=== PATIENT | female | born 1975 | race Caucasian/White ===

== ENCOUNTER 2023-09-09 22:16 | Emergency (ER) | payer BC, SELFPAY ==
[2023-09-09 22:22] VITALS: BP 177/87; PULSE 55; RESP 18; TEMP 36.5; O2SAT 99; BMI 41.5
--- NOTE | 2023-09-09 22:39 | XR_ITS ---
The [address] [address] Patient Name: SHELIA BALBUENA MRN: [id number] date: 1975 Sex: F Assigned Patient Location: ER Current Patient Location: ER Accession/Order Number: [id number] Exam Date: 09/09/2023 22:58 Report Date: 09/09/2023 23:27 At the request of: LAWRENCE CONNOR Procedure: XR hip LT min 2V EXAM: XR hip LT min 2V HISTORY: The patient is a 48-year-old female with atraumatic pain COMPARISON: None. FINDINGS: No fractures are seen within the proximal left femur or acetabulum. The width and alignment of the left hip joint is maintained. XR/XR hip LT min 2V IMPRESSION: Radiographically negative left hip. Electronically authenticated by: MASHA TORRES Date: 09/09/2023 23:27
--- NOTE | 2023-09-09 22:40 | ED.EXTPRO1 ---
HPI - Extremity Problem General Chief complaint: Extremity Problem, Nontraumatic Stated complaint: HIP PAIN Time Seen by Provider: 09/09/23 22:23 Source: patient Mode of arrival: walk-in Limitations: no limitations History of Present Illness HPI Narrative: 48-year-old female presents for pain to the left hip. She's had it for a week and there was no injury or unusual activity. She points to the lateral aspect of the hip region. No other joint has been hurting and she's never had issues with the left hip. She's been taking ibuprofen but it doesn't help and the pain is moderate. Related Data Home Medications Medication Instructions Recorded Confirmed acyclovir 400 mg tablet 400 mg PO DAILY 09/09/23 09/09/23 cholecalciferol (vitamin D3) 125 5,000 unit PO DAILY 09/09/23 09/09/23 mcg (5,000 unit) tablet esomeprazole sodium 20 mg 20 mg IV DAILY 09/09/23 09/09/23 intravenous solution ferrous sulfate 325 mg (65 mg 325 mg PO DAILY 09/09/23 09/09/23 iron) tablet (Feosol) furosemide 40 mg tablet 40 mg PO PRN edema 09/09/23 losartan 50 mg tablet 50 mg PO DAILY 09/09/23 09/09/23 metoprolol succinate 25 mg 25 mg PO DAILY 09/09/23 09/09/23 tablet,extended release 24 hr potassium chloride 10 mEq 10 meq PO BID 09/09/23 09/09/23 tablet,extended release tramadol 50 mg tablet 50 mg PO Q6H 09/09/23 09/09/23 warfarin 5 mg tablet 5 mg PO DAILY 09/09/23 09/09/23 Previous Rx's Medication Instructions Recorded acetaminophen 300 mg-codeine 30 mg 1 tab PO Q6H PRN pain 5 days #20 09/09/23 tablet tabs Allergies Allergy/AdvReac Type Severity Reaction Status Date / Time meloxicam AdvReac Mild Hypertensio Verified 09/09/23 22:31 n prednisone AdvReac Mild Hypertensio Verified 09/09/23 22:31 n Review of Systems ROS Narrative A ten point review of systems is negative except as noted above. PFSH PFSH Social History Smoking status: Never smoker Exam Narrative Exam Narrative: Nurses note and vital signs reviewed and patient is not hypoxic. General: The patient appears well and in no apparent distress. Patient is resting comfortably on cart. Skin: Warm, dry, no pallor noted. There is no rash noted. Head: Normocephalic, atraumatic Eye: Normal conjunctiva, no drainage Ears, Nose, Mouth, and Throat: oral mucosa is moist. Nares patent. Cardiovascular: Regular Rate and Rhythm Respiratory: Patient is in no distress, no accessory muscle use, lungs are clear to auscultation, no wheezing, rales or rhonchi Back: non-tender GI: soft and nontender Musculoskeletal: the left hip is examined and has no erythema bruise or rash. It has good range of motion. Mild palpable tenderness. No deformity. Left leg not swollen. Neurological: A&O, normal speech Psychiatric: Cooperative Constitutional Vital Signs, click to edit/add: Last Vital Signs Temp 97.7 F 09/09/23 22:22 Pulse 55 L 09/09/23 22:22 Resp 18 09/09/23 22:22 BP 177/87 H 09/09/23 22:22 Pulse Ox 99 09/09/23 22:22 O2 Del Method Room Air 09/09/23 22:22 Course Vital Signs Vital signs: Vital Signs Temperature 97.7 F 09/09/23 22:22 Pulse Rate 55 L 09/09/23 22:22 Respiratory Rate 18 09/09/23 22:22 Blood Pressure 177/87 H 09/09/23 22:22 Pulse Oximetry 99 09/09/23 22:22 Oxygen Delivery Method Room Air 09/09/23 22:22 Temperature 97.7 F 09/09/23 22:22 Pulse Rate 55 L 09/09/23 22:22 Respiratory Rate 18 09/09/23 22:22 Blood Pressure 177/87 H 09/09/23 22:22 Pulse Oximetry 99 09/09/23 22:22 Oxygen Delivery Method Room Air 09/09/23 22:22 MDM - Extremity (Nontraumatic) MDM Narrative Medical decision making narrative: x-ray per radiologist shows no acute findings. She'll be treated symptomatically and was referred to orthopedics. Treatment diagnosis and follow-up were discussed with the patient. Differential Diagnosis Differential diagnosis: Likely other (arthritis, bursitis, tendinitis) Imaging Data left hip x-ray: Radiologist's impression: ITS Impressions Hip X-Ray 09/09/23 22:39 IMPRESSION: Radiographically negative left hip. Electronically authenticated by: MASHA PANDYAANNIEKARLEE Date: 09/09/2023 23:27 Discharge Plan Discharge Chief Complaint: Extremity Problem, Nontraumatic Clinical Impression: Acute pain of left hip Patient Disposition: Home, Self-Care Time of Disposition Decision: 23:37 Condition: Good Mode of Transportation: Private Vehicle Prescriptions / Home Meds: New acetaminophen-codeine 300-30 mg tablet 1 tab PO Q6H PRN (Reason: pain) 5 Days Qty: 20 0RF No Action warfarin 5 mg tablet 5 mg PO DAILY acyclovir 400 mg tablet 400 mg PO DAILY metoprolol succinate 25 mg tablet extended release 24 hr 25 mg PO DAILY cholecalciferol (vitamin D3) 125 mcg (5,000 unit) tablet 5,000 unit PO DAILY tramadol 50 mg tablet 50 mg PO Q6H losartan 50 mg tablet 50 mg PO DAILY esomeprazole sodium 20 mg recon soln 20 mg IV DAILY Rx Instructions: administer over at least 3 mins if given IV push ferrous sulfate [Feosol] 325 mg (65 mg iron) tablet 325 mg PO DAILY furosemide 40 mg tablet 40 mg PO PRN (Reason: edema) potassium chloride 10 mEq tablet extended release 10 meq PO BID Instructions: Hip Pain (ED) Additional Instructions: follow-up with Dr. Barker Do not take tramadol with the Tylenol #3 Stand Alone Forms: Portal Instructions Referrals: Physician,Non-Staff, MD [Primary Care Provider] - 1 week
[2023-09-09] MEDS: ACETAMINOPHEN 300 MG/ 30 MG CODEINE TABLET 1 TAB PO (23:50)
[2023-09-09 23:51] VITALS: BP 163/69; PULSE 50; O2SAT 97
== END 2023-09-09 23:59 | disposition home or self-care (01) ==
PROVIDERS: Emergency Provider Emergency Medicine
DX: M25.552 Pain in left hip (principal); Z79.01 Long term (current) use of anticoagulants
CPT/HCPCS: 73502; 99283

== ENCOUNTER 2023-09-15 08:47 | Outpatient (OUT) | payer BC, SELFPAY ==
--- OUTSIDE RECORDS SUMMARY | 2023-09-15 08:57 | XMS_ITS | CCD ---
Author Name Unknown Address [address] [place] [address] Organization [facility] Care Team Providers Care Freight Loader Name Role Phone SONYA, DR WATERMAN Admitting Unavailable SONYA, DR WATERMAN Attending Unavailable SONYA, DR WATERMAN Primary Care Unavailable SONYA, DR WATERMAN Consulting Unavailable ZIEBER, DR JONAH Estrada Consulting Unavailable SONYA, DR WATERMAN Admitting Unavailable SONYA, DR WATERMAN Attending Unavailable SONYA, DR WATERMAN Primary Care Unavailable SONYA, DR WATERMAN Consulting Unavailable ZIEBER, DR JONAH Estrada Consulting Unavailable SONYA, DR WATERMAN Admitting Unavailable SONYA, DR WATERMAN Attending Unavailable SONYA, DR WATERMAN Primary Care Unavailable SONYA, DR WATERMAN Admitting Unavailable SONYA, DR WATERMAN Attending Unavailable SONYA, DR WATERMAN Primary Care Unavailable SONYA, DR WATERMAN Consulting Unavailable WEST, DR JEANCARLOS Wong Consulting Unavailable HemmerJayleen Unavailable Unavailable Unavailable Unavailable Adria Snyder Primary Care Provider [phone] SonyaCassie Primary Care Provider SONYA, RUGEN MABLONGY Primary Care Unavailable MARCOS WALTON Referring Unavailable SONYA, RUGEN JERIY Primary Care Unavailable MARCOS WALTON Attending Unavailable MARCOS WALTON Referring Unavailable SONYA, RUGEN JERIY Primary Care Unavailable SONYA, RUGEN MABLONGY Primary Care Unavailable SONYA, RUGEN M Primary Care Unavailable SONYA, RUGEN M Consulting Unavailable Bharathi Lopez Attending Unavail able John, Bharathi [place] Admitting Unavail able SONYA, RUGEN M Primary Care Unavailable Bharathi Lopez Attending Unavail able Bharathi Lopez Admitting Unavail able YUNG GORDILLO Attending Unavailable JAYLENE ARANGO Attending Unavailable Allergies Allergy Classification Reported Allergen(s) Allergy Type Date of Onset Reaction(s) Facility (1 source) No Known Medication Allergies; Translations: [No Known Medication Allergies] Propensity to adverse reactions to drug (disorder) [facility] Repository Medications Current Medications Medication Drug Class(es) Dates Sig (Normalized) Sig (Original) perflutren lipid microspheres 1.3 mL in NaCl (PF) 0.9% 10 mL injection (DEFINITY) (3 sources) Start: 02-26-2022 End: 05-28-2023 perflutren lipid microspheres 1.3 mL in NaCl (PF) 0.9% 10 mL injection (DEFINITY) 125 ml sodium chloride 9 mg/ml prefilled syringe (3 sources) Start: 02-26-2022 End: 05-28-2023 sodium chloride 0.9 % (flush) 10 mL (BD POSIFLUSH) Completed/Discontinued Medications Medication Drug Class(es) Dates Sig (Normalized) Sig (Original) acetaminophen 325 mg oral tablet (3 sources) Start: 08-04-2016 take 2 tablets by mouth every six hours as needed acetaminophen (TYLENOL) 325 mg tablet Take 2 tablets by mouth every 6 hours as needed (for mild surgical pain). 0 08/04/2016 Active Comment on above: Take 2 tablets by mo [facility] every 6 hours as needed (for mild surgical pain). acyclovir 400 mg oral tablet (2 sources) Herpesvirus Nucleoside Analog DNA Polymerase Inhibitor, Herpes Simplex Virus Nucleoside Analog DNA Polymerase Inhibitor, Herpes Zoster Virus Nucleoside Analog DNA Polymerase Inhibitor acyclovir (ZOVIRAX) 400 mg tablet Take 400 mg by mouth as needed. For cold sores 0 Active Comment on above: Take 400 mg by mouth as needed. For cold sores aspirin 81 mg chewable tablet (4 sources) Platelet Aggregation Inhibitor, Nonsteroidal Anti-inflammatory Drug Start: 08-04-2016 take 1 tablet by mouth once daily aspirin 81 mg chewable tablet Take 1 tablet by mouth once daily. 0 08/04/2016 Active take 1 tablet by mouth once darrian y Aspirin EC 81 MG Oral Tablet Delayed Release TAKE 1 TABLET DAILY. Quantity: 90 Refills: 3 Ordered: 21-Jan-2022 DO Active Comment on above: Take 1 tablet by [place] once daily. cholecalciferol 0.05 mg oral capsule (2 sources) Vitamin D Cholecalciferol, Vitamin D3, (VITAMIN D-3) 50 mcg (2,000 unit) cap Take by mouth once daily. 0 Active Vitamin D3 125 M CG (5000 UT) Oral Capsule TAKE DIRECTED. Quantity: 0 Refills: 0 Ordered: 21-Jan-2022 DO Active Comment on above: Take by mouth once d aily. docusate sodium 100 mg oral capsule (4 sources) Start: 7 take 1 capsule by mouth once daily docusate sodium (COLACE) 100 mg capsule Take 1 capsule by mouth once daily. 0 07/17/2017 Active Comment on above: Take 1 capsule by mo [facility] once daily. esomeprazole 20 mg delayed release oral capsule (2 sources) Proton Pump Inhibitor take 1 capsule by mouth once daily, then take 6 capsules by mouth in the morning esomeprazole (NEXIUM) 20 mg capsule Take 20 mg by mouth DAILY (6 AM). 0 Active Comment on above: Take 20 mg by mouth DAILY (6 AM). ferrous sulfate 325 mg oral tablet (3 sources) take 1 tablet by mouth once daily ferrous sulfate 325 mg (65 mg iron) tablet Take 325 mg by mouth once daily. 0 Active Comment on above: Take 325 mg by mouth once daily. furosemide 40 mg oral tablet (4 sources) Loop Diuretic Start: 7 take 1 tablet by mouth once daily as needed for edema furosemide (LASIX) 40 mg tablet Take 1 tablet by mouth once daily as needed (fluid retention). 0 07/17/2017 Active Comment on above: Take 1 tablet by [place] once daily as needed (fluid retention). melatonin 10 mg oral capsule (4 sources) Start: 7 take 1 capsule by mouth once daily at bedtime melatonin 10 mg cap Take 1 capsule by mouth daily at bedtime. 0 07/17/2017 Active take 1 tablet by mouth at bedtim e Melatonin 10 MG Oral Tablet TAKE 1 TABLET Bedtime Quantity: 0 Refills: 0 Ordered: 21-Jan-2022 DO Active Comment on above: Take 1 capsule by mo [facility] daily at bedtime. 24 hr metoprolol succinate 25 mg extended release oral capsule (1 source) beta-Adrenergic Jarad take 25 mg by mouth once daily metoprolol succinate 25 mg CSpX Take 25 mg by mouth once daily. 0 Active Comment on above: Take 25 mg by mouth once daily. penicillin v potassium 500 mg oral tablet (3 sources) Start: 06-22-2017 End: 05-02-2022 take 0.5 tablet by mouth twice daily penicillin V potassium (V-CILLIN, VEETIDS) 500 mg tablet Take 0.5 tablets by mouth twice daily. 90 tablet 0 06/22/2017 05/02/2022 Discontinued (Other) Comment on above: Take 0.5 tablets by mouth twice daily. potassium chloride 20 meq extended release oral tablet (4 sources) Start: 07-17-2017 take 1 tablet by mouth once daily as needed for edema potassium chloride 20 mEq TbER Take 1 tablet by mouth once daily as needed (fluid retention; take with Lasix). 0 07/17/2017 Active take 1 tablet by [place] once daily as needed Potassium Chloride ER 10 MEQ Oral Tablet Extended Release TAKE 1 TABLET Daily prn Quantity: 0 Refills: 0 Ordered: 21-Jan-2022 DO Active Comment on above: Take 1 tablet by patsy th once daily as needed (fluid retention; take with Lasix). predniSONE 1 mg oral tablet (1 source) take 1 tablet by mouth once daily as needed predniSONE 1 MG Oral Tablet TAKE 1 TABLET Daily prn Quantity: 0 Refills: 0 Ordered: 21-Jan-2022 DO Active raNITIdine 75 mg oral tablet (3 sources) Histamine-2 Receptor Antagonist Start: 7 End: 2 take 1 tablet by mouth once daily ranitidine (ZANTAC 75) 75 mg tablet Take 1 tablet by mouth once daily. 0 07/17/2017 05/02/2022 Discontinued (Other) Comment on above: Take 1 tablet by patsy [place] once daily. traMADol hydrochloride 50 mg oral tablet (1 source) Opioid Agonist take 1 tablet by mouth three times daily as needed traMADol HCl - 50 MG Oral Tablet TAKE 1 TABLET 3 TIMES DAILY NEEDED. Quantity: 0 Refills: 0 Ordered: 21-Jan-2022 DO Active warfarin sodium 5 mg oral tablet (4 sources) Vitamin K Antagonist Start: 7 warfarin (COUMADIN) 5 mg tablet Take 5 mg by mouth daily as directed. M&F take 2.5 mg, 5 mg all other days 30 tablet 1 07/17/2017 Active take 7 tablets by mouth once War farin Sodium 5 MG Oral Tablet take as directed per PCP Quantity: 0 Refills: 0 Ordered: 21-Jan-2022 DO Active Comment on above: Take 1 tablet by patsy th daily as directed. Next INR check 08/06 Take 5 mg by mouth d aily as directed. M&F take 2.5 mg, 5 mg all other days Problems Active Problems Problem Classification Problem Date Documented Date Episodic/Chronic Essential hypertension (3 sources) Essential hypertension; Translations: [Essential (primary) hypertension] Onset: 07-28-2016 08-04-2016 Chronic Heart valve disorders (20 sources) History of aortic valve replacement; Translations: [Heart valve replaced by other means] Onset: 07-24-2016 Chronic Nonmalignant breast conditions (5 sources) Unspecified lump in the right breast, unspecified quadrant; Translations: [Unspecified lump in the right breast, upper outer quadrant] Onset: 09-06-2021 Episodic Other aftercare (1 source) Drug therapy finding; Translations: [Long-term (current) use of other medications] Episodic Other nutritional; endocrine; and metabolic disorders (1 source) Body mass index 40+ - severely obese; Translations: [Morbid obesity] Chronic Other nutritional; endocrine; and metabolic disorders (1 source) Body mass index 30+ - obesity; Translations: [Obesity, unspecified] Chronic Other nutritional; endocrine; and metabolic disorders (1 source) Obesity, unspecified; Translations: [Obesity (BMI 30-39.9)] Onset: 05-02-2022 Chronic Other screening for suspected conditions (not mental disorders or infectious disease) (8 sources) Other abnormal and inconclusive findings on diagnostic imaging of breast; Translations: [Encounter for screening mammogram for malignant neoplasm of breast] Onset: 04-26-2021 Episodic Residual codes; unclassified (1 source) History of tricuspid valve repair; Translations: [Other specified postprocedural states] Episodic Residual codes; unclassified (1 source) Other specified postprocedural states; Translations: [S/P TVR (tricuspid valve repair)] Onset: 05-02-2022 Episodic Unclassified (3 sources) SUMMARY Onset: 07-31-2016 08-04-2016 Past or Other Problems Problem Classification Problem Date Documented Date Episodic/Chronic Administrative/social admission (3 sources) Discharge status; Translations: [Encounter for administrative examinations, unspecified] Onset: 07-24-2016 08-04-2016 Episodic Other aftercare (3 sources) Anticoagulant effect; Translations: [Encounter for therapeutic drug level monitoring] Onset: 07-29-2016 08-04-2016 Episodic Unclassified (1 source) Never smoked tobacco; Translations: [Never a smoker] Results Test Name Value Interpretation Reference Range Facility Coding Summaryon 06-04-2022 Coding Summary HTMLBase 64 TfslqamuTCw2oVa+PGhlY WQ+CK2RHXKuF70pyIXguH 0KH0kPPR4PKSEVCIIOLS4 VKO5tjOC7JVfaO5OrqkZs CsbmiKWpXJ51GAl5PIC5j JroWIcezQ9qsWMvJ5d3Ec ZdIQ48vU40NZzgHRShQwM 3LjZpbjsgbWFy P2mgBmHnjSOuWqv+PHRhY mxlIHdpZHRoPScxMDAlJy PsyJehMN8iOz7mQTPzCXM vbGxhcHNlOiBj g0jrZKLrROnqOX6zjQlsO 2FbnKQ6KYNcw8t7Ac38jM I+NEAkKUL3oVhzZBnwg37 4TlIts5duDUP0 wLYtBGfmZXY7Z18ko2T1B APwTHDjYYB6fGI8kA9oqE phfjtdK9RtiMGoFbC8NGI 0yADcmX0phFsy kuolkZ2gDxa+X50IUL7IY NYJGV7FUxc1A5QsPmmhmM I+DG55YOEyOO20iUZtqEL ea9likNq2DlLz HIQyAEO7cMrbIGxdz6JgV SVaU94vmLSuk5U1TFTezW rjiTQrTcSkvSM2vP3aAJj wbhbzj7flnieb Kozci4mzkg15qM99O55dQ AkkNHGcKXR5DAZiSYZkdW bbyn2asV8hUz0+GPgti4j oy0jolFf3RiEh FSAqoiQrmUcpCOO6o6WzK a79H3CcnZdtv2AyBrq2aa 62xPJlw8T4yCM2MKwhKFM sfD4uYNtmTtI0 KNHpSrZlpQ33lJNwRTrsD x2xeDtjcOwjVF0tAJJefz wtLMUeeV0lHRHqqVEfxZd pZZ3xSOEprssx b743GzWdGSO9EJStzLDdL 5AslO3yFpUlDKPsWRQuH0 RnbQEjCQcuK070XRybUpY 5RQEvqxDhB6Yb VYLjjJddQwQ2d1H1Vb7Wn 7JojicdCJP1BXnsIGRwVt S0DdLcBuE3H0YqOsv0CZO ttFvdRL0lT1Bu CUQaaonmmzvonUB3QZOpB HNgeV64hEBzLYfqXg2au8 X6k327KEUlFZGqjL48Ae2 udDogMTBwdCBU sU7fjexvx4abtczkLvAtR PSaVQy2JNk6KBKlfHuhDd VxOTS4RzS0YPF0lUByyX9 bmFzcfosyiX5w Oyc+U87keY1aVJM8FZI9f cedZHQhtmFeMA01IA95B7 RyPjwvdGFibGU+PGRpdiB slKinPC5fHzHb o1oni0WaPOcfE0LwFVZgF ZtaFoi0SPKiSZA5pEL3eO 5rETMxHNltl7G0rXY4P1A iceBdgw8hh0lq TKYbJMicG96gyGQmw8I9K XCytKG9AONfoTpqXfYpqI 93Oyc+FAFswQdpp7VzWnq hf3uni6nuxMs9 RlLzDBAyegOrvOsnQXO1x 9FxQy01S06oLMqdSUImDC HyIIOzQEHjmTvuil9yaH0 wIi8+PGNvbCB3 rYA3lK4pUNFvTvZ8BThcK 901MxDjeNCwKyiye7jvw0 fnsTq8UrEwMINwsvQiaDi zDID7a8JtNl62 P04eIKnhFVCaXYScWGElJ OHqmHkgbm1pqL5tCn1+PC 6iw3ilwa23bS80lEZ+PHR tBOC8tFzyXNvx GWNsmR3uZWbnEpU3BOUyE bTtbD32sMMoPYdtXi1spK najKjtSS2kARVdudwjh19 1UgDzr0cjNLJn wCZoGOfsDIF5C20qy0Q7Y ZGqLXQeMHV4nCK2rO4ppF lnbjogbGVmdDsgdmVydGl jOEwqZJkbM421 IHRvcDsnPlBhdGllbnQgT tMqWMz4I2DfYha6XNDrbB cbZE4jlFUuPXwxZb3etSm xnKqlCP8xNKDb ghxun924LwXfo1bdZPIgt NFnXAhgWHQ8O61vb5S2EG VdGHLeMMP1uPA2eE8mqGh nbjogbGVmdDsg enXfdYlrCEcnYRyfA288D HRvcDsnPkJpcnRoIERhdG E1CF24XC30wFKkc1H4tKZ 7P9FvQNElxoln rhuijPA2EKUwWRXysZ58G d0pvUmrMy3nTSSaIDX2AN OdgLSlM9FsxX6xAfQvVSJ eUKNxK9GfpPWw EQzxL287QGmmWyH2ENCvn rUvS7VqQHVwpBrhMqZ3s9 G6De4GY0W8HJ39IQ12wZU wc5A9wZG6K5Jb OHOixamtsaqqsOJ6AGYdU UBlxY32Do3erCisDf0xRW ZqRCU0DWIntFLlE6AfvH8 yOiAjMDAwMDAw E1LykYIeATekL944CDuiN mN7THShddNeD9JeOLRrtQ ugGoH4g9W7Zy9JTEy5OJ9 1VO60wVBuy6U2 hPS6V3NjHAVwnswngarcf EY6NYBqRJQfcP10Gf9rrU vnIt5xNMItFZZ6IUVggWT kP2QgnC0hTsXs MWOoICMmA5GheOCxTBjiQ 188LMrbNkC8FWIgswFmS2 TiZOQriRxmHiD4q9R2Xb2 UDSRsSD07ROO8 nDT6UM87VD62X4MbEftmo GFibGU+PHRhYmxlIHdpZH RoPScxMDAlJyBzdHlsZT0 pGr0hHTDcLCYb xMhqqBQsWnFxf8tfKGWtA EovVF4jhOxsW2LboCH7OR Xzy9g3Kj83Z80fG4FvdEC +HSDfxPX2pYC4 fJ5kTvLkYiZ0XOulG985J nNsqYQwCmtep6uio9qjhB o9VkC9FMVzfgQqzJwlOGW 8h1SbCv69A77w IHdpZHRoPSIxNSUiIHZhb Iwbhs5ypR7jGp9+PGNvbC Q1vLM2mP3yJnGkWnE6YJz lB005RzEqtCPo Xvmpz2oyv6gjsKh1VaKqJ XMkqbFqrHqwYTX8t5ByQl 43X3GphDexf8WnHeo3tr5 6hSJrw8J1mHA1 F2CbOGKzidrghCEjkYyoA S6vFVGejhehVKAajU2iOC GnR6k0OnApIiB2KEdtQ4H geqQ1PWGtfEHq OUbiMXY7S17ra2V3PFDmM EBuADU6vVI9zS5xvNfdju ogbGVmdDsgdmVydGljYWw wNUpzS497YVKq kUkvKYFbiO4eIPOsuPSmq BraVX2vURQttryqQvZYY7 VSUywgSkFRVUxBTiBTPC9 6PU97bNMeg1Y9 lDZ5F1RaHWIbzoayindqn XX6GQYbMNIgyJ09xDFuLS luOr1ff8V4d491XSTuXNZ nyA59Ky8uzPyj KGIwvNSUaL7mfbmqt9uos skrCxFrSTVcUQi9WKy9JK XcbKleZhAcDIM0DfN5MYQ 5tVBbmY9jnZcz rtibrX1zIyh+MDcvMjcvM Og9NNvokDK+STIvNTE6tA smUXuhQWZhgZ7iWRSfS6k 3JoAbBaG2JXbw X6ChMHNncggzAp64vB2zJ xLaJvG0ZCytQ3IizyW3KQ CviFYlZEvyVXC4Q73ts4F 4PGXqJFZbGQO3 eGB3qF5zrReqxayndRYsv DsgdmVydGljYWwtYWxpZ2 41HVSezQwzYcY3BWpzWKG vTK15BT58tVHh o5T8xZT3M2EyLFSjswuid felsZM1ALAyFZHmsC68fO CfGKxfIf8in6P4s183DIV nPKSlcG55Xl2p uOkpKXTltHLYeT0dqyqal 2mldfjeOsEuJXXpLFf3EB u4FFPjyYisDpKjOJF6EuQ 0DZD4zQQgsP6x iGjvvwcplA6sMwp+RkVNQ QjNWI74NK14nGAzy4P4bK D4A9GmPSIvvimqzvdelGX 3MWNlHDNzhR20 kJMaELstVy7co3W2v123O KBhYFUcuH07Ju6gqUhrMK VhfECUnV7xetdbt5melir gIzAwMDAwMDt0 KAy7ZLXxgRkqNdBaPLQ0A oU5LBG6zIWfkT8aeQyglx aolM1aPdr+GFQ7YSH4nnu awiz3Z8QhQmrk dHI+JB63XSWxQJ85oJEdz HIna7uokOs0BeJjGAIqHA V4eOgmHGtvk3MfKAZbN50 nbKUtp4E8VORx eZxzyMCdVsQjxQX5tK2yY Abrieyqj5zsdvcdPknqe3 enqo55bZ54G05aTAjnPGH oPSIzMCUiIHZh oBpggo0cbH8cYu2+PGNvb SS5bBV4pZ9fOyHtQeH0UZ tyK327NrDeeWUtGwbyl3x ay4ynaBt5MkGu BSZwfkUymRdsTDI0x3YcR z44G04bVRkmONCbOJEjBT BzEQLqnMgpdv8rbS7pHg0 +YN6dm3mzgf29 dH39kVD+OXNxTMF4qNvhG FizFDGauL0iBBiwXoG1PJ WoQpDuuY38xVQnVQfrZk0 ohEvdnOkyAB8g IOZwaetkg142SoUkl9dbL UNlcNUzCAnoHZP2D47hk5 U7XIXtOZHvDBX4yUC6mL4 hbGlnbjogbGVm dDsgdmVydGljYWwtYWxpZ 099ZRXriEupFiHqxCCgT8 ixxpNPWQ1vYtdkcKV+PHR vPEI0hMwxRJam JXQmkJ9oKOYrY0c7QqLeP pB1URpuF2NmlqN1QSYmfY JdQVSufAXThN4ozqqdr8k vcjogIzAwMDAw JYi9KDa9PMCyzDfiZcFkQ ML8GhQ6LJB0hIBdiY4psP drgysjeI1sKxa+RklOOjw vdGQ+PHRkIHN0 iAzwQHcySQAvdZ1kWSXrN 2k3SpPwXfC6GGqpQ1Lakg Y1PSNyySNpQOOzsUMFlQ7 jvrjfi5psqudx PeTvFWJaXYu6MOo4UQAhi EifUgSaEHG1OfD2YKJ5mV HmaZ9lgTlcmghdzD8vZnh +TVJOOjwvdGQ+ SPYzIBB7hFwoCJbaTIEem Z7zOTTzF0j8FnJrLtM4XY tiG8OcmdT9HNTldHMaCCA mnCWQuR7dpyyt y3mcejysOrSzWAEbWZo1O Az3LYOygBkzMoHqDQW5Qu E2DTN8nHQfuC6glRdgfwf woO2oOup+UGF5 CWH0AQ11ZG78I2IqJpsqo GFibGU+PHRhYmxlIHdpZH RoPScxMDAlJyBzdHlsZT0 zPj5vBZGcELZf bGx (more content not included)... [facility] Consent Formson 06-03-2022 Consent Forms [id number]#1 [facility] Instructions [id number]#1. [facility] [id number]#1 [facility] Outside Recordson 06-03-2022 Outside Records [id number]#1. [facility]-02-2022 Anesthesia Note Patient: SHELIA BALBUENA Age: 47 years Sex: FEMALE : 1975 Associated Diagnoses: None Author: Sky Parsons MD Postoperative Information Post Operative Note: Operative Day. Anesthetic utilized: Monitored anesthesia care. Health Status Allergies: Allergic Reactions (All) No Known Medication Allergies Problem list (past medical history): All Problems Cardiomyopathy / SNOMED CT 333367040 / Confirmed H/O aortic valve insufficiency / SNOMED CT 887727697 / Confirmed History of obesity / SNOMED CT 166583170 / Confirmed Mitral valve insufficiency / SNOMED CT 66716232 / Confirmed Tricuspid valve insufficiency / SNOMED CT 143820209 / Confirmed Physical Examination VS/Measurements Vital Signs (last 24 hrs) Last Charted Heart Rate Monitored 65 bpm (JUN 02 17:39) Resp Rate 16 br/min (JUN 02 17:39) SBP 124 mmHg (JUN 02 17:39) DBP 68 mmHg (JUN 02 17:39) Weight 115.40 kg (JUN 02 12:45) Height 167.64 cm (JUN 02 12:45) Review / Management Condition: Stable. Assessment Anesthetic outcome No anesthetic complications noted. Adequate pain relief. adequate hydration. Pt awake, alert, and conversant. No Complaint of nausea and vomiting. Plan Transfer/ Discharge: Patient can be discharged from PACU when criteria met. Condition good. [Electronically Signed on: 06/02/2022 17:54 EDT] Sky Parsons MD [Verified on: 06/02/2022 17:54 EDT] Sky Parsons MD [facility] Anesthesia Note Patient: SHELIA BALBUENA Age: 47 years Sex: FEMALE : 1975 Associated Diagnoses: None Author: Sky Parsons MD Preoperative Information Anesthesia history: Patient history: No difficult intubation, No malignant hyperthermia. Family history: No malignant hyperthermia. Review of Systems Constitutional: Negative. Respiratory: Negative, No shortness of breath. Cardiovascular: No chest pain. Neurologic: Alert and oriented X4. Health Status Allergies: Allergic Reactions (All) No Known Medication Allergies Current medications: Home Medications (14) Active acyclovir 400 mg oral tablet 400 mg = 1 tab(s), PO, Daily aspirin 81 mg oral delayed release tablet 81 mg = 1 tab(s), PO, Daily docusate sodium 100 mg oral tablet 100 mg = 1 tab(s), PRN, PO, Daily esomeprazole 20 mg oral delayed release capsule 20 mg = 1 cap(s), PO, Daily FeroSul 325 mg (65 mg elemental iron) oral tablet 325 mg = 1 tab(s), PO, Daily ibuprofen 800 mg oral tablet 800 mg = 1 tab(s), PRN, PO, Daily Lasix 40 mg oral tablet 40 mg = 1 tab(s), PRN, PO, Daily melatonin 10 mg oral tablet 10 mg = 1 tab(s), PRN, PO, Once a day (at bedtime) Metoprolol Succinate ER 25 mg oral tablet, extended release 25 mg = 1 tab(s), PO, Daily potassium chloride 10 mEq oral capsule, extended release 10 mEq = 1 cap(s), PRN, PO, Daily traMADol 50 mg oral tablet 50 mg = 1 tab(s), PRN, PO, q12hr Vitamin D3 50 mcg (2000 intl units) oral tablet, chewable warfarin 5 mg oral tablet 2.5 mg = 0.5 tab(s), PO, MF warfarin 5 mg oral tablet 5 mg = 1 tab(s), PO, [id number] Problem list (past medical history): All Problems Cardiomyopathy / SNOMED CT 252307475 / Confirmed H/O aortic valve insufficiency / SNOMED CT 875380886 / Confirmed History of obesity / SNOMED CT 488649274 / Confirmed Mitral valve insufficiency / SNOMED CT 55726622 / Confirmed Tricuspid valve insufficiency / SNOMED CT 455538164 / Confirmed Histories Family History: No family history items have been selected or recorded. Procedure history: Cardiac catheterization, left heart (893823973). Cholecystectomy (86296422). Ring annuloplasty (522157323). AVR - Aortic valve replacement (1244511343). Entire MV - Mitral valve (1615092185). History of 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 ([id number]). Comments: 05/29/2022 11:11 Olinda Yanez RN repair, not replacemnt Cardiac catheterization, right heart (56590052). Social History Electronic Cigarette/Vaping Assessment Electronic Cigarette Use: Never. Alcohol Assessment Use: Never. Tobacco Assessment Never tobacco user Tobacco Use:. Substance Abuse Assessment Substance use: Never. . Social & Psychosocial Habits Alcohol 05/29/2022 Alcohol Use: Never Substance Abuse 05/29/2022 Substance use: Never Tobacco 05/29/2022 Smoking tobacco use: Never tobacco user Electronic Cigarette/Vaping 05/29/2022 Electronic Cigarette Use: Never . 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 No issues since valve replacements Physical Examination VS/Measurements Vital Signs (last 24 hrs) Last Charted Heart Rate Peripheral L 55 bpm (JUN 02 12:45) Resp Rate 18 br/min (JUN 02 12:45) SBP H 173 mmHg (JUN 02 12:45) DBP H 97 mmHg (JUN 02 12:45) Weight 115.40 kg (JUN 02:45) Height 167.64 cm (JUN 02 12:45) Airway: Mallampati classification: II (soft palate, fauces, uvula visible). Temporomandibular joint mobility: Good. Mouth: Adequate opening, Teeth ( Within normal limits, chipped upper right molars ). Neck: Full range of motion. Respiratory: Lungs are clear to auscultation. Cardiovascular: Regular rhythm. Neurologic: Alert, Oriented. Review / Management Laboratory Results Plan [employer] [place] [employer]#( A) physical status classification: Class III. Anesthetic Preoperative Plan Anesthesia: Monitored anesthesia care. Anesthetic plan, risks, benefits, and alternatives discussed with the patient and/or family. Patient verbalized understanding. [Electronically Signed on: 06/02/2022 15:30 EDT] Sky Parsons MD [Verified on: 06/02/2022 15:30 EDT] Sky Parsons MD [facility] Inpatient Patient Summaryon 06-02-2022 [place] [id number] Patient Discharge Instructions Name: ASHA BALBUENATATIANNA Duhnam : 1975 Patient Address: [address] [place] [address] Primary Care Provider: Name: CASSIE HASSAN MD After you are discharged if you find you have any questions, please, call [phone] ext [phone] to speak to a nurse. Discharge Diagnosis: Right carpal tunnel syndrome Prescription Information: If you have been given a prescription for narcotics, seek immediate medical attention if you have any difficulty breathing or any sudden status changes such as confusion and sleepiness. If you or anyone you know is experiencing suicidal thoughts, mental health, alcohol and/or drug addiction problems; contact the [facility] 09/03 Crisis Hotline -Text 4HOPE to 741143. If you received any narcotics, sedation, or any other medication that causes drowsiness for the next 24 hours, unless otherwise directed: ? Do not drive a car. ? Do not operate machinery such as power tools, lawn mowers, drills, sewing machines, or stoves ? Avoid alcoholic beverages and drugs for allergies, nerves, or sleep ? Do not make important personal or business decisions or sign any legal documents [facility] would like to thank you for allowing us to assist you with your healthcare needs. The following includes patient education materials and information regarding your injury/illness. SHELIA BALBUENA has been given the following list of follow-up instructions, prescriptions, and patient education materials: Follow-up Instructions With: Address: When: CASSIE HASSAN [address] [place] [id number] Business (1) With: Address: When: Manjinder Vargas [address] [place] [address] [address] [place] [address] [facility] (1) 06/10/2022 2:00 PM Medications During the course of your visit, your medication list was updated with the most current information. The details of those changes are reflected below: Medications to Continue That Have Not Changed Other Medications acyclovir (acyclovir 400 mg oral tablet) 1 tab(s) Oral every day. aspirin (aspirin 81 mg oral delayed release tablet) 1 tab(s) Oral every day. cholecalciferol (Vitamin D3 50 mcg (2000 intl units) oral tablet, chewable) docusate (docusate sodium 100 mg oral tablet) 1 tab(s) Oral every day as needed for constipation. esomeprazole (esomeprazole 20 mg oral delayed release capsule) 1 cap(s) Oral every day. ferrous sulfate (FeroSul 325 mg (65 mg elemental iron) oral tablet) 1 tab(s) Oral every day. furosemide (Lasix 40 mg oral tablet) 1 tab(s) Oral every day as needed Other (see comment). ibuprofen (ibuprofen 800 mg oral tablet) 1 tab(s) Oral every day as needed for pain. melatonin (melatonin 10 mg oral tablet) 1 tab(s) Oral once a day (at bedtime) as needed as needed for insomnia. metoprolol (Metoprolol Succinate ER 25 mg oral tablet, extended release) 1 tab(s) Oral every day. potassium chloride (potassium chloride 10 mEq oral capsule, extended release) 1 cap(s) Oral every day as needed o. traMADol (traMADol 50 mg oral tablet) 1 tab(s) Oral Every 12 hours scheduled time as needed as needed for pain. warfarin (warfarin 5 mg oral tablet) 1 tab(s) Oral Thursday and Thursday. warfarin (warfarin 5 mg oral tablet) 1 tab(s) Oral Thursday, Thursday, , Thursday, an. It is important to always keep an active list of medications available so that you can share with other providers and manage your medications appropriately. As an additional courtesy, we are also providing you with your final active medications list that you can keep with you. acyclovir (acyclovir 400 mg oral tablet) 1 tab(s) Oral every day. aspirin (aspirin 81 mg oral delayed release tablet) 1 tab(s) Oral every day. cholecalciferol (Vitamin D3 50 mcg (2000 intl units) oral tablet, chewable) docusate (docusate sodium 100 mg oral tablet) 1 tab(s) Oral every day as needed for constipation. esomeprazole (esomeprazole 20 mg oral delayed release capsule) 1 cap(s) Oral every day. ferrous sulfate (FeroSul 325 mg (65 mg elemental iron) oral tablet) 1 tab(s) Oral every day. furosemide (Lasix 40 mg oral tablet) 1 tab(s) Oral every day as needed Other (see comment). ibuprofen (ibuprofen 800 mg oral tablet) 1 tab(s) Oral every day as needed for pain. melatonin (melatonin 10 mg oral tablet) 1 tab(s) Oral once a day (at bedtime) as needed as needed for insomnia. metoprolol (Metoprolol Succinate ER 25 mg oral tablet, extended release) 1 tab(s) Oral every day. potassium chloride (potassium chloride 10 mEq oral capsule, extended release) 1 cap(s) Oral every day as needed o., takes as needed with Lasix traMADol (traMADol 50 mg oral tablet) 1 tab(s) Oral Every 12 hours scheduled time as needed as needed for pain. warfarin (warfarin 5 mg oral tablet) 1 tab(s) Oral Mond (more content not included)... Normal [facility] MAGR Intraoperative Recordon 06-02-2022 MAGR Intraoperative Record MAGR Intra-Op Record Summary Primary Physician: Bharathi Lopez DO Finalized Date/Time: 06/02/22 18:11:29 Pt. Name: SHELIA BALBUENA /Sex: 1975 FEMALE Med Rec #: [id number] Physician: Bharathi Lopez DO Financial #: [id number] Pt. Type: D Room/Bed: / Admit/Disch: 06/02/22 12:27:28 - Institution: Case Times MAGR Entry 1 Patient In Room Time 06/02/22 17:03:00 Out Room Time 06/02/22 17:37:00 Anesthesia Start Time 06/02/22 17:03:00 Stop Time 06/02/22 17:42:00 Surgery Start Time 06/02/22 17:22:00 Stop Time 06/02/22 17:35:00 Last Modified By: Dahlia Mendenhall RN 06/02/22 17:45:00 Case Attendance MAGR Entry 1 Entry 2 Entry 3 Case Attendee Bharathi Lopez Robert M MD Long, Barbara RN Andrew DO Role Performed Surgeon - Primary Anesthesiologist of [employer] Wheel Operator Record Time In 06/02/22 17:03:00 06/02/22 17:03:00 06/02/22 17:03:00 Time Out 06/02/22 17:37:00 06/02/22 17:37:00 06/02/22 17:37:00 Procedure Carpal Tunnel Carpal Tunnel Carpal Tunnel Release(Right) Release(Right) Release(Right) Last Modified By: Dahlia Mendenhall RN, Barbara RN Long, Barbara RN 06/02/22 17:37:37 06/02/22 17:37:37 06/02/22 17:37:37 Entry 4 Entry 5 Case Attendee Azeb Farley CST, CST/Kristi SIMMS PRODUCT ARCHITECT Role Performed Scrub Personnel Supervisor [employer] Time In 06/02/22 17:03:00 06/02/22 17:03:00 Time Out 06/02/22 17:37:00 06/02/22 17:37:00 Procedure Carpal Tunnel Carpal Tunnel Release(Right) Release(Right) Last Modified By: Dahlia Mendenhall RN, Barbara RN 06/02/22 17:37:37 06/02/22 17:37:37 Surgical Procedures MAGR Pre-Care Text: A.20 Verifies operative procedure, surgical site, and laterality Im.150 Develops individualized plan of care Entry 1 Procedure Carpal Tunnel Release Primary Procedure Yes Primary Surgeon Bharathi Lopez Right Pietro DO Surgeon Comment RELEASE RIGHT CARPAL Start 06/02/22 17:22:00 TUNNEL Stop 06/02/22 17:35:00 Anesthesia Type MAC Surgical Service Orthopedics Wound Class Clean Technique Details Closure Technique Primary Entire procedure No was performed via laparoscope or robotic assistance Last Modified By: Dahlia Mendenhall RN 06/02/22 17:37:38 Post-Care Text: O.730 The patient's care is consistent with the individualized perioperative plan of care General Case Data MAGR Pre-Care Text: A.350.1 Classifies surgical wound Entry 1 Case Information OR MAGR OR 01 Case Level Level 3 Wound Class Clean Specialty Orthopedics ASA Class 3 Diagnosis Preop Diagnosis CARPAL TUNNEL SYNDROME Postop Same As Preop Yes right Postop Diagnosis CARPAL TUNNEL SYNDROME right Blunt or No Is the procedure No penetrating injury considered occured prior to Emergent/Urgent? the start of the procedure: Last Modified By: Dahlia Mendenhall RN 06/02/22 17:27:29 Post-Care Text: O.760 Patient receives consistent and comparable care regardless of the setting Time Out MAGR Entry 1 Time out date/time 06/02/22 17:21:00 All team members Yes have introduced themselves by name and role Surgeon, Yes Surgeon reviews Yes anesthesia, nurse critical or confirm patient, unexpected steps, site, procedure operative duration, anticipated blood loss Anesthesia team Yes Nursing team Yes reviews any reviews sterility patient-specific (including concerns indicator results) and equipment issues/concerns Antibiotic Last Modified By: Dahlia Mendenhall RN 06/02/22 17:27:46 Patient Positioning MAGR Pre-Care Text: A.280 Identifies baseline musculoskeletal status Im.40 Positions the patient Im.80 Applies safety devices Entry 1 Procedure Carpal Tunnel Body Position Supine Release(Right) Left Arm Position Extended on padded arm Right Arm Position Extended on padded arm board board Left Leg Position Extended Right Leg Position Extended Feet Uncrossed? Yes Press Points Checked Yes Positioning Device Arm Boards, Arm Strap, Outcome Met (O.80) Yes Pillow, Safety Strap Last Modified By: Dahlia Mendenhall RN 06/02/22 17:27:54 Post-Care Text: E.290 Evaluates musculoskeletal status O.80 Patient is free from signs and symptoms of injury related to positioning Skin Prep MAGR Pre-Care Text: A.30 Verifies allergies Im.270 Performs skin preparation Im.270.1 Implements protective measures to prevent skin and tissue injury due to chemical sources Entry 1 Skin Prep Syntegrity Prep Agents (Im.270) 7.5% Povidone-Iodine Prep By Dahlia Mendenhall RN Scrub 10% Povidone-Iodine [place] Prep Area (Im.270) Elbow and forearm, Hand Skin Prep Agent Dry Yes Without Pooling Hair Removal Syntegrity Hair Removal Methods No hair removal performed Outcome Met (O.100) Yes Last Modified By: Dahlia Mendenhall RN 06/02/22 17:28:16 Post-Care Text: E.10 Evaluates for signs and symptoms of physical injury to skin and tissue O.100 Patient is free from signs and symptoms of chemical in (more content not included)... [facility] [place] [facility] Phase II Record Summary Primary Physician: Bharathi Lopez DO Finalized Date/Time: 06/02/22 18:29:55 Pt. Name: SHELIA BALBUENA D.O.B./Sex: 1975 FEMALE Med Rec #: [id number] Physician: Bharathi Lopez DO Financial #: [id number] Pt. Type: D Room/Bed: / Admit/Disch: 06/02/22 12:27:28 - Institution: Phase II Case Times MAGR Pre-Care Text: Patient is free from s/s of injury. Patient remains free from compromised physical state related to surgery or anesthesia. Patient comfort maintained. Patient/family verbalize understanding of discharge instructions. Entry 1 In PACU II 06/02/22 17:39:00 Discharge from PACU 06/02/22 18:29:00 II Last Modified By: Dahlia Mendenhall RN 06/02/22 18:29:52 Post-Care Text: The patient remains free from s/s of injury. Patient's vital signs stable, circulation maintained, return to preop mental and physical status, opsite/dressing intact, minimal or absent nausea and vomiting, tolerates po intake. Patient verbalizes adequate pain control. Patient/family express understanding of discharge instructions. Finalized By: Dahlia Mendenhall RN Document Signatures Signed By: Dahlia Mendenhall RN 06/02/22 18:29 [facility] Preoperative Record MAGR Pre-Op Record Summary Primary Physician: Bharathi Lopez DO Finalized Date/Time: 06/02/22 17:25:46 Pt. Name: SHELIA BALBUENA Roly /Sex: 1975 FEMALE Med Rec #: [id number] Physician: Bharathi Lopez DO Financial #: [id number] Pt. Type: D Room/Bed: / Admit/Disch: 06/02/22 12:27:28 - Institution: Pre-Op Case Times MAGR Pre-Care Text: Patient will be optimally prepared for surgery. Patient is free from s/s of injury. Provide information to patient/family related to plan of care. Verify patient allergies. Confirm identity and verify consent before the operative or invasive procedure. Entry 1 Patient Arrival Time 06/02/22 12:49:00 Preop Departure 06/02/22 17:02:00 Last Modified By: Dahlia Mendenhall RN 06/02/22 17:25:40 Post-Care Text: Patient is prepared mentally and physically and is ready for surgery. The patient remains free from s/s of injury. Patient/family express understanding of plan of care and participate in decisions affecting his or her perioperrative plan of care. Allergies documented appropriately. Patient identifiers and consent correct. General Comments: Reviewed not to do anything for the next 24 hours that requires concentration. Denies chest pain, shortness of breath or illnessess. Denies pacemaker/defib. Denies sleep apnea. Finalized By: Dahlia Mendenhall RN Document Signatures Signed By: Dahlia Mendenhall RN 06/02/22 17:25 [facility] PT/PTTon 06-02-2022 INR Coag (PPP) [Relative time] 1.64 {INR} High 0.91-1.11 [facility] Comment on above: Performed By: #### 6 [id number] ####[facility] (DEFAULT)[address] [place] [address] 46976 PT 17.3 second(s) High 9.7-11.8 [facility] Comment on above: Performed By: #### 6 [id number] ####[facility] (DEFAULT)[address] [place] [address] 92996 PTT 39 second(s) High 25-35 [facility] Comment on above: Performed By: #### 6 [id number] ####[facility] (DEFAULT)[address] [place] [address] 19255 Patient Handouton 06-02-[address] HIGHTOWER POST OPERATIVE CARPEL TUNNEL INSTRUCTIONS SURGEONS WRITTEN INSTRUTCTIONS: -Keep your hand elevated above your elbow for the first 24 hours after surgery -Wiggle your fingers frequently while awake -DO NOT lift heavy objects or rebeamer forcefully with your hand -Change your dressing in 1 day and apply an abdirizak bandage as directed with the thumb tucked towards the palm of your hand. This keeps the tension off your incision -You may shower in 1 day but do not submerge your hand under water. Put a 4x4 gauze and the abdirizak bandage back on after you shower -If you have any problems or concerns, please call the office at [phone] -Follow up as scheduled [facility] Test Serum 1on Preg Serum Internal Control OK [facility] Comment on above: Order Comment: pre o p Performed By: #### 3 [id number] ####[facility] (DEFAULT)[address] [place] [address] 15225 Test Serum Qual Negative Normal [facility] Comment on above: Order Comment: pre o p Performed By: #### 3 [id number] ####[facility] (DEFAULT)[address] [place] [address] Coding Summaryon 05-30-2022 Coding Summary HTMLBase 64 PjndmgoyTXg2kEp+PGhlY WQ+PQ9GYYMwZ66qfRNodW 3ZK0tIGE6NSUBDMSMVUU6 SWK9qbPB6DJovG9AumsUm EhnhyTBfEB18PCl0DSJ3p LqiSFwjbO6akDLdN6n7Py EwTD10tP27BSasEAUjFeK 3LjZpbjsgbWFy C7zpYwSjxHBzDer+PHRhY mxlIHdpZHRoPScxMDAlJy OccMhlKM6xHr9gCBRpALX vbGxhcHNlOiBj c8ggVHQhVJwrMO0ifCgfP 9PvoPW5PRJgz9n6Ek00lS I+SSRpNWL8pCogNYair64 7LbShr1sgKGY6 vGXhSRyvNLQ0A63mp3J5F ONaJYKxZFQ8oYW3xU8fyB dbszgeK1KjlAVnZoU1QZJ 4sRXrgF0sxKbf dwoltF5cKbu+N25YSX3ZB BPQBZ8VJcv1A5EcZuebzJ I+GK61FGDxLG34aARqhGS te2tkaNd9ZiNb NVElMNO7tDzmXQvto7TrI GTjA23dgZUjt6U7LDWvdP stnTGeReMhpPG6hS5fQJj fcznps4zdnvvp Zfssj2marm41kU59O53jG YzwBSRtXYO2EDSaDSSonC jrwv2efR6kBq6+LElwp2d pc8bxhWb8WhEs CNGqpaIxcWjjTLM6g5UlG i43F9MdqXqbq6JpVcd6me 45aNQuh0P0hKN8VWjoNOD hcW6vLCbqFvQ2 TYGwDoCraM23mWDxLLrgY y8cwVrxzOxyOA1oTUCiwo gyNLCjcL1wQIXbqMNjvXp nJF1aVQXtfoal e728IpNrEXK3IHBomMLeB 3BezV7iVpCyHOEmSMTyB7 VnvERhQQoiD154HWqpTqA 3HLUywrAnR3Nq JKLbpXwdVlR1r1B4Ix3Rz 0RkkozrXFJ8XSrfISUgTh G1UlHmEfX1S6ZqNfa5KMX lzAxdDJ3hA6Sg LXQonysddycljPK6NIDkQ AAopF23yYCqAHmlCp0ob9 S1u318NTWlJJFekB72Ub4 udDogMTBwdCBU oQ3cwcgyd1veenquBhZyQ UVlZOc0HFb3TGWgqTozYj LsIOX3ZrT1SKJ2lALdtX7 skQgyjofigZ5r Oyc+J33ymX0kIVA8SBR3b slsHWCuxiQkLP14XM75G7 RyPjwvdGFibGU+PGRpdiB xsHfhJE1sQuHz w3ipd1EvXCuoF6JkRJYtC YyrXez1ATKdCLR4cEA3tR 2eOGLhBRmyz7W4dDW3Z4K cdtUtmw6jv9rm TRFwLGlsC75ukBMgg4J7L QIybUO7STGdcIwxXzAbqP 93Oyc+ALFdiMdcm5WwSyt cw4jec4ijeNl3 QcSrHGZhniDwxNmmHHF2k 8CwPw60V30aLTkzRNYkBK CrMRXaTBZjcMuqhg0yqN8 wIi8+PGNvbCB3 eAR9zM2rSGKbUeQ5RKicI 816KmXhjXViGbzwu1orl9 ljdCv3BnOxTEZlgqAbkTn dPBQ3u3VuAq18 U52bIDkdEHGaVNOnGRNqZ LUqsGnstd4zdB3pLu1+PC 8ah1ugkn63vB37iOB+PHR aBZP4kLaqZQzl VHUdiM6lWCuoYbP9NMLbX aQtxT36hIWrMUpaHl4aoT cxsVfjIP7fUQUczbhlv22 5VhJkr1ndVOFj bUTgPRjbOCP4P76rw0W8G HAuMVZlXPY8mJF5oJ5joP lnbjogbGVmdDsgdmVydGl rLSuaXTolY547 IHRvcDsnPlBhdGllbnQgT xIzZLq5Y2TsSvb2GJGrjS kuIS2icGVmNVexVs3hvGw yrIycPW7cSMRo bradr520NaVsi8beHUJki KDbLElrCVQ6A90nm5N6SZ UeBQBzUWL6zGF7pH2jlKs nbjogbGVmdDsg iwOqeJkvKRnpOQopS888U HRvcDsnPkJpcnRoIERhdG O0VM44FG67pJRbf7Y4qPD 3B8QxEWEzpahp xomxwDR6OONlJGFddF14D t2wnHcwKz4wILAxGMA2PF CuaCDxT5UjnJ4bCaRtIBY vWLXyX0AxlHIm LDdqN682VWmzQrX3XXFkf iWhW5FsMEDokVhyByA3s0 D4Bc2VQ8F2PR91FW12vJZ xc1G4hCX3K6Ui NZJwkqkbvbbfmOM9KRMmA MNowH95Db4gjHfxFq5cJU TgSLT4VASskLKoH6MspF7 yOiAjMDAwMDAw B3WlxJFcRTxtY431NIjdJ nX3NMSyksWjC6VtYNHmcE jcVlZ4a9P5Hi7BMHy2PR8 4RU49pDYkq8P4 ySD4Q3OwKILutpzejzlsv PR4ISWwVEHfjV20Wp4pcI clRy8rHZThQRO9BHHopNZ uK0JfnD9qAlHf JWLlXEVtM8KcsHPeKSypD 847TKlxOqA2VPYvkwZbK3 DkKQIeqUmySqL6k9R4Xz2 RIXMkSA43LJY5 lWI2LF15RR46V1JmLjouh GFibGU+PHRhYmxlIHdpZH RoPScxMDAlJyBzdHlsZT0 mUz1oOPJoMUXu jCrenWFwCzRmx4ywIJWvJ HpkRU6evNtlA8ZbxVU9DJ Upe2b1Ry98S51aQ7CxcJP +UBAjpYI6hFR1 nM0wBqEnJlL4NXymF842Q xKqeMJyXufck9dqn8mwcR r4JxB4MVEqrlIzuQibTKF 1u5HdJc54N33f IHdpZHRoPSIxNSUiIHZhb Tqfas1rhY7tUe0+PGNvbC H7fVF1yY1tXnFlZhP9FMt nA352SdJrdYXa Uwump0uhn3rcwXz2UqJoU CHfobOxuGhqLLZ5c5WoQe 24P7VkxBdco4QnVzv6ep1 2oMNte6N2hRR2 J0KtRKOmpauzoRBbmKymM T9gEDDqbocwOCUeyE2qMJ StO1i2VcRlCsY7MHouO9E qzaT7OGDdsFYb ZYugWQH9R13ho9U3HAOiI CLsKUI3nZY0bL9iiZtuog ogbGVmdDsgdmVydGljYWw oBBzsF475QGQz ySpgXRLhhC3rKGEecOIfr ZsxAA7hMXHtjyjhXdYVC8 VSUywgSkFRVUxBTiBTPC9 8TR20eFNxo4L8 gHJ5Q2HfNEWlpwbmxkpld RF5LTAcQCHjlJ36jXIaOC fnSu6op6O2n174KFTeYJR xeR11Wu5ttBha ZVZvfMCXhL3eizhdz1knw zylUnSeNXBcOVu9TMm0PV GdaOanShWsTXX1TjV0FEE 3wXLxeL8tfTnj zublfJ9sHna+MDcvMjcvM Bz7ANsjrCH+ZYAuPHB2aT kkITjzPAHdmZ3vGWRtG7m 0XsBjFxY3XEvi I0VkGNVetykkQz11fS1xD rNxFgJ0MEmtS1YaziK6KY TpbZZlMPzwFDV5J30uo4E 3FSIaJVEcLCU4 bUR1jI8hlZqzgdqkkQDzg DsgdmVydGljYWwtYWxpZ2 10YEZarKgrCiY2OUtpYYC nRA74TV97rIZy f0C2fRL8I3OnNNSkkaolu gpvrGG2NTEuEUXkyW70bC VfEPczHt4vz4N4b069PBO bADYmlK62Ht6y dPkoSFUqmNPTmV8johyqn 6djsergWfOrTQUeGBt7KK y3SCCasFnuQvEnWBL7WfA 0KGE9gRTdrO5h eNpftlnffT2tYvf+RkVNQ DwZFT77TA47dVMgq1V6pL R2D8HwNUAwsztzxzqqhUI 2SZRvDYXoyU55 zZPmHQnyEj4vq9T8o581D JKqBDFvsW76Ea9dqOluWX HijJONvU3oyycus5vjbll gIzAwMDAwMDt0 XGc0CFVyuQzuOqYjWTZ5O jX4UTF2qQEfcH3pwWingl mvrG9lGmz+U4Q2H0VeYsu vdHI+PH40DTZc VX91fVSbcDAfq2wgxFb0V eXmUCOqIYF2sAbmNDprb0 RwJYPvV22drZYgy3G7ZGB vbGxhcHNlOyBl jDD8gR9kJOttpwdvk5fdm dykUbyty6veri09aW96K1 9sIHdpZHRoPSIzMCUiIHZ hdLtgvi5usQ1p Ii8+RLOseTX7kGQ4sV6rW tPsKpC1CRbzV612ZdRhzG OkUkkny2qdp7lnaDe0ZsN wJSIgdmFsaWdu DPB8a9MgCc61Q27mWCcgU HRoPSIyMCUiIHZhbGlnbj 3wcA1uIb7+EB9yx2rifu2 9zF65iCL+PHRk JOG5uHfaGYfgETMvwI4cI TtnJbW8IHXaHaCzoH35iQ QbSNaqZy8yaNjjeDryMM2 xBZVmtheia411 JsYxv9ueIEPfcTFlUJgwH UC1M13vx1X9LLDaRZJuFM U5iJE6mZ5utAwpjsvhhAA mdDsgdmVydGlj KMhvNKrdV825VYQhvEwdH pJvaYAcI9shanWGLN0bTe wvdGQ+CEElSTZ4uAciJWb mBXVznH2nAKGh D5c5JqYuCqF7ZRkxM3Rbn nO9OPDigTPcWSBlmROJxK 2sjryjy7qrtywhFcAdYTW rDAw0AYv5PSOd kSofBxJpOHU1OyN3SIJ2r FMogF8lrZinidfeeT0qAi c+RklOOjwvdGQ+PHRkIHN 0eWxlPSdwYWRk iS0jAJChE3s8ZeXwNbR4T MwmV7QoawA8KOZsvFOpOK OukNIQyJ2ygwkvr3ugvas gIzAwMDAwMDt0 GJd6ALRjhHvxTwFmGIT2H hH8FXP7dZXoeR3qmIxfcu fjnQ6zEpx+TVJOOjwvdGQ +DBAjTAI5qDzf LAzqZPMrgJ2kECJqQ9n3H dQfJtY2YXvkQ4PshoU4MM OurHDySSCboHVCpY0mdeg eb5jsoaikArNy ZEGlEQq2GRc9DYUcjByoK pQeXEL0HsQ0XLY1gSGwoH 3jgTehjlvokO2pWcb+UGF 9JOE4HI27ZZ11 C5DfFsekoJChnPH+PHRhY mxlIHdpZHRoPScxMDAlJy YvoGieAJ9oWj5wYQDqNKS vbGxhcHNlOiBj b2x (more content not included)... Normal [facility] .Auto Diff 05-29-2021 Auto [place] % 6 % Normal 08-28 [facility] Comment on above: Performed By: #### 1 [id number], [id number], [id number] ####[facility] (DEFAULT)[address] [place] [address] 06744 Baso Abs# 0.0 x10 Normal 0.0-0.2 [facility] Comment on above: Performed By: #### 1 [id number], [id number] ####[facility] (DEFAULT)[address] [place] [address] 13657 Basophils/100 WBC (Bld) 0.3 % Normal 0.2-2.0 [facility] Comment on above: Performed By: #### 1 [id number], [id number] ####[facility] (DEFAULT)[address] [place] [address] 52972 Eos Abs# 0.1 x10 Normal 0.0-0.4 [facility] Comment on above: Performed By: #### 1 [id number], [id number] ####[facility] (DEFAULT)[address] [place] [address] 08660 Eosinophils/100 WBC (Bld) 1.3 % Normal 0.9-4.0 [facility] Comment on above: Performed By: #### 1 [id number], [id number], [id number] ####[facility] (DEFAULT)[address] [place] [address] 51309 Lymph Abs# 1.6 x10 Normal 1.3-2.9 [facility] Comment on above: Performed By: #### 1 [id number], [id number], [id number] ####[facility] (DEFAULT)[address] [place] [address] 41217 Lymphocytes/100 WBC (Bld) 26 % Normal 14-48 [facility] Comment on above: Performed By: #### 1 [id number], [id number], [id number] ####[facility] (DEFAULT)[address] [place] [address] [place] Abs# 0.4 x10 Normal 0.0-0.8 [facility] Comment on above: Performed By: #### 1 [id number], [id number] ####[facility] (DEFAULT)[address] [place] [address] Neut Abs# 4.0 x10 Normal 1.5-9.2 [facility] Comment on above: Performed By: #### 1 [id number], [id number], [id number] ####[facility] (DEFAULT)[address] [place] [address] 54311 Neutrophils/100 WBC (Bld) 66 % Normal 44-88 [facility] Comment on above: Performed By: #### 1 [id number], [id number], [id number] ####[facility] (DEFAULT)[address] [place] [address] Standardon 05-29-2022 eGFR Non AA 53 mL/min/1.73m2 Invalid Interpretation Code [facility] Comment on above: Performed By: #### 1 [id number], [id number], [id number] ####[facility] (DEFAULT)[address] [place] [address] eGFR AA >60 Invalid Interpretation Code [facility] Comment on above: Result Comment: Business Solutions Director bev Kidney disease could be indicated at eGFRs of less than 60 ml/min/1.73m2. Kidney Failure is indicated at less than 15 ml/min/1.73m2 Performed By: #### 1 [id number], [id number], [id number] ####[facility] (DEFAULT)[address] [place] [address] 05346 Anion gap [Moles/Vol] 10.0 mmol/L Normal 5.0-19.0 [facility] Comment on above: Performed By: #### 1 [id number], [id number], [id number] ####[facility] (DEFAULT)[address] [place] [address] 43492 Calcium [Mass/Vol] 9.3 mg/dL Normal 8.9-10.3 [facility] Comment on above: Performed By: #### 1 [id number], [id number], [id number] ####[facility] (DEFAULT)[address] [place] [address] 41104 Chloride [Moles/Vol] 106 mmol/L Normal 101-111 [facility] Comment on above: Performed By: #### 1 [id number], [id number], [id number] ####[facility] (DEFAULT)[address] [place] [address] 68716 CO2 [Moles/Vol] 28 mmol/L Normal 21-32 [facility] Comment on above: Performed By: #### 1 [id number], [id number], [id number] ####[facility] (DEFAULT)[address] [place] [address] 52094 Creatinine [Mass/Vol] 1.10 mg/dL Normal 0.60-1.30 [facility] Comment on above: Performed By: #### 1 [id number], [id number], [id number] ####[facility] (DEFAULT)[address] [place] [address]8615 Glucose [Mass/Vol] 97.0 mg/dL Normal 74.0-118.0 [facility] Comment on above: Performed By: #### 1 [id number], [id number], [id number] ####[facility] (DEFAULT)[address] [place] [address] 44592 Osmolality 281 mOsm/L Invalid Interpretation Code [facility] Comment on above: Performed By: #### 1 [id number], [id number], [id number] ####[facility] (DEFAULT)[address] [place] [address] 62090 Potassium [Moles/Vol] 3.6 mmol/L Normal 3.6-5.1 [facility] Comment on above: Performed By: #### 1 [id number], [id number], [id number] ####[facility] (DEFAULT)[address] [place] [address] 63780 Sodium [Moles/Vol] 140.0 mmol/L Normal 136.0-144.0 [facility] Comment on above: Performed By: #### 1 [id number], [id number], [id number] ####[facility] (DEFAULT)[address] [place] [address] 44617 Urea nitrogen [Mass/Vol] 18 mg/dL Normal 8-26 [facility] Comment on above: Performed By: #### 1 [id number], [id number], [id number] ####[facility] (DEFAULT)[address] [place] [address] Urea nitrogen/Creatinine [Mass ratio] 16.0 mg/mg Normal 4.6-16.2 [facility] Comment on above: Performed By: #### 1 [id number], [id number], [id number] ####[facility] (DEFAULT)[address] [place] [address] CBC w/ Auto Diffon Erythrocyte distribution width (RBC) [Ratio] 12.7 % Normal 11.5-15.0 [facility] Comment on above: Performed By: #### 1 [id number], [id number], [id number] #### [facility] (DEFAULT) [address] [place] [address]132 Hematocrit (Bld) [Volume fraction] 38.9 % Normal 33.7-40.4 [facility] Comment on above: Performed By: #### 1 [id number], [id number], [id number] #### [facility] (DEFAULT) [address] [place] [address] 55262 Hemoglobin (Bld) [Mass/Vol] 12.6 g/dL Normal 11.3-15.9 [facility] Comment on above: Performed By: #### 1 [id number], [id number], [id number] #### [facility] (DEFAULT) [address] [place] [address] 64899 Instr WBC 6.1 x10 Invalid Interpretation Code [facility] Comment on above: Performed By: #### 1 [id number], [id number], [id number] #### [facility] (DEFAULT) [address] [place] [address] 39570 Man Diff? Auto Normal [facility] Comment on above: Performed By: #### 1 [id number], [id number], [id number] #### [facility] (DEFAULT) [address] [place] [address] 41522 MCH (RBC) [Entitic mass] 29 pg Normal 24-34 [facility] Comment on above: Performed By: #### 1 [id number], [id number], [id number] #### [facility] (DEFAULT) [address] [place] [address] 02743 MCHC (RBC) [Mass/Vol] 32 g/dL Normal 26-37 [facility] Comment on above: Performed By: #### 1 [id number], [id number], [id number] #### [facility] (DEFAULT) [address] [place] [address] 32618 MCV (RBC) [Entitic vol] 89 fL Normal 81-100 [facility] Comment on above: Performed By: #### 1 [id number], [id number], [id number] #### [facility] (DEFAULT) [address] [place] [address] 76577 Platelet 291 x10 Normal 138-427 [facility] Comment on above: Performed By: #### 1 [id number], [id number], [id number] #### [facility] (DEFAULT) [address] [place] [address] 23100 Platelet mean volume (Bld) [Entitic vol] 9.8 fL Normal 6.3-10.2 [facility] Comment on above: Performed By: #### 1 [id number], [id number], [id number] #### [facility] (DEFAULT) [address] [place] [address] 47877 RBC 4.36 x10 Normal 3.70-5.30 [facility] Comment on above: Performed By: #### 1 [id number], [id number], [id number] #### [facility] (DEFAULT) [address] [place] [address] WBC 6.1 x10 Normal 3.5-10.5 [facility] Comment on above: Performed By: #### 1 [id number] #### [facility] (DEFAULT) [address] [place] [address] Progress Note - Nurseon - Progress Note - Nurse PAT review done per Dr. Morales, order received. [Electronically Signed on: 05/29/2022 14:46 EDT] Olinda Roa RN [Verified on: 05/29/2022 14:46 EDT] Olinda Roa RN [facility] SARS-CoV-2 (COVID-19) PCRon 05-29-2022 Employed in healthcare? No Invalid Interpretation Code [facility] Comment on above: Performed By: #### 6 [id number] ####[facility] (DEFAULT)[address] [place] [address] Group care resident? No Invalid Interpretation Code [facility] Comment on above: Performed By: #### 6 [id number] ####[facility] (DEFAULT)[address] [place] [address] In ICU? No Invalid Interpretation Code [facility] Comment on above: Performed By: #### 6 [id number] ####[facility] (DEFAULT)[address] [place] [address] status? Not Invalid Interpretation Code [facility] Comment on above: Performed By: #### 6 [id number] ####[facility] (DEFAULT)[address] [place] [address] SARS-CoV-2 (COVID-19) RNA NOA+probe Ql (Unsp spec) Not detected Normal Not Detected [facility] Comment on above: Result Comment: Perf ormed by PCR methodology. Performed By: #### 6 [id number] ####[facility] (DEFAULT)[address] [place] [address] SARS-CoV-2 (COVID-19) RNA NOA+probe Ql (Unsp spec) No Invalid Interpretation Code [facility] Comment on above: Performed By: #### 6 [id number] ####[facility] (DEFAULT)[address] [place] [address] Symptomatic as defined by CDC? No Invalid Interpretation Code [facility] Comment on above: Performed By: #### 6 [id number] ####[facility] (DEFAULT)[address] [place] [address] CNOVon 05-02-2022 CNOV Office Visit (PEDRO ) SHELIA BALBUENA ([id number]) 1975 F Date Time Provider Department 05/02/22 9:15 AM MARCOS WALTON During your visit today, we recorded the following information about you: Pulse Blood pressure Weight Height 54/minute 180/90 113.9 kg 1.702 m Marcos Walton MD 05/02/2022 4:18 PM [facility] Department of Cardiovascular Medicine SECTION OF CARDIOVASCULAR IMAGING OUTPATIENT VISIT DATE May 02, 2022 OUTPATIENT VISIT TYPE NEW (>3yrs since last seen) PRIMARY CARE PHYSICIAN: Adria Snyder DO [address] [place] [address] CHIEF COMPLAINT: Postoperative Follow Up. HISTORY OF PRESENT ILLNESS: Ms. Balbuena is a 47 year old female who presents today for post-op follow up. 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 s/p AVR (On-X #21), MVR (On-X #25), TVr (CE Classic #28) done on 07/28/[address] Worthington, discharged 08/04/16. Since her last visit, she states that she is awaiting LEFT carpal tunnel surgery. 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 She reports edema in b/l lower extremities at times relieved with furosemide, although she does not take it often and occasional lightheadedness and dizziness. PAST MEDICAL HISTORY Diagnosis Date Aortic valve insufficiency Cardiomyopathy, dilated, nonischemic (HCC) 12/2015 Childhood asthma Dysmenorrhea Fibroid, uterine GERD (gastroesophageal reflux disease) History of left heart catheterization (LHC) 10/31/15 per report - normal coronaries, right dominant History of right heart catheterization 10/31/15 RA 13, PA 67/38 (52), PCW 36, TPG 16, Ao 135/67 (104), CO/CI 5.5/2.6, pa sat 61 Iron deficiency anemia Mitral valve insufficiency Moderate tricuspid insufficiency Obesity Rhinitis Vitamin D deficiency PAST SURGICAL HISTORY Procedure Laterality Date CHOLECYSTECTOMY ESSURE DEVICE PAST SURGICAL HISTORY OF 07/28/2016 /p Aortic valve replacement with an On-X mechanical valve #21. Mitral valve replacement with an On-X mechanical valve #25. Tricuspid valve repair with Sam Classic annuloplasty ring #28 SOCIAL HISTORY Social History Tobacco Use Smoking status: Never Smokeless tobacco: Never Substance Use Topics Alcohol use: Yes Comment: Rare consumption Drug use: No FAMILY HISTORY Problem Relation Age of Onset Ischemic Heart Disease Father Heart Father age 63- massive [place] Diabetes Mother Thyroid Sister hypertension None Sister None Brother age 35-MVA ALLERGIES: ALLERGIES No Known Allergies MEDICATIONS: metoprolol succinate 25 mg CSpXTake 25 mg by mouth once daily.Disp: Rfl: acyclovir (ZOVIRAX) 400 mg tabletTake 400 mg by mouth as needed. For cold soresDisp: Rfl: esomeprazole (NEXIUM) 20 mg capsuleTake 20 mg by mouth DAILY (6 AM).Disp: Rfl: Cholecalciferol, Vitamin D3, (VITAMIN D-3) 50 mcg (2,000 unit) capTake by mouth once daily.Disp: Rfl: docusate sodium (COLACE) 100 mg capsuleTake 1 capsule by mouth once daily.Disp: Rfl: warfarin (COUMADIN) 5 mg tabletTake 5 mg by mouth daily as directed. MANDF take 2.5 mg, 5 mg all other daysDisp: 30 tabletRfl: 1 melatonin 10 mg capTake 1 capsule by mouth daily at bedtime.Disp: Rfl: 0 furosemide (LASIX) 40 mg tabletTake 1 tablet by mouth once daily as needed (fluid retention).Disp: Rfl: potassium chloride 20 mEq TbERTake 1 tablet by mouth once daily as needed (fluid retention; take with Lasix).Disp: Rfl: 0 aspirin 81 mg chewable tabletTake 1 tablet by mouth once daily.Disp: Rfl: 0 acetaminophen (TYLENOL) 325 mg tabletTake 2 tablets by mouth every 6 hours as needed (for mild surgical pain).Disp: Rfl: ferrous sulfate 325 mg (65 mg iron) tabletTake 325 mg by mouth once daily.Disp: Rfl: PHYSICAL EXAMINATION: BP 180/90 (BP Site: Left Arm, BP Position: Sitting) Pulse (!) 54 Ht 170.2 cm (5' 7 ) Wt 113.9 kg (251 lb) LMP 07/17/2017 (Exact Date) SpO2 99% BMI 39.31 kg/m? General: In no acute distress. Skin: No clubbing, no cyanosis. Eyes: Extra ocular movements intact Oropharynx: Teeth in good repair. Neck: No jugular venous distention, no carotid bruits. Lungs: Clear to auscultation bilaterally, no wheezing or rhonchi. Heart: Regular rhythm, PMI not displaced, S1, S2 mechanical, no S3, no S4, no heaves, no rub and no murmur. Abdomen: Soft, nontender. Extremities: No peripheral edema. Neuro: Oriented to person, place and time, alert, cooperative, gait coordinated. CARDIOVASCULAR MEDICINE TESTING: Electrocardiogram: SINUS BRADYCARDIA WITH 1ST DEGREE AV BLOCK OTHERWISE NORMAL ECG Echocardiogram: Delayed today Will do locally I have personally reviewed the Electrocardiogram an (more content not included)... Normal [facility] ECG COMPLETEon 05-02-2022 ECG COMPLETE Ventricular Rate : 5 8 BPM Atrial Rate : 58 BPM P-R Interval : 244 ms QRS Duration : 100 ms Q-T Interval : 450 ms QTC Calculation(Bazett) : 441 ms Calculated P Glencoe : 20 degrees Calculated R [place]coe : 28 degrees Calculated T Glencoe : 51 degrees SINUS BRADYCARDIA WITH 1ST DEGREE AV BLOCK OTHERWISE NORMAL ECG Confirmed by YESSY TOMPKINS MD ([id number]) on 05/11/2022 4:10:17 PM NAME : SHELIA BALBUENA PID : [id number] : 1975 Gender : Female Race : ORD : [id number] Procedure Date : May 02 2022 09:15:17 Edit Date : May 11 2022 16:10:20 Diagnosis: SINUS BRADYCARDIA WITH 1ST DEGREE AV BLOCK OTHERWISE NORMAL ECG Confirmed by YESSY TOMPKINS MD ([id number]) on 05/11/2022 4:10:17 PM Test Reason : Location : 314 : J14 Overread By : YESSY TOMPKINS MD Edited By : YESSY TOMPKINS MD Referred By : MARCOS WALTON Acquired by : DAHLIA RITTER [facility] 02-27-2022 CNPN Telephone (CARDMN) CRISTINA BALBUENAJUAN JOSE ([id number]) 1975 F Date Time Provider Department 02/27/22 MARCOS WALTON [facility] During your visit today, we recorded the following information about you: Enrique Callejas 02/27/2022 8:51 AM Signed REACHED OUT TO PATIENT IN REGARDS TO UPDATING INSURANCE. LEFT VMAIL TO CALL BACK WITH INFO Allergies As of Date: 02/27/2022 (No Known Allergies) Date Reviewed: 07/17/2017 Reviewed by: Alyssa Miguel - Fully Assessed Reason for Visit: Appointment [186] Cmt: REACHED OUT TO PATIENT IN REGARDS TO UPDATING INSURANCE. LEFT VMAIL TO CALL BACK WITH INFO Prescriptions as of 02/27/2022 - docusate sodium (COLACE) 100 mg capsule Take 1 capsule by mouth once daily. - ranitidine (ZANTAC 75) 75 mg tablet Take 1 tablet by mouth once daily. - warfarin (COUMADIN) 5 mg tablet Take 1 tablet by mouth daily as directed. Next INR check 08/06 - melatonin 10 mg cap Take 1 capsule by mouth daily at bedtime. - furosemide (LASIX) 40 mg tablet Take 1 tablet by mouth once daily as needed (fluid retention). - potassium chloride (K-TAB) 20 mEq TbER Take 1 tablet by mouth once daily as needed (fluid retention; take with Lasix). - penicillin V potassium (V-CILLIN, VEETIDS) 500 mg tablet Take 0.5 tablets by mouth twice daily. - aspirin 81 mg chewable tablet Take 1 tablet by mouth once daily. - acetaminophen (TYLENOL) 325 mg tablet Take 2 tablets by mouth every 6 hours as needed (for mild surgical pain). - ferrous sulfate (IRON) 325 mg (65 mg iron) tablet Take 325 mg by mouth once daily. Facility-Administered Medications as of 02/27/2022 - perflutren lipid microspheres 1.3 mL in NaCl (PF) 0.9% 10 mL injection (DEFINITY) - sodium chloride 0.9 % (flush) 10 mL (BD POSIFLUSH) Problem List As Of Date 02/27/2022 Noted Resolved Discharge planning issues [Z02.9] 07/24/2016 Mitral valve insufficiency [I34.0] Aortic valve insufficiency [I35.1] Non-rheumatic tricuspid valve insufficiency [I3*07/24/2016 Stress hyperglycemia [R73.9] 07/28/2016 07/31/2016 Cardiac insufficiency (HCC) [I50.9] 07/28/2016 07/30/2016 Essential hypertension [I10] 07/28/2016 VF (ventricular fibrillation) (HCC) [I49.01] 07/28/2016 08/04/2016 On mechanically assisted ventilation (HCC) [Z99*07/28/2016 07/29/2016 Atelectasis [J98.11] 07/29/2016 08/04/2016 Anticoagulation goal of INR 2.5 to 3.5 [Z51.81,*07/29/2016 Hypervolemia [E87.70] 07/29/2016 07/31/2016 SUMMARY 07/31/2016 Encounter Status:Closed by ENRIQUE CALLEJAS on 02/27/22 Normal [facility] Office Visit (Cardiology)on 01-21-2022 Follow-up visit Diagnoses/Problems Assessed Aortic valve disorder (424.1) (I35.9) H/O aortic valve replacement (V43.3) (Z95.2) Pre-operative cardiovascular examination (V72.81) (Z01.810) Mitral valve disorder (394.9) (I05.9) History of mitral valve replacement (V43.3) (Z95.2) High risk medication use (V58.69) (Z79.899) Morbid obesity with BMI of 40.0-44.9, adult (278.01,V85.41) (E66.01,Z68.41) Never a smoker Orders Morbid obesity with BMI of 40.0-44.9, adult Healthy Weight Tips; Status:Complete - Retrospective Authorization; Done: 21Jan2022 Pre-operative cardiovascular examination IO EKG Electrocardiogram- 12 Lead; Status:Complete; Done: 21Jan2022 SocHx: Never a smoker Tobacco Use Screening; Status:Complete; Done: 21Jan2022 Patient Instructions Please bring all medicines, vitamins, and herbal supplements with you when you come to the office. Prescriptions will not be filled unless you are compliant with your follow up appointments or have a follow up appointment scheduled as per instruction of your physician. Refills should be requested at the time of your visit. PATIENT WILL NEED TO BE BRIDGED WITH HEPARIN IN PATIENT PRIOR TO SURGERY. PATIENT TO SEEK SURGEON AT [facility]. Follow-up as needed only Chief Complaint SHELIA BALBUENA is being seen for a consultation for. JETT Lopez right carpel tunnel History of Present Illness Ms. Balbuena is a 46-year-old female who is seen today for preoperative clearance for her to have carpal tunnel surgery. 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 She has mechanical valves apparently in both positions. This was done at [facility]. She is on chronic Coumadin. She has no cardiac complaints and she has been stable. She used to follow with [facility] cardiology but did not continue to follow there because of the distance involved. She has no known coronary disease and she indicates her heart catheterization done prior to her valve surgery was unremarkable. She has no anginal symptoms and her EKG is unremarkable. Past medical history and review of systems as per office record. Physical exam: HEENT: No carotid bruits are heard Neck: No lymphadenopathy Lungs: Clear Heart is mostly regular rhythm with prosthetic valve clicks at both aortic and mitral positions. Abdomen: Mildly obese soft Extremities: No significant edema Neurologic: Intact and nonfocal Skin: No significant lesion Impression and plan: 1) preoperative clearance requested for a 46-year-old female who has mechanical valves in both the aortic and mitral position. She is currently scheduled but apparently has not yet seen Dr. Lopez who my understanding is operates at [facility]. I discussed with the patient that her cardiac status is essentially normal but given her valve history and the need for being on heparin while her Coumadin is withheld and then at the end of her surgery reversing this process does represent some risk and her best option may well be to have surgery done at a tertiary center such as [facility] where they would be more familiar in accomplishing this. If it is an option that her carpal tunnel release could be done without stopping her Coumadin this would potentially be able to be accomplished at a local hospital without any significant risk. She has no other cardiac risk and has no history of coronary disease. She is going to consider her options and discuss it with primary care and then proceed on with her decision at that time. She will likely return here on a as needed basis. Active Problems Problems Never a smoker Surgical History Problems History of Aortic valve replacement History of Cholecystectomy Denied: History of Colonoscopy History of Mitral valve replacement Current Meds Medication NameInstruction Acyclovir 400 MG Oral TabletTAKE 1 TABLET DAILY. Aspirin EC 81 MG Oral Tablet Delayed ReleaseTAKE 1 TABLET DAILY. Colace 100 MG Oral CapsuleTAKE 1 CAPSULE Daily Lasix 40 MG Oral TabletTAKE 1 TABLET Daily prn Melatonin 10 MG Oral TabletTAKE 1 TABLET Bedtime NexIUM 20 MG Oral Capsule Delayed ReleaseTAKE 1 CAPSULE ONCE DAILY. Potassium Chloride ER 10 MEQ Oral Tablet Extended ReleaseTAKE 1 TABLET Daily prn predniSONE 1 MG Oral TabletTAKE 1 TABLET Daily prn traMADol HCl - 50 MG Oral TabletTAKE 1 TABLET 3 TIMES DAILY NEEDED. Vitamin D3 125 MCG (5000 UT) Oral CapsuleTAKE DIRECTED. Warfarin Sodium 5 MG Oral Tablettake as directed per PCP Allergies Medication No Known Drug Allergies Recorded By: Moe Lucas; 01/21/2022 8:59:53 AM Family History Father Family history of myocardial infarction (V17.3) (Z82.49) History of PTCA Brother Family history of myocardial infarction (V17.3) (Z82.49) Social History Problems Daily caffeine consumption, 4-5 servings a day Never a smoker No alcohol use No illicit drug use Review of Sys (more content not included)... Normal [facility] Tobacco Screening.on 022 Adult depression screening assessment No [facility] 250 DO Work Phone: Tobacco use status [facility] b) No -[facility] 250 DO Work Phone: MG MAMM DX 3D RT CADon 09-30 MG MAMM DX 3D RT CAD Patient: SHELIA BALBUENA Exam Date: 09/30/2021 : 1975 Gender:F Ordering : DR CASSIE HASSAN M.D. Admission #: [id number] Family : Order #: [id number] CLICK HERE TO VIEW EXAM RADIOLOGY REPORT PROCEDURE: MAMMOGRAM DIAGNOSTIC 3D RIGHT CAD COMPARISON: MG MAMM SCREEN DIANDRA W CAD, 05/11/2018. US BREAST RIGHT LIMITED, 09/06/2021. MG MAMM SCREEN 3D DIANDRA CAD, 04/26/2021. INDICATIONS: Abnormal findings on diagnostic imaging of breast Calculator Name NCI Breast Cancer Risk Assessment Tool 5 Year Breast Cancer Risk Not Reported. Lifetime Breast Cancer Risk Not Reported. Personal Breast Cancer No Personal Ovarian Cancer No Treatments None Family Cancers None LOCATION: [facility] BREAST COMPOSITION: Heterogeneously dense,which may obscure small masses. FINDINGS: DIAGNOSTIC CATEGORY 3--PROBABLY BENIGN FINDING. THE FOLLOWING FINDING(S) HAS A HIGH PROBABILITY OF A BENIGN ETIOLOGY: The right breast is stable in appearance from the 2017 exam. The mass visualized on the April 2021 exam has resolved. In light of the ultrasound abnormality on September 06, 2021, six-month follow-up is recommended RECOMMENDATIONS: SHORT TERM FOLLOW-UP DIAGNOSTIC MAMMOGRAM RIGHT BREAST IN 6 MONTHS. SHORT TERM FOLLOW-UP ULTRASOUND RIGHT BREAST IN 6 MONTHS. PLEASE NOTE: A NORMAL MAMMOGRAM DOES NOT EXCLUDE THE POSSIBILITY OF BREAST CANCER. A CLINICALLY SUSPICIOUS PALPABLE LUMP SHOULD BE BIOPSIED. Dictated by: Jeancarlos Warren MD on 09/30/2021 at 08:23 Approved by: Jeancarlos Warren MD on 09/30/2021 at 08:29 Normal [facility] US BREAST RIGHT LIMITEDon US BREAST RIGHT LIMITED Patient: SHELIA BALBUENA Exam Date: 09/06/2021 : 1975 Gender:F Ordering : DR CASSIE HASSAN M.D. Admission #: [id number] Family : Order #: [id number] CLICK HERE TO VIEW EXAM RADIOLOGY REPORT PROCEDURE: ULTRASOUND BREAST RIGHT LIMITED COMPARISON: MG MAMM SCREEN 3D DIANDRA CAD, 04/26/2021. INDICATIONS: Lump in right breast TECHNIQUE: Breast ultrasound was performed, with evaluation focusing only on specific areas of concern. FINDINGS: DIAGNOSTIC CATEGORY 0--INCOMPLETE: NEED ADDITIONAL IMAGING EVALUATION. RIGHT BREAST: At the 9 o'clock position 4.2 cm from the nipple is a 1.0 x 0.6 x 0.9 cm round cyst versus hypoechoic mass. This is significantly smaller than the density seen on the April 26, 2021 mammogram, which may represent resolving lesion versus additional lesion. No other findings on today's ultrasound. Diagnostic mammography of the right breast is recommended for correlation. RECOMMENDATIONS: ADDITIONAL MAMMOGRAPHIC VIEWS REQUIRED: RIGHT BREAST - standard CC and MLO views of right breast. PLEASE NOTE: A NORMAL ULTRASOUND EXAMINATION DOES NOT EXCLUDE THE POSSIBILITY OF BREAST CANCER. A CLINICALLY SUSPICIOUS PALPABLE LUMP SHOULD BE BIOPSIED. Dictated by: Jonah Ahmadi M.D. on 09/06/2021 at 15:02 Approved by: Jonah Ahmadi M.D. on 09/06/2021 at 15:08 Normal [facility] MAMM SCREEN 3D DIANDRA CADon 04-26-2021 MG MAMM SCREEN 3D DIANDRA CAD Patient: SHELIA BALBUENA Exam Date: 04/26/2021 : 1975 Gender:F Ordering : DR CASSIE HASSAN M.D. Admission #: [id number] Family : Order #: [id number] CLICK HERE TO VIEW EXAM RADIOLOGY REPORT PROCEDURE: MAMMOGRAM SCREENING 3D BILATERAL CAD COMPARISON: MAMMO SCREEN DIG DIANDRA, 04/25/2011. MG MAMM SCREEN DIANDRA W CAD, 05/11/2018. INDICATIONS: Screening mammography Calculator Name NCI Breast Cancer Risk Assessment Tool 5 Year Breast Cancer Risk Not Reported. Lifetime Breast Cancer Risk Not Reported. Personal Breast Cancer No Personal Ovarian Cancer No Treatments None Family Cancers None LOCATION: [facility] BREAST COMPOSITION: Heterogeneously dense, which may obscure small masses. FINDINGS: DIAGNOSTIC CATEGORY 0--INCOMPLETE ASSESSMENT: NEED ADDITIONAL IMAGING EVALUATION. RIGHT BREAST: New 2.2 cm lobular mass within the lower-outer quadrant, approximately 9:00 mid breast. Ultrasound evaluation is recommended. LEFT BREAST: No significant suspicious finding. No significant change has occurred. RECOMMENDATIONS: ULTRASOUND: RIGHT BREAST PLEASE NOTE: A NORMAL MAMMOGRAM DOES NOT EXCLUDE THE POSSIBILITY OF BREAST CANCER. A CLINICALLY SUSPICIOUS PALPABLE LUMP SHOULD BE BIOPSIED. Dictated by: Jonah Ahmadi M.D. on 04/26/2021 at 09:58 Approved by: Jonah Ahamdi M.D. on 04/26/2021 at 10:12 Normal [facility] Vital Signs Date Time Vital Sign Value Performing Clinician Yehudai maude 05-02-2022 10:07-0400 Diastolic blood pressure 90 mm[Hg] Marcos Walton MD Work Phone: [facility] 05-02-2022 10:07-0400 Systolic blood pressure 180 mm[Hg] Marcos Walton MD Work Phone: [facility] 05-02-2022 10:05-0400 Body height 170.2 cm Marcos Walton MD Work Phone: [facility] 05-02-2022 10:05-0400 Body weight 113.85 kg Marcos Walton MD Work Phone: [facility] 05-02-2022 10:05-0400 Heart rate 54 /min Marcos Walton MD Work Phone: [facility] 05-02-2022 10:05-0400 SaO2% (BldA) [Mass fraction] 99 % Marcos Walton MD Work Phone: [facility] 01-21-2022 09:00-0400 Body height 167.64 cm Jayleen Arango [facility] 250 DO Work Phone: 01-21-2022 09:00-0400 Body mass index (BMI) [Ratio] 41.64 kg/m2 Jayleen Arango [facility] 250 DO Work Phone: 01-21-2022 09:00-0400 Body surface area Derived from formula 2.23 m2 Jayleen Arango -[facility] 250 DO Work Phone: 01-21-2022 09:00-0400 Body weight 117.03 kg Jayleen Arango [facility] 250 DO Work Phone: 01-21-2022 09:00-0400 Diastolic blood pressure 82 mm[Hg] Jayleen Arango -[facility] 250 DO Work Phone: 01-21-2022 09:00-0400 Diastolic blood pressure 80 mm[Hg] Jayleen Arango -[facility] 250 DO Work Phone: 01-21-2022 09:00-0400 Heart rate 59 /min Jayleen Arango [facility] 250 DO Work Phone: 01-21-2022 09:00-0400 Systolic blood pressure 144 mm[Hg] Jayleen Arango -[facility] 250 DO Work Phone: 01-21-2022 09:00-0400 Systolic blood pressure 142 mm[Hg] Jayleen Arango [facility] 250 DO Work Phone: Encounters Encounter Date Encounter Type Care Provider Facility Start: 09-03-2023 End: 09-03-2023 ambulatory YUNG GORDILLO Not Available Start: 07-30-2023 End: 07-30-2023 ambulatory JAYLEEN M NBA Not Available Start: 06-02-2022 End: 06-02-2022 ambulatory RUGEN M SONYA Facility:[facility] Start: 05-29-2022 End: 05-30-2022 ambulatory RUGEN M SONYA Facility:[facility] Start: 05-02-2022 ambulatory CASSIE HASSAN Faci lity:[facility] Start: 05-02-2022 End: 05-03-2022 ambulatory RUGEN MABALAY SONYA Facility:[facility] Start: 05-02-2022 End: 05-03-2022 ambulatory CASSIE HASSAN Facility:[facility] Start: 05-02-2022 End: 05-02-2022 Patient encounter procedure Marcos Walton MD Work Phone: Cardiology Comment on above: S/P MVR (mitral valv e replacement) (Primary Dx); S/P AVR (aortic valve replacement); S/P TVR (tricuspid valve repair); Rheumatic multiple valve disease; Obesity (BMI 30-39.9) Start: 02-27-2022 Telephone encounter Marcos Walton MD Work Phone: Cardiology Comment on above: Appointment (REACHED OUT TO PATIENT IN REGARDS TO UPDATING INSURANCE. LEFT VMAIL TO CALL BACK WITH INFO) Start: 02-26-2022 Orders Only Marcos bass MD Work Phone: Cardiology Comment on above: S/P AVR (Primary Dx) Start: 01-21-2022 Office consultation new/estab patient 60 min Jayleen Arango MP-[facility] 250 DO Work Phone: Start: 09-30-2021 End: 10-01-[address] CASSIE HASSAN Facility:[facility] Start: 09-06-2021 End: 09-07-[address] CASSIE HASSAN Facility:[facility] Start: 04-26-2021 End: 04-27-[address] CASSIE HASSAN Facility:[facility] Start: 12-14-[address] CASSIE HASSAN Facility: [facility] Patient encounter status Jayleen Amezquita P-[facility] 250 DO Work Phone: Procedures Date Procedure Procedure Detail Performing Clinician Start: 07-17-2017 Adult depression scr eening assessment Marcos Walton MD Work Phone: Cholecystectomy Jayleen Kennedy er Replacement of arabella l valve Jayleen Arango NEGATED: Highlighted row has not occurred! Colonoscopy Jayleen Arango Plan of Treatment Date Care Activity Detail Author Start: 04-17-2022 Influenza vaccination INFLUENZA (#1) [facility] Start: 09-08-2021 LIPID SCREEN LIPID SCREEN [place] [facility] Start: 04-29-2021 COVID-19 VACCINE (3 - Booster for Moderna series) COVID-19 VACCINE (3 - Booster for Moderna series) [facility] Start: 09-08-2019 DIABETES SCREEN DIABETES SCREEN [facility] Start: 2019 COLOGUARD (FIT-DNA) COLOGUARD (FIT-D NA) [facility] Start: 2019 Colonoscopy COLONOSCOPY [facility] Start: 2019 COLORECTAL CANCER SCREENING COLORECTAL CANCER SCREENING [facility] Start: [address] COLONOGRAPHY [facility] Start: 2019 FECAL OCCULT BLOOD FECAL OCCULT BLOO D [facility] Start: 2019 SIGMOIDOSCOPY SIGMOIDOSCOPY [facility] Start: 07-17-2018 Adult depression scr eening assessment DEPRESSION SCREENING [facility] Start: 2014 Mammography MAMMOGRAM [facility] Start: 2004 HPV TESTING HPV TESTING [facility] Start: 1995 PAP TESTING PAP TESTING [facility] Start: 1993 Urine microalbumin profile DTAP,TDAP ,TD (1 - Tdap) [facility] Start: 1992 ANNUAL PCP TEAM MANAGER SOLAR BEV DISEASE VISIT ANNUAL PCP TEAM CHRONIC DISEASE VISIT [facility] Start: 1992 BP CONTROLLED (<130/80) BP CONTROLLE D (<130/80) [facility] Start: 1992 HEPATITIS C SCREENING HEPATITIS C SC REENING [facility] Start: 1992 HIV SCREENING HIV SCREENING [facility] Start: 1986 Adult depression scr eening assessment DEPRESSION SCREENING [facility] Start: 1974 HEPATITIS B (1 of 3 - 3-dose series) HEPATITIS B (1 of 3 - 3-dose series) [facility] End: 02-26-2023 ECG COMPLETE ECG COMPLETE ECG Routine S/P AVR 1 Occurrences starting 02/26/2022 until 02/26/2023 [facility] Work Phone: Comment on above: 1 Occurrences starti ng 02/26/2022 until 02/26/2023 End: 02-26-2023 Echocardiography ECHO Cardiology Routine S/P AVR 1 Occurrences starting 02/26/2022 until 02/26/2023 [facility] Work Phone: Comment on above: 1 Occurrences starti ng 02/26/2022 until 02/26/2023 [facility] Immunizations Immunization Date Immunization Notes Care Provider Otoniel michael 06-11-2021 influenza, injectabl e, quadrivalent, preservative free Jayleen M Hemmer [facility] 250 DO Work Phone: 11-27-2020 Moderna COVID-19 Vac cine 100 MCG/0.5ML Intramuscular Suspension Jayleen M Hemmer [facility] 250 DO Work Phone: 10-30-2020 Moderna COVID-19 Vac cine 100 MCG/0.5ML Intramuscular Suspension Jayleen M Hemmer [facility] 250 DO Work Phone: 05-10-2020 seasonal influenza, intradermal, preservative free Jayleen M Hemmer [facility] 250 DO Work Phone: 05-31-2019 influenza, injectabl e, quadrivalent, preservative free Jayleen M Hemmer [facility] 250 DO Work Phone: 06-02-2018 influenza, injectabl e, quadrivalent, preservative free Jayleen M Hemmer [facility] 250 DO Work Phone: 07-17-2017 influenza, injectabl e, quadrivalent, contains preservative Jayleen M Hemmer [facility] 05-28-2016 influenza, injectabl e, quadrivalent, preservative free Jayleen M Hemmer [facility] 250 DO Work Phone: 05-14-2016 influenza, injectabl e, quadrivalent, contains preservative Marcos Walton MD Work Phone: [facility] Work Phone: 05-14-2016 pneumococcal polysaccharide vaccine, 23 valent Marcos Walton MD Work Phone: [facility] Work Phone: 05-23-2015 influenza, injectabl e, quadrivalent, preservative free Jayleen [facility] 250 DO Work Phone: Payers Date Payer Category Payer Unknown [id number] 2021 Private Health Insurance [facility] [employer] [id number] 2021-Present [phone] [address] [address] [place] [address] PPO [id number] 1974 Unknown [id number] 1974 Unknown [id number] 1974 Unknown [id number] 1974 Unknown [id number] 1974 Unknown [id number] 1974 Unknown [id number] .[id number] 1974 Unknown [id number] 1974 Unknown [id number] 1959 Unknown [id number] 1959 Unknown [id number] Unknown [facility] Social History Date Type Detail Facility Daily caffeine consumption, 4-5 servings a day Daily caffeine consumption, 4-5 servings a day [facility] 250 DO Work Phone: Start: 03-07-2016 Tobacco smoking status MSIS Never smoked tobacco [facility] Start: 07-17-2017 End: 05-02-2022 Alcohol intake Current drinker of alcohol (finding) [facility] Start: 02-05-2016 History SDOH Alcohol Comment Rare consumption [facility] Start: 1975 Sex Assigned At Female C [facility] Start: 03-07-2016 Tobacco use and exposure Smokeless tobacco non-user [facility] Start: 04-22-2022 End: 05-02-2022 Exposure to SARS-CoV-2 (event) Not sure [facility] Medical Equipment Procedure Code Equipment Code Equipment Original Text Equipment Identifier Dates Valve Mitrl 25-33mm Onx Hrt - [id number] Start: 07-28-2016 Comment on above: Description: mitral valve replacement Valve Aort 21mm Onx Hrt - [id number] Start: 07-28-2016 Ring Tra s Classic 28mm 33.2mm 26.3mm Oval Titanium Silicone - [id number] Start: 07-28-2016 Clinical Notes 07-29-2016 to 06-04-2022 Marcos Walton MD - 05/02/2022 9:15 AM EDTTelephone Encounter - Enrique Callejas - 02/27/2022 8:49 AM EDT Note Date & Type Note Facility 06-04-2022 Note [id number] 06-02-2022 Note Procedure: Decompres kayli of median nerve right wrist with release of carpal canal Pre Op Diagnosis: Carpal tunnel syndrome right Post Op Diagnosis: Carpal tunnel syndrome right Surgeon: Dr. Fadumo Lopez, DO Anesthesia: MAC local Indication for Surgery: The patient had symptoms of carpal tunnel syndrome. There was evidence of progression. We discussed surgical and nonsurgical alternatives and the risks and benefits of each and the chances for success / failure. I recommended to proceed with surgery and the patient requested the same. Findings: The median nerve was noted to be present and intact within the carpal canal. The carpal canal/tunnel was stenotic Blood Loss: Scant Specimen: None Procedure Summary: After administration of anesthesia the right upper extremity was sterilely prepped and draped in usual fashion. A timeout was taken in the operating room. I infiltrated the incision site with 1% lidocaine with epinephrine then I exsanguinated the arm and the tourniquet was inflated to 250. A longitudinal incision was made over the carpal tunnel dissection was carried down beyond the palmaris longus and down to the transverse carpal ligament. Transverse carpal ligament was incised with a 15 blade and then released proximally and distally with a pair of Madden scissors. I made sure that the nerve was completely decompressed as it exited the distal volar forearm fascia and traveled through the carpal tunnel and into the hand. The wound was irrigated with copious amounts sterile saline and the skin was closed with nylon suture. Adaptic sterile dressings and an Abdirizak bandage were applied with the thumb in apposition Complications: None [Electronically Signed on: 06/02/2022 17:43 EDT] Bharathi Lopez DO [Verified on: 06/02/2022 17:43 EDT] Bharathi Lopez DO [facility] 06-02-2022 Note [facility] SURGERY Clinical Discharge Summary PERSON INFORMATION Name SHELIA BALBUENA Age 47 Years 1975 Sex FEMALE Language Faroese PCP CASSIE HASSAN MD Marital Status [facility] Service Ambulatory Surgery N [id number] Acct# Arrival Visit Reason SURGERY - RELEASE RIGHT CARPAL TUNNEL Acuity LOS 005 21:20 Address[facility] [id number] Comment: PROVIDER INFORMATION VITALS INFORMATION Vital Sign Triage Latest Temp Oral Temp Temporal Temp Intravascular Temp Axillary Temp Rectal 02 Sat 100 % 100 % Respiratory Rate Peripheral Pulse Rate Apical Heart Rate Blood Pressure / 109 mmHg / 89 mmHg Comment: MEDICAL INFORMATION Allergy Info: No Known Medication Allergies Prescriptions Given: acyclovir (acyclovir 400 mg oral tablet) 1 tab(s) Oral every day. aspirin (aspirin 81 mg oral delayed release tablet) 1 tab(s) Oral every day. cholecalciferol (Vitamin D3 50 mcg (2000 intl units) oral tablet, chewable) docusate (docusate sodium 100 mg oral tablet) 1 tab(s) Oral every day as needed for constipation. esomeprazole (esomeprazole 20 mg oral delayed release capsule) 1 cap(s) Oral every day. ferrous sulfate (FeroSul 325 mg (65 mg elemental iron) oral tablet) 1 tab(s) Oral every day. furosemide (Lasix 40 mg oral tablet) 1 tab(s) Oral every day as needed Other (see comment). ibuprofen (ibuprofen 800 mg oral tablet) 1 tab(s) Oral every day as needed for pain. melatonin (melatonin 10 mg oral tablet) 1 tab(s) Oral once a day (at bedtime) as needed as needed for insomnia. metoprolol (Metoprolol Succinate ER 25 mg oral tablet, extended release) 1 tab(s) Oral every day. potassium chloride (potassium chloride 10 mEq oral capsule, extended release) 1 cap(s) Oral every day as needed o., takes as needed with Lasix traMADol (traMADol 50 mg oral tablet) 1 tab(s) Oral Every 12 hours scheduled time as needed as needed for pain. warfarin (warfarin 5 mg oral tablet) 1 tab(s) Oral Thursday and Thursday. warfarin (warfarin 5 mg oral tablet) 1 tab(s) Oral Thursday, Thursday, , Thursday, an. Medication List: Medications to Continue That Have Not Changed Other Medications acyclovir (acyclovir 400 mg oral tablet) 1 tab(s) Oral every day. aspirin (aspirin 81 mg oral delayed release tablet) 1 tab(s) Oral every day. cholecalciferol (Vitamin D3 50 mcg (2000 intl units) oral tablet, chewable) docusate (docusate sodium 100 mg oral tablet) 1 tab(s) Oral every day as needed for constipation. esomeprazole (esomeprazole 20 mg oral delayed release capsule) 1 cap(s) Oral every day. ferrous sulfate (FeroSul 325 mg (65 mg elemental iron) oral tablet) 1 tab(s) Oral every day. furosemide (Lasix 40 mg oral tablet) 1 tab(s) Oral every day as needed Other (see comment). ibuprofen (ibuprofen 800 mg oral tablet) 1 tab(s) Oral every day as needed for pain. melatonin (melatonin 10 mg oral tablet) 1 tab(s) Oral once a day (at bedtime) as needed as needed for insomnia. metoprolol (Metoprolol Succinate ER 25 mg oral tablet, extended release) 1 tab(s) Oral every day. potassium chloride (potassium chloride 10 mEq oral capsule, extended release) 1 cap(s) Oral every day as needed o. traMADol (traMADol 50 mg oral tablet) 1 tab(s) Oral Every 12 hours scheduled time as needed as needed for pain. warfarin (warfarin 5 mg oral tablet) 1 tab(s) Oral Thursday and Thursday. warfarin (warfarin 5 mg oral tablet) 1 tab(s) Oral Thursday, Thursday, , Thursday, an. Medications to Continue That Have Not Changed Other Medications acyclovir (acyclovir 400 mg oral tablet) 1 tab(s) Oral every day. aspirin (aspirin 81 mg oral delayed release tablet) 1 tab(s) Oral every day. cholecalciferol (Vitamin D3 50 mcg (2000 intl units) oral tablet, chewable) docusate (docusate sodium 100 mg oral tablet) 1 tab(s) Oral every day as needed for constipation. esomeprazole (esomeprazole 20 mg oral delayed release capsule) 1 cap(s) Oral every day. ferrous sulfate (FeroSul 325 mg (65 mg elemental iron) oral tablet) 1 tab(s) Oral every day. furosemide (Lasix 40 mg oral tablet) 1 tab(s) Oral every day as needed Other (see comment). ibuprofen (ibuprofen 800 mg oral tablet) 1 tab(s) Oral every day as needed for pain. melatonin (melatonin 10 mg oral tablet) 1 tab(s) Oral once a day (at bedtime) as needed as needed for insomnia. metoprolol (Metoprolol Succinate ER 25 mg oral tablet, extended release) 1 tab(s) Oral every day. potassium chloride (potassium chloride 10 mEq oral capsule, extended release) 1 cap(s) Oral every day as needed o. traMADol (traMADol 50 mg oral tablet) 1 tab(s) Oral Every 12 hours scheduled time as needed as needed for pain. warfarin (warfarin 5 mg oral tablet) 1 tab(s) Oral Thursday and Thursday. warfarin (warfarin 5 mg oral tablet) 1 tab(s) Oral Thursday, Thursday, , Thursday, an. Medications to Continue That Have Not Changed Other Medications acyclovir (acyclovir 400 mg oral table (more content not included)... [facility] 05-30-2022 Note spoke to pt nhungin g upcoming procedure for wednesday 05/30 @ 1015 and instructed pt to be here at 815 and to be NPO after midnight and take medications that were instructed to take. Pt states she spoke to NEHEMIAH at Dr Lopez's and was told she did NOT have to stop her coumadin. [Electronically Signed on: 05/30/2022 10:19 EDT] Noemi Brooke RN [Verified on: 05/30/2022 10:19 EDT] Noemi Brooke RN [facility] 05-02-2022 Note HNO ID: [id number] Author: Marcos Walton MD Service: ? Author Type: Physician Type: Progress Notes Filed: 05/02/2022 4:18 PM Note Text: [facility] Department of Cardiovascular Medicine SECTION OF CARDIOVASCULAR IMAGING OUTPATIENT VISIT DATE May 02, 2022 OUTPATIENT VISIT TYPE NEW (>3yrs since last seen) PRIMARY CARE PHYSICIAN: Adria Snyder DO [address] [place] [address] CHIEF COMPLAINT: Postoperative Follow Up. HISTORY OF PRESENT ILLNESS: Ms. Balbuena is a 47 year old female who presents today for post-op follow up. 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 s/p AVR (On-X #21), MVR (On-X #25), TVr (CE Classic #28) done on 07/28/[address] Worthington, discharged 08/04/16. Since her last visit, she states that she is awaiting LEFT carpal tunnel surgery. 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 She reports edema in b/l lower extremities at times relieved with furosemide, although she does not take it often and occasional lightheadedness and dizziness. PAST MEDICAL HISTORY Diagnosis Date Aortic valve insufficiency Cardiomyopathy, dilated, nonischemic (HCC) 12/2015 Childhood asthma Dysmenorrhea Fibroid, uterine GERD (gastroesophageal reflux disease) History of left heart catheterization (LHC) 10/31/15 per report - normal coronaries, right dominant History of right heart catheterization 10/31/15 RA 13, PA 67/38 (52), PCW 36, TPG 16, Ao 135/67 (104), CO/CI 5.5/2.6, pa sat 61 Iron deficiency anemia Mitral valve insufficiency Moderate tricuspid insufficiency Obesity Rhinitis Vitamin D deficiency PAST SURGICAL HISTORY Procedure Laterality Date CHOLECYSTECTOMY ESSURE DEVICE PAST SURGICAL HISTORY OF 07/28/2016 /p Aortic valve replacement with an On-X mechanical valve #21. Mitral valve replacement with an On-X mechanical valve #25. Tricuspid valve repair with Sam Classic annuloplasty ring #28 SOCIAL HISTORY Social History Tobacco Use Smoking status: Never Smokeless tobacco: Never Substance Use Topics Alcohol use: Yes Comment: Rare consumption Drug use: No FAMILY HISTORY Problem Relation Age of Onset Ischemic Heart Disease Father Heart Father age 63- massive [place] Diabetes Mother Thyroid Sister hypertension None Sister None Brother age 35-MVA ALLERGIES: ALLERGIES No Known Allergies MEDICATIONS: metoprolol succinate 25 mg CSpXTake 25 mg by mouth once daily.Disp: Rfl: acyclovir (ZOVIRAX) 400 mg tabletTake 400 mg by mouth as needed. For cold soresDisp: Rfl: esomeprazole (NEXIUM) 20 mg capsuleTake 20 mg by mouth DAILY (6 AM).Disp: Rfl: Cholecalciferol, Vitamin D3, (VITAMIN D-3) 50 mcg (2,000 unit) capTake by mouth once daily.Disp: Rfl: docusate sodium (COLACE) 100 mg capsuleTake 1 capsule by mouth once daily.Disp: Rfl: warfarin (COUMADIN) 5 mg tabletTake 5 mg by mouth daily as directed. MANDF take 2.5 mg, 5 mg all other daysDisp: 30 tabletRfl: 1 melatonin 10 mg capTake 1 capsule by mouth daily at bedtime.Disp: Rfl: 0 furosemide (LASIX) 40 mg tabletTake 1 tablet by mouth once daily as needed (fluid retention).Disp: Rfl: potassium chloride 20 mEq TbERTake 1 tablet by mouth once daily as needed (fluid retention; take with Lasix).Disp: Rfl: 0 aspirin 81 mg chewable tabletTake 1 tablet by mouth once daily.Disp: Rfl: 0 acetaminophen (TYLENOL) 325 mg tabletTake 2 tablets by mouth every 6 hours as needed (for mild surgical pain).Disp: Rfl: ferrous sulfate 325 mg (65 mg iron) tabletTake 325 mg by mouth once daily.Disp: Rfl: PHYSICAL EXAMINATION: BP 180/90 (BP Site: Left Arm, BP Position: Sitting) Pulse (!) 54 Ht 170.2 cm (5' 7 ) Wt 113.9 kg (251 lb) LMP 07/17/2017 (Exact Date) SpO2 99% BMI 39.31 kg/m? General: In no acute distress. Skin: No clubbing, no cyanosis. Eyes: Extra ocular movements intact Oropharynx: Teeth in good repair. Neck: No jugular venous distention, no carotid bruits. Lungs: Clear to auscultation bilaterally, no wheezing or rhonchi. Heart: Regular rhythm, PMI not displaced, S1, S2 mechanical, no S3, no S4, no heaves, no rub and no murmur. Abdomen: Soft, nontender. Extremities: No peripheral edema. Neuro: Oriented to person, place and time, alert, cooperative, gait coordinated. CARDIOVASCULAR MEDICINE TESTING: Electrocardiogram: SINUS BRADYCARDIA WITH 1ST DEGREE AV BLOCK OTHERWISE NORMAL ECG Echocardiogram: Delayed today Will do locally I have personally reviewed the Electrocardiogram and Echocardiogram. IMPRESSION: Ms. Balbuena is a 47 year old female who presents today for post-op follow up. 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 s/ (more content not included)... [facility] 05-02-2022 History of Presen t illness Narrative Images from the original note were not included. [facility] Department of Cardiovascular Medicine SECTION OF CARDIOVASCULAR IMAGING OUTPATIENT VISIT DATE May 02, 2022 OUTPATIENT VISIT TYPE NEW (>3yrs since last seen) PRIMARY CARE PHYSICIAN: Adria Snyder, DO [address] [place] [address] CHIEF COMPLAINT: Postoperative Follow Up. HISTORY OF PRESENT ILLNESS: Ms. Balbuena is a 47 year old female who presents today for post-op follow up. 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 s/p AVR (On-X #21), MVR (On-X #25), TVr (CE Classic #28) done on 07/28/[address] Worthington, discharged 08/04/16. Since her last visit, she states that she is awaiting LEFT carpal tunnel surgery. 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 She reports edema in b/l lower extremities at times relieved with furosemide, although she does not take it often and occasional lightheadedness and dizziness. PAST MEDICAL HISTORY Diagnosis Date Aortic valve insufficiency Cardiomyopathy, dilated, nonischemic (HCC) 12/2015 Childhood asthma Dysmenorrhea Fibroid, uterine GERD (gastroesophageal reflux disease) History of left heart catheterization (LHC) 10/31/15 per report - normal coronaries, right dominant History of right heart catheterization 10/31/15 RA 13, PA 67/38 (52), PCW 36, TPG 16, Ao 135/67 (104), CO/CI 5.5/2.6, pa sat 61 Iron deficiency anemia Mitral valve insufficiency Moderate tricuspid insufficiency Obesity Rhinitis Vitamin D deficiency PAST SURGICAL HISTORY Procedure Laterality Date CHOLECYSTECTOMY ESSURE DEVICE PAST SURGICAL HISTORY OF 07/28/2016 /p Aortic valve replacement with an On-X mechanical valve #21. Mitral valve replacement with an On-X mechanical valve #25. Tricuspid valve repair with Sam Classic annuloplasty ring #28 SOCIAL HISTORY Social History Tobacco Use Smoking status: Never Smokeless tobacco: Never Substance Use Topics Alcohol use: Yes Comment: Rare consumption Drug use: No FAMILY HISTORY Problem Relation Age of Onset Ischemic Heart Disease Father Heart Father age 63- massive [place] Diabetes Mother Thyroid Sister hypertension None Sister None Brother age 35-MVA ALLERGIES: ALLERGIES No Known Allergies MEDICATIONS: metoprolol succinate 25 mg CSpX^Take 25 mg by mouth once daily.^Disp: ^Rfl: acyclovir (ZOVIRAX) 400 mg tablet^Take 400 mg by mouth as needed. For cold sores^Disp: ^Rfl: esomeprazole (NEXIUM) 20 mg capsule^Take 20 mg by mouth DAILY (6 AM).^Disp: ^Rfl: Cholecalciferol, Vitamin D3, (VITAMIN D-3) 50 mcg (2,000 unit) cap^Take by mouth once daily.^Disp: ^Rfl: docusate sodium (COLACE) 100 mg capsule^Take 1 capsule by mouth once daily.^Disp: ^Rfl: warfarin (COUMADIN) 5 mg tablet^Take 5 mg by mouth daily as directed. M&F take 2.5 mg, 5 mg all other days^Disp: 30 tablet^Rfl: 1 melatonin 10 mg cap^Take 1 capsule by mouth daily at bedtime.^Disp: ^Rfl: 0 furosemide (LASIX) 40 mg tablet^Take 1 tablet by mouth once daily as needed (fluid retention).^Disp: ^Rfl: potassium chloride 20 mEq TbER^Take 1 tablet by mouth once daily as needed (fluid retention; take with Lasix).^Disp: ^Rfl: 0 aspirin 81 mg chewable tablet^Take 1 tablet by mouth once daily.^Disp: ^Rfl: 0 acetaminophen (TYLENOL) 325 mg tablet^Take 2 tablets by mouth every 6 hours as needed (for mild surgical pain).^Disp: ^Rfl: ferrous sulfate 325 mg (65 mg iron) tablet^Take 325 mg by mouth once daily.^Disp: ^Rfl: PHYSICAL EXAMINATION: BP 180/90 (BP Site: Left Arm, BP Position: Sitting) Pulse (!) 54 Ht 170.2 cm (5' 7 ) Wt 113.9 kg (251 lb) LMP 07/17/2017 (Exact Date) SpO2 99% BMI 39.31 kg/m General: In no acute distress. Skin: No clubbing, no cyanosis. Eyes: Extra ocular movements intact Oropharynx: Teeth in good repair. Neck: No jugular venous distention, no carotid bruits. Lungs: Clear to auscultation bilaterally, no wheezing or rhonchi. Heart: Regular rhythm, PMI not displaced, S1, S2 mechanical, no S3, no S4, no heaves, no rub and no murmur. Abdomen: Soft, nontender. Extremities: No peripheral edema. Neuro: Oriented to person, place and time, alert, cooperative, gait coordinated. CARDIOVASCULAR MEDICINE TESTING: Electrocardiogram: SINUS BRADYCARDIA WITH 1ST DEGREE AV BLOCK OTHERWISE NORMAL ECG Echocardiogram: Delayed today Will do locally I have personally reviewed the Electrocardiogram and Echocardiogram. IMPRESSION: Ms. Balbuena is a 47 year old female who presents today for post-op follow up. 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 s/p AVR (On-X #21), MVR (On-X #25), TVr (CE Classic #28) done on 07/28/[address] Worthington, discharged 08/04/16. Since her last visit, she states that she is awaiting LEFT carpal tunnel surgery. 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 She reports edema in b/l lower extremities at times relieved with furosemide, although she does not take it often and occasional lightheadedness and dizziness. PLAN AND RECOMMENDATIONS: Continue BP checks (better at home) - call with sustained elevated readings Acceptable risk to proceed with carpal tunnel surgery If surgeon requires warfarin cessation, then will have to discuss bridging with local team Prevention advice Aware re endocarditis prophylaxis. Will continue to follow-up locally and here as needed I personally interviewed, confirmed and edited the above information as obtained by others. CONTACT INFORMATION: Marcos Walton MD, PhD, BEVERLY Sub Priortextile colorist dyer, [facility], Staff, Section of Cardiovascular Imaging, Co-Director Cardio-Oncology Center, [facility]. Of Cardiovascular Medicine, [address] / [address] [place], [place] [address] Appt: [phone] documented in this encounter [facility] 02-27-2022 Miscellaneous Notes REACHED OUT TO PATIENT IN REGARDS TO UPDATING INSURANCE. LEFT VMAIL TO CALL BACK WITH INFO documented in this encounter [facility] 07-29-2016 History of Past i llness Narrative Problem Noted Date Resolved Date Atelectasis 07/29/2016 08/04/2016 Overview: A/P: Currently on 2L NC. Continue diuresis. OOB, PEP and wean O2. Hypervolemia 07/29/2016 07/31/2016 Overview: A/P: CXR with interstitial edema and mild bilateral pleural effusions. Increasing diuresis. Stress hyperglycemia 07/28/2016 07/31/2016 Overview: A/P: Continue SSI for good glycemic control (<180mg/dl). Cardiac insufficiency 07/28/2016 07/30/2016 Overview: A/P: Milrinone bolus provided in OR but patient became vasoplegic and could not tolerate. Significant cardiac insufficiency requiring epinephrine infusion. Providing fluid boluses PRN. Titrate based on PAP, CVP and CI. VF (ventricular fibrillation) 07/28/2016 Overview: - Patient had multiple episodes of VF requiring DCC x 6, lidocaine and amiodarone infusion in OR. Currently in NSR. Continue to monitor. On mechanically assisted ventilation 07/28/2016 07/29/2016 Overview: A/P: Patient arrived from OR intubated and sedated. Slow bggc-[id number]-gforyzbf secondary to hemodynamic instability. documented as of this encounter (statuses as of 02/26/2022) [facility]12[facility]2016 History of Past illness Narrative* Problem Noted Date Resolved Date Atelectasis 07/29/2016 08/04/2016 Overview: A/P: Currently on 2L NC. Continue diuresis. OOB, PEP and wean O2. Hypervolemia 07/29/2016 07/31/2016 Overview: A/P: CXR with interstitial edema and mild bilateral pleural effusions. Increasing diuresis. Stress hyperglycemia 07/28/2016 07/31/2016 Overview: A/P: Continue SSI for good glycemic control (<180mg/dl). Cardiac insufficiency 07/28/2016 07/30/2016 Overview: A/P: Milrinone bolus provided in OR but patient became vasoplegic and could not tolerate. Significant cardiac insufficiency requiring epinephrine infusion. Providing fluid boluses PRN. Titrate based on PAP, CVP and CI. VF (ventricular fibrillation) 07/28/2016 Overview: - Patient had multiple episodes of VF requiring DCC x 6, lidocaine and amiodarone infusion in OR. Currently in NSR. Continue to monitor. On mechanically assisted ventilation 07/28/2016 07/29/2016 Overview: A/P: Patient arrived from OR intubated and sedated. Slow [id number]-da-qgjaeccg secondary to hemodynamic instability. documented as of this encounter (statuses as of 02/27/2022) [facility] History of Past illness Narrative* Problem Noted Date Resolved Date Atelectasis 07/29/2016 08/04/2016 Overview: A/P: Currently on 2L NC. Continue diuresis. OOB, PEP and wean O2. Hypervolemia 07/29/2016 07/31/2016 Overview: A/P: CXR with interstitial edema and mild bilateral pleural effusions. Increasing diuresis. Stress hyperglycemia 07/28/2016 07/31/2016 Overview: A/P: Continue SSI for good glycemic control (<180mg/dl). Cardiac insufficiency 07/28/2016 07/30/2016 Overview: A/P: Milrinone bolus provided in OR but patient became vasoplegic and could not tolerate. Significant cardiac insufficiency requiring epinephrine infusion. Providing fluid boluses PRN. Titrate based on PAP, CVP and CI. VF (ventricular fibrillation) 07/28/2016 Overview: - Patient had multiple episodes of VF requiring DCC x 6, lidocaine and amiodarone infusion in OR. Currently in NSR. Continue to monitor. On mechanically assisted ventilation 07/28/2016 07/29/2016 Overview: A/P: Patient arrived from OR intubated and sedated. Slow lcvk-ns-mcubttua secondary to hemodynamic instability. documented as of this encounter (statuses as of 05/02/2022) [facility] N[facility] - ReportedSHELIA BALBUENA is being seen for a consultation for. POC Dr Lopez right carpel tunnelMP-[facility] [address] DO Work Phone: Evaluation note* Diagnosis S/P AVR- Primary Heart valve replaced by other means [facility] Diagnosis S/P MVR (mitral valve replacement)- Primary Heart valve replaced by other means S/P AVR (aortic valve replacement) Heart valve replaced by other means S/P TVR (tricuspid valve repair) Other postprocedural status Rheumatic multiple valve disease Mitral and aortic heart valve diseases, unspecified Obesity (BMI 30-39.9) Obesity, unspecified documented in this [facility] Narrative* Ms. Balbuena is a 46-year-old female who is seen today for preoperative clearance for her to have carpal tunnel surgery. 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 She has mechanical valves apparently in bothpositions. This was done at [facility]. She is on chronic Coumadin. She has no cardiac complaints and she has been stable. She used to follow with [facility] cardiology but did not continue to follow there because of the distance involved. She has no known coronary disease and she indicates her heart catheterization done prior to her valve surgery was unremarkable. She has no anginal symptoms and her EKG is unremarkable. * Past medical history and review of systems as per office record. * Physical exam: * HEENT: No carotid bruits are heard * Neck: No lymphadenopathy * Lungs: Clear * Heart is mostly regular rhythm with prosthetic valve clicks at both aortic and mitral positions. 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 She is currently scheduled but apparently has not yet seen Dr. Lopez who my understanding is operates at [place] [facility]. I discussed with the patient that her cardiac status is essentially normal but given her valve history and the need for being on heparin while her Coumadin is withheld and then at the end of her surgery reversing this process does represent some risk and her best option may well be to have surgery done at a tertiary center such [facility] where they would be more familiar in accomplishing this. If it is an option that her carpal tunnel release could be done without stopping her Coumadin this would potentially be able to be accomplished at a local hospital without any significant risk. She has no other cardiac risk and has no history of coronary disease. She is going to consider her options and discuss it with primary care and then proceed on with her decision at that time. She will likely return here on a as needed basis. -[facility] [address] DO Work Phone: Reason for referral (narrative)* Outpatient Procedure (Routine) - Pending Review Specialty Diagnoses / Procedures Referred By Cha freeman Referred To Contact [facility] [place] Diagnoses S/P AVR Procedures ECHO ECHO TTHRC R-T 2D W/WOM-MODE COMPL SPEC&COLR D Marcos Walton MD [address] [place] [address] [employer] [facility] [employer] [facility] [address] [address] Referral ID Status Reason Start Date Expiration Date Visits Requested Visits Authorized [id number] Pending Review Auto-Generat ed Referral 02/26/2022 02/26/2023 1 1 * Outpatient Procedure (Routine) - Pending Review Specialty Diagnoses / Procedures Referred By Cha freeman Referred To Contact [facility] [place] Diagnoses S/P AVR Procedures ECG COMPLETE ECG ROUTINE ECG W/LEAST 12 LDS W/I&R Marcos Walton MD [address] [place] [address] [facility] [address] [place] [address] Referral ID Status Reason Start Date Expiration Date Visits Requested Visits Authorized [id number] Pending Review Auto-Generat ed Referral 02/26/2022 02/26/2023 1 1 [facility] Summary Purpose Family History No Family History Records FoundUnknown Family Member Name Dates Details Family history of myocardial infarction: Father, Brother(V17.3, Z82.49) Status:Active History of PTCA: Father(V45. 82, Z98.61) Status:Active Advance Directives No Advanced Directives Records FoundDocuments on File Type Date Recorded Patient Can Tender Expl anation Advance Directive(s) 07/22/2016 11:10 AM Documents on File Type Date Recorded Patient Can Tender Expl anation Advance Directive(s) 07/22/2016 11:10 AM Additional Source Comments INFORMATION SOURCE (unrecogn ized section and content) DATE CREATED AUTHOR 10/04/2021 [facility] DATE CREATED AUTHOR AUTHOR'S ORGANIZ ATION 01/21/2022 [employer] DATE CREATED AUTHOR AUTHOR'S ORGANIZ ATION 05/17/2022 [facility] DATE CREATED AUTHOR AUTHOR'S ORGANIZ ATION 06/08/2022 [facility] DATE CREATED AUTHOR AUTHOR'S ORGANIZ ATION 09/04/2023 [facility] EPIC Source Comments (unrecognize d section and content) In the event this informatio n is protected by the Federal Confidentiality of Alcohol and Drug Abuse Patient Records regulations: The Federal rules restrict any use of the information to criminally investigate or prosecute any alcohol or drug abuse patient.[facility] the event this information is protected by the Federal Confidentiality of Alcohol and Drug Abuse Patient Records regulations: The Federal rules restrict any use of the information to criminally investigate or prosecute any alcohol or drug abuse patient.[facility] the event this information is protected by the Federal Confidentiality of Alcohol and Drug Abuse Patient Records regulations: The Federal rules restrict any use of the information to criminally investigate or prosecute any alcohol or drug abuse patient.[facility] Care Teams (unrecognized sec tion and content) Freight Loader Relationship Specialty Start Date End Date Adria Snyder PCP - General Family Practice 01/03/16 Freight Loader Relationship Specialty Start Date End Date Adria Snyder PCP - General Family Practice 01/03/16 Freight Loader Relationship Specialty Start Date End Date Cassie Hassan [address] [facility] [address] [place] [address] PCP - General Family Practice 05/02/22 Reason for Visit (unrecogniz ed section and content) Reason Comments Appointment REACHED OUT TO SADIQ DAVID IN REGARDS TO UPDATING INSURANCE. LEFT VMAIL TO CALL BACK WITH INFO Specialty Diagnoses / Procedures Referred By Cha t Referred To Contact [facility] [place] Diagnoses S/P AVR DX: S/P AVR LAST 08/[address] WALTON PT WANTS TO RE-ESTABLISH CARE PT CALLED TO SCHED APPT Procedures OFFICE/OUTPATIENT NEW MODERATE MDM 45-59 MINUTES NEW IMAGING PATIENT Self Marcos Walton MD [address] [place] [address] Referral ID Status Reason Start Date Expiration Date Visits Re quested Visits Authorized [id number] Closed 05/02/2022 08/16/2022 1 1 FOR RECORDS PERTAINING TO PATIENTS WHO ARE OR HAVE BEEN ENROLLED IN A CHEMICAL DEPENDENCY/SUBSTANCEABUSE PROGRAM, SOME INFORMATION MAY BE OMITTED. This clinical summary was aggregated from multiple sources. Caution should be exercised in using it in the provision of clinical care. This summary normalizes information from multiple sources, and as a consequence, information in this document may materially change the coding, format and clinical context of patient data. In addition, data may be omitted in some cases. CLINICAL DECISIONS SHOULD BE BASED ON THE PRIMARY CLINICAL RECORDS. [facility]. provides no warranty or guarantee of the accuracy or completeness of information in this document.
[2023-09-15 09:28] LABS: INR 1.81; Prothrombin Time 18.6 sec (9.0-11.6)
[2023-09-15 09:33] LABS: Alanine Aminotransferase 87 U/L (14-59); Albumin Globulin Ratio 0.8; Albumin Level 3.3 g/dL (3.4-5.0); Alkaline Phosphatase 159 U/L (46-116); Anion Gap 12.8; Aspartate Amino Transferase 18 U/L (15-37); BUN Creatinine Ratio 20.8; Bilirubin Total 0.4 mg/dL (0.2-1.0); Calcium 9.3 mg/dL (8.5-10.1); Carbon Dioxide 26.7 mmol/L (21.0-32.0); Chloride 106 mmol/L (98-107); Estimated GFR (African America >60 (>=60); Estimated GFR (Non-African Ame >60 (>=60); Globulin 4.1 g/dL; Glucose 100 mg/dL (74-106); Potassium 3.5 mmol/L (3.5-5.1); Sodium 142 mmol/L (136-145); Total Protein 7.4 g/dL (6.4-8.2)
== END 2023-09-15 08:48 | disposition home or self-care (01) ==
LOC: LAB 08:48
PROVIDERS: PCP Family Medicine; Visit Provider Family Medicine
DX: R73.09 Other abnormal glucose (principal); I10 Essential (primary) hypertension; E86.0 Dehydration; I34.0 Nonrheumatic mitral (valve) insufficiency
CPT/HCPCS: 36415; 80053; 85610

== ENCOUNTER 2023-09-29 13:28 | Outpatient (OUT) | payer BC, SELFPAY ==
--- NOTE | 2023-09-29 13:33 | MM_ITS ---
Patient Name: SHELIA BALBUENA MR#: [id number] : 1975 Exam Date: 09/29/2023 Ordering Doctor: DR COLUMBA HASSAN M.D. RADIOLOGY REPORT PROCEDURE: MM TOMOSYNTHESIS SCREENING BI COMPARISON: MG MAMM DX 3D RT CAD, 09/30/2021. MG MAMM SCREEN 3D DIANDRA CAD, 04/26/2021. INDICATIONS: Screening Calculator Name NCI Breast Cancer Risk Assessment Tool 5 Year Breast Cancer Risk Not Reported. Lifetime Breast Cancer Risk Not Reported. Personal Breast Cancer No Personal Ovarian Cancer No Treatments None Family Cancers None LOCATION: [facility] BREAST COMPOSITION: Heterogeneously dense,which may obscure small masses. FINDINGS: DIAGNOSTIC CATEGORY 2--BENIGN FINDING. NO CHANGE FROM COMPARISON. Scattered benign-appearing calcifications are present. Scattered benign-appearing lymph nodes are present. RIGHT BREAST: No significant suspicious finding. LEFT BREAST: No significant suspicious finding. RECOMMENDATIONS: ROUTINE MAMMOGRAM AND CLINICAL EVALUATION IN 12 MONTHS. PLEASE NOTE: A NORMAL MAMMOGRAM DOES NOT EXCLUDE THE POSSIBILITY OF BREAST CANCER. A CLINICALLY SUSPICIOUS PALPABLE LUMP SHOULD BE BIOPSIED. Dictated by: Rahul Warren MD on 09/29/2023 at 15:09 Approved by: Rahul Warren MD on 09/29/2023 at 15:10
--- NOTE | 2023-09-29 13:33 | US_ITS ---
The [address] [address] Patient Name: SHELIA BALBUENA MRN: [id number] date: 1975 Sex: F Assigned Patient Location: Current Patient Location: US Accession/Order Number: [id number] Exam Date: 09/29/2023 13:45 Report Date: 09/29/2023 15:35 At the request of: COLUMBA HASSAN Procedure: US right upper quadrant PROCEDURE: US right upper quadrant, 09/29/2023 1:45 PM EST CLINICAL INDICATIONS: Abnormal liver function tests, cholecystectomy. COMPARISON: Right upper quadrant abdominal sonogram. TECHNIQUE: There is incomplete pancreas assessment. Majority of head, distal body, and tail segments obscured by gas and stool. Ductal dilatation is not evident. Right lobe of the liver is enlarged up to 17.5 cm. Hepatic echogenicity and contour are normal. Visualized portal vein is patent with antegrade and phasic flow, normal velocity 28 cm/s. A focal abnormality is not evident. Gallbladder is surgically absent. Common bile duct 0.4 cm. Right kidney is normal in morphology with mild renal cortical thinning, prominent central renal sinus fat. It measures 10.0 x 4.6 x 5.5 cm. No hydronephrosis or shadowing calculus is identified. Focal renal abnormality is not demonstrated. No ascites. FINDINGS: 1. Cholecystectomy, no bile duct dilatation. 2. Incomplete pancreas assessment. 3. Nonspecific right hepatomegaly 17.5 cm craniocaudally. No ascites. 4. Right renal cortical thinning, no hydronephrosis, calculus or focal abnormality. Electronically authenticated by: YARIEL BENNETT Date: 09/29/2023 15:35
--- OUTSIDE RECORDS SUMMARY | 2023-09-29 13:33 | XMS_ITS | CCD ---
Author Name Unknown Address [address] [facility] [address] [place] [address] [facility] Care Team Providers Care Hospice Art Therapist Name Role Phone SONYA, DR WATERMAN Admitting [...] Unavailable Unavailable Adria Snyder Primary Care Provider RiberaCassie Primary Care Provider SONYA, RUGEN MABLONGY Primary [...] Admitting Unavail able YUNG GORDILLO Attending Unavailable JAYLEEN ARANGO Attending Unavailable Allergies Allergy Classification Reported Allergen(s) Allergy Type Date of Onset Reaction(s) Facility (1 source) No Known Medication Allergies; Translations: [No Known Medication Allergies] Propensity to adverse reactions to drug (disorder) [facility] Repository Medications Current Medications Medication [...] on above: Take 2 tablets by mo [facility] every 6 hours as needed (for mild [...] Comment on above: [facility] cholecalciferol 0.05 mg oral capsule [...] on above: Take 1 capsule by mo [facility] once daily. esomeprazole 20 mg delayed release [...] on above: Take 1 capsule by mo [facility] daily at bedtime. 24 hr metoprolol succinate [...] Coding Summaryon 06-04-2022 Coding Summary HTMLBase 64 JubynlieMZq4dBa+PGhlY WQ+CC8JAYPrK58csPTxcH 5XD1yKOE4ESMSKLSNWDL0 OQJ2npIF3BHwzY4TafhTy MoxohBOsNM41KEx1IOX8o SwjSAcbbZ0xjAIfQ2m7Uo UwHJ79cS24LDsuZWAoDvZ 3LjZpbjsgbWFy E3jdSuCjnITvZzw+PHRhY mxlIHdpZHRoPScxMDAlJy JfxZttUG2uSy0zTAChIAO vbGxhcHNlOiBj x1utDGOfDErjEP9xtHvlO 7ZvtPH5HVIwb0h1Eb66qE I+KTCiTMJ6yZwmTOoaz01 4GoIwb7cwKZO3 gGNaSOfyYCD6P72ij1O0J DLtLDFgATJ7uRX7tR6xrE panpnkF0YboMCiRsF3POU 3aLFvaT8gjYyn dygxqK1qCmq+L45KQX9CF FAEPH7ARsk3G1GnCvxlyO I+KY51FXXuHY34oPYzlKX lt8ueoSr6ObFg SAGaFEA8yXrkIUtij6KtL TVwY55efIUee1Z9OOBjlP zxiLCoIwCqwOZ3bV6kAXq gmtajc4bjksre Dnwkb2fbrj81yG29W01jV PifLRCgXLF7HUZgWDCuzM ncss2hdL4xXg3+RLqrf5b no7ohgOn3YuSy RETqhnActZnzPPL3c1KzO q80T9KahSncl5GaQly9we 38iLLar4H1fEE5LRxpEIR guQ7yADbxLvJ7 QSCcXqTxoU58iVOdVYinD i7xsLaspUalMP5vTRGnvf pcOVGmzA1tLHGyeKBjzSv iUN2dOVIivhro m917NyXgQPY8HPZyiGWmP 1GbfQ7cKoIpPXYgVWIeG6 GqbVRjDBzqO040ABaiJwN 6IVBaihErF7Vf SDTxvVotCzI4x8V1Tn0Os 2MmndjgHUI8WGzrEBJkDm W4HmLxFwH3U2UoQlx8VCE vaBgvWI6nQ3Ex YZGjkvpgysgegDV2NWQjZ XOwjL01uFDbRFtiSf7pw6 V5p139GEIsSIVrnJ31Vn1 udDogMTBwdCBU fP8qhjpft9jgxeinIqYbB HKsCCp3ESz7OOHzlIwfVp LhTIR8TiW2MUX3vLMzhF1 mtSjastcigL8j Oyc+Y95bbC5qKMO5FKV2i eazJCVwfsIyNS88OS40D5 RyPjwvdGFibGU+PGRpdiB giKjjHM8oNpGf y9hye6CgJDepB1AzNJToC MvnIbj0HAJdPGZ3pCO7uK 5xKXWbZVnqz1W6jIZ7R3Y tjnSsja4xp3cs LHQaEIlxJ68ijKEnr6L5G OJevIK8OJGjcZxrXsQrnN 93Oyc+LPSljGjro7GrAot hy7flf4hvlIu4 XbRdKGFqvqJtvXsnYUT1f 2CpJy95M24dJFfcFWPrAI JaEDIqALMziOpcpo5kpR6 wIi8+PGNvbCB3 oIX2qH0lTEMqCrE7XFueX 153QkFhdGBpBupkg8rna3 crjZc8XwLoQBDfoxFxdQe bWMD9r5UuYa70 Z90kFYuhFHQmHVZqZEAuE QJybMvwdp5bmX8xPc8+PC 3iv3ktnh76eC58lRG+PHR hDPM1oEqfLSqg VLPtgI9bSQfrDvG5KAJfB aYyxV22yPLyKWcvYm6bfP korBhnBW3mNAPguqdbp79 4JxJeq8dfGDVv mSKpGYcxIXG0K79sd7D1K BXiHVVzIOX4xXY6rL4myM lnbjogbGVmdDsgdmVydGl eGHjgWPonD173 IHRvcDsnPlBhdGllbnQgT uNuRPz7U8QrKwx0RLHdsM fbKZ6hzELxBVdnNs4fmLw jaYjtUA7vYSGj jdrzu507CfNdc5laGHCxc KSuADeuICR7L77xl4O4MU HtPLDxSFU2gHF3cR7khOf nbjogbGVmdDsg tyWjlFnmPCqiPWvbQ353I HRvcDsnPkJpcnRoIERhdG K2VC89ZZ69hNAwp6M9tHP 3F7EcTURwylcy yipkeJX4NXPgEHIyeT63K t2kgHgsHi2bAGIeMSL2TA IdpHCiV4HwdZ1wSyYpFRR hZQVeM4ZedVTd SPeaR181SYhrRwQ4RODwj yVdZ7TyJTFmyOxqZmA5k4 B3Gc4HZ5S6BG10WO81dFV tt0T0pEX1Z1Ql UJNashsthzsbmZQ4IWByD EBpdC90Wk7afYszXg4xJJ TdTOP8ARKxmDCfC9BqcI2 yOiAjMDAwMDAw R8GrtEYpIRpqI618IWazK qU4NFCpdjSiM2ElJDWheS lnKgF5e5C2Sm6ZDNc2TJ6 1QX62dWLiw3I1 vEB4V3YjIXGjmzrrniydt XX4RNEpWAXkfI97Ei1kxQ zjNj1oHQQdQIT6JVTnxQL iA7JexZ1mJjPz VCIpHPDfK7YhmCYqUJvoY 171HIeuRnO1WDBhpxHbC2 NhGJIwmNfgQeH0k2I4Su9 AIEJtLF49KPQ8 wMG1XT61IS57E6EdUkqmm GFibGU+PHRhYmxlIHdpZH RoPScxMDAlJyBzdHlsZT0 pHn1sZLClIQEz eEoewOOrWvWvt8xuXVVrM HjoQP1ujElkO9TbsFG3SJ Ium7u4Ax59P10fC3YamLZ +FYZzbRK1oEL6 nI2oLgMkHoD5UIhtS074A zSqmZRuUplmo8fwm6iypB u5JuK2NHUhqrYhpNqqAVP 2s8SyZz19B17r IHdpZHRoPSIxNSUiIHZhb Gkwnl7ddI9pPd0+PGNvbC V1iVK1zY1pDzDaVqB3OIx rD619XfEmnRKe Pznsr1xkw5qqrBd0TaSqM YSojiWiiTksPBN7l0OrJs 73H8NpuSrvq6KiKkk6ku0 1bPSgr8T3nRS9 J9CrTMFrjgqovNHdvMmgW N4lHZDpfpyoKAZeqA3bQF PnQ8d8JvNzLxP4VAxpP2L kuvL3ROGowJIi IHzuKDJ0D01jh2F5TBZkJ SBjDYB6wPO3lX0mfIuxxz ogbGVmdDsgdmVydGljYWw aUNzuY664MTFb pCzmZZDjqC9lLYPgxZBox JsjXJ1cXYQchpjzMrXPT5 VSUywgSkFRVUxBTiBTPC9 6XM27gGPed4L8 mRO0A9WzSQHrfmjhmetav LM9FDBnQRSsoH06wJUsJK hmBg7rg5L2p058JISdPPC xrG46Ts2wbHfg CHSvkEWYsO8cfrxpu0mbq tprOxQhUMQoXBm3GNq5AM VrfMwuEgMfTPI4KgS3EDK 6qGRfcG2guGgb ldzvvX2oVul+MDcvMjcvM Be8RTelmCO+UCGcLWF5oN acRMltONLvmE4lDMFcB2d 1LiDiYiA7JQrl G9YaVMGwowplJf25mI7jT gCiEjQ0ORlwL0DklzU3QA LopLFsIDnjPFD6J88lc3I 7PJBcTGFdAIU6 gLP1jF0sbMqwjwrzdFQya DsgdmVydGljYWwtYWxpZ2 87GQPcpCtcMzG3KUnvFWV gTH44ST49kPGc f5I8pXI1F2EyWHUdonrcc lauqFO0XZGrNGPalA88xR EiQUumAd4yz6X3p554MOK vYCJirS89Tz0v yOhtBLGupREFuG9mnotzz 3fcavuwMyGoZBOgISg0DX o7XGJmwLrzUmMeROO1YiE 9JSV2cWIfsN8i zSpenyioqH8nAlk+RkVNQ PmPOO94GC11uFUav2U0xY M6P8HgDVZdpfjkphfdtUX 6NHLqEKNyoO60 yRXhYYxxLd8el1G4u837O OYhGRFyoJ03Xe0fqFnmPJ DizIUVnH0bpuokj3ynita gIzAwMDAwMDt0 OEw7VYTqfKzlDsSzSJR5G dY7ZBG1cGAmbB9unVmrbn btbD8sUmq+JYV9DZC9fqf bnyc8A6EbZoqk dHI+IC32LHRrGO18tZZup HAjx1yhxAy7GtXvMDJnNU U1dNckLBhtu0XtMYGkL56 jgQSbk3S3KKPu oGjeuTLpKsCfqUX4gG5xK Azyvpqcv1ubdlkpHybup4 qxsb06sI42G34dWCcyVJO oPSIzMCUiIHZh yQgoki7lzG8tYc9+PGNvb DI1sAT7pF3sBlUuImL6DH tsR205LiRxcTRrEcgny7e xv0nnsXw2IdQy PVQjbvZkiYkySHP3d7FcU q08T20dGYmqDUCvMSKvIX KzMBGrrQtfqn9qvZ2yZw7 +LR4vp8urlk52 tR96gFG+ZFZsKTB4zChhH AibIYZqjG3rDIlcIzA1YF NeWnQxdD59xVFiPZjeXn4 arQcvrShkSH7o TUBhjdzql614FuUtr7drR BDmvNTgYMqbGBV9I20mg2 P4EUEeTILxYOC6cZO3mZ2 hbGlnbjogbGVm dDsgdmVydGljYWwtYWxpZ 164FVFuyAtvJqSwhFLhU6 wjpzNANN3fRuiocDR+PHR qAZR2ePxdDVte WRQvnW5zVUArM3k7BsPpT tQ4STwoJ6CdjbS4AFLynI HmWPHhiHSSbY0catkgg9z vcjogIzAwMDAw UUb2VGn6HVKnySzrKyKbI XR9SgM0UMU2dRRlgQ6gpU dxpwdbvX7wOgj+RklOOjw vdGQ+PHRkIHN0 kUgwQYrlTDDwrN8pOELwW 2j9KyNvOcQ4PDjsB1Etiv U1OHBuzHAwJANuyBZNpA3 ervoji5cfqudv YlTdUWHhHZw7LLl5YOMlm FjdReEqZEV3YzH6NZP9zB XfnO5cgVpdbhzeeA8sZcy +TVJOOjwvdGQ+ JSCdSJY3dRszHLfkOEWaa M2qPDJlD4s2FxKqZuA8ND fjU3BhfeA4KSQotYQcQQA bhWUVcX6gwpyg a4jwopvrFwIhNBAlASq1B Fb5JZHptUcjLmImEUR7Xd Q2NHH1dVTliE7sjXimtdw wzJ1tWrt+UGF5 NBW5GT13TQ37V1WpVcuuw GFibGU+PHRhYmxlIHdpZH RoPScxMDAlJyBzdHlsZT0 nCk6nBSMuFVYf bGx (more content not included)... [facility] Consent Formson 06-03-2022 Consent Forms [id number]#1 .[facility] Inst[facility]on Discharge Instructions [id number]#1. [facility] Discharge Instructions [id number]#1 .[facility] Outside Recordson 06-03-2022 Outside Records [id number]#1. [facility] Anesthesia Noteon 06-02-2022 Anesthesia Note Patient: SHELIA BALBUENA Age: 47 years Sex: FEMALE : 1975 Associated Diagnoses: None Author: Sky Parsons MD Postoperative Information Post Operative Note: Operative Day. Anesthetic utilized: Monitored anesthesia care. Health Status Allergies: Allergic Reactions (All) No Known Medication Allergies Problem list (past medical history): All Problems Cardiomyopathy / SNOMED CT 712541190 / Confirmed H/O aortic valve insufficiency / SNOMED CT 912230646 / Confirmed History of obesity / SNOMED CT 656861172 / Confirmed Mitral valve insufficiency / SNOMED CT 51461968 / Confirmed Tricuspid valve insufficiency / SNOMED CT 172069134 / Confirmed Physical Examination VS/Measurements Vital Signs [...] on: 06/02/2022 17:54 EDT] Sky Parsons MD [facility] Anesthesia Note Patient: SHELIA BALBUENA Age: 47 [...] history): All Problems Cardiomyopathy / SNOMED CT 243376663 / Confirmed H/O aortic valve insufficiency / SNOMED CT 135144395 / Confirmed History of obesity / SNOMED CT 375228199 / Confirmed Mitral valve insufficiency / SNOMED CT 37615887 / Confirmed Tricuspid valve insufficiency / SNOMED CT 822627928 / Confirmed Histories Family History: No family history items have been selected or recorded. Procedure history: Cardiac catheterization, left heart (346812423). Cholecystectomy (10858204). Ring annuloplasty (913886600). AVR - Aortic valve replacement (2848659617). Entire MV - Mitral valve (9236253587). History of 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 (6407260846). Comments: 05/29/2022 11:11 Olinda Yanez RN repair, not replacemnt Cardiac catheterization, right heart (05980480). Social History Electronic Cigarette/Vaping Assessment Electronic Cigarette [...] Oriented. Review / Management Laboratory Results Plan Citizen Of [place] Society of Anesthesiologists#( A) physical status classification: Class III. Anesthetic Preoperative Plan Anesthesia: Monitored anesthesia care. Anesthetic plan, risks, benefits, and alternatives discussed with the patient and/or family. Patient verbalized understanding. [Electronically Signed on: 06/02/2022 15:30 EDT] Sky Parsons MD [Verified on: 06/02/2022 15:30 EDT] Sky Parsons MD [facility] Inpatient Patient Summaryon 06-02-2022 Inpatient [place] [address] Patient Discharge Instructions Name: ASHA BALBUENATATIANNA Dunham : 1975 Patient Address: [address] [place] [address] Primary Care Provider: Name: CASSIE HASSAN MD After you are discharged if you find you have any questions, please, call [phone] ext [phone] to speak to a nurse. Discharge Diagnosis: Right carpal tunnel syndrome Prescription Information: If you have been given a prescription for narcotics, seek immediate medical attention if you have any difficulty breathing or any sudden status changes such as confusion and sleepiness. If you or anyone you know is experiencing suicidal thoughts, mental health, alcohol and/or drug addiction problems; contact the [facility] 09/03 Crisis Hotline -Text 4HOPE to 969857. If you received any narcotics, sedation, or [...] business decisions or sign any legal documents [facility] would like to thank you for allowing us to assist you with your healthcare needs. The following includes patient education materials and information regarding your injury/illness. SHELIA BALBUENA has been given the following list of follow-up instructions, prescriptions, and patient education materials: Follow-up Instructions With: Address: When: CASSIE HASSAN [address] [place] [id number] Business (1) With: Address: When: Manjinder Vargas [address] [place] [address] [address] [place] [address] [facility] (1) 06/10/2022 2:00 PM Medications [...] Oral Mond (more content not included)... Normal [facility] MAGR Intraoperative Recordon 06-02-2022 MAGR Intraoperative Record MAGR Intra-Op Record Summary Primary Physician: Bharathi Lopez DO Finalized Date/Time: 06/02/22 18:11:29 Pt. Name: SHELIA BALBUENA /Sex: 1975 FEMALE Med Rec #: [id number] Physician: Bharathi Lopez DO Financial #: [id number] Pt. Type: D Room/Bed: / Admit/Disch: 06/02/22 [...] Role Performed Surgeon - Primary Anesthesiologist of Health And Safety Technician Record Time In 06/02/22 17:03:00 06/02/22 17:03:00 06/02/22 17:03:00 Time Out 06/02/22 17:37:00 06/02/22 17:37:00 06/02/22 17:37:00 Procedure Carpal Tunnel Carpal Tunnel Carpal Tunnel Release(Right) Release(Right) Release(Right) Last Modified By: Dahlia Mendenhall RN, Barbara RN Long, Barbara RN 06/02/22 17:37:37 06/02/22 17:37:37 06/02/22 17:37:37 Entry 4 Entry 5 Case Attendee Azeb Farley CST, CST/Kristi SIMMS EINSTEIN [employer] ASSISTANT MANAGER Role Performed Scrub Personnel Dietary Server Time In 06/02/22 17:03:00 06/02/22 17:03:00 Time [...] By Dahlia Mendenhall RN Scrub 10% Povidone-Iodine [facility] Prep Area (Im.270) Elbow and forearm, Hand [...] chemical in (more content not included)... [facility] Record [facility] Phase II Record Summary Primary Physician: Bharathi Lopez DO Finalized Date/Time: 06/02/22 18:29:55 Pt. Name: SHELIA BALBUENA D.O.B./Sex: 1975 FEMALE Med Rec #: [id number] Physician: Bharathi Lopez DO Financial #: [id number] Pt. Type: D Room/Bed: / Admit/Disch: 06/02/22 [...] Dahlia Mendenhall RN 06/02/22 18:29 [facility] Preoperative Record [facility] Pre-Op Record Summary Primary Physician: Bharathi Lopez DO Finalized Date/Time: 06/02/22 17:25:46 Pt. Name: SHELIA BALBUENA Roly /Sex: 1975 FEMALE Med Rec #: [id number] Physician: Bharathi Lopez DO Financial #: [id number] Pt. Type: D Room/Bed: / Admit/Disch: 06/02/22 [...] Signed By: Dahlia Mendenhall RN 06/02/22 17:25 [facility] PT/PTTon 06-02-2022 INR Coag (PPP) [Relative time] 1.64 {INR} High 0.91-1.11 [facility] Comment on above: Performed By: #### [id number] ####[facility] (DEFAULT)[address] [place] [address] PT 17.3 second(s) High 9.7-11.8 [facility] Comment on above: Performed By: #### 6 [id number] ####[facility] (DEFAULT)[address] [place] [address] PTT 39 second(s) High 25-35 [facility] Comment on above: Performed By: #### 6 [id number] ####[facility] (DEFAULT)[address] [place] [address] Patient Handouton 06-02-[address] HIGHTOWER POST OPERATIVE CARPEL TUNNEL INSTRUCTIONS SURGEONS WRITTEN INSTRUTCTIONS: -Keep your hand elevated above your elbow for the first 24 hours after surgery -Wiggle your fingers frequently while awake -DO NOT lift heavy objects or c t tech forcefully with your hand -Change your dressing [...] or concerns, please call the office at [phone] -Follow up as scheduled [facility] Test Serum 1on Preg Serum Internal Control OK [facility] Comment on above: Order Comment: pre o p Performed By: #### 3 [id number] ####[facility] (DEFAULT)[address] [place] [address] Test Serum Qual Negative Normal [facility] Comment on above: Order Comment: pre o p Performed By: #### 3 [id number] ####[facility] (DEFAULT)[address] [place] [address] Coding Summaryon 05-30-2022 Coding Summary HTMLBase 64 VotdnrwlLYj7cDs+PGhlY WQ+QU7ROFQcQ17yhHNycK 6HJ5jKXN6ZKJIKTRFYDE9 XJY1utNG8YRqkC9HzjvDh GavvrQGdQK02HTe7OPR9s QbcMMgacY9zzBVmU2f7Zf IqYZ85nF65GQxySQSfHrU 3LjZpbjsgbWFy J9siRkJtbRRjQpp+PHRhY mxlIHdpZHRoPScxMDAlJy PrlUbfKD9mGd8iTPMcJQY vbGxhcHNlOiBj z0dzIQAqOQrwAI2bvPlbH 0LczQX4ARXao1e4Wa36pQ I+QSQwTXA8rCurQKhfp41 8PsFuz3yqBWG8 zRRkEDybSJA5L76sj4O9N JQiQRZzDXH1sHA3dX2zmY rkyakgI9RewRMvAgE4HEU 6rIQawQ6onUjx xifpuK0zWmu+C26AZF4HT TMOFH6JJvo6W0OrUylrvX I+KJ55TDYeBD58oPZbfNL ql1incNa7OlKl IMMnWBY8wVolLVprn8GrR ZNfC19tqMCya9L5COTwqP hidFNsBoIasSM4pS8gBJn hmcrwz7ydkbps Cdhzm0zgpt39hO77B19eI LenCKNeRPU0SDPtTMHdtC dtoy8ysH0iOh6+FTlyj3m ba3xwaAz9MhGa TFOtqmJzpRkiTSG9z4IhF i71A6GuqBshj1JuBfd5va 60dAYba7W3bZO5COcgFUJ yaC6vRHjiJcS5 VWYfGoAwdW57wBKmERqzM r7prYnyiOfhGK8qCPNdjb wwWDXsjW2bVGLifHLdpZb zOC1eAHXqqzii j710SlMgXLD2AQAmzJOaT 9BkkC8tVuJlVLXfCEHqK2 UgtXRsTMouU480QWgiCaS 9VVOmrdFbW3Ox KKHnvZbiBnA4l7Q7Au3Zq 8XgfikqSBQ8PSwiNGAoOk P1QxXyNsE6X7DmMyb0VYJ tsTbdLE2zN3Kt OXJrxcirktofiNX9GAOrP EGdjY70pTGmMFskIx4yb1 X5f600NBXzHRFmdV14Ez1 udDogMTBwdCBU sV9ukrrjp2xcwlfcAbGqH OEiXYp3UFn7JXVazSbzGg XvQZE6UvY0CEV6wMElpZ7 tdOdblrwefJ6u Oyc+N68xpU3xOGS2XDT6k tyrYYDfdfLfVV95RG78Y5 RyPjwvdGFibGU+PGRpdiB vaJqzZZ0wXkNp m9xap9ZxKUdgX9MuJVVxN HmgHrn6ZNJuOGW3uVI0bB 4bIXJiVPtzc5M1bHG6W1A xqsCevi9hb9ym ODNkGZijE41jvDLar4P9X BIztVL5YVCxmVyzVeTaiQ 93Oyc+NFUxfYkil6DhTgq hj3nfj0zvmQa8 GhOgALRzwsZciQxrIOU6z 7VtPn49S45qILjaBFBlQU XyIUXiEYLjuEdwgt1ytK7 wIi8+PGNvbCB3 bXQ6bH5wSEGcMfP7PMtbU 929SbCkoMAzNdopr9esk3 nymSr2QdJrUVUhtaHylNe nOBE0p9RoIu50 Y52xEVomVHDiVUJyXPTzP SHvjDiqhp3fcA2oXx2+PC 5nf4qypd83zS69aZD+PHR gSZU7tJdhHZeg XEVnvZ9gEWgnCaY6ATQsY rOwyS94mIQrHYhpVd0vwY sunEroGQ6xQQCzxyknq50 1EbOnu4xiZKGk nWIsUEvbTLG1G46ij6H5O DSjJCDaRUL3kUH8iC9nqK lnbjogbGVmdDsgdmVydGl wTEgnVYnbE759 IHRvcDsnPlBhdGllbnQgT aOaCCn9M7WkHar8RVUxuQ akUT3nkXHgPXafHo9zfAm kmSnzGY5oXZCt mteox802HdYxp2meCTNyi GQpAIyaFTD8G44nh6A0YW YiMPDmHEG1wOD0hM3etXk nbjogbGVmdDsg waKsxWuoMGvrJUsrA175Z HRvcDsnPkJpcnRoIERhdG S7VN63RO37oYHfw6T0iNZ 3R5LpSXLzkbxe julnqGO2GEGfIACrfK79F w5tlNgiLa9aMFCxNCN4EK XdqRGfU0XobM1eWsZoCCC jBTUvU5EjcAMd TUmsY852RWstTqH3ODRza rRdO8KnDHJvaBagYnN9n7 F3Hw1FH2X1ZM63OK93cCE be6I7iJL9G9Uw INYxcnusxxctfRN8NZYaF GPzfS70Xt4qqSkfDn4dYZ DqSBR7BSSjmMOlS5GfgJ9 yOiAjMDAwMDAw J7WfgICmXLhcW772SHqpN dM7QFFvbiNxK5GwOBLsmS egWkS0p4S5Ex5KPVc3CD7 5WO15xUPgz3K9 rKJ5Z9EzKCNfejtywemgo MT6TWRlVGZzvF23Az4mmE poOz1sMRMjGOK9VEWxyGC mT4GlgV1hSbZn IMCaYENoD9BmqVFjWSfkR 120UHgwPmL9NCXrcfIrL1 KcCHCzrZiuHvK0c5H1Iq4 UHAFbTW14GLF8 kII3KL73WQ08Z3VdHkwlg GFibGU+PHRhYmxlIHdpZH RoPScxMDAlJyBzdHlsZT0 nIj2uAGWvBXHv uQqftCItIhOyl4olJOHnO EmfNW8pfFqtX6YspLB0OI Lai8z0Mj37Y17zA7FrzUK +RNMixOL8pJV7 yS1vYpGdPvG8VMwmP871W oSraIRfIpjhn0vzl8llaI z4YoQ7VLOgsgKyoSntDAZ 5m6NiMu28V55g IHdpZHRoPSIxNSUiIHZhb Hjtbv1skA3gXb6+PGNvbC P4uRF3sZ3vLdSqEiC8OUe aQ427HgGavGQn Zorox6pyi5maxZf7WdBbC QSczlMdfSrjNKA1k5ZmXw 61F8FqbMdru3KzBin8vj2 6cKNkc5Q3hVL7 H2ZqQHWkulszhKLpcUtkI B4yDVBzxedwQIUhfC9kPX PwU3a5PaBtRlW3NNwnW7U xodP7HKNtcDXw VPanXFX5Y69ey0A8TTTzI IPoGJY0iIS4lY9nwWppam ogbGVmdDsgdmVydGljYWw hQCjyR565ULMx lJeuEKMfaQ4sWGNogIPcd IktWP4tBVJyfzebUuRID1 VSUywgSkFRVUxBTiBTPC9 6WD54lVOkd4Z0 aEN0R8UeMUPwdsfjmnuzr CJ1VJKiUZRwoO06tGYjGQ fuOm0az3G1a271QXHtJXU ykF66Yx9jmBci QMLcyZTPzX1lvskjg9yab apvQuVoCZZdXCe5UNq0EW AiwWvfZjZeJFK8EkP6RIL 4xPRdfI8gvBkx edoqbF0oYgd+MDcvMjcvM Ew7FYrpnNL+PXFuEPN2tS ogSVdrCJVdvP7uFLFwB1q 5TdSiZqU5BQqu R7VqJDUbhnkwHa60lD0jF hSxUzJ2LThxW0QqbeY2RK GvzLCuDEndLUG8A75cp4J 0FTTxUTHwDLH7 vVZ8kM8pzAmkncepqRVcs DsgdmVydGljYWwtYWxpZ2 52VYDjtKqzKrA9AXljMOS oGG97KP73eFLz l1P6bWN2N1YsIIFjbtdmw dxbgDC5DEYkIRJgtJ50lB HlZTirTl2zh2L9o132WPX wIJCadP08Nh3f rSleXDOuxBHMhH8yzrfiz 2zsjhsdYnToUHCgHIa4PR u1BJSvuHfaMrIbYXC7VwI 1QLZ8pUWkdV7x yBfvsoqnaN1pTyc+RkVNQ WvOJN30BZ54pOBix1Z0iF W0R3PpEGChkinxmfkosJG 1JLIkWGNuuS56 pYNhRYvySl5vy4C0r301Z OIqQVNstB86Bb8loQwjDY MnsVYWqC1ehvocf2eeuuy gIzAwMDAwMDt0 PPy0TNMtyDlzNtRdYLP2N xH8PFO7nIDepG1vhMywcu lhdK8oQwq+W6Z3Z6OzFfw vdHI+BC65EMNa VA53eKTftCDon2uvgOn5B nUfSQKyYBV8gTptHWfuu8 NbAYKeW79yhCJhn6D9LCM vbGxhcHNlOyBl cAE2aY5aKXbfsoxub3dgh yzrObhxi1blmx09pE79Y7 9sIHdpZHRoPSIzMCUiIHZ loHrvyw4ecW8d Ii8+MLAvcOC4wKY6jB2vS aAoDuJ3BIizS260XhMrjB UqWsgkz3ghf8fucKz5BnN wJSIgdmFsaWdu OWU5i1QrRi63K54yFQogJ HRoPSIyMCUiIHZhbGlnbj 1uuC5iMx2+ED5bo8aszm0 0pH14wSW+PHRk YNL8vOcsJAxhMDJuvN4cB UojGdA9HWXgLzPfrC24nL FqPLhiVx1rtEkgbQceCW8 kCEUubbyzn165 PhEfl4shNMYehWQeESdwL JD2Z44ke0E8RXBkYQKbKY L3dSZ7yW8jvQkgfugzpBR mdDsgdmVydGlj CNmtBFigI167SDWshXstL aQbfKJeA3yyrvKCMG9xRc wvdGQ+ITHgBUM2lKlhNNp hMGKorE3hAKUf V0h9AgSrDmC0CYkhL0Epz eU0OXEopFXwPYQlrCKOnG 4gohygl2zojgeuLvYyUZP nVUf6AMn8DNMh nJeaAfOwXHA5GpI3FVU5r EMjeT7usKrruvsgkA9dNp c+RklOOjwvdGQ+PHRkIHN 0eWxlPSdwYWRk bZ4dLCXxL4s2PpRdSoC7R PqqG7KzcjM9MGZvhNPqFY UwsAIWxR4xelpip0syoaj gIzAwMDAwMDt0 JOm1LPVqeUmaErRiIRK3O oQ9FLD1wITwyQ8dhJhqyt nceX9lZqg+TVJOOjwvdGQ +NGPhGLM2yJwh BQiuSVAelS1cDADvC5h1P nHzZaG6OYqsB7CxvoQ3PG VorVBcMXXrgVXEvL5wwyw ev1bpehnqCjRz SOLwOOm4IVb0EVLnqKniH oIwAMH5WmF1IXZ9pQLifV 4ktWagzzjxhV9pQhe+UGF 2KYC3YA94HV49 Z5SgDupsdWQbnIZ+PHRhY mxlIHdpZHRoPScxMDAlJy WcjLjzZR2jXi8wQWQuZBS vbGxhcHNlOiBj b2x (more content not included)... Normal [facility] .Auto Diff 05-29-2021 Auto [place] % 6 % Normal 08-28 [facility] Comment on above: Performed By: #### 1 [id number] ####[facility] (DEFAULT)[address] [place] [address] 93272 Baso Abs# 0.0 x10 Normal 0.0-0.2 [facility] Comment on above: Performed By: #### 1 [id number] ####[facility] (DEFAULT)[address] [place] [address] 87969 Basophils/100 WBC (Bld) 0.3 % Normal 0.2-2.0 [facility] Comment on above: Performed By: #### 1 [id number] ####[facility] (DEFAULT)[address] [place] [address] 07408 Eos Abs# 0.1 x10 Normal 0.0-0.4 [facility] Comment on above: Performed By: #### 1 [id number] ####[facility] (DEFAULT)[address] [place] [address] 50419 Eosinophils/100 WBC (Bld) 1.3 % Normal 0.9-4.0 [facility] Comment on above: Performed By: #### 1 [id number], [id number] ####[facility] (DEFAULT)[address] [place] [address] 11551 Lymph Abs# 1.6 x10 Normal 1.3-2.9 [facility] Comment on above: Performed By: #### 1 [id number], [id number], [id number] ####[facility] (DEFAULT)[address] [place] [address] 80564 Lymphocytes/100 WBC (Bld) 26 % Normal 14-48 [facility] Comment on above: Performed By: #### 1 [id number], [id number] ####[facility] (DEFAULT)[address] [place] [address] [place] Abs# 0.4 x10 Normal 0.0-0.8 [facility] Comment on above: Performed By: #### 1 [id number], [id number], [id number] ####[facility] (DEFAULT)[address] [place] [address] Neut Abs# 4.0 x10 Normal 1.5-9.2 [facility] Comment on above: Performed By: #### 1 [id number], [id number], [id number] ####[facility] (DEFAULT)[address] [place] [address] 06382 Neutrophils/100 WBC (Bld) 66 % Normal 44-88 [facility] Comment on above: Performed By: #### 1 [id number], [id number], [id number] ####[facility] (DEFAULT)[address] [place] [address] Standardon 05-29-2022 eGFR Non AA 53 mL/min/1.73m2 Invalid Interpretation Code [facility] Comment on above: Performed By: #### 1 [id number], [id number], [id number] ####[facility] (DEFAULT)[address] [place] [address] eGFR AA >60 Invalid Interpretation Code [facility] Comment on above: Result Comment: Counter Tender bev Kidney disease could be indicated at eGFRs of less than 60 ml/min/1.73m2. Kidney Failure is indicated at less than 15 ml/min/1.73m2 Performed By: #### 1 [id number], [id number], [id number] ####[facility] (DEFAULT)[address] [place] [address] 33065 Anion gap [Moles/Vol] 10.0 mmol/L Normal 5.0-19.0 [facility] Comment on above: Performed By: #### 1 [id number], [id number], [id number] ####[facility] (DEFAULT)[address] [place] [address] 56351 Calcium [Mass/Vol] 9.3 mg/dL Normal 8.9-10.3 [facility] Comment on above: Performed By: #### 1 [id number], [id number], [id number] ####[facility] (DEFAULT)[address] [place] [address] 45497 Chloride [Moles/Vol] 106 mmol/L Normal 101-111 [facility] Comment on above: Performed By: #### 1 [id number], [id number], [id number] ####[facility] (DEFAULT)[address] [place] [address] 71872 CO2 [Moles/Vol] 28 mmol/L Normal 21-32 [facility] Comment on above: Performed By: #### 1 [id number], [id number], [id number] ####[facility] (DEFAULT)[address] [place] [address] 77046 Creatinine [Mass/Vol] 1.10 mg/dL Normal 0.60-1.30 [facility] Comment on above: Performed By: #### 1 [id number], [id number], [id number] ####[facility] (DEFAULT)[address] [place] [address] 41566 Glucose [Mass/Vol] 97.0 mg/dL Normal 74.0-118.0 [facility] Comment on above: Performed By: #### 1 [id number], [id number], [id number] ####[facility] (DEFAULT)[address] [place] [address] 10818 Osmolality 281 mOsm/L Invalid Interpretation Code [facility] Comment on above: Performed By: #### 1 [id number], [id number], [id number] ####[facility] (DEFAULT)[address] [place] [address] 89362 Potassium [Moles/Vol] 3.6 mmol/L Normal 3.6-5.1 [facility] Comment on above: Performed By: #### 1 [id number], [id number], [id number] ####[facility] (DEFAULT)[address] [place] [address] 98025 Sodium [Moles/Vol] 140.0 mmol/L Normal 136.0-144.0 [facility] Comment on above: Performed By: #### 1 [id number], [id number] ####[facility] (DEFAULT)[address] [place] [address] 16906 Urea nitrogen [Mass/Vol] 18 mg/dL Normal 8-26 [facility] Comment on above: Performed By: #### 1 [id number], [id number], [id number] ####[facility] (DEFAULT)[address] [place] [address] Urea nitrogen/Creatinine [Mass ratio] 16.0 mg/mg Normal 4.6-16.2 [facility] Comment on above: Performed By: #### 1 [id number], [id number], [id number] ####[facility] (DEFAULT)[address] [place] [address] CBC w/ Auto Diffon Erythrocyte distribution width (RBC) [Ratio] 12.7 % Normal 11.5-15.0 [facility] Comment on above: Performed By: #### 1 [id number], [id number], [id number] #### [facility] (DEFAULT) [address] [place] [address]365 Hematocrit (Bld) [Volume fraction] 38.9 % Normal 33.7-40.4 [facility] Comment on above: Performed By: #### 1 [id number], [id number], [id number] #### [facility] (DEFAULT) [address] [place] [address] 48650 Hemoglobin (Bld) [Mass/Vol] 12.6 g/dL Normal 11.3-15.9 [facility] Comment on above: Performed By: #### 1 [id number], [id number], [id number] #### [facility] (DEFAULT) [address] [place] [address] 59890 Instr WBC 6.1 x10 Invalid Interpretation Code [facility] Comment on above: Performed By: #### 1 [id number], [id number], [id number] #### [facility] (DEFAULT) [address] [place] [address] 92238 Man Diff? Auto Normal [facility] Comment on above: Performed By: #### 1 [id number], [id number], [id number] #### [facility] (DEFAULT) [address] [place] [address] 25839 MCH (RBC) [Entitic mass] 29 pg Normal 24-34 [facility] Comment on above: Performed By: #### 1 [id number], [id number], [id number] #### [facility] (DEFAULT) [address] [place] [address] 48176 MCHC (RBC) [Mass/Vol] 32 g/dL Normal 26-37 [facility] Comment on above: Performed By: #### 1 [id number], [id number], [id number] #### [facility] (DEFAULT) [address] [place] [address] 88887 MCV (RBC) [Entitic vol] 89 fL Normal 81-100 [facility] Comment on above: Performed By: #### 1 [id number], [id number], [id number] #### [facility] (DEFAULT) [address] [place] [address] 94062 Platelet 291 x10 Normal 138-427 [facility] Comment on above: Performed By: #### 1 [id number], [id number], [id number] #### [facility] (DEFAULT) [address] [place] [address] 74282 Platelet mean volume (Bld) [Entitic vol] 9.8 fL Normal 6.3-10.2 [facility] Comment on above: Performed By: #### 1 [id number], [id number], [id number] #### [facility] (DEFAULT) [address] [place] [address] 38181 RBC 4.36 x10 Normal 3.70-5.30 [facility] Comment on above: Performed By: #### 1 [id number], [id number], [id number] #### [facility] (DEFAULT) [address] [place] [address] WBC 6.1 x10 Normal 3.5-10.5 [facility] Comment on above: Performed By: #### 1 [id number], [id number], [id number] #### [facility] (DEFAULT) [address] [place] [address] Progress Note - Nurseon - Progress Note - Nurse PAT review done per Dr. Morales, order received. [Electronically Signed on: 05/29/2022 14:46 EDT] Olinda Roa RN [Verified on: 05/29/2022 14:46 EDT] Olinda Roa RN [facility] SARS-CoV-2 (COVID-19) PCRon 05-29-2022 Employed in healthcare? No Invalid Interpretation Code [facility] Comment on above: Performed By: #### 6 [id number] ####[facility] (DEFAULT)[address] [place] [address] Group care resident? No Invalid Interpretation Code [facility] Comment on above: Performed By: #### 6 [id number] ####[facility] (DEFAULT)[address] [place] [address] In ICU? No Invalid Interpretation Code [facility] Comment on above: Performed By: #### 6 [id number] ####[facility] (DEFAULT)[address] [place] [address] status? Not Invalid Interpretation Code [facility] Comment on above: Performed By: #### 6 [id number] ####[facility] (DEFAULT)[address] [place] [address] SARS-CoV-2 (COVID-19) RNA NOA+probe Ql (Unsp spec) Not detected Normal Not Detected [facility] Comment on above: Result Comment: Perf ormed by PCR methodology. Performed By: #### 6 [id number] ####[facility] (DEFAULT)[address] [place] [address] 66842 SARS-CoV-2 (COVID-19) RNA NOA+probe Ql (Unsp spec) No Invalid Interpretation Code [facility] Comment on above: Performed By: #### 6 [id number] ####[facility] (DEFAULT)[address] [place] [address] 50647 Symptomatic as defined by CDC? No Invalid Interpretation Code [facility] Comment on above: Performed By: #### 6 [id number] ####[facility] (DEFAULT)[address] [place] [address] 47163 CNOVon 05-02-2022 CNOV Office Visit (PEDRO ) SHELIA BALUBENA ([id number]) 1975 F Date Time Provider Department 05/02/22 9:15 AM MARCOS WALTON During your visit today, we recorded the following information about you: Pulse Blood pressure Weight Height 54/minute 180/90 113.9 kg 1.702 m Marcos Walton MD 05/02/2022 4:18 PM [facility] Department of Cardiovascular Medicine SECTION OF CARDIOVASCULAR IMAGING OUTPATIENT VISIT DATE May 02, 2022 OUTPATIENT VISIT TYPE NEW (>3yrs since last seen) PRIMARY CARE PHYSICIAN: Adria Snyder DO [address] [place] [address] CHIEF COMPLAINT: Postoperative Follow Up. HISTORY OF [...] tunnel surgery. 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 She reports edema in b/l lower extremities [...] Disease Father Heart Father age 63- massive DC Diabetes Mother Thyroid Sister hypertension None Sister [...] Electrocardiogram an (more content not included)... Normal [facility] ECG COMPLETEon 05-02-2022 ECG COMPLETE Ventricular Rate : 5 8 BPM Atrial Rate : 58 BPM P-R Interval : 244 ms QRS Duration : 100 ms Q-T Interval : 450 ms QTC Calculation(Bazett) : 441 ms Calculated P Montgomery : 20 degrees Calculated R Montgomery : 28 degrees Calculated T Montgomery : 51 degrees SINUS BRADYCARDIA WITH 1ST DEGREE AV BLOCK OTHERWISE NORMAL ECG Confirmed by YESSY TOMPKINS MD ([id number]) on 05/11/2022 4:10:17 PM NAME : SHELIA BALBUENA PID : [id number] : 1975 Gender : Female Race : ORD : [id number] Procedure Date : May 02 2022 09:15:17 [...] MARCOS WALTON Acquired by : DAHLIA RITTER [facility] Gracy 02-27-2022 CNPN Telephone (CARDMN) CRISTINA BALBUENAJUAN JOSE ([id number]) 1975 F Date Time Provider Department 02/27/22 MARCOS WALTON CARDAR During your visit today, we recorded the [...] Status:Closed by ENRIQUE CALLEJAS on 02/27/22 Normal [facility] Office Visit (Cardiology)on 01-21-2022 Follow-up visit Diagnoses/Problems [...] TO SURGERY. PATIENT TO SEEK SURGEON AT [facility]. Follow-up as needed only Chief Complaint SHELIA [...] in both positions. This was done at [facility]. She is on chronic Coumadin. She has no cardiac complaints and she has been stable. She used to follow with [facility] cardiology but did not continue to [...] Lopez who my understanding is operates at [place] [facility]. I discussed with the patient that her cardiac status is essentially normal but given her valve history and the need for being on heparin while her Coumadin is withheld and then at the end of her surgery reversing this process does represent some risk and her best option may well be to have surgery done at a tertiary center such as [facility] where they would be more [...] Screening.on 022 Adult depression screening assessment No [facility] DO Work Phone: Tobacco use status [facility] b) No -[facility] [facility] DO Work Phone: MG MAMM DX 3D RT CADon 09-30 MG MAMM DX 3D RT CAD Patient: SHELIA BALBUENA Exam Date: 09/30/2021 : 1975 Gender:F Ordering : DR CASSIE HASSAN M.D. Admission #: [id number] Family : Order #: [id number] CLICK HERE TO VIEW EXAM RADIOLOGY REPORT [...] Treatments None Family Cancers None LOCATION: [facility] BREAST COMPOSITION: Heterogeneously dense,which may obscure small [...] MD on 09/30/2021 at 08:29 Normal [facility] US BREAST RIGHT LIMITEDon US BREAST RIGHT LIMITED Patient: SHELIA BALBUENA Exam Date: 09/06/2021 : 1975 Gender:F Ordering : DR CASSIE HASSAN M.D. Admission #: [id number] Family : Order #: [id number] CLICK HERE TO VIEW EXAM RADIOLOGY REPORT [...] Ahmadi M.D. on 09/06/2021 at 15:08 Normal [facility] MAMM SCREEN 3D DIANDRA CADon 04-26-2021 MG MAMM SCREEN 3D DIANDRA CAD Patient: SHELIA BALBUENA Exam Date: 04/26/2021 : 1975 Gender:F Ordering : DR CASSIE HASSAN M.D. Admission #: [id number] Family : Order #: [id number] CLICK HERE TO VIEW EXAM RADIOLOGY REPORT [...] No Treatments None Family Cancers None LOCATION: [facility] BREAST COMPOSITION: Heterogeneously dense, which may obscure [...] on 04/26/2021 at 09:58 Approved by: Jonah Ahmadi M.D. on 04/26/2021 at 10:12 Normal [facility] Vital Signs Date Time Vital Sign Value Performing Clinician Yehudai maude 05-02-2022 10:07-0400 Diastolic blood pressure 90 mm[Hg] Marcos Walton MD Work Phone: [facility] 05-02-2022 10:07-0400 Systolic blood pressure 180 mm[Hg] Marcos Walton MD Work Phone: [facility] 05-02-2022 10:05-0400 Body height 170.2 cm Marcos Walton MD Work Phone: [facility] 05-02-2022 10:05-0400 Body weight 113.85 kg Marcos Walton MD Work Phone: [facility] 05-02-2022 10:05-0400 Heart rate 54 /min Marcos Walton MD Work Phone: [facility] 05-02-2022 10:05-0400 SaO2% (BldA) [Mass fraction] 99 % Marcos Walton MD Work Phone: [facility] 01-21-2022 09:00-0400 Body height 167.64 cm Jayleen Arango [facility] 250 DO Work Phone: 01-21-2022 09:00-0400 Body mass index (BMI) [Ratio] 41.64 kg/m2 Jayleen Arango [facility] [facility] DO Work Phone: 01-21-2022 09:00-0400 Body surface area Derived from formula 2.23 m2 Jayleen Arango -[facility] 250 DO Work Phone: 01-21-2022 09:00-0400 Body weight 117.03 kg Jayleen Arango [facility] 250 DO Work Phone: 01-21-2022 09:00-0400 Diastolic blood pressure 82 mm[Hg] Jayleen Arango -[facility] 250 DO Work Phone: 01-21-2022 09:00-0400 Diastolic blood pressure 80 mm[Hg] Jayleen Arango -[facility] 250 DO Work Phone: 01-21-2022 09:00-0400 Heart rate 59 /min Jayleen Arango [facility] 250 DO Work Phone: 01-21-2022 09:00-0400 Systolic blood pressure 144 mm[Hg] Jayleen Arango -[facility] 250 DO Work Phone: 01-21-2022 09:00-0400 Systolic blood pressure 142 mm[Hg] Jayleen Arango [facility] 250 DO Work Phone: Encounters Encounter Date Encounter Type Care Provider Facility Start: 09-03-2023 End: 09-03-2023 ambulatory YUNG GORDILLO Not Available Start: 07-30-2023 End: 07-30-2023 ambulatory JAYLEEN M NBA Not Available Start: 06-02-2022 End: 06-02-2022 ambulatory RUGEN M SONYA Facility:[facility] Start: 05-29-2022 End: 05-30-2022 ambulatory RUGEN M SONYA Facility:[facility] Start: 05-02-2022 ambulatory CASSIE HASSAN Faci lity:[facility] Start: 05-02-2022 End: 05-03-2022 ambulatory RUGEN MABALAY SONYA Facility:[facility] Start: 05-02-2022 End: 05-03-2022 ambulatory CASSIE HASSAN Facility:[facility] Start: 05-02-2022 End: 05-02-2022 Patient encounter procedure [...] consultation new/estab patient 60 min Jayleen Arango MP-[facility] 250 DO Work Phone: Start: 09-30-2021 End: 10-01-[address] CASSIE HASSAN Facility:[facility] Start: 09-06-2021 End: 09-07-[address] ACSSIE HASSAN Facility:[facility] Start: 04-26-2021 End: 04-27-[address] CASSIE HASSAN Facility:[facility] Start: 12-14-[address] CASSIE HASSAN Facility: [facility] Patient encounter status Jayleen Amezquita P-[facility] 250 DO Work Phone: Procedures Date Procedure Procedure Detail Performing Clinician Start: 07-17-2017 Adult depression scr eening assessment Marcos Walton MD Work Phone: Cholecystectomy Jayleen Kennedy er Replacement of arabella l valve Jayleen Arango NEGATED: Highlighted row has not occurred! Colonoscopy Jayleen Arango Plan of Treatment Date Care Activity Detail Author Start: 04-17-2022 Influenza vaccination INFLUENZA (#1) [facility] Start: 09-08-2021 LIPID SCREEN LIPID SCREEN [facility] Start: 04-29-2021 COVID-19 VACCINE (3 - Booster for Moderna series) COVID-19 VACCINE (3 - Booster for Moderna series) [facility] Start: 09-08-2019 DIABETES SCREEN DIABETES SCREEN [facility] Start: 2019 COLOGUARD (FIT-DNA) COLOGUARD (FIT-D NA) [facility] Start: 2019 Colonoscopy COLONOSCOPY [facility] Start: 2019 COLORECTAL CANCER SCREENING COLORECTAL CANCER SCREENING [facility] Start: [address] COLONOGRAPHY [facility] Start: 2019 FECAL OCCULT BLOOD FECAL OCCULT BLOO D [facility] Start: 2019 SIGMOIDOSCOPY SIGMOIDOSCOPY [facility] Start: 07-17-2018 Adult depression scr eening assessment DEPRESSION SCREENING [facility] Start: 2014 Mammography MAMMOGRAM [facility] Start: 2004 HPV TESTING HPV TESTING [facility] Start: 1995 PAP TESTING PAP TESTING [facility] Start: 1993 Urine microalbumin profile DTAP,TDAP ,TD (1 - Tdap) [facility] Start: 1992 ANNUAL PCP 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 ANNUAL PCP TEAM CHRONIC DISEASE VISIT [facility] Start: 1992 BP CONTROLLED (<130/80) BP CONTROLLE D (<130/80) [facility] Start: 1992 HEPATITIS C SCREENING HEPATITIS C SC REENING [facility] Start: 1992 HIV SCREENING HIV SCREENING [facility] Start: 1986 Adult depression scr eening assessment DEPRESSION SCREENING [facility] Start: 1974 HEPATITIS B (1 of 3 - 3-dose series) HEPATITIS B (1 of 3 - 3-dose series) [facility] End: 02-26-2023 ECG COMPLETE ECG COMPLETE ECG Routine S/P AVR 1 Occurrences starting 02/26/2022 until 02/26/2023 [facility] Work Phone: Comment on above: 1 Occurrences starti ng 02/26/2022 until 02/26/2023 End: 02-26-2023 Echocardiography ECHO Cardiology Routine S/P AVR 1 Occurrences starting 02/26/2022 until 02/26/2023 [facility] Work Phone: Comment on above: 1 Occurrences starti ng 02/26/2022 until 02/26/2023 [facility] Immunizations Immunization Date Immunization Notes Care Provider Otoniel michael 06-11-2021 influenza, injectabl e, quadrivalent, preservative free Jayleen M Hemmer [facility] 250 DO Work Phone: 11-27-2020 Moderna COVID-19 Vac cine 100 MCG/0.5ML Intramuscular Suspension Jayleen M Hemmer [facility] 250 DO Work Phone: 10-30-2020 Moderna COVID-19 Vac cine 100 MCG/0.5ML Intramuscular Suspension Jayleen M Hemmer [facility] 250 DO Work Phone: 05-10-2020 seasonal influenza, intradermal, preservative free Jayleen M Hemmer [facility] 250 DO Work Phone: 05-31-2019 influenza, injectabl e, quadrivalent, preservative free Jayleen M Hemmer [facility] 250 DO Work Phone: 06-02-2018 influenza, injectabl e, quadrivalent, preservative free Jayleen M Hemmer [facility] 250 DO Work Phone: 07-17-2017 influenza, injectabl e, quadrivalent, contains preservative Jayleen M Hemmer [facility] 05-28-2016 influenza, injectabl e, quadrivalent, preservative free Jayleen M Hemmer [facility] 250 DO Work Phone: 05-14-2016 influenza, injectabl e, quadrivalent, contains preservative Marcos Walton MD Work Phone: [facility] Work Phone: 05-14-2016 pneumococcal polysaccharide vaccine, 23 valent Marcos Walton MD Work Phone: [facility] Work Phone: 05-23-2015 influenza, injectabl e, quadrivalent, preservative free Jayleen Arango [facility] 250 DO Work Phone: Payers Date Payer Category Payer Unknown [id number] 2021 Private Health Insurance [facility] [employer] [id number] 2021-Present [phone] [address] [address] [place] [address] PPO [id number] 1975 Unknown [id number] 1975 Unknown [id number] .[id number] 1975 Unknown [id number] .[id number] 1975 Unknown [id number] .[id number] 1975 Unknown [id number] .[id number] 1975 Unknown [id number] [id number] .2.718 1975 Unknown [id number] [id number] .[id number] 1975 Unknown [id number] .[id number] 1960 Unknown [id number] 1960 Unknown [id number] Unknown [facility] Social History Date Type Detail Facility Daily caffeine consumption, 4-5 servings a day Daily caffeine consumption, 4-5 servings a day [facility] 250 DO Work Phone: Start: 03-07-2016 Tobacco smoking status NYIS Never smoked tobacco [facility] Start: 07-17-2017 End: 05-02-2022 Alcohol intake Current drinker of alcohol (finding) [facility] Start: 02-05-2016 History SDOH Alcohol Comment Rare consumption [facility] Start: 1975 Sex Assigned At Female C [facility] Start: 03-07-2016 Tobacco use and exposure Smokeless tobacco non-user [facility] Start: 04-22-2022 End: 05-02-2022 Exposure to SARS-CoV-2 (event) Not sure [facility] Medical Equipment Procedure Code Equipment Code Equipment Original Text Equipment Identifier Dates Valve Mitrl 25-33mm Onx Hrt - [id number] Start: 07-28-2016 Comment on above: Description: mitral valve replacement Valve Aort 21mm Onx Hrt - [id number] Start: 07-28-2016 Ring Tra s Classic 28mm 33.2mm 26.3mm Oval Titanium Silicone - [id number] Start: 07-28-2016 Clinical Notes 07-29-2016 to 06-04-2022 Marcos Walton MD - 05/02/2022 9:15 AM EDTTelephone Encounter - Enrique Callejas - 02/27/2022 8:49 AM EDT Note Date & Type Note Facility 06-04-2022 Note [id number] 06-02-2022 Note Procedure: Decompres kayli of [...] on: 06/02/2022 17:43 EDT] Bharathi Lopez DO [facility] 06-02-2022 Note [facility] SURGERY Clinical Discharge Summary PERSON INFORMATION Name SHELIA BALBUENA Age 47 Years 1975 Sex FEMALE Language Thai PCP CASSIE HASSAN MD Marital Status [facility] Service Ambulatory Surgery N 18-03-92 Acct# Arrival Visit Reason SURGERY - RELEASE RIGHT CARPAL TUNNEL Acuity LOS 005 21:20 [facility] [address] Comment: PROVIDER INFORMATION VITALS INFORMATION Vital Sign [...] mg oral table (more content not included)... [facility] 05-30-2022 Note spoke to pt [...] on: 05/30/2022 10:19 EDT] Noemi Brooke RN [facility] 05-02-2022 Note HNO ID: [id number] Author: Marcos Walton MD Service: ? Author Type: Physician Type: Progress Notes Filed: 05/02/2022 4:18 PM Note Text: [facility] Department of Cardiovascular Medicine SECTION OF CARDIOVASCULAR IMAGING OUTPATIENT VISIT DATE May 02, 2022 OUTPATIENT VISIT TYPE NEW (>3yrs since last seen) PRIMARY CARE PHYSICIAN: Adria Snyder DO [address] [place] [address] CHIEF COMPLAINT: Postoperative Follow Up. HISTORY OF [...] tunnel surgery. 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 s/ (more content not included)... [facility] 05-02-2022 History of Presen t illness Narrative Images from the original note were not included. [facility] Department of Cardiovascular Medicine SECTION OF CARDIOVASCULAR IMAGING OUTPATIENT VISIT DATE May 02, 2022 OUTPATIENT VISIT TYPE NEW (>3yrs since last seen) PRIMARY CARE PHYSICIAN: Adria Snyder, DO [address] [place] [address] CHIEF COMPLAINT: Postoperative Follow Up. HISTORY OF [...] tunnel surgery. 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 Of Cardiovascular Medicine, [address] / [address] [place], [place] [address] Appt: [phone] documented in this encounter [facility] 02-27-2022 Miscellaneous Notes REACHED OUT TO PATIENT IN REGARDS TO UPDATING INSURANCE. LEFT VMAIL TO CALL BACK WITH INFO documented in this encounter [facility] 07-29-2016 History of Past i llness [...] arrived from OR intubated and sedated. Slow mrod-tf-jqejqegh secondary to hemodynamic instability. documented as of this encounter (statuses as of 02/26/2022) [facility]12-13-2016 History of Past illness Narrative* Problem [...] arrived from OR intubated and sedated. Slow zhls-nc-qrocwwuw secondary to hemodynamic instability. documented as of this encounter (statuses as of 02/27/2022) [facility]12-13-2016 History of Past illness Narrative* Problem [...] arrived from OR intubated and sedated. Slow erjn-fb-ddkuqqig secondary to hemodynamic instability. documented as of this encounter (statuses as of 05/02/2022) [facility] complaint Narrative - ReportedSHELIA BALBUENA is being seen for a consultation for. 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 Balbuena is a 46-year-old female who is seen today for preoperative clearance for her to have carpal tunnel surgery. 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 She has mechanical valves apparently in bothpositions. This was done at [facility]. She is on chronic Coumadin. She has no cardiac complaints and she has been stable. She used to follow with [facility]ology but did not continue to [...] Lopez who my understanding is operates at [place] or [facility]. I discussed with the patient that her cardiac status is essentially normal but given her valve history and the need for being on heparin while her Coumadin is withheld and then at the end of her surgery reversing this process does represent some risk and her best option may well be to have surgery done at a tertiary center such [facility] where they would be more familiar [...] return here on a as needed basis. -[facility] [address] DO Work Phone: Reason for referral (narrative)* Outpatient Procedure (Routine) - Pending Review Specialty Diagnoses / Procedures Referred By Cha freeman Referred To Contact [facility] Diagnoses S/P AVR Procedures ECHO ECHO TTHRC R-T 2D W/WOM-MODE COMPL SPEC&COLR D Marcos Walton MD [address] [place] [address] [facility] [address] [address] Referral ID Status Reason Start Date Expiration Date Visits Requested Visits Authorized [id number] Pending Review Auto-Generat ed Referral 02/26/2022 02/26/2023 1 1 * Outpatient Procedure (Routine) - Pending Review Specialty Diagnoses / Procedures Referred By Cha freeman Referred To Contact [facility] Diagnoses S/P AVR Procedures ECG COMPLETE ECG ROUTINE ECG W/LEAST 12 LDS W/I&R Marcos Walton MD [address] [place] [address] [facility] [address] [place] [address] Referral ID Status Reason Start Date Expiration Date Visits Requested Visits Authorized [id number] Pending Review Auto-Generat ed Referral 02/26/2022 02/26/2023 1 1 [facility] Summary Purpose Family History No Family History Records FoundUnknown Family Member Name Dates Details Family history of myocardial infarction: Father, Brother(V17.3, Z82.49) Status:Active History of PTCA: Father(V45. 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 DATE CREATED AUTHOR AUTHOR'S ORGANIZ ATION 09/04/2023 [facility] EPIC Source Comments (unrecognize d section and content) In the event this informatio n is protected by the Federal Confidentiality of Alcohol and Drug Abuse Patient Records regulations: The Federal rules restrict any use of the information to criminally investigate or prosecute any alcohol or drug abuse patient.[facility] the event this information is protected by the Federal Confidentiality of Alcohol and Drug Abuse Patient Records regulations: The Federal rules restrict any use of the information to criminally investigate or prosecute any alcohol or drug abuse patient.[facility] the event this information is protected by the Federal Confidentiality of Alcohol and Drug Abuse Patient Records regulations: The Federal rules restrict any use of the information to criminally investigate or prosecute any alcohol or drug abuse patient.[facility] Care Teams (unrecognized sec tion and content) Hospice Art Therapist Relationship Specialty Start Date End Date Adria Snyder PCP - General Family Practice 01/03/16 Hospice Art Therapist Relationship Specialty Start Date End Date Adria Snyder PCP - General Family Practice 01/03/16 Hospice Art Therapist Relationship Specialty Start Date End Date Cassie Hassan [address] [facility] [address] [place] [address] PCP - General Family Practice 05/02/22 Reason [...] NEW IMAGING PATIENT Self Marcos Walton MD [address] [place] [address] Referral ID Status Reason Start Date Expiration Date Visits Re quested Visits Authorized [id number] Closed 05/02/2022 08/16/2022 1 1 FOR RECORDS [...] BE BASED ON THE PRIMARY CLINICAL RECORDS. [facility] [employer] [facility]. provides no warranty or guarantee of the accuracy or completeness of information in this document.
== END 2023-09-29 13:29 | disposition home or self-care (01) ==
LOC: US 13:28
PROVIDERS: PCP Family Medicine; Visit Provider Family Medicine
DX: Z12.31 Encounter for screening mammogram for malignant neoplasm of breast (principal); R79.89 Other specified abnormal findings of blood chemistry
CPT/HCPCS: 76705; 77063; 77067

== ENCOUNTER 2024-05-02 21:23 | Outpatient (REF) | payer BC, SELFPAY ==
--- OUTSIDE RECORDS SUMMARY | 2024-05-02 21:28 | XMS_ITS | CCD ---
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 Name Role Phone SONYA, DR WATERMAN Admitting Unavailable SONYA, DR WATERMAN Attending Unavailable SONYA, DR WATERMAN Primary Care Unavailable SONYA, DR WATERMAN Consulting Unavailable ZIEBER, DR TRACY Estrada Consulting Unavailable SONYA, DR WATERMAN Admitting Unavailable SONYA, DR WATERMAN Attending Unavailable SONYA, DR WATERMAN Primary Care Unavailable SONYA, DR WATERMAN Consulting Unavailable ZIEBER, DR TRACY Estrada Consulting Unavailable SONYA, DR WATERMAN Admitting Unavailable SONYA, DR WATERMAN Attending Unavailable SONYA, DR WATERMAN Primary Care Unavailable SONYA, DR WATERMAN Admitting Unavailable SONYA, DR WATERMAN Attending Unavailable SONYA, DR WATERMAN Primary Care Unavailable SONYA, DR WATERMAN Consulting Unavailable FORSYTH, DR JEANCARLOS Wong Consulting Unavailable HemmerJayleen M Unavailable Unavailable Unavailable Unavailable Adria Snyder Primary Care Provider [place] Rugstormy Jurado Primary Care Provider SONYA, RUGEN MABALAY Primary Care Unavailable GIULIANO WALTON Referring Unavailable SONYA, RUGEN MABALAY Primary Care Unavailable GIULIANO WALTON Attending Unavailable GIULIANO WALTON Referring Unavailable SONYA, RUGEN MABALAY Primary Care Unavailable SONYA, RUGEN MABALAY Primary Care Unavailable SONYA, RUGEN M Primary Care Unavailable SONYA, RUGEN M Consulting Unavailable Bharathi Lopez Attending Unavail able Bharathi Lopez Admitting Unavail able SONYA, RUGEN M Primary Care Unavailable Bharathi Lopez Attending Unavail able Bharathi Lopez Admitting Unavail able MD Alf Santos Attending Provider [phone] MD Columba Hassan Primary Care Provider MD Manish Gómez Jr Emergency Provider Manish Gómez Jr Admitting Unavailable Mnaish Gómez Jr Attending Unavailable Columba Hassan Primary Care Unavailable Columba Hassan Primary Care Unavailable Alf Santos Admitting Unavailable Alf Santos Attending Unavailable YUNG GORDILLO Attending Unavailable HEMJAYLEEN REYES Attending Unavailable HEMJAYLEEN REYES Attending Unavailable HEMJAYLEEN REYES Attending Unavailable HEMJAYLEEN REYES Attending Unavailable HEMJAYLEEN REYES Attending Unavailable HEMJAYLEEN REYES Attending Unavailable HEMJAYLEEN REYES Attending Unavailable HEMJAYLEEN REYES Attending Unavailable Allergies Allergy Classification Reported Allergen(s) Allergy Type Date of Onset Reaction(s) Facility (1 source) No Known Medication Allergies; Translations: [No Known Medication Allergies] Propensity to adverse reactions to drug (disorder) [facility] Repository Medications Current Medications Medication Drug Class(es) Dates Sig (Normalized) Sig (Original) acetaminophen 325 mg / HYDROcodone bitartrate 5 mg oral tablet (1 source) Opioid Agonist Start: 02-22-2024 take 1 tablet by mouth every six hours Hydrocodone-Aceta minophen Active 1 - 2 TAB PO Q6H 15 February 22, 2024 Start: 02-22-2024 take 1 tablet by patsy th every six hours Hydrocodone-Acetaminophen Active 1 - 2 T AB PO Q6H 15 February 22, 2024 acyclovir 400 mg oral tablet (4 sources) Herpesvirus Nucleoside Analog DNA Polymerase Inhibitor, Herpes Simplex Virus Nucleoside Analog DNA Polymerase Inhibitor, Herpes Zoster Virus Nucleoside Analog DNA Polymerase Inhibitor Start: 12-31-2023 take 400 mg by mouth once daily Acyclovir Active 400 MG PO Daily December 31, 2023 12:00am acyclovir (ZOVIR AX) 400 mg tablet Take 400 mg by mouth as needed. For cold sores 0 Active Comment on above: Take 400 mg by mouth as needed. For cold sores aspirin 81 mg delayed release oral tablet (6 sources) Platelet Aggregation Inhibitor, Nonsteroidal Anti-inflammatory Drug Start: 12-31-2023 take 81 mg by mouth once daily Aspirin Active 81 MG PO Daily December 31, 2023 12:00am Start: 08-04-2016 take 1 tablet by patsy th once daily aspirin 81 mg chewable tablet Take 1 tablet by mouth once daily. 0 08/04/2016 Active take 1 tablet by patsy th once daily Aspirin EC 81 MG Oral Tablet Delayed Release TAKE 1 TABLET DAILY. Quantity: 90 Refills: 3 Ordered: 21-Jan-2022 DO Active Comment on above: Take 1 tablet by patsy once daily. cholecalciferol 0.125 mg disintegrating oral tablet (4 sources) Vitamin D Start: 4 take 1 ug by mouth once daily Cholecalciferol (Vitamin D3) Active MCG PO Daily December 31, 2023 12:00am Cholecalciferol, Vitamin D3, (VITAMIN D-3) 50 mcg (2,000 unit) cap Take by mouth once daily. 0 Active Vitamin D3 125 M CG (5000 UT) Oral Capsule TAKE DIRECTED. Quantity: 0 Refills: 0 Ordered: 21-Jan-2022 DO Active Comment on above: Take by mouth once d aily. esomeprazole 20 mg delayed release oral capsule (4 sources) Proton Pump Inhibitor Start: 4 take 20 mg by mouth once daily Esomeprazole Magnesium Active 20 MG PO Daily December 31, 2023 12:00am take 1 capsule by mo [facility] once daily, then take 6 capsules by mouth in the morning esomeprazole (NEXIUM) 20 mg capsule Take 20 mg by mouth DAILY (6 AM). 0 Active Comment on above: Take 20 mg by mouth DAILY (6 AM). ferrous fumarate 325 mg oral tablet (2 sources) Start: 12-31-2023 take 325 mg by mouth once daily Ferrous Fumarate Active 325 MG PO Daily December 31, 2023 12:00am furosemide 40 mg oral tablet (6 sources) Loop Diuretic Start: 12-31-2023 take 40 mg by mouth twice daily Furosemide Active 40 MG PO Twice daily December 31, 2023 12:00am Start: 07-17-2017 take 1 tablet by patsy th once daily as needed for edema furosemide (LASIX) 40 mg tablet Take 1 tablet by mouth once daily as needed (fluid retention). 0 07/17/2017 Active Comment on above: Take 1 tablet by patsy once daily as needed (fluid retention). losartan potassium 50 mg oral tablet (2 sources) Angiotensin 2 Receptor Jarad Start: 05-16-2024 take 100 mg by mouth once daily Losartan Active 100 MG PO Daily December 31, 2023 12:00am Start: 12-31-2023 take 50 mg by mouth once daily Losartan Active 50 MG PO Daily December 31, 2023 12:00am melatonin 10 mg oral capsule (6 sources) Start: 12-31-2023 take 10 mg by mouth once daily at bedtime Melatonin Active 10 MG PO Daily at bedtime December 31, 2023 12:00am Start: 07-17-2017 take 1 capsule by [facility] once daily at bedtime melatonin 10 mg cap Take 1 capsule by mouth daily at bedtime. 0 07/17/2017 Active take 1 tablet by patsy at bedtime Melatonin 10 MG Oral Tablet TAKE 1 TABLET Bedtime Quantity: 0 Refills: 0 Ordered: 21-Jan-2022 DO Active Comment on above: Take 1 capsule by mo [facility] daily at bedtime. 24 hr metoprolol succinate 25 mg extended release oral tablet (3 sources) beta-Adrenergic Jarad Start: 12-31-2023 take 25 mg by mouth once daily Metoprolol Succinate Active 25 MG PO Daily December 31, 2023 12:00am take 25 mg by mouth once daily m etoprolol succinate 25 mg CSpX Take 25 mg by mouth once daily. 0 Active Comment on above: Take 25 mg by mouth once daily. perflutren lipid microspheres 1.3 mL in NaCl (PF) 0.9% 10 mL injection (DEFINITY) (3 sources) Start: 02-26-2022 End: 05-28-2023 perflutren lipid microspheres 1.3 mL in NaCl (PF) 0.9% 10 mL injection (DEFINITY) potassium chloride 10 meq extended release oral tablet (6 sources) Start: 12-31-2023 Potassium Chloride (Klor-Con 10) 10 mEq tablet extended release Active 10 MEQ PO Twice daily December 31, 2023 12:00am Start: 07-17-2017 take 1 tablet by patsy th once daily as needed for edema potassium [...] as needed (fluid retention; take with Lasix). 125 ml sodium chloride 9 mg/ml prefilled syringe (3 sources) Start: 02-26-2022 End: 05-28-2023 sodium chloride 0.9 % (flush) 10 mL (BD POSIFLUSH) traMADol hydrochloride 50 mg oral tablet (3 sources) Opioid Agonist Start: 12-31-2023 take 50 mg by mouth once daily Tramadol Active 50 MG PO Daily December 31, 2023 12:00am take 1 tablet by patsy th three times daily as needed traMADol HCl - 50 MG Oral Tablet TAKE 1 TABLET 3 TIMES DAILY NEEDED. Quantity: 0 Refills: 0 Ordered: 21-Jan-2022 DO Active warfarin sodium 5 mg oral tablet (6 sources) Vitamin K Antagonist Start: 12-31-2023 take 5 mg by mouth once daily Warfarin Active 5 MG PO Daily December 31, 2023 12:00am Start: 07-17-2017 warfarin (COUM JATIN) 5 mg tablet Take 5 mg by [...] 2.5 mg, 5 mg all other days Completed/Discontinued Medications Medication Drug Class(es) Dates Sig (Normalized) Sig (Original) acetaminophen 325 mg oral tablet (3 sources) Start: 08-04-2016 take 2 tablets by mouth every six hours as needed acetaminophen (TYLENOL) 325 mg tablet Take 2 tablets by mouth every 6 hours as needed (for mild surgical pain). 0 08/04/2016 Active Comment on above: Take 2 tablets by mo [facility] every 6 hours as needed (for mild surgical pain). docusate sodium 100 mg oral capsule (4 sources) Start: 07-17-2017 take 1 capsule by mouth once daily docusate sodium (COLACE) 100 mg capsule Take 1 capsule by mouth once daily. 0 07/17/2017 Active Comment on above: Take 1 capsule by mo [facility] once daily. ferrous sulfate 325 mg oral tablet (3 sources) take 1 tablet by mouth once daily ferrous sulfate 325 mg (65 mg iron) tablet Take 325 mg by mouth once daily. 0 Active Comment on above: Take 325 mg by mouth once daily. penicillin v potassium 500 mg oral tablet (3 sources) Start: 06-22-2017 End: 05-02-2022 take 0.5 tablet by mouth twice daily penicillin V potassium (V-CILLIN, VEETIDS) 500 mg tablet Take 0.5 tablets by mouth twice daily. 90 tablet 0 06/22/2017 05/02/2022 Discontinued (Other) Comment on above: Take 0.5 tablets by mouth twice daily. predniSONE 1 mg oral tablet (1 source) take 1 tablet by mouth once daily as needed predniSONE 1 MG Oral Tablet TAKE 1 TABLET Daily prn Quantity: 0 Refills: 0 Ordered: 21-Jan-2022 DO Active raNITIdine 75 mg oral tablet (3 sources) Histamine-2 Receptor Antagonist Start: 07-17-2017 End: 05-02-2022 take 1 tablet by mouth once daily ranitidine (ZANTAC 75) 75 mg tablet Take 1 tablet by mouth once daily. 0 07/17/2017 05/02/2022 Discontinued (Other) Comment on above: Take 1 tablet by patsy once daily. 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] 02-22-2024 Episodic Other female genital disorders (1 source) History of gynecological disorder; Translations: [Personal history of other diseases of the female genital tract] 02-22-2024 Episodic Other female genital disorders (1 source) Personal history of other diseases of the female genital tract; Translations: [Personal history of other diseases of the female genital tract] Onset: 02-21-2024 Episodic Other liver diseases (2 sources) Elevated liver enzymes level; Translations: [Abnormal levels of other serum enzymes] 12-31-2023 Episodic Other liver diseases (2 sources) Large liver; Translations: [Hepatomegaly, not elsewhere classified] 12-31-2023 Episodic Other liver diseases (3 sources) Abnormal levels of other serum enzymes; Translations: [Other nonspecific abnormal serum enzyme levels] Onset: 01-20-2024 12-31-2023 Episodic Other liver diseases (3 sources) Hepatomegaly, not elsewhere classified; Translations: [Hepatomegaly] Onset: 01-20-2024 12-31-2023 Episodic Other nutritional; endocrine; and metabolic disorders [...] Test Name Value Interpretation Reference Range Facility CT abdomen pelvis w conon CT abdomen pelvis w con [facility] [place] [address] [place], [place] [address] CT Scan Report Signed Patient: Alfredo Balbuena MR#: [id number] : 1975 Acct:[id number] Age/Sex: 48 / F ADM Date: 02/21/24 Loc: ER Room: Type: [facility] ER Attending Dr: Copies to: Manish Gómez Jr, MD Ordering Provider: Manish Gómez Jr, MD Date of Service: 02/21/24 CT/CT abdomen pelvis w con: Abdominal Pain CT ABDOMEN AND PELVIS WITH CONTRAST COMPARISON: Abdominal pain. History of endometriosis. COMPARISON: None Spiral images were obtained through the abdomen and pelvis following 90 mL Isovue-300. This CT exam was performed using one or more following dose reduction techniques: Automated exposure control, adjustment of the mA and/or kV according to patient size, or use of iterative reconstruction technique. Limited cuts through the lung bases show minimal dependent atelectasis. There are prostatic heart valves. The gallbladder is surgically absent. No common duct stones are noted. The liver, spleen, pancreas and adrenal glands show no acute findings. There are symmetric renal nephrograms, without hydronephrosis. The abdominal aorta is normal caliber. There are tiny lymph nodes. No ascites is seen. There is food debris within the stomach. There are nondilated small bowel loops. There is stool at the right colon. The descending colon is underdistended with apparent wall thickening. Patient has a tiny umbilical hernia containing fat. There are minor degenerative changes at the spine. Images through the pelvis show no appendiceal inflammation. There is no dilated small bowel. The distal colon is underdistended. There is no diverticular disease. The uterus is dextroverted. There are tubal occlusion devices. No adnexal cysts are seen. The urinary bladder is not well-distended however no obvious abnormalities are noted. There is no ascites. CT/CT abdomen pelvis w con IMPRESSION: NO BOWEL OR URINARY TRACT OBSTRUCTION. NO ACUTE FINDINGS. Impression dictated by: Jayleen Carvalho M.D.02/22/2024 9:34 AM Dictation Location: [place] [address] Transcribed By: [facility] 02/22/24 0934 Dictated By: Jayleen Carvalho MD 02/22/24 0916 Signed By: 02/22/2434 Normal [facility] Activated partial thrombopla stin time (aPTT) in platelet poor plasma by coagulation aOrdered By: Manish Gómez on 02-21-2024 aPTT Coag (PPP) [Time] 42.0 s High 25.1-36.5 [facility] Comment on above: A hematocrit value g reater than 55% may lead to inaccurate results in coagulation testing. Patients having hematocrit values >55% require a special collection tube for coagulation studies. Please contact the laboratory at [phone] for redraw instructions. Alanine aminotransferase [En zymatic activity/volume] in Serum or PlasmaOrdered By: Manish Gómez on 02-21-2024 ALT [Catalytic activity/Vol] 23 U/L Normal 7-52 [facility] Comment on above: Performed By: #### A ALEJANDRO [facility] #### [facility] [address] [place] [address] [place] Albumin [Mass/volume] in Ser um or Plasma by Bromocresol green (BCG) dye binding methoOrdered By: Manish Gómez on 02-21-2024 Albumin BCG dye [Mass/Vol] 3.9 g/dL 3.5-5.7 [facility] Alkaline phosphatase [Enzyma tic activity/volume] in Serum or PlasmaOrdered By: Manish Gómez on 02-21-2024 ALP [Catalytic activity/Vol] 89 U/L Normal 34-104 [facility] Comment on above: Performed By: #### A ALEJANDRO [facility] #### [facility] [address] [place] [id number] [place] Aspartate aminotransferase [ Enzymatic activity/volume] in Serum or PlasmaOrdered By: Manish Gómez on 02-21-2024 AST [Catalytic activity/Vol] 14 U/L Normal 13-39 [facility] Comment on above: Performed By: #### A A[facility]ANDRO [facility] #### [address] Automated basophil %Ordered By: Manish Gómez on 02-21-2024 Basophils/100 WBC (Bld) 0.6 % Normal . [facility] Comment on above: Performed By: #### A [facility]ANDRO [facility] #### [address] Automated basophil countOrde red By: Manish Gómez on 02-21-2024 Basophils (Bld) [#/Vol] 0.1 10*3/uL Normal 0.0-0.2 [facility] Comment on above: Result Comment: PERF ORMED BY: [place] [address] PATHOLOGIST DOCK OR PIER LABORER CELIA BERRIOS M.D. Performed By: #### A ALEJANDRO [facility] #### [address] Automated blood monocyte cou ntOrdered By: Manish Gómez on 02-21-2024 Monocytes (Bld) [#/Vol] 0.5 10*3/uL Normal 0.0-0.8 [facility] Comment on above: Performed By: #### A ALEJANDRO [facility] #### [address] Automated eosinophil %Ordere d By: Mansih Gómez on 02-21-2024 Eosinophils/100 WBC (Bld) 1.2 % Normal . [facility] Comment on above: Performed By: #### A A[facility]ANDRO [facility] #### [address] Automated eosinophil countOr dered By: Manish Gómez on 02-21-2024 Eosinophils (Bld) [#/Vol] 0.1 10*3/uL Normal 0.0-0.45 [facility] Comment on above: Performed By: #### A ALEJANDRO MELINDA #### [facility] [address] Automated monocyte %Ordered By: Manish Gómez on 02-21-2024 Monocytes/100 WBC (Bld) 5.3 % Normal . [facility] Comment on above: Performed By: #### A ALEJANDRO [facility] #### [facility] [address] Automated neutrophil %Ordere d By: Manish Gómez on 02-21-2024 Neutrophils/100 WBC (Bld) 71.7 % Normal . [facility] Comment on above: Performed By: #### A [facility]O [facility] #### [facility] [address] Bacteria [Presence] in Urine by AutomatedOrdered By: Manish Gómez on 02-21-2024 Bacteria Auto Ql (U) None seen [HPF] None Seen [facility] Bilirubin Test strip Ql (U)O rdered By: Manish Gómez on 02-21-2024 Bilirubin Ql (U) Negative Negative [facility] Bilirubin.total [Mass/volume ] in Serum or PlasmaOrdered By: Manish Gómez on 02-21-2024 Bilirubin [Mass/Vol] 0.4 mg/dL Normal 0.3-1.0 [facility] Comment on above: Performed By: #### A ALE[facility]ANDRO [facility] #### [address] Calcium [Mass/volume] in Ser um or PlasmaOrdered By: Manish Gómez on 02-21-2024 Calcium [Mass/Vol] 9.1 mg/dL Normal 8.6-10.3 [facility] Comment on above: Performed By: #### A [facility]O [facility] #### [address] Carbon dioxide, total [Moles /volume] in Serum or PlasmaOrdered By: Manish Gómez on 02-21-2024 CO2 [Moles/Vol] 26.6 mmol/L Normal 21.0-31.0 [facility] Comment on above: Performed By: #### A PRABHA ALLENCG #### [address] Chloride [Moles/volume] in S silverio or PlasmaOrdered By: Manish Gómez on 02-21-2024 Chloride [Moles/Vol] 109 mmol/L High 98-107 [facility] Comment on above: Performed By: #### A PRABHA ALLENCG #### [address] Color of Urine by AutoOrdere d By: Manish Gómez on 02-21-2024 Color (U) Light-yellow Normal Yellow [facility] Comment on above: Order Comment: Name Collection Type:: Clean-Voided Midstream Performed By: #### A MAREK ALLENG #### [address] Complete Blood Count Auto Di ffon 02-21-2024 Mean Corpuscular HGB Conc 33.8 g/dL Normal 32.0-35.0 [facility] Comment on above: Performed By: #### A MAREK ALLENG #### [address] Monocytes/100 WBC (Bld) 18.18 % Normal 0.00-20.00 [facility] Comment on above: Performed By: #### A PRABHA ALLENCG #### [address] NRBC% 0.0 /100{WBC} Normal 0-0.5 [facility] Comment on above: Performed By: #### A ALEJANDRO UHCG #### [address] Comprehensive Metabolic Pane jennifer 02-21-2024 Albumin [Mass/Vol] 3.9 g/dL Normal 3.5-5.7 [facility] Comment on above: Performed By: #### A PRABHA ALLENCG #### [address] Creatinine Clr Calc Pharmacy 96.34 Normal [facility] Comment on above: Result Comment: PERF ORMED BY: [place] [address] PATHOLOGIST DOCK [employer]ER LABORER CELIA BERRIOS M.D. Performed By: #### A DDONUAPLUS, UHCG #### [address] GFR/1.73 sq M.predicted MDRD (S/P/Bld) [Vol rate/Area] mL/min/{1.73_m2} Normal [facility] Comment on above: Performed By: #### A DDONUAPLUS CG #### [address] Creatinine [Mass/volume] in Serum or PlasmaOrdered By: Manish Gómez on 02-21-2024 Creatinine [Mass/Vol] 0.92 mg/dL Normal 0.60-1.20 [facility] Comment on above: Performed By: #### A DDONUAPLUS, UHCG #### [address] Dipstick and Microscopicon 0 02-21-2024 Bacteria,Urine None Seen Normal None Seen [facility] Comment on above: Order Comment: Name Collection Type:: Clean-Voided Midstream Performed By: #### A DDONUAPLUS, UHCG #### [address] Bilirubin,Urine Negative Normal Negative [facility] Comment on above: Order Comment: Name Collection Type:: Clean-Voided Midstream Performed By: #### A DDONUAPLUS, UHCG #### [place] [address] [place] Glucose Ql (U) Normal Normal Normal [facility] Comment on above: Order Comment: Name Collection Type:: Clean-Voided Midstream Performed By: #### A DDONUAPLUS, UHCG #### [place] [address] [place] Hyaline Casts,Urine None Normal 0-8 [facility] Comment on above: Order Comment: Name Collection Type:: Clean-Voided Midstream Performed By: #### A DDONUAPLUS, UHCG #### [place] [address] [place] Mucus,Urine Rare Normal [facility] Comment on above: Order Comment: Name Collection Type:: Clean-Voided Midstream Performed By: #### A DDONUAPLUS, UHCG #### [place] [address] [place] Nitrite,Urine Negative Normal Negative [facility] Comment on above: Order Comment: Name Collection Type:: Clean-Voided Midstream Performed By: #### A DDONUAPLUS, UHCG #### [address] Occult Blood,Urine Trace High Negative [facility] Comment on above: Order Comment: Name Collection Type:: Clean-Voided Midstream Performed By: #### A DDONUAPLUS, UHCG #### [place] [address] [place] Protein,Urine Negative Normal Negative [facility] Comment on above: Order Comment: Name Collection Type:: Clean-Voided Midstream Performed By: #### A DDONUAPLUS, UHCG #### [address] RBC,Urine 3-4 Normal 0-4 [facility] Comment on above: Order Comment: Name Collection Type:: Clean-Voided Midstream Performed By: #### A DDONUAPLUS, UHCG #### [place] [address] [place] Specificy [place],Urine 1.026 Normal 1.00 1-1.03 0 [facility] Comment on above: Order Comment: Name Collection Type:: Clean-Voided Midstream Performed By: #### A DDONUAPLUS, UHCG #### [place] [address] [place] Squamous Epithelial Cell,Urine 1-2 Normal 0-2 [facility] Comment on above: Order Comment: Name Collection Type:: Clean-Voided Midstream Performed By: #### A DDONUAPLUS, UHCG #### [facility] [address] Urobilinogen,Urine Normal Normal Normal [facility] Comment on above: Order Comment: Name Collection Type:: Clean-Voided Midstream Performed By: #### A DDONUAPLUS, UHCG #### [address] WBC,Urine 3-4 Normal 0-4 [facility] Comment on above: Order Comment: Name Collection Type:: Clean-Voided Midstream Performed By: #### A DDONUAPLUS, UHCG #### [address] Epithelial cells.squamous [# /area] in Urine sediment by Automated countOrdered By: Manish Gómez on 02-21-2024 Epithelial cells.squamous Auto (Urine sed) [#/Area] 1-2 [HPF] 0-2 [facility] [facility] Erythrocyte distribution wid th [Ratio] by Automated countOrdered By: Manish Gómez on 02-21-2024 Erythrocyte distribution width (RBC) [Ratio] 13.0 % Normal 11.9-15.3 [facility] Comment on above: Performed By: #### A DDONUADIEGO UHCG #### [address] Erythrocytes [#/area] in Uri ne sediment by Automated countOrdered By: Manish Gómez on 02-21-2024 RBC Auto (Urine sed) [#/Area] 3-4 [HPF] 0-4 [facility] Erythrocytes [#/volume] in B lood by Automated countOrdered By: Manish Gómez on 02-21-2024 RBC (Bld) [#/Vol] 4.21 10*6/uL Normal 3.60-5.00 [facility] Comment on above: Performed By: #### A DDONUAPLUS, UHCG #### [address] Glucose [Mass/volume] in Ser um or PlasmaOrdered By: Manish Gómez on 02-21-2024 Glucose [Mass/Vol] 108 mg/dL High 70-100 [facility] Comment on above: ADA recommended refe rence rangeRandom Glucose Reference Range is dependent on time and content of last meal. Glucose of more than 200 mg/dL in a nonstressed, ambulatory subject supports the diagnosis of Diabetes Mellitus. Result Comment: [place] om Glucose Reference Range is dependent on time and content of last meal. Glucose of more than 200 mg/dL in a nonstressed, ambulatory subject supports the diagnosis of Diabetes Mellitus. ADA recommended reference range Performed By: #### A IDALMIS ALLEN #### [address] Glucose [Mass/volume] in Uri ne by Test stripOrdered By: Manish Gómez on 02-21-2024 Glucose Test strip (U) [Mass/Vol] Normal mg/dL Normal [facility] HCG ( test) IA.rapi d Ql (U)Ordered By: Manish Gómez on 02-21-2024 HCG ( test) Ql (U) Negative [facility] HCG,Urineon 02-21-2024 Beta HCG ( test) Ql (U) Negative Normal [facility] Comment on above: Order Comment: Name Collection Type:: Clean-Voided Midstream Result Comment: PERF ORMED BY: [place] [address] PATHOLOGIST D[employer] LABORER CELIA BERRIOS M.D. Performed By: #### A ALEJANDRO [facility] #### [address] Hematocrit [Volume Fraction] of Blood by Automated countOrdered By: Manish Gómez on 02-21-2024 Hematocrit (Bld) [Volume fraction] 37.1 % Normal 34.0-46.4 [facility] Comment on above: Performed By: #### A ALEJANDRO [facility] #### [address] Hemoglobin Test strip Ql (U) Ordered By: Manish Gómez on 02-21-2024 Hemoglobin Ql (U) Trace High Negative [facility] Hemoglobin [Mass/volume] in BloodOrdered By: Manish Gómez on 02-21-2024 Hemoglobin (Bld) [Mass/Vol] 12.5 g/dL Normal 11.8-15.4 [facility] Comment on above: Performed By: #### A RICCIUADIEGO, UHCG #### [facility] [address] Hyaline casts [#/area] in Ur ine sediment by Automated countOrdered By: Manish Gómez on 02-21-2024 Hyaline casts Auto (Urine sed) [#/Area] None [LPF] 0-8 [facility] INR in Platelet poor plasma by Coagulation assayOrdered By: Manish Gómez on 02-21-2024 INR Coag (PPP) [Relative time] 2.6 {INR} Normal [facility] Comment on above: INR Therapeutic Rang e A) Pre- and Peroperative OAT started two weeks before surgery. NOT HIP SURGERY: 1.5 - 2.5 HIP SURGERY: 2 - 3B) Primary and secondary prevention of venous THROMBOSIS: 2 - 3C) Active venous thrombosis, pulmonary embolismand prevention of recurrent venous thrombosis: 2 - 3D) Prevention of arterial thromboembolismincluding patients with mechanical heart valves: 3 - 4.5 Result Comment: INR Therapeutic Range A) Pre- and Peroperative OAT started two weeks before surgery. NOT HIP SURGERY: 1.5 - 2.5 HIP SURGERY: 2 - 3 B) Primary and secondary prevention of venous THROMBOSIS: 2 - 3 C) Active venous thrombosis, pulmonary embolism and prevention of recurrent venous thrombosis: 2 - 3 D) Prevention of arterial thromboembolism including patients with mechanical heart valves: 3 - 4.5 Performed By: #### A LPHA PHEN, GIULIANO CHOICE, HCV RX PCR, HBCAB, SMAB, HBSAG, CERULOP, HBSAB #### [facility] , #### LIPID, JULIA, PT, FE and TIBC, CBC, HEPATIC #### [facility] [address] [place] [address] [place] Ketones [Presence] in Urine by Test stripOrdered By: Manish Gómez on 02-21-2024 Ketones Ql (U) Negative Normal Negative [facility] Comment on above: Order Comment: Name Collection Type:: Clean-Voided Midstream Performed By: #### A DDONUAPLUS, [facility] #### [facility] [address] Leukocyte esterase [Presence ] in Urine by Test stripOrdered By: Manish Gómez on 02-21-2024 Leukocyte esterase Test strip Ql (U) 2+ High Negative [facility] Comment on above: Order Comment: Name Collection Type:: Clean-Voided Midstream Performed By: #### A ALEJANDRO [facility] #### [facility] [address] [place] [address] [place] Leukocytes [#/area] in Urine sediment by Automated countOrdered By: Manish Gómez on 02-21-2024 WBC Auto (Urine sed) [#/Area] 3-4 [HPF] 0-4 [facility] Leukocytes [#/volume] correc marcela for nucleated erythrocytes in Blood by Automated counOrdered By: Manish Gómez on 02-21-2024 WBC corrected for nucl RBC Auto (Bld) [#/Vol] 9.0 10*3/uL 3.8-11.6 [facility] Leukocytes [#/volume] in Blo od by Automated countOrdered By: Manish Gómez on 02-21-2024 WBC (Bld) [#/Vol] 9.0 10*3/uL Normal 3.8-11.6 [facility] Comment on above: Performed By: #### A ALEJANDRO [facility] #### [place] [address] [place] Lymphocytes [#/volume] in Bl ood by Automated countOrdered By: Manish Gómez on 02-21-2024 Lymphocytes (Bld) [#/Vol] 1.9 10*3/uL Normal 1.00-4.8 [facility] Comment on above: Performed By: #### A ALEJANDRO [facility] #### [place] [address] [place] Lymphocytes/100 leukocytes i n Blood by Automated countOrdered By: Manish Gómez on 02-21-2024 Lymphocytes/100 WBC (Bld) 21.2 % Normal . [facility] Comment on above: Performed By: #### A ALEJANDRO [facility] #### [facility] [address] MCH [Entitic mass] by Automa marcela countOrdered By: Manish Gómez on 02-21-2024 MCH (RBC) [Entitic mass] 29.8 pg Normal 24.7-34.3 [facility] Comment on above: Performed By: #### A ALEJANDRO [facility] #### [address] MCHC Auto (RBC) [Mass/Vol]Or dered By: Manish Gómez on 02-21-2024 MCHC (RBC) [Mass/Vol] 33.8 g/dL 32.0-35.0 [facility] MCV [Entitic volume] by Auto mated countOrdered By: Manish Gómez on 02-21-2024 MCV (RBC) [Entitic vol] 88.2 fL Normal 80-100 [facility] Comment on above: Performed By: #### A ALEJANDRO [facility] #### [address] Monocyte distribution width [Entitic volume] in Blood by AutomatedOrdered By: Manish Gómez on 02-21-2024 Monocyte distribution width Auto (Bld) [Entitic vol] 18.18 % 0.00-20.00 [facility] Mucus [Presence] in Urine by AutomatedOrdered By: Manish Gómez on 02-21-2024 Mucus Auto Ql (U) Rare [LPF] [facility] Neutrophils [#/volume] in Bl ood by Automated countOrdered By: Manish Gómez on 02-21-2024 Neutrophils (Bld) [#/Vol] 6.4 10*3/uL Normal 1.8-7.7 [facility] Comment on above: Performed By: #### A ALEJANDRO [facility] #### [address] Nitrite Test strip Ql (U)Ord ered By: Manish Gómez on 02-21-2024 Nitrite Ql (U) Negative Negative [facility] No Panel InformationOrdered By: Manish Gómez on 02-21-2024 Estimated GFR (CKD-EPI) > 60.0 mL/Min [facility] Creatinine Clearance (Chem 96.34 [facility] Nucleated erythrocytes [Pres ence] in Blood by Automated countOrdered By: Manish Gómez on 02-21-2024 Nucleated RBC Auto Ql (Bld) 0.0 /100{WBC} 0-0.5 [facility] Partial Thromboplastin Timeo n 02-21-2024 aPTT Coag (Bld) [Time] 42.0 s High 25.1-36.5 Th e [facility] Comment on above: Result Comment: A he matocrit value greater than 55% may lead to inaccurate results in coagulation testing. Patients having hematocrit values >55% require a special collection tube for coagulation studies. Please contact the laboratory at [phone] for redraw instructions. PERFORMED BY: [place] [address] PATHOLOGIST D[employer] LABORER CELIA BERRIOS M.D. Performed By: #### A LPHA PHEN, GIULIANO CHOICE, HCV RX PCR, HBCAB, SMAB, HBSAG, CERULOP, HBSAB #### [facility] , #### LIPID, JULIA, PT, FE and TIBC, CBC, HEPATIC #### [facility] [address] [place] [address] [place] Platelet mean volume [Entiti c volume] in Blood by Automated countOrdered By: Manish Gómez on 02-21-2024 Platelet mean volume (Bld) [Entitic vol] 7.8 fL Normal 6.3-10.7 [facility] Comment on above: Performed By: #### A DDONUAPLUS, [facility] #### [place] [address] [place] Platelets [#/volume] in Bloo d by Automated countOrdered By: Manish Gómez on 02-21-2024 Platelets (Bld) [#/Vol] 349 10*3/uL Normal 150-450 [facility] Comment on above: Performed By: #### A DDONUAPLUS, CG #### [place] [address] [place] Potassium [Moles/volume] in Serum or PlasmaOrdered By: Manish Gómez on 02-21-2024 Potassium [Moles/Vol] 4.0 mmol/L Normal 3.5-5.1 [facility] Comment on above: Performed By: #### A ALEJANDRO, [facility] #### [address] Protein Test strip (U) [Mass /Vol]Ordered By: Manish Gómez on 02-21-2024 Protein (U) [Mass/Vol] Negative Negative [facility] Protein [Mass/volume] in Ser um or PlasmaOrdered By: Manish Gómez on 02-21-2024 Protein [Mass/Vol] 6.9 g/dL Normal 6.4-8.9 [facility] Comment on above: Performed By: #### A ALEJANDRO, [facility] #### [address] Prothrombin time (PT)Ordered By: Manish Gómez on 02-21-2024 PT Coag (PPP) [Time] 29.2 s High 9.0-12.9 [facility] Comment on above: A hematocrit value g reater than 55% may lead to inaccurate results in coagulation testing. Patients having hematocrit values >55% require a special collection tube for coagulation studies. Please contact the laboratory at [phone] for redraw instructions. Result Comment: A he matocrit value greater than 55% may lead to inaccurate results in coagulation testing. Patients having hematocrit values >55% require a special collection tube for coagulation studies. Please contact the laboratory at [phone] for redraw instructions. Performed By: #### A LPHA PHEN, GIULIANO CHOICE, HCV RX PCR, HBCAB, SMAB, HBSAG, CERULOP, HBSAB #### [facility] , #### LIPID, JULIA, PT, FE and TIBC, CBC, HEPATIC #### [address] Serum globulin measurement b y calculation (mass/volume)Ordered By: Manish Gómez on 02-21-2024 Globulin (S) [Mass/Vol] 3.0 g/dL Normal [facility] Comment on above: Performed By: #### A ALEJANDRO [facility] #### [address] Serum or plasma albumin/glob ulin mass ratioOrdered By: Manish Gómez on 02-21-2024 Albumin/Globulin [Mass ratio] 1.3 {ratio} Normal [facility] Comment on above: Performed By: #### A ALEJANDRO [facility] #### [address] Serum or plasma anion gap de terminationOrdered By: Manish Gómez on 02-21-2024 Anion gap [Moles/Vol] 9.4 mmol/L Normal 6.0-15.0 [facility] Comment on above: Performed By: #### A ALEJANDRO [facility] #### [address] Sodium [Moles/volume] in Ser um or PlasmaOrdered By: Manish Gómez on 02-21-2024 Sodium [Moles/Vol] 141 mmol/L Normal 136-145 [facility] Comment on above: Performed By: #### A ALEJANDRO [facility] #### [address] Specific gravity Test strip (U) [Rel density]Ordered By: Manish Gómez on 02-21-2024 Specific gravity (U) [Rel density] 1.026 1.001-1.03 0 [facility] Troponin I High Sensitivityo n 02-21-2024 Troponin I High Sensitivity 4.3 pg/mL Normal 0.0-15.0 [facility] Comment on above: Result Comment: PERF ORMED BY: [place] [address] PATHOLOGIST D[employer] LABORER CELIA BERRIOS M.D. Performed By: #### A ALEJANDRO [facility] #### [address] Troponin I.cardiac [Mass/vol ume] in Serum or Plasma by Detection limit <= 0.01 ng/Ordered By: Manish Gómez on 02-21-2024 Troponin I.cardiac DL <= 0.01 ng/mL [Mass/Vol] 4.3 pg/mL 0.0-15.0 [facility] Urea nitrogen [Mass/volume] in Serum or PlasmaOrdered By: Manish Gómez on 02-21-2024 Urea nitrogen [Mass/Vol] 21 mg/dL Normal 7-25 [facility] Comment on above: Performed By: #### A IDALMIS ALLEN #### [address] Urine appearanceOrdered By: Manish Gómez on 02-21-2024 Appearance (U) Clear Normal Clear [facility] Comment on above: Order Comment: Name Collection Type:: Clean-Voided Midstream Performed By: #### A ALEJANDRO [facility] #### [address] Urobilinogen Test strip (U) [Mass/Vol]Ordered By: Manish Gómez on 02-21-2024 Urobilinogen (U) [Mass/Vol] Normal mg/dL Normal [facility] pH of Urine by Test stripOrd ered By: Manish Gómez on 02-21-2024 pH (U) 5.5 [pH] Normal 5.0-9.0 [facility] Comment on above: Order Comment: Name Collection Type:: Clean-Voided Midstream Performed By: #### A ALEJANDRO [facility] #### [address] GIULIANO with Reflexon 01-20-2024 GIULIANO with Reflex Negative Normal Negative [facility] Comment on above: Result Comment: Perf ormed at: CB - [facility] [address] [id number] Poultice Machine Operator: Glen Tenorio PhD, Phone: [phone] Performed By: #### A ALEJANDRO [facility] #### [address] Actin smooth muscle IgG Ab [ Units/volume] in SerumOrdered By: Alf Santos on 01-20-2024 Actin smooth muscle IgG Qn (S) 5 Units 0-19 [facility] Comment on above: Negative 0 - 19 Weak positive 20 - 30 Moderate to strong positive >30 Actin Antibodies are found in 52-85% of patients with autoimmune hepatitis or chronic active hepatitis and in 22% of patients with primary biliary cirrhosis.Performed at: [facility] [place] [id number] [place], [place] [id number] Director: Glen Tenorio PhD, Phone: [phone] Alanine aminotransferase [En zymatic activity/volume] in Serum or PlasmaOrdered By: Alf Santos on 01-20-2024 ALT [Catalytic activity/Vol] 17 U/L Normal 7-52 [facility] Comment on above: Performed By: #### A LPHA PHEN, GIULIANO CHOICE, HCV RX PCR, HBCAB, SMAB, HBSAG, CERULOP, HBSAB #### [facility] , #### LIPID, JULIA, PT, FE and TIBC, CBC, HEPATIC #### [facility] [address] [place] [address] [place] Albumin [Mass/volume] in Ser um or Plasma by Bromocresol green (BCG) dye binding methoOrdered By: Alf Santos on 01-20-2024 Albumin BCG dye [Mass/Vol] 4.2 g/dL 3.5-5.7 [facility] Alkaline phosphatase [Enzyma tic activity/volume] in Serum or PlasmaOrdered By: Alf Santos on 01-20-2024 ALP [Catalytic activity/Vol] 89 U/L Normal 34-104 [facility] Comment on above: Performed By: #### A LPHA PHEN, GIULIANO CHOICE, HCV RX PCR, HBCAB, SMAB, HBSAG, CERULOP, HBSAB #### [facility] , #### LIPID, JULIA, PT, FE and TIBC, CBC, HEPATIC #### [facility] [address] [place] [address] [place] Dhuws-0-Elrafjcahnd Phenotyp luisito 01-20-2024 Alpha 1 Anti-Trypsin 158 mg/dL Normal 101-187 [facility] Comment on above: Performed By: #### A DDAMRIT UHCG #### [address] Phenotype (P1) MM Normal . [facility] Comment on above: Result Comment: MM Phenotype is considered to be normal , producing normal serum levels of vmmee-6-ifrladoa inhibitor and not associated with clinical disease. Associated A1A total serum levels in other phenotypes and their incidence in the general population are shown in the table below. Phenotype Population % function A-1-AT Conc.* Incidence % compared to MM (Typical Range) MM 86.5% 100% (96 - 189) MS 8.0% 86% (83 - 161) MZ 3.9% 61% (60 - 111) FM 0.4% 100% (93 - 191) SZ 0.3% 41% (42 - 75) SS 0.1% 64% (62 - 119) ZZ 0.05% 19% (16 - 38) FS 0.05% 70% (70 - 128) FZ Unknown 46% (44 - 88) FF Unknown Unknown *A-1-AT concentration in the homozygous MM phenotype is taken as the reference normal. Percent deficiency in each phenotype is reported relative to this reference. Ranges used to confirm phenotype. Performed at: - [address] [id number] [employer]ice Machine Operator: Glen Tenorio PhD, Phone: [phone] Performed at: [facility] [address] [id number] [employer] Machine Operator: Keith Contreras MD, Phone: [phone] Performed By: #### A [facility] #### [address] Aspartate aminotransferase [ Enzymatic activity/volume] in Serum or PlasmaOrdered By: Alf Santos on 01-20-2024 AST [Catalytic activity/Vol] 17 U/L Normal 13-39 [facility] Comment on above: Performed By: #### A LPHA PHEN, GIULIANO CHOICE, HCV RX PCR, HBCAB, SMAB, HBSAG, CERULOP, HBSAB #### [facility] , #### LIPID, JULIA, PT, FE and TIBC, CBC, HEPATIC #### [address] Automated basophil %Ordered By: Alf Santos on 01-20-2024 Basophils/100 WBC (Bld) 0.6 % Normal . [facility] Comment on above: Performed By: #### A LPHA PHEN, GIULIANO CHOICE, HCV RX PCR, HBCAB, SMAB, HBSAG, CERULOP, HBSAB #### [facility] , #### LIPID, JULIA, PT, FE and TIBC, CBC, HEPATIC #### [address] Automated basophil countOrde red By: Alf Santos on 01-20-2024 Basophils (Bld) [#/Vol] 0.0 10*3/uL Normal 0.0-0.2 [facility] Comment on above: Result Comment: PERF ORMED BY: [place] [address] PATHOLOGIST DOCK OR [employer]ER LABORER CELIA BERRIOS M.D. Performed By: #### A LPHA PHEN, GIULIANO CHOICE, HCV RX PCR, HBCAB, SMAB, HBSAG, CERULOP, HBSAB #### [facility] , #### LIPID, JULIA, PT, FE and TIBC, CBC, HEPATIC #### [address] Automated blood monocyte cou ntOrdered By: Alf Santos on 01-20-2024 Monocytes (Bld) [#/Vol] 0.3 10*3/uL Normal 0.0-0.8 [facility] Comment on above: Performed By: #### A LPHA PHEN, GIULIANO CHOICE, HCV RX PCR, HBCAB, SMAB, HBSAG, CERULOP, HBSAB #### [facility] , #### LIPID, JULIA, PT, FE and TIBC, CBC, HEPATIC #### [address] Automated eosinophil %Ordere d By: Alf Santos on 01-20-2024 Eosinophils/100 WBC (Bld) 2.0 % Normal . [facility] Comment on above: Performed By: #### A LPHA PHEN, GIULIANO CHOICE, HCV RX PCR, HBCAB, SMAB, HBSAG, CERULOP, HBSAB #### [facility] , #### LIPID, JULIA, PT, FE and TIBC, CBC, HEPATIC #### [address] Automated eosinophil countOr dered By: Alf Santos on 01-20-2024 Eosinophils (Bld) [#/Vol] 0.1 10*3/uL Normal 0.0-0.45 [facility] Comment on above: Performed By: #### A LPHA PHEN, GIULIANO CHOICE, HCV RX PCR, HBCAB, SMAB, HBSAG, CERULOP, HBSAB #### [facility] , #### LIPID, JULIA, PT, FE and TIBC, CBC, HEPATIC #### [address] Automated monocyte %Ordered By: Alf Santos on 01-20-2024 Monocytes/100 WBC (Bld) 5.6 % Normal . [facility] Comment on above: Performed By: #### A LPHA PHEN, GIULIANO CHOICE, HCV RX PCR, HBCAB, SMAB, HBSAG, CERULOP, HBSAB #### [facility] , #### LIPID, JULIA, PT, FE and TIBC, CBC, HEPATIC #### [address] Automated neutrophil %Ordere d By: Alf Santos on 01-20-2024 Neutrophils/100 WBC (Bld) 60.1 % Normal . [facility] Comment on above: Performed By: #### A LPHA PHEN, GIULIANO CHOICE, HCV RX PCR, HBCAB, SMAB, HBSAG, CERULOP, HBSAB #### [facility] , #### LIPID, JULIA, PT, FE and TIBC, CBC, HEPATIC #### [address] Bilirubin.direct [Mass/volum e] in Serum or PlasmaOrdered By: Alf Santos on 01-20-2024 Bilirubin.direct [Mass/Vol] 0.10 mg/dL 0.03-0.18 [facility] Bilirubin.total [Mass/volume ] in Serum or PlasmaOrdered By: Alf Santos on 01-20-2024 Bilirubin [Mass/Vol] 0.6 mg/dL Normal 0.3-1.0 [facility] Comment on above: Performed By: #### A LPHA PHEN, GIULIANO CHOICE, HCV RX PCR, HBCAB, SMAB, HBSAG, CERULOP, HBSAB #### [facility] , #### LIPID, JULIA, PT, FE and TIBC, CBC, HEPATIC #### [facility] [address] [place] [address] Ceruloplasminon 01-20-2024 Ceruloplasmin 32.3 mg/dL Normal 19.0-39.0 [facility] Comment on above: Result Comment: Perf ormed at: CB - [facility] [place] [id number] P[employer]ice Machine Operator: Glen Tenorio PhD, Phone: [phone] PERFORMED BY: [place] [address] PATHOLOGIST DOCK [employer]ER LABORER CELIA BERRIOS M.D. Performed By: #### A LPHA PHEN, GIULIANO CHOICE, HCV RX PCR, HBCAB, SMAB, HBSAG, CERULOP, HBSAB #### [facility] , #### LIPID, JULIA, PT, FE and TIBC, CBC, HEPATIC #### [facility] [address] Cholesterol [Mass/volume] in Serum or PlasmaOrdered By: Alf Santos on 01-20-2024 Cholesterol [Mass/Vol] 201 mg/dL High 140-200 [facility] Comment on above: Chol less than 200 m g/dl low riskChol 201-239 mg/dl borderline riskChol 240 mg/dl and greater high risk Result Comment: Chol less than 200 mg/dl low risk Chol 201-239 mg/dl borderline risk Chol 240 mg/dl and greater high risk Performed By: #### A LPHA PHEN, GIULIANO CHOICE, HCV RX PCR, HBCAB, SMAB, HBSAG, CERULOP, HBSAB #### [facility] , #### LIPID, JULIA, PT, FE and TIBC, CBC, HEPATIC #### [facility] [address] Cholesterol in LDL Calc [Mas s/Vol]Ordered By: Alf Santos on 01-20-2024 Cholesterol in LDL [Mass/Vol] 127 mg/dL High 0-100 [facility] Comment on above: LDL ATP III CLASSIFI CATIONLDL less than 100 mg/dL OptimalLDL 100-129 mg/dL Near or above optimalLDL 130-159 mg/dL Borderline highLDL 160-189 mg/dL HighLDL greater than 189 mg/dL Very high Cholesterol in VLDL Calc [Ma ss/Vol]Ordered By: Alf Santos on 01-20-2024 Cholesterol in VLDL [Mass/Vol] 33 mg/dL [facility] Complete Blood Count Auto Di ffon 01-20-2024 Mean Corpuscular HGB Conc 33.0 g/dL Normal 32.0-35.0 [facility] Comment on above: Performed By: #### A LPHA PHEN, GIULIANO CHOICE, HCV RX PCR, HBCAB, SMAB, HBSAG, CERULOP, HBSAB #### [facility] , #### LIPID, JULIA, PT, FE and TIBC, CBC, HEPATIC #### [facility] [address] NRBC% 0.1 /100{WBC} Normal 0-0.5 [facility] Comment on above: Performed By: #### A LPHA PHEN, GIULIANO CHOICE, HCV RX PCR, HBCAB, SMAB, HBSAG, CERULOP, HBSAB #### [facility] , #### LIPID, JULIA, PT, FE and TIBC, CBC, HEPATIC #### [facility] [address] Erythrocyte distribution wid th [Ratio] by Automated countOrdered By: Alf Santos on 01-20-2024 Erythrocyte distribution width (RBC) [Ratio] 13.1 % Normal 11.9-15.3 [facility] Comment on above: Performed By: #### A LPHA PHEN, GIULIANO CHOICE, HCV RX PCR, HBCAB, SMAB, HBSAG, CERULOP, HBSAB #### [facility] , #### LIPID, JULIA, PT, FE and TIBC, CBC, HEPATIC #### [facility] [address] Erythrocytes [#/volume] in B lood by Automated countOrdered By: Alf Santos on 01-20-2024 RBC (Bld) [#/Vol] 4.13 10*6/uL Normal 3.60-5.00 [facility] Comment on above: Performed By: #### A LPHA PHEN, GIULIANO CHOICE, HCV RX PCR, HBCAB, SMAB, HBSAG, CERULOP, HBSAB #### [facility] , #### LIPID, JULIA, PT, FE and TIBC, CBC, HEPATIC #### [facility] [address] [place] [address] [place] Ferritin [Mass/volume] in Se rum or PlasmaOrdered By: Alf Santos on 01-20-2024 Ferritin [Mass/Vol] 172.5 ng/mL Normal 11.0-306.8 [facility] Comment on above: Performed By: #### A LPHA PHEN, GIULIANO CHOICE, HCV RX PCR, HBCAB, SMAB, HBSAG, CERULOP, HBSAB #### [facility] , #### LIPID, JULIA, PT, FE and TIBC, CBC, HEPATIC #### [facility] [address] Hematocrit [Volume Fraction] of Blood by Automated countOrdered By: Alf Santos on 01-20-2024 Hematocrit (Bld) [Volume fraction] 36.8 % Normal 34.0-46.4 [facility] Comment on above: Performed By: #### A LPHA PHEN, GIULIANO CHOICE, HCV RX PCR, HBCAB, SMAB, HBSAG, CERULOP, HBSAB #### [facility] , #### LIPID, JULIA, PT, FE and TIBC, CBC, HEPATIC #### [facility] [address] Hemoglobin [Mass/volume] in BloodOrdered By: Alf Santos on 01-20-2024 Hemoglobin (Bld) [Mass/Vol] 12.1 g/dL Normal 11.8-15.4 [facility] Comment on above: Performed By: #### A LPHA PHEN, GIULIANO CHOICE, HCV RX PCR, HBCAB, SMAB, HBSAG, CERULOP, HBSAB #### [facility] , #### LIPID, JULIA, PT, FE and TIBC, CBC, HEPATIC #### [address] Hep C Ab wRfx to Qnt PCRon 0 01-20-2024 Hepatitis C Virus Antibody Non-Reactive Normal Non Reactive [facility] Comment on above: Performed By: #### A LPHA PHEN, GIULIANO CHOICE, HCV RX PCR, HBCAB, SMAB, HBSAG, CERULOP, HBSAB #### [facility] , #### LIPID, JULIA, PT, FE and TIBC, CBC, HEPATIC #### [address] Interpretation Hepatitis C Normal . [facility] Comment on above: Result Comment: Not infected with HCV unless early or acute infection is suspected (which may be delayed in an immunocompromised individual), or other evidence exists to indicate HCV infection. Performed By: #### A LPHA PHEN, GIULIANO CHOICE, HCV RX PCR, HBCAB, SMAB, HBSAG, CERULOP, HBSAB #### [facility] , #### LIPID, JULIA, PT, FE and TIBC, CBC, HEPATIC #### [address] Hepatic Panelon 01-20-2024 Albumin [Mass/Vol] 4.2 g/dL Normal 3.5-5.7 [facility] Comment on above: Performed By: #### A LPHA PHEN, GIULIANO CHOICE, HCV RX PCR, HBCAB, SMAB, HBSAG, CERULOP, HBSAB #### [facility] , #### LIPID, JULIA, PT, FE and TIBC, CBC, HEPATIC #### [address] Bilirubin,Indirect 0.5 mg/dL Normal [facility] Comment on above: Performed By: #### A LPHA PHEN, GIULIANO CHOICE, HCV RX PCR, HBCAB, SMAB, HBSAG, CERULOP, HBSAB #### [facility] , #### LIPID, JULIA, PT, FE and TIBC, CBC, HEPATIC #### [address] Bilirubin.indirect [Mass/Vol] 0.10 mg/dL Normal 0.03-0.18 [facility] Comment on above: Performed By: #### A LPHA PHEN, GIULIANO CHOICE, HCV RX PCR, HBCAB, SMAB, HBSAG, CERULOP, HBSAB #### [facility] , #### LIPID, JULIA, PT, FE and TIBC, CBC, HEPATIC #### [address] Hepatitis B Core Antibodyon 01-20-2024 Hepatitis B Core Antibody Negative Normal Negative [facility] Comment on above: Result Comment: Perf ormed at: - [facility] [id number] Poultice Machine Operator: Glen Tenorio PhD, Phone: [phone] Performed By: #### A DDONUAPLUS, [facility] #### [address] Hepatitis B Surface Antibody on 01-20-2024 Hepatitis B Surface Antibody Non-Reactive Normal . [facility] Comment on above: Result Comment: Non Reactive: Inconsistent with immunity, less than 10 mIU/mL Reactive: Consistent with immunity, greater than 9.9 mIU/mL Performed By: #### A DDONUAPLUS, CG #### [address] [place] [address] [place] Hepatitis B Surface Antigeno n 01-20-2024 HBsAg Screen Negative Normal Negative [facility] Comment on above: Result Comment: PERF ORMED BY: [address] [address] PATHOLOGIST DOCK OR PIER LABORER CELIA BERRIOS M.D. Performed By: #### A ALEJANDRO, [facility] #### [facility] [address] Hepatitis B virus surface Ab [Presence] in SerumOrdered By: Alf Santos on 01-20-2024 HBV surface Ab Ql (S) Non-Reactive . [facility] Comment on above: Non Reactive: Incons istent with immunity, less than 10 mIU/mL Reactive: Consistent with immunity, greater than 9.9 mIU/mL Hepatitis B virus surface Ag [Presence] in Serum or Plasma by ImmunoassayOrdered By: Alf Santos on 01-20-2024 HBV surface Ag IA Ql Negative Negative [facility] Hepatitis C virus IgG Ab [Pr esence] in Serum or Plasma by ImmunoassayOrdered By: Alf Santos on 01-20-2024 HCV IgG IA Ql Non-Reactive Non Reactive [facility] INR in Platelet poor plasma by Coagulation assayOrdered By: Alf Santos on 01-20-2024 INR Coag (PPP) [Relative time] 3.0 {INR} Normal [facility] Comment on above: INR Therapeutic Rang e A) Pre- and Peroperative OAT started two weeks before surgery. NOT HIP SURGERY: 1.5 - 2.5 HIP SURGERY: 2 - 3B) Primary and secondary prevention of venous THROMBOSIS: 2 - 3C) Active venous thrombosis, pulmonary embolismand prevention of recurrent venous thrombosis: 2 - 3D) Prevention of arterial thromboembolismincluding patients with mechanical heart valves: 3 - 4.5 Result Comment: INR Therapeutic Range A) Pre- and Peroperative OAT started two weeks before surgery. NOT HIP SURGERY: 1.5 - 2.5 HIP SURGERY: 2 - 3 B) Primary and secondary prevention of venous THROMBOSIS: 2 - 3 C) Active venous thrombosis, pulmonary embolism and prevention of recurrent venous thrombosis: 2 - 3 D) Prevention of arterial thromboembolism including patients with mechanical heart valves: 3 - 4.5 PERFORMED BY: [place] [address] PATHOLOGIST DOCK OR PIER LABORER CELIA BERRIOS M.D. Performed By: #### A LPHA PHEN, GIULIANO CHOICE, HCV RX PCR, HBCAB, SMAB, HBSAG, CERULOP, HBSAB #### [facility] , #### LIPID, JULIA, PT, FE and TIBC, CBC, HEPATIC #### [address] Iron [Mass/volume] in Serum or PlasmaOrdered By: Alf Santos on 01-20-2024 Iron [Mass/Vol] 78 ug/dL Normal 50-212 [facility] Comment on above: Performed By: #### A LPHA PHEN, GIULIANO CHOICE, HCV RX PCR, HBCAB, SMAB, HBSAG, CERULOP, HBSAB #### [facility] , #### LIPID, JULIA, PT, FE and TIBC, CBC, HEPATIC #### [address] Iron and TIBC Profileon % Iron Saturation 23.8 % Normal 20-50 [facility] Comment on above: Performed By: #### A LPHA PHEN, GIULIANO CHOICE, HCV RX PCR, HBCAB, SMAB, HBSAG, CERULOP, HBSAB #### [facility] , #### LIPID, JULIA, PT, FE and TIBC, CBC, HEPATIC #### [address] Total Iron Binding Capacity 328 ug/dL Normal 255-450 [facility] Comment on above: Performed By: #### A LPHA PHEN, GIULIANO CHOICE, HCV RX PCR, HBCAB, SMAB, HBSAG, CERULOP, HBSAB #### [facility] , #### LIPID, JULIA, PT, FE and TIBC, CBC, HEPATIC #### [address] Iron binding capacity [Mass/ volume] in Serum or PlasmaOrdered By: Alf Santos on 01-20-2024 Iron binding capacity [Mass/Vol] 328 ug/dL 255-450 [facility] Iron saturation [Mass Fracti on] in Serum or PlasmaOrdered By: Alf Santos on 01-20-2024 Iron saturation [Mass fraction] 23.8 % 20-50 [facility] Leukocytes [#/volume] correc marcela for nucleated erythrocytes in Blood by Automated counOrdered By: Alf Santos on 01-20-2024 WBC corrected for nucl RBC Auto (Bld) [#/Vol] 6.1 10*3/uL 3.8-11.6 [facility] Leukocytes [#/volume] in Blo od by Automated countOrdered By: Alf Santos on 01-20-2024 WBC (Bld) [#/Vol] 6.1 10*3/uL Normal 3.8-11.6 [facility] Comment on above: Performed By: #### A LPHA PHEN, GIULIANO CHOICE, HCV RX PCR, HBCAB, SMAB, HBSAG, CERULOP, HBSAB #### [facility] , #### LIPID, JULIA, PT, FE and TIBC, CBC, HEPATIC #### [facility] [address] Lipid Panelon 01-20-2024 LDL Cholesterol,Calculated 127 mg/dL High 0-100 [facility] Comment on above: Result Comment: LDL ATP III CLASSIFICATION LDL less than 100 mg/dL Optimal LDL 100-129 mg/dL Near or above optimal LDL 130-159 mg/dL Borderline high LDL 160-189 mg/dL High LDL greater than 189 mg/dL Very high Performed By: #### A LPHA PHEN, GIULIANO CHOICE, HCV RX PCR, HBCAB, SMAB, HBSAG, CERULOP, HBSAB #### [facility] , #### LIPID, JULIA, PT, FE and TIBC, CBC, HEPATIC #### [facility] [address] Triglyceride w/Reflex 167 mg/dL High 0-149 [facility] Comment on above: Result Comment: TRIG ATP III CLASSIFICATION TRIG less than 150 mg/dL Normal TRIG 150-199 mg/dL Borderline high TRIG 200-500 mg/dL High TRIG greater than 500 mg/dL Very high Standard traceable to the Center for Disease Conrtrol and Prevention (CDC) test method. Performed By: #### A LPHA PHEN, GIULIANO CHOICE, HCV RX PCR, HBCAB, SMAB, HBSAG, CERULOP, HBSAB #### [facility] , #### LIPID, JULIA, PT, FE and TIBC, CBC, HEPATIC #### [facility] [address] [place] [address] VLDL CHOLESTEROL 33 mg/dL Normal [facility] Comment on above: Performed By: #### A LPHA PHEN, GIULIANO CHOICE, HCV RX PCR, HBCAB, SMAB, HBSAG, CERULOP, HBSAB #### [facility] , #### LIPID, JULIA, PT, FE and TIBC, CBC, HEPATIC #### [facility] [address] [place] [address] Lymphocytes [#/volume] in Bl ood by Automated countOrdered By: Alf Santos on 01-20-2024 Lymphocytes (Bld) [#/Vol] 1.9 10*3/uL Normal 1.00-4.8 [facility] Comment on above: Performed By: #### A LPHA PHEN, GIULIANO CHOICE, HCV RX PCR, HBCAB, SMAB, HBSAG, CERULOP, HBSAB #### [facility] , #### LIPID, JULIA, PT, FE and TIBC, CBC, HEPATIC #### [facility] [address] [place] [address] [place] Lymphocytes/100 leukocytes i n Blood by Automated countOrdered By: Alf Santos on 01-20-2024 Lymphocytes/100 WBC (Bld) 31.7 % Normal . [facility] Comment on above: Performed By: #### A LPHA PHEN, GIULIANO CHOICE, HCV RX PCR, HBCAB, SMAB, HBSAG, CERULOP, HBSAB #### [facility] , #### LIPID, JULIA, PT, FE and TIBC, CBC, HEPATIC #### [facility] [address] [place] [address] MCH [Entitic mass] by Automa marcela countOrdered By: Alf Santos on 01-20-2024 MCH (RBC) [Entitic mass] 29.4 pg Normal 24.7-34.3 [facility] Comment on above: Performed By: #### A LPHA PHEN, GIULIANO CHOICE, HCV RX PCR, HBCAB, SMAB, HBSAG, CERULOP, HBSAB #### [facility] , #### LIPID, JULIA, PT, FE and TIBC, CBC, HEPATIC #### [address] MCHC Auto (RBC) [Mass/Vol]Or dered By: Alf Santos on 01-20-2024 MCHC (RBC) [Mass/Vol] 33.0 g/dL 32.0-35.0 [facility] MCV [Entitic volume] by Auto mated countOrdered By: Alf Santos on 01-20-2024 MCV (RBC) [Entitic vol] 89.2 fL Normal 80-100 [facility] Comment on above: Performed By: #### A LPHA PHEN, GIULIANO CHOICE, HCV RX PCR, HBCAB, SMAB, HBSAG, CERULOP, HBSAB #### [facility] , #### LIPID, JULIA, PT, FE and TIBC, CBC, HEPATIC #### [address] Neutrophils [#/volume] in Bl ood by Automated countOrdered By: Alf Santos on 01-20-2024 Neutrophils (Bld) [#/Vol] 3.7 10*3/uL Normal 1.8-7.7 [facility] Comment on above: Performed By: #### A LPHA PHEN, GIULIANO CHOICE, HCV RX PCR, HBCAB, SMAB, HBSAG, CERULOP, HBSAB #### [facility] , #### LIPID, JULIA, PT, FE and TIBC, CBC, HEPATIC #### [facility] [address] No Panel InformationOrdered By: Alf Santos on 01-20-2024 Hepatitis B Core Total Antibody Negative Negative [facility] Comment on above: Performed at: - [address] [id number] Director: Glen Tenorio PhD, Phone: [phone] Hepatitis C Interpretation See comment . [facility] Comment on above: Not infected with HC V unless early or acute infection issuspected (which may be delayed in an immunocompromisedindividual), or other evidence exists to indicate HCVinfection. Nucleated erythrocytes [Pres ence] in Blood by Automated countOrdered By: Alf Santos on 01-20-2024 Nucleated RBC Auto Ql (Bld) 0.1 /100{WBC} 0-0.5 [facility] Platelet mean volume [Entiti c volume] in Blood by Automated countOrdered By: Alf Santos on 01-20-2024 Platelet mean volume (Bld) [Entitic vol] 8.4 fL Normal 6.3-10.7 [facility] Comment on above: Performed By: #### A LPHA PHEN, GIULIANO CHOICE, HCV RX PCR, HBCAB, SMAB, HBSAG, CERULOP, HBSAB #### [facility] , #### LIPID, JULIA, PT, FE and TIBC, CBC, HEPATIC #### [facility] [address] [place] [address] [place] Platelets [#/volume] in Bloo d by Automated countOrdered By: Alf Santos on 01-20-2024 Platelets (Bld) [#/Vol] 329 10*3/uL Normal 150-450 [facility] Comment on above: Performed By: #### A LPHA PHEN, GIULIANO CHOICE, HCV RX PCR, HBCAB, SMAB, HBSAG, CERULOP, HBSAB #### [facility] , #### LIPID, JULIA, PT, FE and TIBC, CBC, HEPATIC #### [facility] [address] [place] [address] [place] Protein [Mass/volume] in Ser um or PlasmaOrdered By: Alf Santos on 01-20-2024 Protein [Mass/Vol] 7.1 g/dL Normal 6.4-8.9 [facility] Comment on above: Performed By: #### A LPHA PHEN, GIULIANO CHOICE, HCV RX PCR, HBCAB, SMAB, HBSAG, CERULOP, HBSAB #### [facility] , #### LIPID, JULIA, PT, FE and TIBC, CBC, HEPATIC #### [facility] [address] Prothrombin time (PT)Ordered By: Alf Santos on 01-20-2024 PT Coag (PPP) [Time] 33.8 s High 9.0-12.9 [facility] Comment on above: A hematocrit value g reater than 55% may lead to inaccurate results in coagulation testing. Patients having hematocrit values >55% require a special collection tube for coagulation studies. Please contact the laboratory at [phone] for redraw instructions. Result Comment: A he matocrit value greater than 55% may lead to inaccurate results in coagulation testing. Patients having hematocrit values >55% require a special collection tube for coagulation studies. Please contact the laboratory at [phone] for redraw instructions. Performed By: #### A LPHA PHEN, GIULIANO CHOICE, HCV RX PCR, HBCAB, SMAB, HBSAG, CERULOP, HBSAB #### [facility] , #### LIPID, JULIA, PT, FE and TIBC, CBC, HEPATIC #### [facility] [address] [place] [id number] [facility] Serum yedut-7-yfpelnnahuj me asurementOrdered By: Alf Santos on 01-20-2024 Alpha 1 antitrypsin [Mass/Vol] 158 mg/dL 101-187 [facility] Serum globulin measurement b y calculation (mass/volume)Ordered By: Alf Santos on 01-20-2024 Globulin (S) [Mass/Vol] 2.9 g/dL Normal F [facility] Comment on above: Performed By: #### A LPHA PHEN, GIULIANO CHOICE, HCV RX PCR, HBCAB, SMAB, HBSAG, CERULOP, HBSAB #### [facility] , #### LIPID, JULIA, PT, FE and TIBC, CBC, HEPATIC #### [facility] [address] Serum or plasma albumin/glob ulin mass ratioOrdered By: Alf Santos on 01-20-2024 Albumin/Globulin [Mass ratio] 1.4 {ratio} Normal [facility] Comment on above: Performed By: #### A LPHA PHEN, GIULIANO CHOICE, HCV RX PCR, HBCAB, SMAB, HBSAG, CERULOP, HBSAB #### [facility] , #### LIPID, JULIA, PT, FE and TIBC, CBC, HEPATIC #### [facility] [address] Serum or plasma alpha 1 anti trypsin phenotyping identification by immunofixationOrdered By: Alf Santos on 01-20-2024 Alpha 1 antitrypsin phenotyping Immunofixation Nom Mm . [facility] Comment on above: MM Phenotype is co nsidered to be normal , producingnormal serum levels of wshuc-4-zxmqvpst inhibitor andnot associated with clinical disease. Associated M9Wszcou serum levels in other phenotypes and theirincidence in the general population are shown in thetable below.Phenotype Population % function A-1-AT Conc.* Incidence % compared to MM (Typical Range) MM 86.5% 100% (96 - 189) MS 8.0% 86% (83 - 161) MZ 3.9% 61% (60 - 111) FM 0.4% 100% (93 - 191) SZ 0.3% 41% (42 - 75) SS 0.1% 64% (62 - 119) ZZ 0.05% 19% (16 - 38) FS 0.05% 70% (70 - 128) FZ Unknown 46% (44 - 88) FF Unknown Unknown*A-1-AT concentration in the homozygous MM phenotype is taken as the reference normal. Percent deficiency in each phenotype is reported relative to this reference. Ranges used to confirm phenotype.Performed at: [facility] [address] [id number] Director: Glen Tenorio PhD, Phone: [phone] at: [facility] [address] [id number] [place], [place] [id number] Director: Keith Contreras MD, Phone: [phone] Serum or plasma ceruloplasmi n measurement (mass/volume)Ordered By: Alf Santos on 01-20-2024 Ceruloplasmin [Mass/Vol] 32.3 mg/dL 19.0-39.0 [facility] Comment on above: Performed at: [facility] [address] [id number] Director: Glen Tenorio PhD, Phone: [phone] Serum or plasma free cefurox dickson measurement (mass/volume)Ordered By: Alf Santos on 01-20-2024 Cefuroxime free [Mass/Vol] Negative Negative [facility] Comment on above: Performed at: [facility] [id number] Director: Glen Tenorio PhD, Phone: [phone] Serum or plasma high density lipoprotein (HDL) cholesterol measurementOrdered By: Alf Santos on 01-20-2024 Cholesterol in HDL [Mass/Vol] 41 mg/dL Normal 23-92 [facility] Comment on above: HDL CHOL ATP-III CLA SSIFICATION Cardiovascular RiskHDL > or equal to 60 mg/dL LOWHDL < 40 mg/dL HIGH Result Comment: HDL CHOL ATP-III CLASSIFICATION Cardiovascular Risk HDL > or equal to 60 mg/dL LOW HDL < 40 mg/dL HIGH Performed By: #### A LPHA PHEN, GIULIANO CHOICE, HCV RX PCR, HBCAB, SMAB, HBSAG, CERULOP, HBSAB #### [facility] , #### LIPID, JULIA, PT, FE and TIBC, CBC, HEPATIC #### [facility] [address] [place] [address] Serum or plasma non-glucuron idated bilirubin measurement (mass/volume)Ordered By: Alf Santos on 01-20-2024 Bilirubin.indirect [Mass/Vol] 0.5 mg/dL [facility] Serum or plasma total choles terol/high density lipoprotein (HDL) cholesterol mass ratOrdered By: Alf Santos on 01-20-2024 Cholesterol.total/Mera sterol in HDL [Mass ratio] 4.9 {ratio} Normal <5.0 [facility] Comment on above: Result Comment: PERF ORMED BY: [place] [address] PATHOLOGIST DOCK OR PIER LABORER CELIA BERRIOS M.D. Performed By: #### A LPHA PHEN, GIULIANO CHOICE, HCV RX PCR, HBCAB, SMAB, HBSAG, CERULOP, HBSAB #### [facility] , #### LIPID, JULIA, PT, FE and TIBC, CBC, HEPATIC #### [facility] [address] [place] [address] [place] Smooth Muscle Antibodyon Smooth Muscle Antibody 5 Normal 0-19 Th [facility] Comment on above: Result Comment: Nega tive 0 - 19 Weak positive 20 - 30 Moderate to strong positive >30 Actin Antibodies are found in 52-85% of patients with autoimmune hepatitis or chronic active hepatitis and in 22% of patients with primary biliary cirrhosis. Performed at: - [facility] [address] [id number] Poultice Machine Operator: Glen Tenorio PhD, Phone: [phone] PERFORMED BY: [place] [address] PATHOLOGIST DOCK OR PIER LABORER CELIA BERRIOS M.D. Performed By: #### A DDONUAPLUS, [facility] #### [address] Transferrin [Mass/volume] in Serum or PlasmaOrdered By: Alf Santos on 01-20-2024 Transferrin [Mass/Vol] 234 mg/dL Normal 203-362 [facility] Comment on above: Performed By: #### A LPHA PHEN, GIULIANO CHOICE, HCV RX PCR, HBCAB, SMAB, HBSAG, CERULOP, HBSAB #### [facility] , #### LIPID, JULIA, PT, FE and TIBC, CBC, HEPATIC #### [facility] [address] Triglyceride [Mass/volume] i n Serum or PlasmaOrdered By: Alf Santos on 01-20-2024 Triglyceride [Mass/Vol] 167 mg/dL High 0-149 [facility] Comment on above: TRIG ATP III CLASSIF ICATIONTRIG less than 150 mg/dL NormalTRIG 150-199 mg/dL Borderline highTRIG 200-500 mg/dL High TRIG greater than 500 mg/dL Very highStandard traceable to the Center for Disease Conrtrol and Prevention (CDC) test method. Coding Summaryon 06-04-2022 Coding Summary HTMLBase 64 QrnctvkfGOw3oKc+PGhlYWQ+PE 8NSKTiJ18nfTHcpV0DX2gWFY6W MLBWYDCKKY3JNW0jeVN8ZEmrK7 VybiAv SsxltGPeIZ97JVf6WDA1fOqpSK yuwB5xtQMnF4l2OaWiEX22kX31 MEoyWYCmXkO5FeBunuxunVId G7rxQqYgsFMuMae+PHRhYmxlIH sdRYClQWzfZSDpFdClyFahZX1r Ac9kVVOgCPWqgSbkzUMcXaCv r9ppBCWtDMtmUY4coZzxI0SleM F8DNZxb3j9Xc06cUM+PHRkIHN0 vDpdOQmzu311UnXkp8iaOQB4 sIAwPKlpYUD9R49xp4V0QONeGD VeUFT1dKX6mM3zyOqhvtiwP4Bs xARpUtB3SNI0eSUxnN4cmJey oubbvJ6iOrl+D44KLH2YSKQNSD 9MFbg0M5McCkrwzJH+HQ95KNFo UN41aZIbdCZsm5ltnPc6IeAi QIRuKHW9mMxhMHint4LaJERgT3 7lgEMof4C8CJGrsAavlLIlBjAc lBD3cZ4aJRrrpqrsc1oihrea Ezjmv5bftg29kH45N71aPNqbML AyMFH3FVWhEVFlcDyaxw7vyV4c Ii8+QKhti6kru1cwvUt1JqZu ASOpkfQzaAcoMQC0g2InRm08T9 NemVhzk8NsLye7hj95xNJdx8W0 dSI9XGxtTYZltU5aXRqvFmC0 EWObSrWmaE19yNCuZKsxAh9jbG xgyRdiDN8sALXgfxtsRVMrhD3o YVJhuZAwtTjjEB2zSNGjgnfw d333PwRxJBL8FXOxfGXzX2FyqD 0dDuJzERBkGZYhD1MxaZOqFJfs C527UGxcJgO7PNGipdXhJ6Iw JAQckNenXyJ1d4X5Ne1Rp4Lxpv itGZX9MYyrBDTeCjC6ThCyRoH9 V5JwBnc7BNVciGwkXV4iO6Nd VMPiwqfhovcfyNY0EMBvNHUjfL 94eCIqPUiaWk8mm0R0g307ADRp GBXlyM71Tz1aqLdwSWRaiAQQ cU9mltmwf6tdknwdXvUdCTUbBD q9ZXc4CXWeoEdqRgQgQWB6SbJ7 MQM8mQWklH7ldIoimlafnP2g Oyc+P36ztZ4uXCJ3FMA8whtkVA KeerFhAG55UK87X8SfCculwTJp bGU+MHVafjFzsJjhKL6gLsMn t5hbq1UhWPyoX4MhOIZvKUrqLf y6ZHZoECH7aXN2hM6uXNIrFWqj v7I4yQL4U5XsasHmwu5qt4jq ZIOfTWtiG84wcRXzw5W9QVUdpZ I0GYRpiVljVgMwbG62Jdf+PGNv uHnmn1UtMafdm2awg1lyzCd2 VyXaZRRdtlJalQvvPXR6u3CgEe 20M58sRXxjANZaWOGqZBCnRAJh nQbfah8olA4cIg7+PGNvbCB3 oZM2uD3nNGRtWzE6XIooU436Sp BilIJaNtxcu7tab4zabVn3TnEd UTFrhuGfmVujSRV8t6HlSg85 O04lUMpoKSKuMTYsLUJpFSZauN vzzp6edE3nIc5+CK1ik1bejc51 xO61hNY+MTYwHTS9dJxkBNyr XSYklZ4mIGbrLjJ0UKHxOvMqoB 30iTJdRCiuKy1inYotzUwjDK1q OLZxwmtfw950CbDdv6vnZOYm rXEmREjdWWC5P24qx7S2INIuJM RkYFQ9nHK1bG6thVvcgjljaZOr bEndbdYktLdzIWhqQRxqP788 IHRvcDsnPlBhdGllbnQgTmFtZT o8J0EoCvp7UWTzkFiwHM4igJAr PVbzJv2jgXlqmVkmRW5hWXHc hicyo964CnTaj7xgQAJrgMVnYD kwPHL9R14ln9Y3BMQmWQRtZBB1 oKK5iO7kcTxtrmzqeOOfwQff krCbfCcrTUhcFYgzM170TZAlpN atTaDkrkDtRSKuoUU3OD00PJ45 oAXkm8R2bZC7S8ToVQKhtqla szearDB6QKJfRVHufF20Vw0dyW hjTm2aYOIyJGM9XLMmiRJmQ5Qe gB1hOxFyJCTrNTIiN3BqzWLb MCsiN268SFcrChB7ECEpwiHtP5 MuBMGtvSzfAyB9k9G5Gd6IG2A6 EG74DR75lWGyn2A8xXL7Z2Sa ASDruvjeypyulEM7CUOgJOXldQ 59Hu6xmFijSt9rXVBsORX6MQSm vCEiI4CkaP1eAlUjRQOxLAPd X6RnaDFiSIqcI027RVqaIpN5CV DxqjFqH7QmZHGtdBzsKdX8o3Q7 Nm8WWRb7EK31PA58kROte7P5 cJC2E1FeIEFymzrwaythpCI4PN OgWZXxeO98Es3kvMblVg3eDMKm EKU1BATzeJRkG3PxrL2lJnIo FGIgSKQtD7FcpPXgJDolL993BL imSrL9VBWisoCdN0WhHBIvfXey DeR4o7T4Jq5BKCHrYB63CZW6 jGN0KE75LL63L1HwMfmlzOKolL U+PHRhYmxlIHdpZHRoPScxMDAl YuQprMdgBU9xSw5tRFWcNSHr mFuyhAOrPlFlh7ygFWEpTZgpGD 8axFlpI1KboAK8QUIyn6j5Yg91 R22cP2GabRC+ZMSxhWL5wLP9 yB5qCtGbVtH6SDzpI197GzSvjO PkFwckk3lba3kszZh5XrH6UWJl yhJniWygPSF3m8RhPv85G91f IHdpZHRoPSIxNSUiIHZhbGlnbj 2poS3wRa7+AZIzlQC6cYA1hX8e OfTyCkF0TMbcX886OeGusVLs Crvzq8ryu4zrcKj4QkDgUVZrob ZtsVcvDTU9m8VbAh93B2MwhTrp v7DjGrt6im93tMRuc2I3fGQ2 X9GqGCDqjxqzfSGenGoxAA2fZG VcqnfaFFSooN9kFTFzM5p8JxFf KnZ8PJcaH7QmeqG7MKZfkLVy CCefTZK6I00nw2P8HVYqBSUrOK R7pXO1jB1hiTghpcbuqCCxcCpc voQruZvrDEjzUItjY943CPNk bFpdNMQsbG9hWXBazTTxaZfiRZ 0cCQRbugimPrVZZ9XKVjkiHnOM PMjOIdXJLM23UM79qPRuc3N4 oNR9I9LpPGAnzdjkucpswIA3OT VmAZEmwP52jBPbQEgdCx5xh4V7 j981GUHpWMUkbX63Xh7jyGxl HJFftKJShM7djzgtf6oxagxsTi KkIGKiIYm0LXt4SVYfuEhcCgLk GCR1PpF7GWA8cKNvpZ2ixIki dhvfmN8zRiw+RUseNgfxXGg7OL wvdGQ+NHLbHDW6fVphIQsvZIMy hZ8sTBOjQ8w4VoXvEwS0VJev R7PkBXOfunojJl71hP0xBiPfYw T8PGvqK4XahfC1SMZaaPWhLKes COI2Q21af2P5KXWhMVLwECD0 iNA7cZ4avYgroflerFCysIxoje SrsQgwVLjjZWbnB350PHBubVad AzS3DUleNLEfPW40PR93kAPo c9D0sLU8U4LiTBMthozdgnblgU E1XPKgISIkcJ76pYWgDYkhJz5u x6U3s222AEHrEHGnrR66Ol0b yLtmQXNmoNGSuY5idigdl3xdyd viYlGdIPLnVGf9RSg2QKKpaFkm FgSnYBG9VoL9QGI2hQOneJ1v wRsventfwF8sFfe+RkVNQUxFPC 54OB46zOZkz8O8gLW4X0BnSYOd aixeltzmzWU6XMZnHCLecH17 qHYtGEmqYr0ew8Q3n770YWDeKA SgjE35Nn9rdJjrMMMaxKJJwH9w triap9erdoqpLnOyOVFhGPi8 BAx6CDSvoEvzDbFhQRG7VkQ7HC E2wBCujR0giPnjpctrtL9jQhp+ TQZ4KZE9bmdnyza2L1ChJsfr dHI+KC20IALzYH99uNQvaXPmw8 jstMy3UkRdKWLoDFG6oIyvAUka x4ZzSOOwV50euGYzp4V1KVBr dBdokUSbMqFjkRE3cC0yXVshxv egb6aimjaaQobfe3hapf30oS63 S67wZAmpBEAfUVAdKOJrNREl uFhlir1rtS0wOq8+TEHmuEJ5eZ U8rG8mJhZfFyL9YFheN560HqAt oFPqIwvtx7ava6jvrBq8EpCz FDMigdAolHkcUNH1f6BbDt31A7 9sIHdpZHRoPSIyMCUiIHZhbGln ux0dbL6iHs9+DZ4ns5pjam71 kE12nXA+XBNnXGF3bVzpNEvnOX FnmF7aIZusLoY1XTFqQmShfR41 jVBpLUapPv5vhLkioZniWN5r LGEztfuzl274EpZyu0upSVNmhD ZkKOauBCP6P85jr5O2ZBJhLFHz DWZ3nLQ3uF0fcEgfrcxskKDk aQjscmUkuAgqKQykXXmxP549CB NblKnyPfRyiPNsG4zrjoURQM3e OjwvdGQ+LZDeYHL5aEjdMJji YAMauH7yHJLcA7n8ZiIoCvR6HF cbL6ZofzD1ZERwkMLsCRQvnVDY oT3nmkozs3fbngfbZjRtWRTg KNo4XIi2CKAngPcmCcGsCSF2Za F4NUA1kRUziR0eoTgzljemnM6c Oyc+RklOOjwvdGQ+PHRkIHN0 cVmnJIewRONdxQ5fKADxV7f7Re KxMsJ2RQunW4CbynM4PPVltZIp MDKouUCPpL9cvkpgb4rmwmif HqZqDLOkSMv6KBc7RFKyhIcfQi HuPXF1FyE4POV0oAFrxF1dhUcj ikdinY6pTcs+TVJOOjwvdGQ+ OSKqDGG4bSwoZOjbUMDzfN1eAG BcR4p8VtNmFjH1WQnmJ0BaeiA9 WSAxkLEmHWKumJSQcD9ijrlv h9klwvqvWuYaKSPbJHg7QTv2NZ KneXqxHkOyMZF7SlO5LBQ7nHGg jZ5wzYdaevrgbR7aGvi+UGF5 NLY7XW90UG99R6OqUfateKQzmE U+PHRhYmxlIHdpZHRoPScxMDAl FlOfwFaoEP5mVl4mEXCfCOSu bGx (more content not included)... [facility] Consent Formson 06-03-2022 Consent Forms [id number]#1.00[facility] Inst[facility] Discharge Instructions [id number][facility] [id number]#[facility] Outside Recordson 06-03-2022 Outside Records [id number]#[facility] 06-02-2022 Anesthesia Note Patient: NATALIYA BALBUENA Age: 47 years Sex: FEMALE : 1975 Associated Diagnoses: None Author: Sky Parsons MD Postoperative Information Post Operative Note: Operative Day. Anesthetic utilized: Monitored anesthesia care. Health Status Allergies: Allergic Reactions (All) No Known Medication Allergies Problem list (past medical history): All Problems Cardiomyopathy / SNOMED CT 091198722 / Confirmed H/O aortic valve insufficiency / SNOMED CT 822385994 / Confirmed History of obesity / SNOMED CT 668170719 / Confirmed Mitral valve insufficiency / SNOMED CT 50107207 / Confirmed Tricuspid valve insufficiency / SNOMED CT 129235320 / Confirmed Physical Examination VS/Measurements Vital Signs (last 24 hrs) Last Charted Heart Rate Monitored 65 bpm (JUN 02:39) Resp Rate 16 br/min (JUN 02:39) SBP 124 mmHg (JUN 02:39) DBP 68 mmHg (JUN 02:39) Weight 115.40 kg (JUN 02 12:45) Height [...] on: 06/02/2022 17:54 EDT] Sky Parsons MD [facility] Anesthesia Note Patient: NATALIYA BALBUENA Age: 47 years Sex: FEMALE : 1975 Associated Diagnoses: None Author: Sky Pasrons MD Preoperative Information Anesthesia history: Patient history: [...] history): All Problems Cardiomyopathy / SNOMED CT 916480193 / Confirmed H/O aortic valve insufficiency / SNOMED CT 020615546 / Confirmed History of obesity / SNOMED CT 453761429 / Confirmed Mitral valve insufficiency / SNOMED CT 73320388 / Confirmed Tricuspid valve insufficiency / SNOMED CT 216777073 / Confirmed Histories Family History: No family history items have been selected or recorded. Procedure history: Cardiac catheterization, left heart (723628667). Cholecystectomy (06598778). Ring annuloplasty (782034437). AVR - Aortic valve replacement (9947592277). Entire MV - Mitral valve (9649479479). History of 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 (0954553177). Comments: 05/29/2022 11:11 CELESTINOT Olinda Garcia RN repair, not replacemnt Cardiac catheterization, right heart (40674165). Social History Electronic Cigarette/Vaping Assessment Electronic Cigarette [...] 02 12:45) Resp Rate 18 br/min (JUN 02:45) SBP H 173 mmHg (JUN 02:45) DBP H 97 mmHg (JUN 02:45) Weight 115.40 kg (JUN 02:45) Height 167.64 cm (JUN 02:45) Airway: Mallampati classification: II (soft palate, fauces, uvula visible). Temporomandibular joint mobility: Good. Mouth: Adequate opening, Teeth ( Within normal limits, chipped upper right molars ). Neck: Full range of motion. Respiratory: Lungs are clear to auscultation. Cardiovascular: Regular rhythm. Neurologic: Alert, Oriented. Review / Management Laboratory Results Plan [place] [employer] Anesthesiologists#(ASA) physical status classification: Class III. Anesthetic Preoperative Plan Anesthesia: Monitored anesthesia care. Anesthetic plan, risks, benefits, and alternatives discussed with the patient and/or family. Patient verbalized understanding. [Electronically Signed on: 06/02/2022 15:30 EDT] Sky Parsons MD [Verified on: 06/02/2022 15:30 EDT] Sky Parsons MD [facility] Inpatient Patient Summaryon 06-02-2022 Inpatient Patient Summary [address] [id number] Patient Discharge Instructions Name: ALFREDO BALBUENA : 1975 Patient Address: [address] [facility] [address] Primary Care Provider: Name: COLUMBA HASSAN MD After you are discharged if you find you have any questions, please, call [phone] ext [phone] to speak to a nurse. Discharge Diagnosis: Right carpal tunnel syndrome Prescription Information: If you have been given a prescription for narcotics, seek immediate medical attention if you have any difficulty breathing or any sudden status changes such as confusion and sleepiness. If you or anyone you know is experiencing suicidal thoughts, mental health, alcohol and/or drug addiction problems; contact the [facility] 09/03 Crisis Hotline -Text 4HEQU yk 647521. If you received any narcotics, sedation, or [...] business decisions or sign any legal documents [facility] would like to thank you for allowing us to assist you with your healthcare needs. The following includes patient education materials and information regarding your injury/illness. ALFREDO BALBUENA Roly has been given the following list of follow-up instructions, prescriptions, and patient education materials: Follow-up Instructions With: Address: When: COLUMBA HASSAN [address] [place] [address] Business (1) With: Address: When: Manjinder Vargas [address] [place] [address], [address] [place] [address] Business (1) 06/10/2022 2:00 PM Medications During the [...] tab(s) Oral Mond (more content not included)... [facility] MAGR Intraoperative Recordon 06-02-2022 MAGR Intraoperative Record MAGR Intra-Op Record Summary Primary Physician: Bharathi Lopez DO Finalized Date/Time: 06/02/22 18:11:29 Pt. Name: ESHAALFREDOO.B./Sex: 1975 FEMALE Med Rec #: [id number] Physician: Bharathi Lopez DO Financial #: [id number] Pt. Type: D Room/Bed: / Admit/Disch: 06/02/22 [...] Role Performed Surgeon - Primary Anesthesiologist of Frame Table Operator Record Time In 06/02/22 17:03:00 06/02/22 17:03:00 06/02/22 17:03:00 Time Out 06/02/22 17:37:00 06/02/22 17:37:00 06/02/22 17:37:00 Procedure Carpal Tunnel Carpal Tunnel Carpal Tunnel Release(Right) Release(Right) Release(Right) Last Modified By: Dahlia Mendenhall RN, Barbara RN Long, Barbara RN 06/02/22 17:37:37 06/02/22 17:37:37 06/02/22 17:37:37 Entry 4 Entry 5 Case Attendee Martine RAMON, Azeb Robertson SENIOR NET DEVELOPER ARCHITECT/CSFAKristi SENIOR NET DEVELOPER ARCHITECT Role Performed Scrub Personnel Assembler Rubber Footwear Time In 06/02/22 17:03:00 06/02/22 17:03:00 Time Out 06/02/22 17:37:00 06/02/22 17:37:00 Procedure Carpal Tunnel Carpal Tunnel Release(Right) Release(Right) Last Modified By: Dahlia Mendenhall RN, Barbara RN 06/02/22 17:37:37 06/02/22 17:37:37 Surgical Procedures MAGR Pre-Care Text: A.20 Verifies operative procedure, surgical site, and laterality Im.150 Develops individualized plan of care Entry 1 Procedure Carpal Tunnel Release Primary Procedure Yes Primary Surgeon Bharathi Lopez DO Surgeon Comment RELEASE RIGHT CARPAL Start [...] By Dahlia Mendenhall RN Scrub 10% Povidone-Iodine Joice Prep Area (Im.270) Elbow and forearm, Hand [...] chemical in (more content not included)... [facility]22 MAGR Postoperative Record MAGR Phase II Record Summary Primary Physician: Bharathi Lopez DO Finalized Date/Time: 06/02/22 18:29:55 Pt. Name: ALFREDO BALBUENA S /Sex: 1975 FEMALE Med Rec #: [id number] Physician: Bharathi Lopez DO Financial #: [id number] Pt. Type: D Room/Bed: / Admit/Disch: 06/02/22 [...] Dahlia Mendenhall RN 06/02/22 18:29 [facility] Preoperative Recordon 1 [facility] Preoperative Record [facility] Pre-Op Record Summary Primary Physician: Bharathi Lopez DO Finalized Date/Time: 06/02/22 17:25:46 Pt. Name: ESHA ALFREDO Marie/Sex: 1975 FEMALE Med Rec #: [id number] Physician: Bharathi Lopez DO Financial #: [id number] Pt. Type: D Room/Bed: / Admit/Disch: 06/02/22 [...] Signed By: Dahlia Mendenhall RN 06/02/22 17:25 Normal [facility] PT/PTTon 06-02-2022 INR Coag (PPP) [Relative time] 1.64 {INR} High 0.91-1.11 [facility] Comment on above: Performed By: #### 6 [id number] ####[facility] (DEFAULT)[address] [place] [address]99[address] PT 17.3 second(s) High 9.7-11.8 [facility] Comment on above: Performed By: #### 6 [id number] ####[facility] (DEFAULT)[address] [place] [address] 54792 PTT 39 second(s) High 25-35 [facility] Comment on above: Performed By: #### 6 [id number] ####[facility] (DEFAULT)[address] [place] [address]56 Patient Handouton 06-02-[address] HIGHTOWER POST OPERATIVE CARPEL TUNNEL INSTRUCTIONS SURGEONS WRITTEN INSTRUTCTIONS: -Keep your hand elevated above your elbow for the first 24 hours after surgery -Wiggle your fingers frequently while awake -DO NOT lift heavy objects or design printing machine set up operator forcefully with your hand -Change your dressing in 1 day and apply an sandip bandage as directed with the thumb tucked towards the palm of your hand. This keeps the tension off your incision -You may shower in 1 day but do not submerge your hand under water. Put a 4x4 gauze and the sandip bandage back on after you shower -If you have any problems or concerns, please call the office at [phone] -Follow up as scheduled [facility] Test Serum 1on Preg Serum Internal Control OK [facility] Comment on above: Order Comment: pre o p Performed By: #### 3 [id number] ####[facility] (DEFAULT)[address] [place] [address] Test Serum Qual Negative [facility] Comment on above: Order Comment: pre o p Performed By: #### 3 [id number] ####[facility] (DEFAULT)[address] [place] [address] Coding Summaryon 05-30-2022 Coding Summary HTMLBase 64 YitvdiuyEQl3hTc+PGhlYWQ+PE 0CAESrF12eyEBxmB9RM6aDIR3D LTAIDRGDAU2BAU4kpHC3AOuxH1 VybiAv UdxbiFEpWB11YAn3HCC5nVllVA xkyZ8elGGwV8z8QkFeMD29aN65 FWkzIAPeSkY2CgLbzslvxVJl X7trPlMcrAFkHjo+PHRhYmxlIH fuZFArCVlpKQCcGjWwcZkcIO9o Ti0lVTJlXFTwvVqxySOlZvJv o0cvNVUkCYpvMS5bmGcwF8VzbL U8FMNnh0y5Ad38vIE+PHRkIHN0 oLymOWdlu705VkWyz6ohFYU5 dGJwOZqzAYU5V94kx6X7HVRkKC PiZYP5fWK2pX6lfOkpvmzrP1Hw tBXiFeI2XIF9yUNwgJ0rjHfo reumyT7fGxe+I41QKR8ZYGPFZS 4QQke2K7YlLzqnsSK+DM46RVCp XD68dGMuiAToh7rnvYp3KtJo ARPyHHB6dOmvMInvi1GrXAZcL5 9viUZeu0G3YQRtgYreuNKdXeJc jUB0tR8bEGrphipnv8jahftz Smswx5xxvq48nX96G96cZMhcXG JpPGP0BSUuNMNegIlugj2wtF4d Ii8+WGicj2wwp6gikDr9QxUk TRQbzfXrwAexIRY0x8ZxGy52A9 YupMjjk5XnTsm8rk63mZUvf2R4 vZV0RGzqEHLpaQ0eIFeqItO5 FJAxSgIljH97pKPuYShiKj8toP mjcJwuWI8fAWEmnubzPRVjfO2k UBInzTPtqTulOQ1iQPOqtrkm d578NkKcEBB8VJTcwDVvD8ThsU 7fHeBpGCPlSFWdU7RwiKLlOKlv K527JRzhHrA9DLCjjmUkJ7Wz EOQegDuaBbE9y2F0Tb8Cp7Phzx ehULJ6AHnzJBCwMcY1WkHbMfY9 U1OoHfw5WOBsmVyzNR8pQ8Ix QIRqebqaypjvjGN2POPzGEQtaP 76oNXrQAvwVd4im5X6h713ZAHk CCTyrP40Sg1atWciYDKhcEKF tH9fytnui0vfzqwtJfHwLWThWN n3MXw7UPMhtLmlNuIuOXT3IkZ3 SSG2xNCesO9wvIydkatdnB1e Oyc+C61xnX4rAFP4MPL6wvrqYH DxsxVyGD25MG65X2YoItiuhWEh bGU+TDMnbjFbmDtaGS0nJuHv h4vdl9FkKSyrJ0EtNNUhGTocDg m9GTShNVP6lCK1oM3aRVIpEDhr v1K2rWT2O9VmfgAoyc0cb3uf EMLoLNcmI84deFThx5F3HTIzfH P3UCKwsJaxMvSybA97Xnq+PGNv iHypg0EnKnxrl6fnx2eboMs5 NsXbRYBdleFpzSpeQTK6x6OlNj 56O38qOEdbRREvMOBtRYNiWTBp tEgjgd2zkV9iCc7+PGNvbCB3 nPS1gU6zHLZxHkG5AGwdQ798Lb UpoNRdUkylo6ndb5jitVm3DmQr GZUuyrRfgSxeBFB2o1ThTc49 Z45aLTayWVNfVNBvGMHoZZZhnV nonr8veP4tSo4+XK7nm4jypl92 oX37aHY+BGNdMIC7oBuoIBdv XBAvtG3oEHnzVpY2CKQdIqYvpK 94lBHxFVacOt8lpLfolZdfOM5z ZFGyerudn765BgEmb5mtJVOy vCDoPSjlPSJ0J18lp8L1MAJoNE OiJZI6lRB7yW7evTjtbuvexPDv rFjgdvNyzUrfUHhmOIgmT513 IHRvcDsnPlBhdGllbnQgTmFtZT j2C5OcCkf3WBTbbQlrYJ5anXWn XAwwCr8xiNzguXheGZ2aQGZy mjiys955ZlYta3jeWRZwwKTxVI kxIJT3K25fs4I0VGGzNTDvRLB1 rXG3mC5igQbvplfgxUColZuz tuXioNdiXJnsSXkmI088IQCheL gtVoKimkKoYROcoPJ0SO06VX44 kDTqp4F2rDU9A7FfKYWougwb anmbbIG2MWEfQHWhcV34Hg0dbC xnNl1cHWTqWAN0KNSxwFVcU5Xu kA8mFbLnJXKzJZUmB0ZwhYBp DBebK779UBttFeQ6JCWosyTxT2 EjZOLrtRlgUrV8o3U8Rw6HM1N3 LX66KM86yZFwy2A8dJL9K4Sf WQLezvfkziqpbFX5CSXwXWSsxU 55Xh4bkBlyIx1aPXYoSTV9JXTz pKKpR7AolA0xKbDqSUYlICBp A5PywSGjSOtsR024OWfvSyN3KG QvyzGnH9EjANRdjZinPtW4m3P1 Xa8EYFo2CU47FJ87gAAer4N0 iMK2J1WtABUvpybiotukiGO3YT TnAEQeuC59Zi5ssIwmBd2dAUFt OIB6WGEmoKUrH9VneN2lQkSt RNJgZGVhE7RaeSWpJBmrN128BW teObO3KBKiytMfV3EsEUNphPyn NfP4t6G9Qx3ZELDuXT22POG0 jQC7AQ17BA04O5PeXohepQPnvH U+PHRhYmxlIHdpZHRoPScxMDAl BiXlgCxhKO0hKq3bCZViMIEa gNoojPBpYdIur7zlPBNwFBgsEN 8twYygR7BefJR9HBQjl0i9Nw11 T50bO6XpaVN+OHBvdQD2xBT9 uI0fFgEeEvH3IGyjP378JaSurX MgLpqjh1lhy6lgjBf2JdC9MGWr ycUqkAmfGDR2l5IyEp65R23r IHdpZHRoPSIxNSUiIHZhbGlnbj 6agB0aGc5+TUZyvIY6dQG3bC7t DsIbHbU6CBbcF602RlZrrZPr Nvxec5jfy1nolGh1YkHcWRUknr VpuGxmYSP2a7UkKy57Z3IqeItg y1WlOtv0hv39bSFxm7C6iZX1 H9HzXLZyqzzzyFEdwWuyID7mIF AaaavmNOKswB4aSQJtH1p0AnUy FgT4IQqeP9BathL0JYGbvCYv XSzkEEC2C75kn9G5CGNzFJBgKT M3dAY9nE9gdQevvtsksABxxLqb zyDzlXhbNKvzBRytM692WGYp jDnhENHozD4mEARdiPHkeYdkBK 7kPWUgjuuwOoPKH7RLLgpvIwQH JDxCRmTPQQ87TU33aEWxf4Q9 fVL3J5MyGXNwajdibllisNV9ZC NzAKYhpI59gMLaVRtoXx9zp1U5 i886IOTcWUXcmA17Nh4jgWok LLPheLRQqO5uunowj7ktlpfuJc ZuQVZfHNs9IQk8CVJbiXzqYrWo IQY6IlW9ENS3nLPrwC3dhRwj sthchC4jWud+EUmbDxjoJZi0PB wvdGQ+UJNfKGT3rGjsOQssDGXt sA0wHLSuZ7l1FlYiEqC1IKxa H3ChMBWfvwtkGk92yL7wSdAlSj Z6ZMgjA3UkriH9NKXvlMXcIGhr JSL7H51lv8N1QDKcBEBrPKF9 fSI9iZ0kzEfafikmiHYtrTutox YtlHshNGtiHGmwP976XCZxyYzh PkB1OEndMIXkJU27ZA61fEIx u6W1uBE6M2QsCUHmgdzbqqhhqK X3RJUvKYBiiJ91bYGyTEknLt7a v5B8t665SRGnPPLjpD85Mq7a gByzAWYheFSZtE8papfnu0xrbs lkIwZeOFJjLSu6NDw5EHQofGzv OxDpRGO9DaW1CKU5mKMimY8r tXjrxrhfdZ7fRnm+RkVNQUxFPC 51HG39nNXgc6E1tYC3V7QwZULo gsekostciDD9MUBxLLBidE59 oLTyQLwzFo0jb7A0y241TCGpLD AlkO39Gw1epYueZTDxhSFPfA0k lewkg9ttobosQpTlTBKcEHy7 EOd8UZRarQldTuKcCJR4LdO5EL V6aORghD8qeSlcxiyeaH9kXhc+ X3D9A7KsNtidsNA+PC44WUBu GD47iREelTHrx9lftUw2UyMnGJ ZrZKF0lLneVHbjm3UkIQZpL81t jZXuz1U0LBDkxPupwYHxBeVa oTL2xJ1oIBpstsrkw9qspfxmWh kii2clmx78iQ20M29bTGevXVDf PSEeSXSlDSOqhKboye2xdJ6e Ii8+DNAvrKL8sIF6hC7pFrUoZn D5VKocP468IoVdiKSgPxkqi4ld o0rzyEz9KsZuACLxomZxiSrh IVI5d3KsFa22L92sKBohAQUxRA ZnIAQzFSUgrZlieq6ptN3lTu6+ IL4dj8pmzp50lG46uMV+PHRk SHV8bUbdLUqrAKGvrG7oXYlhVi U1WXFuQlMixX27wHHvANuuKu8w vTzawUtlEP6mNXXtrjsmt605 ZnLww7nuKRPqbBXxWDozLBA6X7 6mv3D5RANeTAPdSUM2yVR6yV7k bGlnbjogbGVmdDsgdmVydGlj CBjnJDpbR652DPLqsKshFvEycN CpR4gxbjTXAL8zYnndtDO+PHRk CRI5sVuwZNftUMIqrN8zPDBe I9m4DuRgLaN9FDpzF6MwlgO0HG AskUSeTIRnmDVBzH6guefgn9al wzkjTsLrNEAyVSl2UHs5GIRw dYdxZyVeDIZ7WcL4GWA7uARysG 5rpKihwgesaX4cLgi+RklOOjwv dGQ+VGQkBYT5vHhnCRofRACw xQ1vAEAoW8d9IpVvVnI6PYqlO9 XsuvA5DIWmqSZaRXJstTKGyY4i ogpsh8dcfhuzRjCaJMGcSOj3 STh8PLCkbAwwIpSeHGI5XaI3YY L3fVHudC5bdGgxifpzeW9oBpl+ TVJOOjwvdGQ+NQJiQLA8tBaw YXxlVGFqeJ2uUBDuU5c8LdGhBw Y0SRrsZ7BcpjC5GILosVZwFCGn eWKCdS5rcqlsb2hmeclwHgUw SGWsGUr8OZl3ACNhiSnbXfMkER D3UrU4WEP7nCCblM3tyTsxtnfc lI1vIcj+RDG8XPB3MJ98KH46 J8TjJtdnsJCqgTM+PHRhYmxlIH xfITXvDAqhNDSlKhSdpXnaTP0o Lt9rRZNvBMJliNyftKNmXsSh b2x (more content not included)... Normal [facility] .Auto Diff 05-29-2022 Auto [place] % 6 % Normal 12 [facility] Comment on above: Performed By: #### 1 [id number] ####[facility] (DEFAULT)[address] [place] [address] 27645 Baso Abs# 0.0 x10 Normal 0.0-0.2 [facility] Comment on above: Performed By: #### 1 [id number] ####[facility] (DEFAULT)[address] [place] [address] 28091 Basophils/100 WBC (Bld) 0.3 % Normal 0.2-2.0 [facility] Comment on above: Performed By: #### 1 [id number] ####[facility] (DEFAULT)[address] [place] [address] 84470 Eos Abs# 0.1 x10 Normal 0.0-0.4 [facility] Comment on above: Performed By: #### 1 [id number] ####[facility] (DEFAULT)[address] [place] [address] 86379 Eosinophils/100 WBC (Bld) 1.3 % Normal 0.9-4.0 [facility] Comment on above: Performed By: #### 1 [id number] ####[facility] (DEFAULT)[address] [place] [address] 71824 Lymph Abs# 1.6 x10 Normal 1.3-2.9 [facility] Comment on above: Performed By: #### 1 [id number] ####[facility] (DEFAULT)[address] [place] [address] 89098 Lymphocytes/100 WBC (Bld) 26 % Normal 14-48 [facility] Comment on above: Performed By: #### 1 [id number], [id number] ####[facility] (DEFAULT)[address] [place] [address] 06418 [place] Abs# 0.4 x10 Normal 0.0-0.8 [facility] Comment on above: Performed By: #### 1 [id number] ####[facility] (DEFAULT)[address] [place] [address] 14973 Neut Abs# 4.0 x10 Normal 1.5-9.2 [facility] Comment on above: Performed By: #### 1 [id number] ####[facility] (DEFAULT)[address] [place] [address] 99616 Neutrophils/100 WBC (Bld) 66 % Normal 44-88 [facility] Comment on above: Performed By: #### 1 [id number], [id number], [id number] ####[facility] (DEFAULT)[address] [place] [address] 91485 BMP Standardon 05-29-2022 eGFR Non AA 53 mL/min/1.73m2 Invalid Interpretation Code [facility] Comment on above: Performed By: #### 1 [id number], [id number], [id number] ####[facility] (DEFAULT)[address] [place] [address] eGFR AA >60 Invalid Interpretation Code [facility] Comment on above: Result Comment: Molding Line Assistant bev Kidney disease could be indicated at eGFRs of less than 60 ml/min/1.73m2. Kidney Failure is indicated at less than 15 ml/min/1.73m2 Performed By: #### 1 [id number], [id number], [id number] ####[facility] (DEFAULT)[address] [place] [address] 22068 Anion gap [Moles/Vol] 10.0 mmol/L Normal 5.0-19.0 [facility] Comment on above: Performed By: #### 1 [id number], [id number], [id number] ####[facility] (DEFAULT)[address] [place] [address] 83169 Calcium [Mass/Vol] 9.3 mg/dL Normal 8.9-10.3 [facility] Comment on above: Performed By: #### 1 [id number], [id number], [id number] ####[facility] (DEFAULT)[address] [place] [address] 23795 Chloride [Moles/Vol] 106 mmol/L Normal 101-111 [facility] Comment on above: Performed By: #### 1 [id number], [id number], [id number] ####[facility] (DEFAULT)[address] [place] [address] 86905 CO2 [Moles/Vol] 28 mmol/L Normal 21-32 [facility] Comment on above: Performed By: #### 1 [id number], [id number], [id number] ####[facility] (DEFAULT)[address] [place] [address] 08859 Creatinine [Mass/Vol] 1.10 mg/dL Normal 0.60-1.30 [facility] Comment on above: Performed By: #### 1 [id number], [id number], [id number] ####[facility] (DEFAULT)[address] [place] [address] 19115 Glucose [Mass/Vol] 97.0 mg/dL Normal 74.0-118.0 [facility] Comment on above: Performed By: #### 1 [id number], [id number], [id number] ####[facility] (DEFAULT)[address] [place] [address] Osmolality 281 mOsm/L Invalid Interpretation Code [facility] Comment on above: Performed By: #### 1 [id number], [id number], [id number] ####[facility] (DEFAULT)[address] [place] [address] 00877 Potassium [Moles/Vol] 3.6 mmol/L Normal 3.6-5.1 [facility] Comment on above: Performed By: #### 1 [id number], [id number], [id number] ####[facility] (DEFAULT)[address] [place] [address] 66910 Sodium [Moles/Vol] 140.0 mmol/L Normal 136.0-144 . 0 [facility] Comment on above: Performed By: #### 1 [id number], [id number], [id number] ####[facility] (DEFAULT)[address] [place] [address] Urea nitrogen [Mass/Vol] 18 mg/dL Normal 8-26 [facility] Comment on above: Performed By: #### 1 [id number], [id number], [id number] ####[facility] (DEFAULT)[address] [place] [address] Urea nitrogen/Creatinine [Mass ratio] 16.0 mg/mg Normal 4.6-16.2 [facility] Comment on above: Performed By: #### 1 [id number], [id number], [id number] ####[facility] (DEFAULT)[address] [place] [address] CBC w/ Auto Diffon 2 Erythrocyte distribution width (RBC) [Ratio] 12.7 % Normal 11.5-15.0 [facility] Comment on above: Performed By: #### 1 [id number], [id number], [id number] #### [facility] (DEFAULT) [address] [place] [address] Hematocrit (Bld) [Volume fraction] 38.9 % Normal 33.7-40.4 [facility] Comment on above: Performed By: #### 1 [id number], [id number], [id number] #### [facility] (DEFAULT) [address] [place] [address] 45547 Hemoglobin (Bld) [Mass/Vol] 12.6 g/dL Normal 11.3-15.9 [facility] Comment on above: Performed By: #### 1 [id number], [id number], [id number] #### [facility] (DEFAULT) [address] [place] [address] 28086 Instr WBC 6.1 x10 Invalid Interpretation Code [facility] Comment on above: Performed By: #### 1 [id number], [id number], [id number] #### [facility] (DEFAULT) [address] [place] [address] 03935 Man Diff? Auto Normal [facility] Comment on above: Performed By: #### 1 [id number], [id number], [id number] #### [facility] (DEFAULT) [address] [place] [address] 03919 MCH (RBC) [Entitic mass] 29 pg Normal 24-34 [facility] Comment on above: Performed By: #### 1 [id number], [id number], [id number] #### [facility] (DEFAULT) [address] [place] [address] 18456 MCHC (RBC) [Mass/Vol] 32 g/dL Normal 26-37 [facility] Comment on above: Performed By: #### 1 [id number], [id number], [id number] #### [facility] (DEFAULT) [address] [place] [address] 70205 MCV (RBC) [Entitic vol] 89 fL Normal 81-100 [facility] Comment on above: Performed By: #### 1 [id number], [id number], [id number] #### [facility] (DEFAULT) [address] [place] [address] 16102 Platelet 291 x10 Normal 138-427 [facility] Comment on above: Performed By: #### 1 [id number], [id number], [id number] #### [facility] (DEFAULT) [address] [place] [address] 64813 Platelet mean volume (Bld) [Entitic vol] 9.8 fL Normal 6.3-10.2 [facility] Comment on above: Performed By: #### 1 [id number] #### [facility] (DEFAULT) [address] [place] [id number] RBC 4.36 x10 Normal 3.70-5.30 [facility] Comment on above: Performed By: #### 1 [id number] #### [facility] (DEFAULT) [address] [place] [id number] WBC 6.1 x10 Normal 3.5-10.5 [facility] Comment on above: Performed By: #### 1 [id number] #### [facility] (DEFAULT) [address] [place] [address] Progress Note - Nurseon 05-17 Progress Note - Nurse PAT review done tania Morales, order received. [Electronically Signed on: 05/29/2022 14:46 EDT] Olinda Roa RN [Verified on: 05/29/2022 14:46 EDT] Olinda Roa RN Normal [facility] SARS-CoV-2 (COVID-19) PCRon 05-29-2022 Employed in healthcare? No Invalid Interpretation Code [facility] Comment on above: Performed By: #### 6 [id number] ####[facility] (DEFAULT)[address] [place] [address] Group care resident? No Invalid Interpretation Code [facility] Comment on above: Performed By: #### 6 [id number] ####[facility] (DEFAULT)[address] [place] [address] In ICU? No Invalid Interpretation Code [facility] Comment on above: Performed By: #### 6 [id number] ####[facility] (DEFAULT)[address] [place] [address] status? Not Invalid Interpretation Code [facility] Comment on above: Performed By: #### 6 [id number] ####[facility] (DEFAULT)[address] [place] [address] SARS-CoV-2 (COVID-19) RNA NOA+probe Ql (Unsp spec) Not detected Normal Not Detected [facility] Comment on above: Result Comment: Perf ormed by PCR methodology. Performed By: #### 6 [id number] ####[facility] (DEFAULT)[address] [place] [address] SARS-CoV-2 (COVID-19) RNA NOA+probe Ql (Unsp spec) No Invalid Interpretation Code [facility] Comment on above: Performed By: #### 6 [id number] ####[facility] (DEFAULT)[address] [place] [address] Symptomatic as defined by CDC? No Invalid Interpretation Code [facility] Comment on above: Performed By: #### 6 [id number] ####[facility] (DEFAULT)[address] [place] [id number] QASIMOVon 05-02-2022 CNOV Office Visit (PEDRO ) -- ALFREDO BALBUENA ([id number]) 1975 F Date Time Provider Department 05/02/22 9:15 AM GIULIANO WALTON During your visit today, we recorded the following information about you: Pulse Blood pressure Weight Height 54/minute 180/90 113.9 kg 1.702 m Giuliano Walton MD 05/02/2022 4:18 PM [facility] Ad[facility] Department of Cardiovascular Medicine SECTION OF CARDIOVASCULAR IMAGING OUTPATIENT VISIT DATE May 02, 2022 OUTPATIENT VISIT TYPE NEW (>3yrs since last seen) PRIMARY CARE PHYSICIAN: Adria Snyder, DO [address] [place] [address] CHIEF COMPLAINT: Postoperative Follow Up. HISTORY OF [...] tunnel surgery. 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 She reports edema in b/l lower extremities [...] Disease Father Heart Father age 63- massive ID Diabetes Mother Thyroid Sister hypertension None Sister [...] Electrocardiogram an (more content not included)... Normal [facility] ECG COMPLETEon 05-02-2022 ECG COMPLETE Ventricular Rate : 5 8 BPM Atrial Rate : 58 BPM P-R Interval : 244 ms QRS Duration : 100 ms Q-T Interval : 450 ms QTC Calculation(Bazett) : 441 ms Calculated P [place] : 20 degrees Calculated R [place] : 28 degrees Calculated T [place] : 51 degrees SINUS BRADYCARDIA WITH 1ST DEGREE AV BLOCK OTHERWISE NORMAL ECG Confirmed by YESSY TOMPKINS MD ([id number]) on 05/11/2022 4:10:17 PM NAME : ESHAALFREDO PID : [id number] : 1975 Gender : Female Race : ORD : [id number] Procedure Date : May 02 2022 09:15:17 Edit Date : May 11 2022 16:10:20 Diagnosis: SINUS BRADYCARDIA WITH 1ST DEGREE AV BLOCK OTHERWISE NORMAL ECG Confirmed by YESSY TOMPKINS MD ([id number]) on 05/11/2022 4:10:17 PM Test Reason : Location : 314 : J14 Overread By : YESSY TOMPKINS MD Edited By : YESYS TOMPKINS MD Referred By : GIULIANO WALTON Acquired by : DAHLIA RITTER [facility] 02-27-2022 CNPN Telephone (WILLAMMN) -- ALFREDO BALBUENA ([id number]) 1975 F Date Time Provider Department 02/27/22 GIULIANO WALTON During your visit today, we recorded the following information about you: Andres Callejas 02/27/2022 8:51 AM Signed REACHED OUT [...] 07/29/2016 07/31/2016 SUMMARY 07/31/2016 Encounter Status:Closed by ANDRES CALLEJAS on 02/27/22 Normal [facility] Office Visit (Cardiology)on 01-21-2022 Follow-up visit [...] TO SURGERY. PATIENT TO SEEK SURGEON AT [facility]. Follow-up as needed only Chief Complaint ALFREDO BALBUENA is being seen for a consultation [...] in both positions. This was done at [facility]. She is on chronic Coumadin. She has no cardiac complaints and she has been stable. She used to follow with [facility] cardiology but did not continue to [...] Lopez who my understanding is operates at [facility]. I discussed with the patient that her cardiac status is essentially normal but given her valve history and the need for being on heparin while her Coumadin is withheld and then at the end of her surgery reversing this process does represent some risk and her best option may well be to have surgery done at a tertiary center such as [facility] where they would be more familiar [...] of Sys (more content not included)... Normal [employer] Tobacco Screening.on 022 Adult depression screening assessment No [facility] Prevoty ross 250 DO Work Phone: Tobacco use status [facility] b) No M [facility] Heart-Sandu ross 250 DO Work Phone: MG MAMM DX 3D RT CADon 09-30 MG MAMM DX 3D RT CAD Patient: ASHA BALBUENA Exam Date: 09/30/2021 : 1975 Gender:F Ordering : DR COLUMBA HASSAN M.D. Admission #: [id number] Family : Order #: [id number] CLICK HERE TO VIEW EXAM RADIOLOGY REPORT [...] None Family Cancers None LOCATION: [facility] BREAST COMPOSITION: Heterogeneously dense,which may obscure [...] Warren MD on 09/30/2021 at 08:29 Normal [facility] US BREAST RIGHT LIMITEDon US BREAST RIGHT LIMITED Patient: ALFREDO BALBUENA. Exam Date: 09/06/2021 : 1975 Gender:F Ordering : DR COLUMBA HASSAN M.D. Admission #: [id number] Family : Order #: [id number] CLICK HERE TO VIEW EXAM RADIOLOGY REPORT PROCEDURE: ULTRASOUND BREAST RIGHT LIMITED COMPARISON: MAMM SCREEN 3D DIANDRA CAD, 04/26/2021. INDICATIONS: [...] PALPABLE LUMP SHOULD BE BIOPSIED. Dictated by: Tracy Ahmadi M.D. on 09/06/2021 at 15:02 Approved by: Tracy Ahmadi M.D. on 09/06/2021 at 15:08 Normal [facility] MAMM SCREEN 3D DIANDRA CADon 04-26-2021 MG MAMM SCREEN 3D DIANDRA CAD Patient: ALFREDO BALBUENA Exam Date: 04/26/2021 : 1975 Gender:F Ordering : DR COLUMBA HASSAN M.D. Admission #: [id number] Family : Order #: [id number] CLICK HERE TO VIEW EXAM RADIOLOGY REPORT [...] No Treatments None Family Cancers None LOCATION: [facility] BREAST COMPOSITION: Heterogeneously dense, which may [...] PALPABLE LUMP SHOULD BE BIOPSIED. Dictated by: Tracy Ahmadi M.D. on 04/26/2021 at 09:58 Approved by: Tracy Ahmadi M.D. on 04/26/2021 at 10:12 Normal [facility] Vital Signs Date Time Vital Sign Value Performing Clinician Maggie santoro 02-22-2024 01:41-0400 Heart rate 52 /min MD Columba Hassan Work Phone: [facility] 02-22-2024 01:30-0400 Diastolic blood pressure 71 mm[Hg] MD Columba Hassan Work Phone: [facility] 02-22-2024 01:30-0400 Respiratory rate 20 /min MD Columba Hassan Work Phone: [facility] 02-22-2024 01:30-0400 SaO2% (BldA) [Mass fraction] 100 % MD Columba Hassan Work Phone: [facility] 02-22-2024 01:30-0400 Systolic blood pressure 146 mm[Hg] MD Columba Hassan Work Phone: [facility] 02-21-2024 19:32-0400 Body height 170.18 cm MD Columba Hassan Work Phone: [facility] 02-21-2024 19:32-0400 Body temperature 97.4 [degF] MD Columba Hassan Work Phone: [facility] 02-21-2024 19:32-0400 Body weight 113.85 kg MD Columba Hassan Work Phone: [facility] 12-31-2023 14:41-0400 Body height 170.18 cm MD Columba Hassan Work Phone: [facility] 12-31-2023 14:41-0400 Body mass index (BMI) [Ratio] 39.9 kg/m2 MD Columba Hassan Work Phone: [facility] 12-31-2023 14:41-0400 Body weight 115.66 kg MD Columba Hassan Work Phone: [facility] 12-31-2023 14:41-0400 Diastolic blood pressure 76 mm[Hg] MD Columba Hassan Work Phone: [facility] 12-31-2023 14:41-0400 Heart rate 53 /min MD Columba Hassan Work Phone: [facility] 12-31-2023 14:41-0400 Systolic blood pressure 163 mm[Hg] MD Columba Hassan Work Phone: [facility] 05-02-2022 10:07-0400 Diastolic blood pressure 90 mm[Hg] Giuliano Walton MD Work Phone: [facility] 05-02-2022 10:07-0400 Systolic blood pressure 180 mm[Hg] Giuliano Walton MD Work Phone: [facility] 05-02-2022 10:05-0400 Body height 170.2 cm Giuliano Walton MD Work Phone: [facility] 05-02-2022 10:05-0400 Body weight 113.85 kg Giuliano Walton MD Work Phone: [facility] 05-02-2022 10:05-0400 Heart rate 54 /min Giuliano Walton MD Work Phone: [facility] 05-02-2022 10:05-0400 SaO2% (BldA) [Mass fraction] 99 % Giuliano Walton MD Work Phone: [facility] 01-21-2022 09:00-0400 Body height 167.64 cm Jayleen Iyer -[facility] 250 DO Work Phone: 01-21-2022 09:00-0400 Body mass index (BMI) [Ratio] 41.64 kg/m2 Jayleenstormy Iyer -[facility] Heart-Janie 250 DO Work Phone: 01-21-2022 09:00-0400 Body surface area Derived from formula 2.23 m2 Jayleen Iyer -[facility] 250 DO Work Phone: 01-21-2022 09:00-0400 Body weight 117.03 kg Jayleen Iyer [facility] 250 DO Work Phone: 01-21-2022 09:00-0400 Diastolic blood pressure 82 mm[Hg] Jayleen Iyer -[facility] 250 DO Work Phone: 01-21-2022 09:00-0400 Diastolic blood pressure 80 mm[Hg] Jayleen Iyer -[facility] 250 DO Work Phone: 01-21-2022 09:00-0400 Heart rate 59 /min Jayleen Iyer [facility]-Janie 250 DO Work Phone: 01-21-2022 09:00-0400 Systolic blood pressure 144 mm[Hg] Jayleen Iyer -[facility]-Janie 250 DO Work Phone: 01-21-2022 09:00-0400 Systolic blood pressure 142 mm[Hg] Jayleen Iyer -[facility] 250 DO Work Phone: Encounters Encounter Date Encounter Type Care Provider Facility Start: 04-07-2024 End: 04-07-2024 ambulatory JAYLEEN M HEMMER Not Available Start: 03-31-2024 End: 03-31-2024 ambulatory JAYLEEN M HEMMER Not Available Start: 02-25-2024 End: 02-25-2024 ambulatory JAYLEEN M HEMMER Not Available Start: 02-21-2024 End: 02-22-2024 Emergency department patient visit MD Columba Hassan Work Phone: [facility] Work Phone: Start: 01-26-2024 End: 01-26-2024 ambulatory JAYLEEN Amezquita HEMMER Not Available Start: 01-20-2024 End: 01-20-2024 Patient encounter procedure MD Columba Hassan Work Phone: [facility] Work Phone: Start: 01-20-2024 End: 01-20-2024 ambulatory MD Columba Hassan Work Phone: [facility] Work Phone: Start: 12-31-2023 End: 12-31-2023 Patient encounter procedure MD Columba Hassan Work Phone: [facility] Work Phone: Start: 12-15-2023 End: 12-15-2023 ambulatory JAYLEEN M HEMMER Not Available Start: 11-04-2023 End: 11-04-2023 ambulatory JAYLEEN M HEMMER Not Available Start: 10-06-2023 End: 10-06-2023 ambulatory JAYLEEN M HEMMER Not Available Start: 09-03-2023 End: 09-03-2023 ambulatory YUNG C GORDILLO Not Available Start: 07-30-2023 End: 07-30-2023 ambulatory JAYLEEN M HEMMER Not Available Start: 06-02-2022 End: 06-02-2022 ambulatory RUGEN M SONYA Facility:[facility] Start: 05-29-2022 End: 05-30-2022 ambulatory RUGEN M SONYA [facility] Start: 05-02-2022 ambulatory COLUMBA HASSAN Faci lity:[facility] Start: 05-02-2022 End: 05-03-2022 ambulatory COLUMBA HASSAN Facility:[facility] Start: 05-02-2022 End: 05-03-2022 ambulatory COLUMBA HASSAN Facility:[facility] Start: 05-02-2022 End: 05-02-2022 Patient encounter procedure Giuliano Walton MD Work Phone: Cardiology Comment on above: S/P MVR (mitral valv e replacement) (Primary Dx); S/P AVR (aortic valve replacement); S/P TVR (tricuspid valve repair); Rheumatic multiple valve disease; Obesity (BMI 30-39.9) Start: 02-27-2022 Telephone encounter Giuliano Walton MD Work Phone: Cardiology Comment on above: Appointment (REACHED OUT TO PATIENT IN REGARDS TO UPDATING INSURANCE. LEFT VMAIL TO CALL BACK WITH INFO) Start: 02-26-2022 Orders Only Giuliano bass MD Work Phone: Cardiology Comment on above: S/P AVR (Primary Dx) Start: 01-21-2022 Office consultation new/estab patient 60 min Jayleen Iyer [facility] 250 DO Work Phone: Start: 09-30-2021 End: 10-01-[address] COLUMBA HASSAN Facility:[facility] Start: 09-06-2021 End: 09-07-[address] COLUMBA HASSAN Facility:[facility] Start: 04-26-2021 End: 04-27-[address] COLUMBA HASSAN Facility:[facility] Start: 12-14-[address] COLUMBA HASSAN Facility: [facility] Patient encounter status Jayleen Iyer [facility] 250 DO Work Phone: Procedures Date Procedure Procedure Detail Performing Clinician Start: 01-20-2024 Ultrasound elastogra phy of liver MD Columba Hassan Work Phone: Start: 07-17-2017 Adult depression scr eening assessment Giuliano Walton MD Work Phone: Cholecystectomy Jayleen Kennedy er Replacement of arabella l valve Jayleen Iyer NEGATED: Highlighted row has not occurred! Colonoscopy Jayleen Iyer Plan of Treatment Date Care Activity Detail Author Start: 02-21-2024 Computed tomography of abdomen and pelvis with contrast CT abdomen pelvis w con [facility] Start: 02-21-2024 CT Abdomen and Pelvi s W contrast IV [facility] Start: 01-20-2024 End: 01-20-2024 [facility] Start: 01-20-2024 Actin smooth muscle IgG Ab [Units/volume] in Serum [facility] Start: 01-20-2024 Cefuroxime free [Mass/volume] in Serum or Plasma [facility] Start: 01-20-2024 Ceruloplasmin [Mass/volume] in Serum or Plasma [facility] Start: 01-20-2024 Hepatic function panel [facility] Start: 01-20-2024 Hepatitis B core ant ibody measurement [facility] Start: 01-20-2024 Hepatitis B virus meek rface Ab [Presence] in Serum [facility] Start: 04-17-2022 Influenza vaccination INFLUENZA (#1) [facility] Start: 09-08-2021 LIPID SCREEN LIPID SCREEN [facility] Start: 04-29-2021 COVID-19 VACCINE (3 - Booster for Moderna series) COVID-19 VACCINE (3 - Booster for Moderna series) [facility] Start: 09-08-2019 DIABETES SCREEN DIABETES SCREEN [facility] Start: 2019 COLOGUARD (FIT-DNA) COLOGUARD (FIT-D NA) [facility] Start: 2019 Colonoscopy COLONOSCOPY [facility] Start: 2019 COLORECTAL CANCER SCREENING COLORECTAL CANCER SCREENING [facility] Start: [address] COLONOGRAPHY [facility] Start: 2019 FECAL OCCULT BLOOD FECAL OCCULT BLOO D [facility] Start: [address] [facility] Start: 07-17-2018 Adult depression scr eening assessment DEPRESSION SCREENING [facility] Start: 2014 Mammography MAMMOGRAM [facility] Start: 2004 HPV TESTING HPV TESTING [facility] Start: 1995 PAP TESTING PAP TESTING [facility] Start: 1993 Urine microalbumin profile DTAP,TDAP ,TD (1 - Tdap) [facility] Start: 1992 ANNUAL PCP TEAM CHANGE MANAGEMENT DIRECTOR BEV DISEASE VISIT ANNUAL PCP TEAM CHRONIC DISEASE VISIT [facility] Start: 1992 BP CONTROLLED (<130/80) BP CONTROLLE D (<130/80) [facility] Start: 1992 HEPATITIS C SCREENING HEPATITIS C SC REENING [facility] Start: 1992 HIV SCREENING HIV SCREENING [facility] Start: 1986 Adult depression scr eening assessment DEPRESSION SCREENING [facility] Start: 1974 HEPATITIS B (1 of 3 - 3-dose series) HEPATITIS B (1 of 3 - 3-dose series) [facility] Albumin/Globulin ratio [facility] Alpha 1 antitrypsin [Mass/volume] in Serum or Plasma [facility] Alpha 1 antitrypsin phenotyping [Identifier] in Serum or Plasma by Immunofixation [facility] Basophils [#/volume] in Blood by Automated count [facility] Basophils/100 leukoc ytes in Blood by Automated count [facility] Bilirubin.indirect [Mass/volume] in Serum or Plasma [facility] Calculated LDL mera sterol level [facility] Cholesterol.total/Ch oleste rol in HDL [Mass Ratio] in Serum or Plasma [facility] End: 02-26-2023 ECG COMPLETE ECG COMPLETE ECG Routine S/P AVR 1 Occurrences starting 02/26/2022 until 02/26/2023 [facility] Work Phone: Comment on above: 1 Occurrences starti ng 02/26/2022 until 02/26/2023 End: 02-26-2023 Echocardiography ECHO Cardiology Routine S/P AVR 1 Occurrences starting 02/26/2022 until 02/26/2023 [facility] Work Phone: Comment on above: 1 Occurrences starti ng 02/26/2022 until 02/26/2023 Eosinophils/100 leuk ocytes in Blood by Automated count [facility] Erythrocyte distribu tion width [Ratio] by Automated count [facility] Erythrocytes [#/volu me] in Blood [facility] Globulin [Mass/volum e] in Serum [facility] Hematocrit [Volume Fraction] of Blood [facility] Hemoglobin [Mass/vol ume] in Blood [facility] Hepatitis B virus meek rface Ag [Presence] in Serum or Plasma by Immunoassay [facility] Hepatitis C virus Ig G Ab [Presence] in Serum or Plasma by Immunoassay [facility] INR in Platelet poor plasma by Coagulation assay [facility] Iron binding capacit y [Mass/volume] in Serum or Plasma [facility] Iron saturation [Mas s Fraction] in Serum or Plasma [facility] Leukocytes [#/volume ] corrected for nucleated erythrocytes in Blood by Automated coun [facility] Leukocytes [#/volume ] in Blood [facility] Lymphocytes [#/volum e] in Blood by Automated count [facility] Lymphocytes/100 leuk ocytes in Blood by Automated count [facility] MCH [Entitic mass] b y Automated count [facility] MCHC [Mass/volume] b y Automated count [facility] MCV [Entitic volume] by Automated count [facility] Monocytes [#/volume] in Blood by Automated count [facility] Monocytes/100 leukoc ytes in Blood by Automated count [facility] Neutrophils [#/volum e] in Blood by Automated count [facility] Neutrophils/100 leuk ocytes in Blood by Automated count [facility] Nucleated erythrocyt es [Presence] in Blood by Automated count [facility] Patient Education Abdominal Pain , Adult ED [facility] Work Phone: Patient referral [facility] Work Phone: Platelet mean volume [Entitic volume] in Blood by Automated count [facility] Platelets [#/volume] in Blood [facility] Prothrombin time (PT) [facility] VLDL cholesterol measurement [facility] Immunizations Immunization Date Immunization Notes Care Provider Otoniel michael 06-11-2021 influenza, injectabl e, quadrivalent, preservative free Jayleen Iyer -[facility] 250 DO Work Phone: 11-27-2020 Moderna COVID-19 Vac cine 100 MCG/0.5ML Intramuscular Suspension Jayleen M Hemmer [facility] 250 DO Work Phone: 10-30-2020 Moderna COVID-19 Vac cine 100 MCG/0.5ML Intramuscular Suspension Jayleen M Hemmer [facility] 250 DO Work Phone: 05-10-2020 seasonal influenza, intradermal, preservative free Jayleen Amezquita Hemmer [facility] 250 DO Work Phone: 05-31-2019 influenza, injectabl e, quadrivalent, preservative free Jayleen M Hemmer [facility] 250 DO Work Phone: 06-02-2018 influenza, injectabl e, quadrivalent, preservative free Jayleen Amezquita Hemmer [facility] 250 DO Work Phone: 07-17-2017 influenza, injectabl e, quadrivalent, contains preservative Jayleen Amezquita Hemelena [facility] 05-28-2016 influenza, injectabl e, quadrivalent, preservative free Jayleen Amezquita Hemmer [facility] 250 DO Work Phone: 05-14-2016 influenza, injectabl e, quadrivalent, contains preservative Giuliano Walton MD Work Phone: [facility] Work Phone: 05-14-2016 pneumococcal polysaccharide vaccine, 23 valent Giuliano Walton MD Work Phone: [facility] Work Phone: 05-23-2015 influenza, injectabl e, quadrivalent, preservative free Jayleen Amezquita Hemmer [facility] 250 DO Work Phone: Payers Date Payer Category Payer Self-pay [id number] 2023 Unknown [id number] 2021 Private Health Insurance [employer] [id number] 2021-Present [phone] [address] [address] [place] [address] PPO [id number] 1975 Unknown [id number] [id number] .2.593 1975 Unknown [id number] 2.16.840.1.080015.3.579 .2.593 1975 Unknown [id number] 2.16.840.1.209674.3.579 .2.593 1975 Unknown [id number] 2.16.840.1.389458.3.579 .2.593 1975 Unknown [id number] 2.16840.1.787028.3.579 .2.718 1975 Unknown [id number] 2.16.840.1.847598.3.579 .2.718 1975 Unknown [id number] 2.16.840.1.754102.3.579 .2.1259 1975 Unknown [id number] 2.16.840.1.444385.3.579 .2.1259 1975 Unknown [id number] 2.16.840.1.253244.3.579 .2.125 1975 Unknown [id number] 2.16.840.1.449158.3.579 .2.1259 1975 Unknown [id number] 2.16.840.1.127361.3.579 .2.125 1975 Unknown [id number] 2.16.840.1.691224.3.579 .2.1259 1975 Unknown [id number] 2.16.840.1.082689.3.579 .2.1258 1975 Unknown [id number] 2.16.840.1.151918.3.579 .2.1259 1975 Unknown [id number] 2.16.840.1.748743.3.579 .2.1259 1959 Unknown [id number] 1959 Unknown [id number] Unknown [facility] Unknown [facility] [id number] Unknown [id number] Unknown [id number] Social History Date Type Detail Facility Daily caffeine consumption, 4-5 servings a day Daily caffeine consumption, 4-5 servings a day -[facility] 250 DO Work Phone: Start: 03-07-2016 End: 02-21-2024 Tobacco smoking status GAIS Never smoked tobacco [facility] Start: 07-17-2017 End: 05-02-2022 Alcohol intake Current drinker of alcohol (finding) [facility] Start: 02-05-2016 History SDOH Alcohol Comment Rare consumption [facility] Start: 1975 Sex Assigned At Female [facility] [place] Start: 03-07-2016 Tobacco use and exposure Smokeless tobacco non-user [facility] Start: 04-22-2022 End: 05-02-2022 Exposure to SARS-CoV-2 (event) Not sure [facility] Medical Equipment Procedure Code Equipment Code Equipment Original Text Equipment Identifier Dates Valve Mitrl 25-33mm Onx Hrt - [id number] Start: 07-28-2016 Comment on above: Description: mitral valve replacement Valve Aort 21mm Onx Hrt - [id number] Start: 07-28-2016 Sylvester Lugo 28mm 33.2mm 26.3mm Oval Titanium Silicone - [id number] Start: 07-28-2016 Goals Date Patient Goal Desired Activity /State Clinical Notes 07-29-2016 to 06-04-2022 Giuliano Walton MD - 05/02/2022 9:15 AM EDTTelephone Geovanny - Andres Callejas - 02/27/2022 8:49 AM EDT Note Date & Type Note Facility 06-04-2022 Note [id number] Procedure: Decompres kayli of median nerve right wrist with release of carpal canal Pre Op Diagnosis: Carpal tunnel syndrome right Post Op Diagnosis: Carpal tunnel syndrome right Surgeon: Dr. Fadumo Lopez DO Anesthesia: MAC local Indication for Surgery: [...] nylon suture. Adaptic sterile dressings and an Sandip bandage were applied with the thumb in apposition Complications: None [Electronically Signed on: 06/02/2022 17:43 EDT] Bharathi Lopez DO [Verified on: 06/02/2022 17:43 EDT] Bharathi Lopez DO [facility] 06-02-[address] [facility] SURGERY Clinical Discharge Summary PERSON INFORMATION Name ALFREDO BALBUENA Age 47 Years 1975 Sex FEMALE Language Hungarian PCP COLUMBA HASSAN MD Marital Status Med Service Ambulatory Surgery Acct# Arrival Visit Reason SURGERY - RELEASE RIGHT CARPAL TUNNEL Acuity LOS 005 21:20 Address: [facility] [employer] [facility] [address] Comment: PROVIDER INFORMATION VITALS INFORMATION Vital Sign [...] mg oral table (more content not included)... [facility] 05-30-2022 Note spoke to pt xavier magaña upcoming procedure for wednesday 05/30 @ 1015 [...] on: 05/30/2022 10:19 EDT] Noemi Brooke RN [facility] 05-02-2022 Note HNO ID: [id number] Author: Giuliano Walton MD Service: ? Author Type: Physician Type: Progress Notes Filed: 05/02/2022 4:18 PM Note Text: [facility] Department of Cardiovascular Medicine SECTION OF CARDIOVASCULAR IMAGING OUTPATIENT VISIT DATE May 02, 2022 OUTPATIENT VISIT TYPE NEW (>3yrs since last seen) PRIMARY CARE PHYSICIAN: Adria Snyder, DO [address] [place] [address] CHIEF COMPLAINT: Postoperative Follow Up. HISTORY OF [...] tunnel surgery. 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 She reports edema in b/l lower extremities [...] Disease Father Heart Father age 63- massive ID Diabetes Mother Thyroid Sister hypertension None Sister [...] without antibiotics. s/ (more content not included)... [facility] 05-02-2022 History of Presen t illness Narrative Images from the original note were not included. [facility] Department of Cardiovascular Medicine SECTION OF CARDIOVASCULAR IMAGING OUTPATIENT VISIT DATE May 02, 2022 OUTPATIENT VISIT TYPE NEW (>3yrs since last seen) PRIMARY CARE PHYSICIAN: Adria Snyder DO [address] [place] [address] CHIEF COMPLAINT: Postoperative Follow Up. HISTORY OF [...] tunnel surgery. 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 She reports edema in b/l lower extremities [...] Disease Father Heart Father age 63- massive ID Diabetes Mother Thyroid Sister hypertension None Sister [...] tunnel surgery. 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 She reports edema in b/l lower extremities [...] information as obtained by others. CONTACT INFORMATION: Giuliano Walton MD, PhD, BEVERLY [employer] Tile Burnermedical research assistant, [facility], Staff, Section of Cardiovascular Imaging, Co-Director Cardio-Oncology Center, [facility]. Of Cardiovascular Medicine, [address] / [address] [place], [place] [address] Appt: [phone] documented in this encounter [facility] 02-27-2022 Miscellaneous Notes REACHED OUT TO PATIENT IN REGARDS TO UPDATING INSURANCE. LEFT VMAIL TO CALL BACK WITH INFO documented in this encounter [facility] 07-29-2016 History of Past i llness Narrative [...] arrived from OR intubated and sedated. Slow ykrs-ln-wqqdupgj secondary to hemodynamic instability. documented as of this encounter (statuses as of 02/26/2022) [facility]12-13-2016 History of Past illness Narrative* Problem Noted [...] arrived from OR intubated and sedated. Slow ydcu-yj-torosdxq secondary to hemodynamic instability. documented as of this encounter (statuses as of 02/27/2022) [facility] History of Past illness Narrative* Problem Noted [...] arrived from OR intubated and sedated. Slow qxcl-vg-ybcrsaxk secondary to hemodynamic instability. documented as of this encounter (statuses as of 05/02/2022) [facility] Narrative - ReportedALFREDO BALBUENA is being seen for a consultation for. 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 Balbuena is a 46-year-old female who is seen today for preoperative clearance for her to have carpal tunnel surgery. 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 She has mechanical valves apparently in bothpositions. This was done at [facility]. She is on chronic Coumadin. She has no cardiac complaints and she has been stable. She used to follow with [facility] cardiology but did not continue to [...] Lopez who my understanding is operates at [facility]. I discussed with the patient that her cardiac status is essentially normal but given her valve history and the need for being on heparin while her Coumadin is withheld and then at the end of her surgery reversing this process does represent some risk and her best option may well be to have surgery done at a tertiary center such [facility] where they would be more [...] return here on a as needed basis. -[facility] 250 DO Work Phone: Hospital Discharge instructions Additional Instructions As we discussed, we did not find a specific reason for your pain. That is not unusual. It certainly could be pain related to your endometriosis. I am happy to treat the pain. I do want you to follow-up with your doctor. If there are any significant problems or concerns, certainly any significant worsening, please return so we can reevaluate.[facility] Work Phone: Reason for referral (narrative)* Outpatient Procedure (Routine) - Pending Review Specialty Diagnoses / Procedures Referred By Contac t Referred To Contact [facility] Diagnoses S/P AVR Procedures ECHO ECHO TTHRC R-T 2D W/WOM-MODE COMPL SPEC&COLR D Giuliano Walton MD [address] [place] [address] [facility] [place] [id number] Referral ID Status Reason Start Date Expiration Date Visits Requested Visits Authorized [id number] Pending Review Auto-Generat ed Referral 02/26/2022 02/26/2023 1 1 * Outpatient Procedure (Routine) - Pending Review Specialty Diagnoses / Procedures Referred By Contac t Referred To Contact [facility] Diagnoses S/P AVR Procedures ECG COMPLETE ECG ROUTINE ECG W/LEAST 12 LDS W/I&R Giuliano Walton MD [address] [place] [address] [facility] [address] [address] Referral ID Status Reason Start Date Expiration Date Visits Requested Visits Authorized [id number] Pending Review Auto-Generat ed Referral 02/26/2022 02/26/2023 1 1 [facility] Summary Purpose Family History No Family History Records FoundUnknown Family Member Name Dates Details Family history of myocardial infarction: Father, Brother(V17.3, Z82.49) Status:Active History of PTCA: Father(V45. 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 Advance Directive(s) 07/22/2016 11:10 AM Advance Directive Response Recorded Date/ Time Advance Directives No July 11:05am Chief Complaint and Reason for Visit Chief Complaint hepatomegaly/Jayleen H emmer referred fatty liver Reason for Visit Elevated liver enzym es Hepatomegaly Chief Complaint hepatomegaly/Jayleen H emmer referred fatty liver abd/back pain Reason for Visit Elevated liver enzym es Hepatomegaly Additional Source Comments INFORMATION SOURCE (unrecogn ized section and content) DATE CREATED AUTHOR 10/04/2021 [facility] DATE CREATED AUTHOR AUTHOR'S ORGANIZ ATION 01/21/2022 [facility] DATE CREATED AUTHOR AUTHOR'S ORGANIZ ATION 05/17/2022 [facility] DATE CREATED AUTHOR AUTHOR'S ORGANIZ ATION 06/08/2022 [facility] DATE CREATED AUTHOR AUTHOR'S ORGANIZ ATION 02/22/2024 [facility] DATE CREATED AUTHOR AUTHOR'S ORGANIZ ATION 04/09/2024 [facility] EPIC Source Comments (unrecognize d section and content) In the event this informatio n is protected by the Federal Confidentiality of Alcohol and Drug Abuse Patient Records regulations: The Federal rules restrict any use of the information to criminally investigate or prosecute any alcohol or drug abuse patient.[facility] the event this information is protected by the Federal Confidentiality of Alcohol and Drug Abuse Patient Records regulations: The Federal rules restrict any use of the information to criminally investigate or prosecute any alcohol or drug abuse patient.[facility] the event this information is protected by the Federal Confidentiality of Alcohol and Drug Abuse Patient Records regulations: The Federal rules restrict any use of the information to criminally investigate or prosecute any alcohol or drug abuse patient.[facility] Care Teams (unrecognized sec tion and content) Spray Machine Operator Relationship Specialty Start Date End Date Adria Snyder PCP - General Family Practice 01/03/16 Spray Machine Operator Relationship Specialty Start Date End Date Adria Snyder PCP - General Family Practice 01/03/16 Spray Machine Operator Relationship Specialty Start Date End Date Columba Hassan [address] [facility] [address] [place] [address] PCP - General Family Practice 05/02/22 Team Status: Active Member Role Status Dates Columba Hassan MD Primary Care Provider Active Team Status: Inactive Member Role Status Dates Alf Santos MD Attending Provider Active S tart: December 31, 2023 End: December 31, 2023 Jayleen Iyer PA-C Primary Care Provider Active Start: December 31, 2023 End: December 31, 2023 Team Status: Inactive Member Role Status Dates Alf Santos MD Attending Provider Active S tart: January 20, 2024 End: January 20, 2024 Columba Hassan MD Primary Care Provider Active S tart: January 20, 2024 End: January 20, 2024 Team Status: Inactive Member Role Status Dates Columba Hassan MD Primary Care Provider Active S tart: February 21, 2024 End: February 22, 2024 Manish Gómez Jr, MD Emergency Provider Active Start: February 21, 2024 End: February 22, 2024 Reason for Visit (unrecogniz ed section and content) Reason Comments Appointment REACHED OUT TO SADIQ DAVID IN REGARDS TO UPDATING INSURANCE. LEFT VMAIL TO CALL BACK WITH INFO Specialty Diagnoses / Procedures Referred By Contac t Referred To Contact Cardiology / [facility] [place] Diagnoses S/P AVR DX: S/P AVR LAST 08/[address] WALTON PT WANTS TO RE-ESTABLISH CARE PT CALLED TO SCHED APPT Procedures OFFICE/OUTPATIENT NEW MODERATE MDM 45-59 MINUTES NEW IMAGING PATIENT Self Giuliano Walton MD [address] [place] [address] Referral ID Status Reason Start Date Expiration Date Visits Re quested Visits Authorized [id number] Closed 05/02/2022 08/16/2022 1 1 FOR RECORDS [...] BE BASED ON THE PRIMARY CLINICAL RECORDS. [employer] provides no warranty or guarantee of the accuracy or completeness of information in this document.
[2024-05-06 18:08] LABS: Age Gdln ACOG Testing Note (.); HPV Aptima Negative (Negative); IGP, Aptima HPV, rfx 16/18,45 Note (.)
== END 2024-05-02 21:24 | disposition home or self-care (01) ==
LOC: LAB 21:23
PROVIDERS: PCP Family Medicine; Visit Provider Physician Assistant
DX: Z01.419 Encounter for gynecological examination (general) (routine) without abnormal findings (principal)
CPT/HCPCS: 87624; 88175

== ENCOUNTER 2024-09-07 22:25 | Emergency (ER) | payer BC, SELFPAY ==
--- OUTSIDE RECORDS SUMMARY | 2024-09-07 22:32 | XMS_ITS | CCD ---
Author Organization [facility] Care Team Providers Care Trim Installer Name Role Phone SONYA, DR WATERMAN Admitting [...] Care Unavailable SONYA, DR WATERMAN Consulting Unavailable [place], DR JEANCARLOS Wong Consulting Unavailable Jayleen Arango Unavailable Unavailable Unavailable Unavailable Adria Snyder Primary Care Provider Columba Hassan Primary Care Provider SONYACOLUMBA Primary Care Unavailable GIULIANO WALTON Referring Unavailable SONYA, RUGSTORMY DENIS Primary Care Unavailable GIULIANO WALTON Attending Unavailable GIULIANO WALTON Referring Unavailable SONYA, COLUMBA DENIS Primary Care Unavailable SONYA, COLUMBA DENIS Primary Care Unavailable SONYACOLUMBA Primary Care Unavailable COLUMBA HASSAN Consulting Unavailable Bharathi Lopez Attending Unavail able Bharathi Lopez Admitting Unavail able COLUMBA HASSAN Primary Care Unavailable Bharathi Lopez Attending Unavail able Bharathi Lopez Admitting Unavail able MD Alf Santos Attending Provider MD Columba Hassan Primary Care Provider [phone] MD Manish Gómez Jr Emergency Provider Columba Hassan MD Primary Care Provider [phone] Adria Sims MD Unavailable [phone] YUNG GORDILLO Attending Unavailable HEMJAYLEEN REYES Attending Unavailable HEMJAYLEEN REYES Attending Unavailable HEMJAYLEEN REYES Attending Unavailable HEMJAYLEEN REYES Attending Unavailable HEMJAYLEEN REYES Attending Unavailable HEMJAYLEEN REYES Attending Unavailable HEMJAYLEEN REYES Attending Unavailable HEMJAYLEEN REYES Attending Unavailable NURIAFADUMO Attending Unavailable HEMJAYLEEN REYES Attending Unavailable HEMJAYLEEN REYES Attending Unavailable Manish Gómez Jr Admitting Unavailable Manish Gómez Jr Attending Unavailable Columba Hassan Primary Care Unavailable Columba Hassan Primary Care Unavailable Alf Santos Admitting Unavailable Alf Santos Attending Unavailable Allergies Allergy Classification Reported Allergen(s) Allergy Type Date of Onset Reaction(s) Facility (1 source) No Known Medication Allergies; Translations: [No Known Medication Allergies] Propensity to adverse reactions to drug (disorder) [facility] Repository (12 sources) meloxicam Drug Allergy 3 [facility] Medications Current Medications Medication Drug Class(es) Dates [...] 22, 2024 acyclovir 400 mg oral tablet (16 sources) Herpesvirus Nucleoside Analog DNA Polymerase Inhibitor, Herpes Simplex Virus Nucleoside Analog DNA Polymerase Inhibitor, Herpes Zoster Virus Nucleoside Analog DNA Polymerase Inhibitor Start: 09-28-2023 take 1 tablet by mouth once daily acyclovir (Zovirax) 400 MG tablet Indications: Recurrent cold sores take 1 tablet by mouth once daily 100 tablet 3 09/28/2023 Active acyclovir (ZOVIR AX) 400 mg tablet Take 400 mg by mouth as needed. For cold sores 0 Active Comment on above: Take 400 mg by mouth as needed. For cold sores aspirin 81 mg delayed release oral tablet (18 sources) Platelet Aggregation Inhibitor, Nonsteroidal Anti-inflammatory Drug Start: 12-31-2023 take 81 mg by mouth once daily Aspirin Active 81 MG PO Daily December 31, 2023 12:00am Start: 08-04-2016 take 1 tablet by patsy th once daily aspirin 81 mg chewable tablet Take 1 tablet by mouth once daily. 0 08/04/2016 Active Comment on above: Take 1 tablet by patsy th once daily. cholecalciferol 0.125 mg oral capsule (16 sources) Vitamin D Start: 02-22-20 take 1 capsule by mouth once daily cholecalciferol (Vitamin D-3) 125 MCG (5000 UT) capsule Take 5,000 Units by mouth Daily 02/22/2024 Active Start: 12-31-2023 take 1 ug by mouth once daily [...] esomeprazole 20 mg delayed release oral capsule (16 sources) Proton Pump Inhibitor Start: 4 take 20 mg by mouth once daily Esomeprazole Magnesium Active 20 MG PO Daily December 31, 2023 12:00am Comment on above: Take 20 mg by mouth DAILY (6 AM). ferrous fumarate 325 mg oral tablet (2 sources) Start: 4 take 325 mg by mouth once daily Ferrous Fumarate Active 325 MG PO Daily December 31, 2023 12:00am ferrous sulfate 325 mg oral tablet (15 sources) take 1 tablet by mouth once daily ferrous sulfate 325 (65 Fe) MG tablet Take 325 mg by mouth 1 (one) time each day. Active Comment on above: Take 325 mg by mouth once daily. furosemide 40 mg oral tablet (18 sources) Loop Diuretic Start: 4 take 40 mg by mouth twice daily Furosemide Active 40 MG PO Twice daily December 31, 2023 12:00am Start: 07-17-2017 take 1 tablet by patsy once daily as needed for edema furosemide (LASIX) 40 mg tablet Take 1 tablet by mouth once daily as needed (fluid retention). 0 07/17/2017 Active Comment on above: Take 1 tablet by patsy once daily as needed (fluid retention). losartan potassium 100 mg oral tablet (14 sources) Angiotensin 2 Receptor Jarad Start: take 1 tablet by mouth once daily losartan (Cozaar) 100 MG tablet Indications: Primary hypertension (CMS/HCC) Take 1 tablet (100 mg) by mouth Daily 100 tablet 3 05/12/2024 Active Start: 02-15-2024 take 1 tablet by patsy once daily losartan (Cozaar) 100 MG tablet Indications: Primary hypertension (CMS/HCC) Take 1 tablet (100 mg) by mouth Daily 90 tablet 1 02/15/2024 Active Start: 12-31-2023 take 100 mg by mouth once darrian y Losartan Active 100 MG PO Daily December 31, 2023 12:00am Start: 12-31-2023 take 50 mg by mouth once daily Losartan Active 50 MG PO Daily December 31, 2023 12:00am melatonin 10 mg oral capsule (18 sources) Start: 07-17-2017 take 10 mg by mouth once daily at bedtime Melatonin Active 10 MG PO Daily at bedtime December 31, 2023 12:00am take 1 tablet by mouth at bedtim e Melatonin 10 MG Oral Tablet TAKE 1 TABLET Bedtime Quantity: 0 Refills: 0 Ordered: 21-Jan-2022 DO Active Comment on above: Take 1 capsule by mo [facility] daily at bedtime. 24 hr metoprolol succinate 25 mg extended release oral tablet (15 sources) beta-Adrenergic Jarad Start: 06-10-2024 take 1 tablet by mouth once daily metoprolol succinate XL (Toprol-XL) 25 MG 24 hr tablet Indications: Finding of above normal blood pressure Take 1 tablet (25 mg) by mouth Daily 100 tablet 3 06/10/2024 Active Start: 05-25-2023 take 25 mg by mouth once daily [...] 10 mL injection (DEFINITY) (3 sources) Start: End: perflutren lipid microspheres 1.3 mL in NaCl (PF) 0.9% 10 mL injection (DEFINITY) phentermine hydrochloride 37.5 mg oral tablet (3 sources) Sympathomimetic Amine Anorectic Start: End: take 1 tablet by mouth before mealtime phentermine (Adipex-P) 37.5 MG tablet Indications: Morbid (severe) obesity due to excess calories (CMS/HCC) Take 1 tablet (37.5 mg) by mouth in the morning. Take before meals. 30 tablet 06/02/2024 Active potassium chloride 10 meq extended release oral tablet (16 sources) Start: take 1 tablet by mouth once in the morning potassium chloride CR (Klor-Con) 10 MEQ ER tablet Indications: Vitamin D deficiency Take 1 tablet (10 mEq) by mouth in the morning and 1 tablet (10 mEq) before bedtime. Take with food.. 200 tablet 3 06/02/2024 Active Start: 11-06-2023 take 1 tablet by patsy th twice daily at mealtime potassium chloride CR (Klor-Con) 10 MEQ ER tablet Indications: Vitamin D deficiency take 1 tablet by mouth twice a day with food 220 tablet 2 11/06/2023 Active Start: 07-17-2017 take 1 tablet by patsy [...] 9 mg/ml prefilled syringe (3 sources) Start: 2 End: 3 sodium chloride 0.9 % (flush) 10 mL (BD POSIFLUSH) traMADol hydrochloride 50 mg oral tablet (15 sources) Opioid Agonist Start: 4 take 1 tablet by mouth every six hours for pain traMADol (Ultram) 50 MG tablet Indications: Uterine leiomyoma, unspecified location Take 1 tablet (50 mg) by mouth every 6 (six) hours if needed for severe pain 20 tablet 01/25/2024 Active Start: 12-31-2023 take 50 mg by mouth once daily Tramadol Active 50 MG PO Daily December 31, 2023 12:00am take 1 tablet by patsy th three times daily as needed traMADol HCl - 50 MG Oral Tablet TAKE 1 TABLET 3 TIMES DAILY NEEDED. 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 Except for 2.5 mg on Thursday and Thursday01/26/2024 Active Start: 07-17-2017 warfarin (COUM JATIN) 5 mg [...] on above: Take 2 tablets by mo [facility] every 6 hours as needed (for mild surgical pain). docusate sodium 100 mg oral capsule (4 sources) Start: 07-17-2017 take 1 capsule by mouth once daily docusate sodium (COLACE) 100 mg capsule Take 1 capsule by mouth once daily. 0 07/17/2017 Active Comment on above: Take 1 capsule by mo [facility] once daily. penicillin v potassium 500 mg oral tablet (3 sources) Start: 06-22-2017 End: 05-02-2022 take 0.5 tablet by mouth twice daily penicillin V potassium (V-CILLIN, VEETIDS) 500 mg tablet Take 0.5 tablets by mouth twice daily. 90 tablet 0 06/22/2017 05/02/2022 Discontinued (Other) Comment on above: Take 0.5 tablets by mouth twice daily. predniSONE 10 mg oral tablet (3 sources) Start: 04-21-2024 End: 05-02-2024 take 1 tablet by mouth three times daily, then take 1 tablet by mouth twice daily, then take 1 tablet by mouth once daily predniSONE (Deltasone) 10 MG tablet Indications: Inflammation of left sacroiliac joint (CMS/HCC) Take 1 tablet (10 mg) by mouth 3 (three) times a day for 3 days, THEN 1 tablet (10 mg) 2 (two) times a day for 3 days, THEN 1 tablet (10 mg) Daily for 3 days. 18 tablet 04/21/2024 05/02/2024 Discontinued take [address] [facility] once daily as needed predniSONE 1 MG Oral Tablet TAKE 1 TABLE T Daily prn Quantity: 0 Refills: 0 Ordered: 21-Jan-2022 DO Active raNITIdine 75 mg oral tablet (3 sources) Histamine-2 Receptor Antagonist Start: 07-17-2017 End: 05-02-2022 take 1 tablet by mouth once daily ranitidine (ZANTAC 75) 75 mg tablet Take 1 tablet by mouth once daily. 0 07/17/2017 05/02/2022 Discontinued (Other) Comment on above: Take 1 tablet by mouth once daily. Semaglutide-Weig ht Management (Wegovy) 0.25 MG/0.5ML solution auto-injector (5 sources) Start: 03-31-2024 End: 05-02-2024 inject 0.25 mg by subcutaneous injection every week Semaglutide-Weight Management (Wegovy) 0.25 MG/0.5ML solution auto-injector Indications: Primary hypertension (CMS/HCC) , Morbid (severe) obesity due to excess calories (CMS/HCC) Inject 0.25 mg under the skin 1 (one) time per week 2 mL 5 03/31/2024 05/02/2024 Discontinued Start: 03-31-2024 inject 0.25 mg by meek bcutaneous injection every week Semaglutide-Weight Management (Wegovy) 0.25 MG/0.5ML solution auto-injector Indications: Primary hypertension (CMS/HCC) , Morbid (severe) obesity due to excess calories (CMS/HCC) Inject 0.25 mg under the skin 1 (one) time per week 2 mL 5 03/31/2024 Active Problems Active Problems Problem Classification Problem Date Documented Date Episodic/Chronic Asthma (12 sources) Mild intermittent asthma; Translations: [Mild intermittent asthma with (acute) exacerbation] Onset: 12-29-2022 12-29-2022 Chronic Diseases of white blood cells (12 sources) Leukocytosis; Translations: [Elevated white blood cell count, unspecified] Onset: 12-29-2022 12-29-2022 Chronic Disorders of lipid metabolism (12 sources) Mixed hyperlipidemia; Translations: [Mixed hyperlipidemia] Onset: 12-29-2022 12-29-2022 Chronic Endometriosis (14 sources) Endometriosis (clinical); Translations: [Endometriosis, unspecified] Onset: 01-26-2024 12-31-2023 Chronic Esophageal disorders (12 sources) Gastroesophageal reflux disease; Translations: [Gastro-esophageal reflux disease without esophagitis] Onset: 12-29-2022 12-29-2022 Chronic Essential hypertension (19 sources) Essential hypertension; Translations: [Essential (primary) hypertension] Onset: 07-28-2016 08-04-2016 Chronic Heart valve disorders (20 sources) History of aortic valve replacement; Translations: [Heart valve replaced by other means] Onset: 07-24-2016 Chronic Immunizations and screening for infectious disease (2 sources) Patient encounter status; Translations: [Encounter for immunization] 06-02-2024 Episodic Menopausal disorders (12 sources) Menopausal flushing; Translations: [Menopausal and female climacteric states] Onset: 12-29-2022 12-29-2022 Chronic Menstrual disorders (20 sources) Menorrhagia; Translations: [Excessive and frequent menstruation with regular cycle] Onset: 12-29-2022 12-29-2022 Chronic Mood disorders (12 sources) Depressive disorder; Translations: [Depressive disorder] Onset: 04-24-2012 05-15-2023 Chronic Nonmalignant breast conditions (5 sources) Unspecified lump in the right breast, unspecified quadrant; Translations: [Unspecified lump in the right breast, upper outer quadrant] Onset: 09-06-2021 Episodic Nutritional deficiencies (12 sources) Vitamin D deficiency; Translations: [Vitamin D deficiency, unspecified] Onset: 07-31-2011 12-29-2022 Chronic Other aftercare (1 source) Drug therapy finding; Translations: [Long-term (current) use of other medications] Episodic Other congenital anomalies (12 sources) 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; Translations: [Other congenital malformations of lower limb(s), including pelvic girdle] Onset: 12-29-2022 12-29-2022 Chronic Other female genital disorders (1 source) History of gynecological disorder; Translations: [Personal history of other diseases of the female genital tract] 02-22-2024 Episodic Other lower respiratory disease (12 sources) Fibrosis of lung; Translations: [Pulmonary fibrosis, unspecified] Onset: 02-25-2024 02-25-2024 Chronic Other nervous system disorders (12 sources) Carpal tunnel syndrome of right wrist; Translations: [Carpal tunnel syndrome, right upper limb] Onset: 12-29-2022 12-29-2022 Chronic Other non-traumatic joint disorders (2 sources) Hip pain; Translations: [Pain in right hip] 05-03-2024 Episodic Other nutritional; endocrine; and metabolic disorders (13 sources) Body mass index 40+ - severely obese; Translations: [Morbid obesity] Onset: 02-25-2024 02-25-2024 Chronic Other nutritional; endocrine; and metabolic disorders (1 source) Body mass index 30+ - obesity; Translations: [Obesity, unspecified] Chronic Other nutritional; endocrine; and metabolic disorders (1 source) Obesity, unspecified; Translations: [Obesity (BMI 30-39.9)] Onset: 05-02-2022 Chronic Other nutritional; endocrine; and metabolic disorders (16 sources) Obesity caused by energy imbalance; Translations: [Morbid (severe) obesity due to excess calories] Onset: 12-29-2022 06-02-2024 Chronic Other upper respiratory disease (12 sources) Seasonal allergic rhinitis; Translations: [Other seasonal allergic rhinitis] Onset: 12-29-2022 12-29-2022 Chronic Residual codes; unclassified (1 source) History of tricuspid valve repair; Translations: [Other specified postprocedural states] Episodic Residual codes; unclassified (1 source) Other specified postprocedural states; Translations: [S/P TVR (tricuspid valve repair)] Onset: 05-02-2022 Episodic Residual codes; unclassified (2 sources) Postmenopausal state; Translations: [Asymptomatic menopausal state] 05-02-2024 Episodic Unclassified (3 sources) SUMMARY Onset: 07-31-2016 08-04-2016 Past or Other Problems Problem Classification Problem Date Documented Date Episodic/Chronic Abdominal pain (14 sources) Abdominal pain; Translations: [Unspecified abdominal pain] Onset: 02-21-2024 Resolved: 03-31-2024 02-22-2024 Episodic Administrative/social admission (3 sources) Discharge status; Translations: [Encounter for administrative examinations, unspecified] Onset: 07-24-2016 08-04-2016 Episodic Benign neoplasm of uterus (12 sources) Uterine leiomyoma; Translations: [Leiomyoma of uterus, unspecified] Onset: 12-10-2011 12-29-2022 Episodic Cancer of cervix (12 sources) Atypical squamous cells of undetermined significance on cervical Papanicolaou smear; Translations: [Atypical squamous cells of undetermined significance on cytologic smear of cervix (ASC-US)] Onset: 12-29-2022 12-29-2022 Episodic Malaise and fatigue (12 sources) Fatigue; Translations: [Other fatigue] Onset: 12-29-2022 12-29-2022 Episodic Other aftercare (15 sources) Anticoagulant effect; Translations: [Encounter for therapeutic drug level monitoring] Onset: 07-29-2016 08-04-2016 Episodic Other aftercare (17 sources) Long-term current use of anticoagulant; 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] Onset: 08-03-2020 02-22-2024 Episodic Other circulatory disease (12 sources) Elevated blood pressure; Translations: [Elevated blood-pressure reading, without diagnosis of hypertension] Onset: 12-29-2022 Resolved: 10-06-2023 10-06-2023 Episodic Other connective tissue disease (12 sources) Pain in right arm; Translations: [Pain in right arm] Onset: 12-29-2022 12-29-2022 Episodic Other female genital disorders (1 source) Personal history of other diseases of the female genital tract; Translations: [Personal history of other diseases of the female genital tract] Onset: 02-21-2024 Episodic Other liver diseases (14 sources) Elevated liver enzymes level; Translations: [Abnormal levels of other serum enzymes] Onset: 01-26-2024 12-31-2023 Episodic Other liver diseases (14 sources) Large liver; Translations: [Hepatomegaly, not elsewhere classified] Onset: 01-26-2024 12-31-2023 Episodic Other liver diseases (3 sources) Abnormal levels of other serum enzymes; Translations: [Other nonspecific abnormal serum enzyme levels] Onset: 01-20-2024 12-31-2023 Episodic Other liver diseases (3 sources) Hepatomegaly, not elsewhere classified; Translations: [Hepatomegaly] Onset: 01-20-2024 12-31-2023 Episodic Other screening for suspected conditions (not mental disorders or infectious disease) (20 sources) Other abnormal and inconclusive findings on diagnostic imaging of breast; Translations: [Encounter for screening mammogram for malignant neoplasm of breast] Onset: 04-26-2021 Episodic Other upper respiratory infections (2 sources) Upper respiratory infection; Translations: [Acute upper respiratory infection, unspecified] 04-07-2024 Episodic Ovarian cyst (12 sources) Cyst of ovary; Translations: [Unspecified ovarian cyst, unspecified side] Onset: 12-10-2011 12-29-2022 Episodic Unclassified (1 source) Never smoked tobacco; Translations: [Never a smoker] Viral infection (12 sources) Recurrent herpes simplex labialis; Translations: [Herpesviral vesicular dermatitis] Onset: 12-29-2022 12-29-2022 Episodic Results Test Name Value Interpretation Reference Range Facility IGP,APTIMA HPV,AGE GDLNon AGE GDLN ACOG TESTING Note . [facility] Comment on above: TESTS RESULT FLAG UN ITS REF RANGE LAB Clinician Provided Cytology Information Source.............Cervix;Endocervix No. of containers..01 ThinPrep Vial Age Brisa JACKSON Dana... 29 FLAG LEGEND: L-Low Normal,H-High Normal,LL-Alert Low,HH-Alert High <-Panic Low,>-Panic High,A-Abnormal,AA-Critical Abnormal Performed at: 01 =[address] [address] Yamilka Gerard MD, HPV APTIMA Negative Negative [facility] Comment on above: This nucleic acid am plification test detects fourteen high- risk HPV types (16,18,31,33,35,39,45,51,52,56,58,59,66,68) without differentiation. Performed at: =[address] [id number] Framing Consultant: Yamilka Gerard MD, Phone: [phone] Performed at: [address] [id number] Framing Consultant: Yamilka Gerard MD, Phone: [phone] IGP, APTIMA HPV, RFX 16/18,[address] [facility] Comment on above: TESTS RESULT FLAG UN ITS REF RANGE LAB DIAGNOSIS: 02 NEGATIVE FOR INTRAEPITHELIAL LESION OR MALIGNANCY. Specimen adequacy: 02 Satisfactory for evaluation. Endocervical and/or squamous metaplastic cells (endocervical component) are present. Performed by: 02 Madiha LuKacs, Allied Health Professional (ASCP) . 02 Note: Note 02 The Pap smear is a screening test designed to aid in the detection of premalignant and malignant conditions of the uterine cervix. It is not a diagnostic procedure and should not be used as the sole means of detecting cervical cancer. Both false-positive and false-negative reports do occur. Test Methodology: Note 02 This liquid based ThinPrep(R) pap test was screened with the use of an image guided system. HPV Genotype Reflex Note 02 Criteria not met, HPV Genotype not performed. FLAG LEGEND: L-Low Normal,H-High Normal,LL-Alert Low,HH-Alert High <-Panic Low,>-Panic High,A-Abnormal,AA-Critical Abnormal Performed at: [address] [address] Yamilka Gerard MD, BRUSH-SPATULA CERVIX ENDOCERVIX [facility] Laboratory - Cytologyon 04-17 Microscopic observation Cyto stain Nom (Cvx) 4.1 [facility] No Panel Informationon 05-03 Interpretation and review of laboratory results Abnormal [facility] CT abdomen pelvis w conon CT abdomen pelvis w [place] [address] CT Scan Report Signed Patient: Alfredo Balbuena MR#: [id number] : 1975 Acct:[id number] Age/Sex: 48 / F ADM Date: 02/21/24 Loc: ER Room: Type: [facility] Attending Dr: Copies to: Manish Gómez [...] Jayleen Carvalho M.D.02/22/2024 9:34 AM Dictation Location: [place] [address] Transcribed By: [facility] 02/22/24 0934 Dictated By: Jayleen Carvalho MD 02/22/24 0916 Signed By: 02/22/24 0934 Normal [facility] Activated partial thrombopla stin time (aPTT) in platelet poor plasma by coagulation aOrdered By: Manish Gómez on 02-21-2024 aPTT Coag (PPP) [Time] 42.0 s High 25.1-36.5 [facility] Comment on above: A hematocrit value g reater than 55% may lead to inaccurate results in coagulation testing. Patients having hematocrit values >55% require a special collection tube for coagulation studies. Please contact the laboratory at [phone] for redraw instructions. Alanine aminotransferase [En zymatic activity/volume] in Serum or PlasmaOrdered By: Manish Gómez on 02-21-2024 ALT [Catalytic activity/Vol] 23 U/L Normal 7-52 [facility] Comment on above: Performed By: #### [facility] #### [facility] [address] [place] [address] [place] Albumin [Mass/volume] in Ser um or Plasma by Bromocresol green (BCG) dye binding methoOrdered By: Manish Gómez on 02-21-2024 Albumin BCG dye [Mass/Vol] 3.9 g/dL 3.5-5.7 [facility] Alkaline phosphatase [Enzyma tic activity/volume] in Serum or PlasmaOrdered By: Manish Gómez on 02-21-2024 ALP [Catalytic activity/Vol] 89 U/L Normal 34-104 [facility] Comment on above: Performed By: #### [facility] #### [place] [address] [place] Aspartate aminotransferase [ Enzymatic activity/volume] in Serum or PlasmaOrdered By: Manish Gómez on 02-21-2024 AST [Catalytic activity/Vol] 14 U/L Normal 13-39 [facility] Comment on above: Performed By: #### [facility] #### [place] [address] [place] Automated basophil %Ordered By: Manish Gómez on 02-21-2024 Basophils/100 WBC (Bld) 0.6 % Normal . [facility] Comment on above: Performed By: #### [facility] #### [place] [address] [place] Automated basophil countOrde red By: Manish Gómez on 02-21-2024 Basophils (Bld) [#/Vol] 0.1 10*3/uL Normal 0.0-0.2 [facility] Comment on above: Result Comment: PERF ORMED BY: [place] [address] PATHOLOGIST PRODUCT ADVISOR CELIA BERRIOS M.D. Performed By: #### [facility] #### [address] Automated blood monocyte cou ntOrdered By: Manish Gómez on 02-21-2024 Monocytes (Bld) [#/Vol] 0.5 10*3/uL Normal 0.0-0.8 [facility] Comment on above: Performed By: #### [facility] #### [address] Automated eosinophil %Ordere d By: Manish Gómez on 02-21-2024 Eosinophils/100 WBC (Bld) 1.2 % Normal . [facility] Comment on above: Performed By: #### [facility] #### [address] [address] Automated eosinophil countOr dered By: Manish Gómez on 02-21-2024 Eosinophils (Bld) [#/Vol] 0.1 10*3/uL Normal 0.0-0.45 [facility] Comment on above: Performed By: #### A [facility]ANDRO [facility] #### [address] Automated monocyte %Ordered By: Manish Gómez on 02-21-2024 Monocytes/100 WBC (Bld) 5.3 % Normal . [facility] Comment on above: Performed By: #### A [facility]O [facility] #### [address] Automated neutrophil %Ordere d By: Manish Gómez on 02-21-2024 Neutrophils/100 WBC (Bld) 71.7 % Normal . [facility] Comment on above: Performed By: #### A [facility]O [facility] #### [address] Bacteria [Presence] in Urine by AutomatedOrdered By: Manish Gómez on 02-21-2024 Bacteria Auto Ql (U) None seen [HPF] None Seen [facility] Bilirubin Test strip Ql (U)O rdered By: Manish Gómez on 02-21-2024 Bilirubin Ql (U) Negative Negative [facility] Bilirubin.total [Mass/volume ] in Serum or PlasmaOrdered By: Manish Gómez on 02-21-2024 Bilirubin [Mass/Vol] 0.4 mg/dL Normal 0.3-1.0 [facility] Comment on above: Performed By: #### A PRABHA ALLENCG #### [place] [address] [place] Calcium [Mass/volume] in Ser um or PlasmaOrdered By: Manish Gómez on 02-21-2024 Calcium [Mass/Vol] 9.1 mg/dL Normal 8.6-10.3 [facility] Comment on above: Performed By: #### A ALEJANDRO CG #### [place] [address] [place] Carbon dioxide, total [Moles /volume] in Serum or PlasmaOrdered By: Manish Gómez on 02-21-2024 CO2 [Moles/Vol] 26.6 mmol/L Normal 21.0-31.0 [facility] Comment on above: Performed By: #### A PRABHA ALLENCG #### [place] [address] [place] Chloride [Moles/volume] in S silverio or PlasmaOrdered By: Manish Gómez on 02-21-2024 Chloride [Moles/Vol] 109 mmol/L High 98-107 [facility] Comment on above: Performed By: #### A ALEJANDRO CG #### [place] [address] [place] Color of Urine by AutoOrdere d By: Manish Gómez on 02-21-2024 Color (U) Light-yellow Normal Yellow [facility] Comment on above: Order Comment: Name Collection Type:: Clean-Voided Midstream Performed By: #### A PRABHA ALLENCG #### [place] [address] [place] Complete Blood Count Auto Di ffon 02-21-2024 Mean Corpuscular HGB Conc 33.8 g/dL Normal 32.0-35.0 [facility] Comment on above: Performed By: #### A [facility] #### [address] Monocytes/100 WBC (Bld) 18.18 % Normal 0.00-20.00 [facility] Comment on above: Performed By: #### A [facility] #### [address] NRBC% 0.0 /100{WBC} Normal 0-0.5 [facility] Comment on above: Performed By: #### A [facility] #### [address] Comprehensive Metabolic Pane jennifer 02-21-2024 Albumin [Mass/Vol] 3.9 g/dL Normal 3.5-5.7 [facility] Comment on above: Performed By: #### A [facility] #### [address] Creatinine Clr Calc Pharmacy 96.34 Normal [facility] Comment on above: Result Comment: PERF ORMED BY: [place] [address] PATHOLOGIST PRODUCT ADVISOR CELIA BERRIOS M.D. Performed By: #### A [facility] #### [place] [address] [place] GFR/1.73 sq M.predicted MDRD (S/P/Bld) [Vol rate/Area] mL/min/{1.73_m2} Normal [facility] Comment on above: Performed By: #### A DDONUAPLUS [facility] #### [place] [address] [place] Creatinine [Mass/volume] in Serum or PlasmaOrdered By: Manish Gómez on 02-21-2024 Creatinine [Mass/Vol] 0.92 mg/dL Normal 0.60-1.20 [facility] Comment on above: Performed By: #### A DDONUAPLUS, UHCG #### [facility] [address] [place] [address] [place] Dipstick and Microscopicon 0 02-21-2024 Bacteria,Urine None Seen Normal None Seen [facility] Comment on above: Order Comment: Name Collection Type:: Clean-Voided Midstream Performed By: #### A DDONUAPLUS, UHCG #### [place] [address] [place] Bilirubin,Urine Negative Normal Negative [facility] Comment on above: Order Comment: Name Collection Type:: Clean-Voided Midstream Performed By: #### A DDONUAPLUS, UHCG #### [place] [address] [place] Glucose Ql (U) Normal Normal Normal [facility] Comment on above: Order Comment: Name Collection Type:: Clean-Voided Midstream Performed By: #### A DDONUAPLUS, UHCG #### [place] [address] [place] Hyaline Casts,Urine None Normal 0-8 [facility] Comment on above: Order Comment: Name Collection Type:: Clean-Voided Midstream Performed By: #### A DDONUAPLUS, UHCG #### [place] [address] [place] Mucus,Urine Rare Normal [facility] Comment on above: Order Comment: Name Collection Type:: Clean-Voided Midstream Performed By: #### A DDONUAPLUS, UHCG #### [place] [address] [place] Nitrite,Urine Negative Normal Negative [facility] Comment on above: Order Comment: Name Collection Type:: Clean-Voided Midstream Performed By: #### A DDONUAPLUS, UHCG #### [place] [address] [place] Occult Blood,Urine Trace High Negative [facility] Comment on above: Order Comment: Name Collection Type:: Clean-Voided Midstream Performed By: #### A DDONUAPLUS, UHCG #### [place] [address] [place] Protein,Urine Negative Normal Negative [facility] Comment on above: Order Comment: Name Collection Type:: Clean-Voided Midstream Performed By: #### A DDONUAPLUS, UHCG #### [place] [address] [place] RBC,Urine 3-4 Normal 0-4 [facility] Comment on above: Order Comment: Name Collection Type:: Clean-Voided Midstream Performed By: #### A DDONUAPLUS, UHCG #### [place] [address] [place] Specificy [place],Urine 1.026 Normal 1.00 1-1.03 0 [facility] Comment on above: Order Comment: Name Collection Type:: Clean-Voided Midstream Performed By: #### A DDONUAPLUS, UHCG #### [place] [address] [place] Squamous Epithelial Cell,Urine 1-2 Normal 0-2 [facility] Comment on above: Order Comment: Name Collection Type:: Clean-Voided Midstream Performed By: #### A DDONUAPLUS, UHCG #### [place] [address] [place] Urobilinogen,Urine Normal Normal Normal [facility] Comment on above: Order Comment: Name Collection Type:: Clean-Voided Midstream Performed By: #### A DDONUAPLUS, UHCG #### [place] [address] [place] WBC,Urine 3-4 Normal 0-4 [facility] Comment on above: Order Comment: Name Collection Type:: Clean-Voided Midstream Performed By: #### A DDONUAPLUS, UHCG #### [place] [address] [place] ECG 12 lead ECGon 02-21-2024 ECG 12 lead ECG [facility] [place] [address] Electrocardiograph Report Signed Patient: Alfredo Balbuena MR#: [id number] : 1975 Acct:[id number] Age/Sex: 48 / F ADM Date: 02/21/24 Loc: ER Room: Type: [facility] Attending Dr: Ordering Provider: Manish Gómez Jr, MD Date of Service: 02/21/2403/09/2035 ECG/ECG 12 lead ECG: Abdominal Pain Copies to: Test Reason : Blood Pressure : 145/082 mmHG Vent. Rate : 059 BPM Atrial Rate : 059 BPM P-R Int : 250 ms QRS Dur : 086 ms QT Int : 452 ms P-R-T Axes : 043 059 076 degrees QTc Int : 447 ms Sinus bradycardia with 1st degree AV block Otherwise normal ECG No previous ECGs available Confirmed by RACHEL MCDONNELL [facility], JUANJO ([id number]) on 02/23/2024 4:23:38 PM Referred By: Electronically Signed By:JUANJO MARINELLI MD FAC Transcribed By: MUS Signed By Juanjo Marinelli MD, FACC 02/23/24 1623 Normal [facility] Epithelial cells.squamous [# /area] in Urine sediment by Automated countOrdered By: Manish Gómez on 02-21-2024 Epithelial cells.squamous Auto (Urine sed) [#/Area] 1-2 [HPF] 0-2 [facility] Erythrocyte distribution wid th [Ratio] by Automated countOrdered By: Manish Gómez on 02-21-2024 Erythrocyte distribution width (RBC) [Ratio] 13.0 % Normal 11.9-15.3 [facility] Comment on above: Performed By: #### A DDONUADIEGO, [facility] #### [address] Erythrocytes [#/area] in Uri ne sediment by Automated countOrdered By: Manish Gómez on 02-21-2024 RBC Auto (Urine sed) [#/Area] 3-4 [HPF] 0-4 [facility] Erythrocytes [#/volume] in B lood by Automated countOrdered By: Manish Gómez on 02-21-2024 RBC (Bld) [#/Vol] 4.21 10*6/uL Normal 3.60-5.00 [facility] Comment on above: Performed By: #### A ALEJANDRO MELINDA #### [facility] [address] Glucose [Mass/volume] in Ser um or PlasmaOrdered By: Manish Gómez on 02-21-2024 Glucose [Mass/Vol] 108 mg/dL High 70-100 [facility] Comment on above: ADA recommended refe rence rangeRandom Glucose Reference Range is dependent on time and content of last meal. Glucose of more than 200 mg/dL in a nonstressed, ambulatory subject supports the diagnosis of Diabetes Mellitus. Result Comment: [place] om Glucose Reference Range is dependent on time and content of last meal. Glucose of more than 200 mg/dL in a nonstressed, ambulatory subject supports the diagnosis of Diabetes Mellitus. ADA recommended reference range Performed By: #### A ALEJANDRO MELINDA #### [facility] [address] [place] [address] [place] Glucose [Mass/volume] in Uri ne by Test stripOrdered By: Manish Gómez on 02-21-2024 Glucose Test strip (U) [Mass/Vol] Normal mg/dL Normal [facility] HCG ( test) IA.rapi d Ql (U)Ordered By: Manish Gómez on 02-21-2024 HCG ( test) Ql (U) Negative [facility] HCG,Urineon 02-21-2024 Beta HCG ( test) Ql (U) Negative Normal [facility] Comment on above: Order Comment: Name Collection Type:: Clean-Voided Midstream Result Comment: PERF ORMED BY: [place] [address] PATHOLOGIST PRODUCT ADVISOR CELIA BERRIOS M.D. Performed By: #### A ALEJANDRO [facility] #### [place] [id number] [place] Hematocrit [Volume Fraction] of Blood by Automated countOrdered By: Manish Gómez on 02-21-2024 Hematocrit (Bld) [Volume fraction] 37.1 % Normal 34.0-46.4 [facility] Comment on above: Performed By: #### A DDONUAPLUS, CG #### [facility] [address] Hemoglobin Test strip Ql (U) Ordered By: Manish Gómez on 02-21-2024 Hemoglobin Ql (U) Trace High Negative [facility] Hemoglobin [Mass/volume] in BloodOrdered By: Manish Gómez on 02-21-2024 Hemoglobin (Bld) [Mass/Vol] 12.5 g/dL Normal 11.8-15.4 [facility] Comment on above: Performed By: #### A DDONUAPLUS, CG #### [facility] [address] Hyaline casts [#/area] in Ur ine sediment by Automated countOrdered By: Manish Gómez on 02-21-2024 Hyaline casts Auto (Urine sed) [#/Area] None [LPF] 0-8 [facility] INR in Platelet poor plasma by Coagulation assayOrdered By: Manish Gómez on 02-21-2024 INR Coag (PPP) [Relative time] 2.6 {INR} Normal [facility] Comment on above: INR Therapeutic Rang e [...] PT, FE and TIBC, CBC, HEPATIC #### [facility] [address] [place] [address] [place] Ketones [Presence] in Urine by Test stripOrdered By: Manish Gómez on 02-21-2024 Ketones Ql (U) Negative Normal Negative [facility] Comment on above: Order Comment: Name Collection Type:: Clean-Voided Midstream Performed By: #### A DDONUADIEGO CG #### [facility] [address] [place] [address] [place] Leukocyte esterase [Presence ] in Urine by Test stripOrdered By: Manish Gómez on 02-21-2024 Leukocyte esterase Test strip Ql (U) 2+ High Negative [facility] Comment on above: Order Comment: Name Collection Type:: Clean-Voided Midstream Performed By: #### A DDONUADIEGO CG #### [place] [address] [place] Leukocytes [#/area] in Urine sediment by Automated countOrdered By: Manish Gómez on 02-21-2024 WBC Auto (Urine sed) [#/Area] 3-4 [HPF] 0-4 [facility] Leukocytes [#/volume] correc marcela for nucleated erythrocytes in Blood by Automated counOrdered By: Manish Gómez on 02-21-2024 WBC corrected for nucl RBC Auto (Bld) [#/Vol] 9.0 10*3/uL 3.8-11.6 [facility] Leukocytes [#/volume] in Blo od by Automated countOrdered By: Manish Gómez on 02-21-2024 WBC (Bld) [#/Vol] 9.0 10*3/uL Normal 3.8-11.6 [facility] Comment on above: Performed By: #### A DDONUADIEGO CG #### [place] [address] [place] Lymphocytes [#/volume] in Bl ood by Automated countOrdered By: Manish Gómez on 02-21-2024 Lymphocytes (Bld) [#/Vol] 1.9 10*3/uL Normal 1.00-4.8 [facility] Comment on above: Performed By: #### A DDONUAPLUS [facility] #### [address] Lymphocytes/100 leukocytes i n Blood by Automated countOrdered By: Manish Gómez on 02-21-2024 Lymphocytes/100 WBC (Bld) 21.2 % Normal . [facility] Comment on above: Performed By: #### A [facility]LEJANDRO [facility] #### [address] MCH [Entitic mass] by Automa marcela countOrdered By: Manish Gómez on 02-21-2024 MCH (RBC) [Entitic mass] 29.8 pg Normal 24.7-34.3 [facility] Comment on above: Performed By: #### A [facility]JANDRO [facility] #### [address] MCHC Auto (RBC) [Mass/Vol]Or dered By: Manish Gómez on 02-21-2024 MCHC (RBC) [Mass/Vol] 33.8 g/dL 32.0-35.0 [facility] MCV [Entitic volume] by Auto mated countOrdered By: Manish Gómez on 02-21-2024 MCV (RBC) [Entitic vol] 88.2 fL Normal 80-100 [facility] Comment on above: Performed By: #### A A[facility]JANDRO [facility] #### [address] Monocyte distribution width [Entitic volume] in Blood by AutomatedOrdered By: Manish Gómez on 02-21-2024 Monocyte distribution width Auto (Bld) [Entitic vol] 18.18 % 0.00-20.00 [facility] Mucus [Presence] in Urine by AutomatedOrdered By: Manish Gómez on 02-21-2024 Mucus Auto Ql (U) Rare [LPF] [facility] Neutrophils [#/volume] in Bl ood by Automated countOrdered By: Manish Gómez on 02-21-2024 Neutrophils (Bld) [#/Vol] 6.4 10*3/uL Normal 1.8-7.7 [facility] Comment on above: Performed By: #### A CAYETANOPLUS, [facility] #### [address] Nitrite Test strip Ql (U)Ord ered By: Manish Gómez on 02-21-2024 Nitrite Ql (U) Negative Negative [facility] No Panel InformationOrdered By: Manish Gómez on 02-21-2024 Estimated GFR (CKD-EPI) > 60.0 mL/Min [facility] Creatinine Clearance (Chem 96.34 [facility] Nucleated erythrocytes [Pres ence] in Blood by Automated countOrdered By: Manish Gómez on 02-21-2024 Nucleated RBC Auto Ql (Bld) 0.0 /100{WBC} 0-0.5 [facility] Partial Thromboplastin Timeo n 02-21-2024 aPTT Coag (Bld) [Time] 42.0 s High 25.1-36.5 [facility] Comment on above: Result Comment: A he matocrit value greater than 55% may lead to inaccurate results in coagulation testing. Patients having hematocrit values >55% require a special collection tube for coagulation studies. Please contact the laboratory at [phone] for redraw instructions. PERFORMED BY: [place] [address] PATHOLOGIST PRODUCT ADVISOR CELIA BERRIOS M.D. Performed By: #### A LPHA PHEN, GIULIANO CHOICE, HCV RX PCR, HBCAB, SMAB, HBSAG, CERULOP, HBSAB #### [facility] , #### LIPID, JULIA, PT, FE and TIBC, CBC, HEPATIC #### [address] Platelet mean volume [Entiti c volume] in Blood by Automated countOrdered By: Manish Gómez on 02-21-2024 Platelet mean volume (Bld) [Entitic vol] 7.8 fL Normal 6.3-10.7 [facility] Comment on above: Performed By: #### A DDONUAPLUS, [facility] #### [address] Platelets [#/volume] in Bloo d by Automated countOrdered By: Manish Gómez on 02-21-2024 Platelets (Bld) [#/Vol] 349 10*3/uL Normal 150-450 [facility] Comment on above: Performed By: #### A ALEJANDRO CG #### [facility] [address] Potassium [Moles/volume] in Serum or PlasmaOrdered By: Manish Gómez on 02-21-2024 Potassium [Moles/Vol] 4.0 mmol/L Normal 3.5-5.1 [facility] Comment on above: Performed By: #### A RICCIUADIEGO [facility] #### [facility] [address] Protein Test strip (U) [Mass /Vol]Ordered By: Manish Gómez on 02-21-2024 Protein (U) [Mass/Vol] Negative Negative [facility] Protein [Mass/volume] in Ser um or PlasmaOrdered By: Manish Gómez on 02-21-2024 Protein [Mass/Vol] 6.9 g/dL Normal 6.4-8.9 [facility] Comment on above: Performed By: #### A [facility]O [facility] #### [address] Prothrombin time (PT)Ordered By: Manish Gómez on 02-21-2024 PT Coag (PPP) [Time] 29.2 s High 9.0-12.9 [facility] Comment on above: A hematocrit value g reater than 55% may lead to inaccurate results in coagulation testing. Patients having hematocrit values >55% require a special collection tube for coagulation studies. Please contact the laboratory at [phone] for redraw instructions. Result Comment: A he matocrit value greater than 55% may lead to inaccurate results in coagulation testing. Patients having hematocrit values >55% require a special collection tube for coagulation studies. Please contact the laboratory at [phone] for redraw instructions. Performed By: #### A LPHA PHEN, GIULIANO CHOICE, HCV RX PCR, HBCAB, SMAB, HBSAG, CERULOP, HBSAB #### [facility] , #### LIPID, JULIA, PT, FE and TIBC, CBC, HEPATIC #### [address] Serum globulin measurement b y calculation (mass/volume)Ordered By: Manish Gómez on 02-21-2024 Globulin (S) [Mass/Vol] 3.0 g/dL Normal [facility] Comment on above: Performed By: #### A ALEJANDRO [facility] #### [address] Serum or plasma albumin/glob ulin mass ratioOrdered By: Manish Gómez on 02-21-2024 Albumin/Globulin [Mass ratio] 1.3 {ratio} Normal [facility] Comment on above: Performed By: #### A ALEJANDRO [facility] #### [address] Serum or plasma anion gap de terminationOrdered By: Manish Gómez on 02-21-2024 Anion gap [Moles/Vol] 9.4 mmol/L Normal 6.0-15.0 [facility] Comment on above: Performed By: #### A ALEJANDRO [facility] #### [address] Sodium [Moles/volume] in Ser um or PlasmaOrdered By: Manish Gómez on 02-21-2024 Sodium [Moles/Vol] 141 mmol/L Normal 136-145 [facility] Comment on above: Performed By: #### A ALEJANDRO [facility] #### [address] Specific gravity Test strip (U) [Rel density]Ordered By: Manish Gómez on 02-21-2024 Specific gravity (U) [Rel density] 1.026 1.001-1.03 0 [facility] Troponin I High Sensitivityo n 02-21-2024 Troponin I High Sensitivity 4.3 pg/mL Normal 0.0-15.0 [facility] Comment on above: Result Comment: PERF ORMED BY: [place] [address] PATHOLOGIST PRODUCT ADVISOR CELIA BERRIOS M.D. Performed By: #### A LPHA PHEN, GIULIANO CHOICE, HCV RX PCR, HBCAB, SMAB, HBSAG, CERULOP, HBSAB #### [facility] , #### LIPID, JULIA, PT, FE and TIBC, CBC, HEPATIC #### [facility] [address] Troponin I.cardiac [Mass/vol ume] in Serum or Plasma by Detection limit <= 0.01 ng/Ordered By: Manish Gómez on 02-21-2024 Troponin I.cardiac DL <= 0.01 ng/mL [Mass/Vol] 4.3 pg/mL 0.0-15.0 [facility] Urea nitrogen [Mass/volume] in Serum or PlasmaOrdered By: Manish Gómez on 02-21-2024 Urea nitrogen [Mass/Vol] 21 mg/dL Normal 7-25 [facility] Comment on above: Performed By: #### A [facility]ANDRO [facility] #### [address] Urine appearanceOrdered By: Manish Gómez on 02-21-2024 Appearance (U) Clear Normal Clear [facility] Comment on above: Order Comment: Name Collection Type:: Clean-Voided Midstream Performed By: #### A DDONGOLDY CarltonG #### [address] Urobilinogen Test strip (U) [Mass/Vol]Ordered By: Manish Gómez on 02-21-2024 Urobilinogen (U) [Mass/Vol] Normal mg/dL Normal [facility] pH of Urine by Test stripOrd ered By: Manish Gómez on 02-21-2024 pH (U) 5.5 [pH] Normal 5.0-9.0 [facility] Comment on above: Order Comment: Name Collection Type:: Clean-Voided Midstream Performed By: #### A DDONUAPLUS CG #### [address] GIULIANO with Reflexon 01-20-2024 GIULIANO with Reflex Negative Normal Negative [facility] Comment on above: Result Comment: Perf ormed at: [facility] [id number] Framing Consultant: Glen Tenorio PhD, Phone: [phone] Performed By: #### A DDONUAPLUS, UHCG #### [facility] [address] [place], [place] [id number] [place] Actin smooth muscle IgG Ab [ Units/volume] in SerumOrdered By: Alf Santos on 01-20-2024 Actin smooth muscle IgG Qn (S) 5 Units 0-19 [facility] Comment on above: Negative 0 - 19 Weak positive 20 - 30 Moderate to strong positive >30 Actin Antibodies are found in 52-85% of patients with autoimmune hepatitis or chronic active hepatitis and in 22% of patients with primary biliary cirrhosis.Performed at: - [facility] [id number] Director: Glen Tenorio PhD, Phone: [phone] Alanine aminotransferase [En zymatic activity/volume] in Serum or PlasmaOrdered By: Alf Santos on 01-20-2024 ALT [Catalytic activity/Vol] 17 U/L Normal 7-52 [facility] Comment on above: Performed By: #### A LPHA PHEN, GIULIANO CHOICE, HCV RX PCR, HBCAB, SMAB, HBSAG, CERULOP, HBSAB #### [facility] , #### LIPID, JULIA, PT, FE and TIBC, CBC, HEPATIC #### [facility] [address] [place], [place] [id number] [place] Albumin [Mass/volume] in Ser um or Plasma by Bromocresol green (BCG) dye binding methoOrdered By: Alf Santos on 01-20-2024 Albumin BCG dye [Mass/Vol] 4.2 g/dL 3.5-5.7 [facility] Alkaline phosphatase [Enzyma tic activity/volume] in Serum or PlasmaOrdered By: Alf Santos on 01-20-2024 ALP [Catalytic activity/Vol] 89 U/L Normal 34-104 [facility] Comment on above: Performed By: #### A LPHA PHEN, GIULIANO CHOICE, HCV RX PCR, HBCAB, SMAB, HBSAG, CERULOP, HBSAB #### [facility] , #### LIPID, JULIA, PT, FE and TIBC, CBC, HEPATIC #### [facility] [address] [id number] Phenotyp luisito 01-20-2024 Alpha 1 Anti-Trypsin 158 mg/dL Normal 101-187 [facility] Comment on above: Performed By: #### A DDONUAPLUS, [facility] #### [address] Phenotype (P1) MM Normal . [facility] Comment on above: Result Comment: MM Phenotype is considered to be normal , producing normal serum levels of [id number] inhibitor and not associated with clinical disease. [...] Ranges used to confirm phenotype. Performed at: [facility] [id number] Framing Consultant: Glen Tenorio PhD, Phone: [phone] Performed at: [facility] [address] [id number] Framing Consultant: Keith Contreras MD, Phone: [phone] Performed By: #### A DDONUAPLUS, [facility] #### [address] Aspartate aminotransferase [ Enzymatic activity/volume] in Serum or PlasmaOrdered By: Alf Santos on 01-20-2024 AST [Catalytic activity/Vol] 17 U/L Normal 13-39 [facility] Comment on above: Performed By: #### A LPHA PHEN, GIULIANO CHOICE, HCV RX PCR, HBCAB, SMAB, HBSAG, CERULOP, HBSAB #### [facility] , #### LIPID, JULIA, PT, FE and TIBC, CBC, HEPATIC #### [address] Automated basophil %Ordered By: Alf Santos on 01-20-2024 Basophils/100 WBC (Bld) 0.6 % Normal . [facility] Comment on above: Performed By: #### A LPHA PHEN, GIULIANO CHOICE, HCV RX PCR, HBCAB, SMAB, HBSAG, CERULOP, HBSAB #### [facility] , #### LIPID, JULIA, PT, FE and TIBC, CBC, HEPATIC #### [address] Automated basophil countOrde red By: Alf Santos on 01-20-2024 Basophils (Bld) [#/Vol] 0.0 10*3/uL Normal 0.0-0.2 [facility] Comment on above: Result Comment: PERF ORMED BY: [place] [address] PATHOLOGIST PRODUCT ADVISOR CELIA BERRIOS M.D. Performed By: #### A LPHA PHEN, GIULIANO CHOICE, HCV RX PCR, HBCAB, SMAB, HBSAG, CERULOP, HBSAB #### [facility] , #### LIPID, JULIA, PT, FE and TIBC, CBC, HEPATIC #### [address] Automated blood monocyte cou ntOrdered By: Alf Santos on 01-20-2024 Monocytes (Bld) [#/Vol] 0.3 10*3/uL Normal 0.0-0.8 [facility] Comment on above: Performed By: #### A LPHA PHEN, GIULIANO CHOICE, HCV RX PCR, HBCAB, SMAB, HBSAG, CERULOP, HBSAB #### [facility] , #### LIPID, JULIA, PT, FE and TIBC, CBC, HEPATIC #### [address] Automated eosinophil %Ordere d By: Alf Santos on 01-20-2024 Eosinophils/100 WBC (Bld) 2.0 % Normal . [facility] Comment on above: Performed By: #### A LPHA PHEN, GIULIANO CHOICE, HCV RX PCR, HBCAB, SMAB, HBSAG, CERULOP, HBSAB #### [facility] , #### LIPID, JULIA, PT, FE and TIBC, CBC, HEPATIC #### [address] Automated eosinophil countOr dered By: Alf Santos on 01-20-2024 Eosinophils (Bld) [#/Vol] 0.1 10*3/uL Normal 0.0-0.45 [facility] Comment on above: Performed By: #### A LPHA PHEN, GIULIANO CHOICE, HCV RX PCR, HBCAB, SMAB, HBSAG, CERULOP, HBSAB #### [facility] , #### LIPID, JULIA, PT, FE and TIBC, CBC, HEPATIC #### [address] Automated monocyte %Ordered By: Alf Santos on 01-20-2024 Monocytes/100 WBC (Bld) 5.6 % Normal . [facility] Comment on above: Performed By: #### A LPHA PHEN, GIULIANO CHOICE, HCV RX PCR, HBCAB, SMAB, HBSAG, CERULOP, HBSAB #### [facility] , #### LIPID, JULIA, PT, FE and TIBC, CBC, HEPATIC #### [address] Automated neutrophil %Ordere d By: Alf Santos on 01-20-2024 Neutrophils/100 WBC (Bld) 60.1 % Normal . [facility] Comment on above: Performed By: #### A LPHA PHEN, GIULIANO CHOICE, HCV RX PCR, HBCAB, SMAB, HBSAG, CERULOP, HBSAB #### [facility] , #### LIPID, JULIA, PT, FE and TIBC, CBC, HEPATIC #### [facility] [address] [place] [address] Bilirubin.direct [Mass/volum e] in Serum or PlasmaOrdered By: Alf Santos on 01-20-2024 Bilirubin.direct [Mass/Vol] 0.10 mg/dL 0.03-0.18 [facility] Bilirubin.total [Mass/volume ] in Serum or PlasmaOrdered By: Alf Santos on 01-20-2024 Bilirubin [Mass/Vol] 0.6 mg/dL Normal 0.3-1.0 [facility] Comment on above: Performed By: #### A LPHA PHEN, GIULIANO CHOICE, HCV RX PCR, HBCAB, SMAB, HBSAG, CERULOP, HBSAB #### [facility] , #### LIPID, JULIA, PT, FE and TIBC, CBC, HEPATIC #### [facility] [address] [place] [address] Ceruloplasminon 01-20-2024 Ceruloplasmin 32.3 mg/dL Normal 19.0-39.0 [facility] Comment on above: Result Comment: Perf ormed at: - [facility] [address] [id number] Framing Consultant: Glen Tenorio PhD, Phone: [phone] PERFORMED BY: [place] [address] PATHOLOGIST PRODUCT ADVISOR CELIA BERRIOS M.D. Performed By: #### A LPHA PHEN, GIULIANO CHOICE, HCV RX PCR, HBCAB, SMAB, HBSAG, CERULOP, HBSAB #### [facility] , #### LIPID, JULIA, PT, FE and TIBC, CBC, HEPATIC #### [facility] [address] [id number] [place] Cholesterol [Mass/volume] in Serum or PlasmaOrdered By: Alf Santos on 01-20-2024 Cholesterol [Mass/Vol] 201 mg/dL High 140-200 [facility] Comment on above: Chol less than [...] PT, FE and TIBC, CBC, HEPATIC #### [facility] [address] [id number] [place] Cholesterol in LDL Calc [Mas s/Vol]Ordered By: Alf Santos on 01-20-2024 Cholesterol in LDL [Mass/Vol] 127 mg/dL High 0-100 [facility] Comment on above: LDL ATP III CLASSIFI CATIONLDL less than 100 mg/dL OptimalLDL 100-129 mg/dL Near or above optimalLDL 130-159 mg/dL Borderline highLDL 160-189 mg/dL HighLDL greater than 189 mg/dL Very high Cholesterol in VLDL Calc [Ma ss/Vol]Ordered By: Alf Santos on 01-20-2024 Cholesterol in VLDL [Mass/Vol] 33 mg/dL [facility] Complete Blood Count Auto Di ffon 01-20-2024 Mean Corpuscular HGB Conc 33.0 g/dL Normal 32.0-35.0 [facility] Comment on above: Performed By: #### A LPHA PHEN, GIULIANO CHOICE, HCV RX PCR, HBCAB, SMAB, HBSAG, CERULOP, HBSAB #### [facility] , #### LIPID, JULIA, PT, FE and TIBC, CBC, HEPATIC #### [facility] [address] [place] [address] NRBC% 0.1 /100{WBC} Normal 0-0.5 [facility] Comment on above: Performed By: #### A LPHA PHEN, GIULIANO CHOICE, HCV RX PCR, HBCAB, SMAB, HBSAG, CERULOP, HBSAB #### [facility] , #### LIPID, JULIA, PT, FE and TIBC, CBC, HEPATIC #### [facility] [address] [place] [address] Erythrocyte distribution wid th [Ratio] by Automated countOrdered By: Alf Santos on 01-20-2024 Erythrocyte distribution width (RBC) [Ratio] 13.1 % Normal 11.9-15.3 [facility] Comment on above: Performed By: #### A LPHA PHEN, GIULIANO CHOICE, HCV RX PCR, HBCAB, SMAB, HBSAG, CERULOP, HBSAB #### [facility] , #### LIPID, JULIA, PT, FE and TIBC, CBC, HEPATIC #### [facility] [address] [place] [address] Erythrocytes [#/volume] in B lood by Automated countOrdered By: Alf Santos on 01-20-2024 RBC (Bld) [#/Vol] 4.13 10*6/uL Normal 3.60-5.00 [facility] Comment on above: Performed By: #### A LPHA PHEN, GIULIANO CHOICE, HCV RX PCR, HBCAB, SMAB, HBSAG, CERULOP, HBSAB #### [facility] , #### LIPID, JULIA, PT, FE and TIBC, CBC, HEPATIC #### [facility] [address] [place] [address] Ferritin [Mass/volume] in Se rum or PlasmaOrdered By: Alf Santos on 01-20-2024 Ferritin [Mass/Vol] 172.5 ng/mL Normal 11.0-306.8 [facility] Comment on above: Performed By: #### A LPHA PHEN, GIULIANO CHOICE, HCV RX PCR, HBCAB, SMAB, HBSAG, CERULOP, HBSAB #### [facility] , #### LIPID, JULIA, PT, FE and TIBC, CBC, HEPATIC #### [facility] [address] [place] [address] Hematocrit [Volume Fraction] of Blood by Automated countOrdered By: Alf Santos on 01-20-2024 Hematocrit (Bld) [Volume fraction] 36.8 % Normal 34.0-46.4 [facility] Comment on above: Performed By: #### A LPHA PHEN, GIULIANO CHOICE, HCV RX PCR, HBCAB, SMAB, HBSAG, CERULOP, HBSAB #### [facility] , #### LIPID, JULIA, PT, FE and TIBC, CBC, HEPATIC #### [address] Hemoglobin [Mass/volume] in BloodOrdered By: Alf Santos on 01-20-2024 Hemoglobin (Bld) [Mass/Vol] 12.1 g/dL Normal 11.8-15.4 [facility] Comment on above: Performed By: #### A LPHA PHEN, GIULIANO CHOICE, HCV RX PCR, HBCAB, SMAB, HBSAG, CERULOP, HBSAB #### [facility] , #### LIPID, JULIA, PT, FE and TIBC, CBC, HEPATIC #### [address] Hep C Ab wRfx to Qnt PCRon 0 01-20-2024 Hepatitis C Virus Antibody Non-Reactive Normal Non Reactive [facility] Comment on above: Performed By: #### A LPHA PHEN, GIULIANO CHOICE, HCV RX PCR, HBCAB, SMAB, HBSAG, CERULOP, HBSAB #### [facility] , #### LIPID, JULIA, PT, FE and TIBC, CBC, HEPATIC #### [address] Interpretation Hepatitis C Normal . [facility] Comment on above: Result Comment: Not infected with HCV unless early or acute infection is suspected (which may be delayed in an immunocompromised individual), or other evidence exists to indicate HCV infection. Performed By: #### A LPHA PHEN, GIULIANO CHOICE, HCV RX PCR, HBCAB, SMAB, HBSAG, CERULOP, HBSAB #### [facility] , #### LIPID, JULIA, PT, FE and TIBC, CBC, HEPATIC #### [address] Hepatic Panelon 01-20-2024 Albumin [Mass/Vol] 4.2 g/dL Normal 3.5-5.7 [facility] Comment on above: Performed By: #### A LPHA PHEN, GIULIANO CHOICE, HCV RX PCR, HBCAB, SMAB, HBSAG, CERULOP, HBSAB #### [facility] , #### LIPID, JULIA, PT, FE and TIBC, CBC, HEPATIC #### [address] Bilirubin,Indirect 0.5 mg/dL Normal [facility] Comment on above: Performed By: #### A LPHA PHEN, GIULIANO CHOICE, HCV RX PCR, HBCAB, SMAB, HBSAG, CERULOP, HBSAB #### [facility] , #### LIPID, JULIA, PT, FE and TIBC, CBC, HEPATIC #### [address] Bilirubin.indirect [Mass/Vol] 0.10 mg/dL Normal 0.03-0.18 [facility] Comment on above: Performed By: #### A LPHA PHEN, GIULIANO CHOICE, HCV RX PCR, HBCAB, SMAB, HBSAG, CERULOP, HBSAB #### [facility] , #### LIPID, JULIA, PT, FE and TIBC, CBC, HEPATIC #### [address] Hepatitis B Core Antibodyon 01-20-2024 Hepatitis B Core Antibody Negative Normal Negative [facility] Comment on above: Result Comment: Perf ormed at: - [facility] [address] [id number] Framing Consultant: Glen Tenorio PhD, Phone: [phone] Performed By: #### A [facility], [facility] #### [address] Hepatitis B Surface Antibody on 01-20-2024 Hepatitis B Surface Antibody Non-Reactive Normal . [facility] Comment on above: Result Comment: Non Reactive: Inconsistent with immunity, less than 10 mIU/mL Reactive: Consistent with immunity, greater than 9.9 mIU/mL Performed By: #### A DD[facility], [facility] #### [address] Hepatitis B Surface Antigeno n 01-20-2024 HBsAg Screen Negative Normal Negative [facility] Comment on above: Result Comment: PERF ORMED BY: [place] [address] PATHOLOGIST PRODUCT ADVISOR CELIA BERRIOS M.D. Performed By: #### A DD[facility], [facility] #### [address] Hepatitis B virus surface Ab [Presence] in SerumOrdered By: Alf Santos on 01-20-2024 HBV surface Ab Ql (S) Non-Reactive . [facility] Comment on above: Non Reactive: Incons istent with immunity, less than 10 mIU/mL Reactive: Consistent with immunity, greater than 9.9 mIU/mL Hepatitis B virus surface Ag [Presence] in Serum or Plasma by ImmunoassayOrdered By: Alf Santos on 01-20-2024 HBV surface Ag IA Ql Negative Negative [facility] Hepatitis C virus IgG Ab [Pr esence] in Serum or Plasma by ImmunoassayOrdered By: Alf Santos on 01-20-2024 HCV IgG IA Ql Non-Reactive Non Reactive [facility] INR in Platelet poor plasma by Coagulation assayOrdered By: Alf Santos on 01-20-2024 INR Coag (PPP) [Relative time] 3.0 {INR} Normal [facility] Comment on above: INR Therapeutic Rang e [...] heart valves: 3 - 4.5 PERFORMED BY: [place] [address] PATHOLOGIST PRODUCT ADVISOR CELIA BERRIOS M.D. Performed By: #### A LPHA PHEN, GIULIANO CHOICE, HCV RX PCR, HBCAB, SMAB, HBSAG, CERULOP, HBSAB #### [facility] , #### LIPID, JULIA, PT, FE and TIBC, CBC, HEPATIC #### [facility] [address] [place] [address] Iron [Mass/volume] in Serum or PlasmaOrdered By: Alf Santos on 01-20-2024 Iron [Mass/Vol] 78 ug/dL Normal 50-212 [facility] Comment on above: Performed By: #### A LPHA PHEN, GIULIANO CHOICE, HCV RX PCR, HBCAB, SMAB, HBSAG, CERULOP, HBSAB #### [facility] , #### LIPID, JULIA, PT, FE and TIBC, CBC, HEPATIC #### [facility] [address] [place] [address] Iron and TIBC Profileon % Iron Saturation 23.8 % Normal 20-50 [facility] Comment on above: Performed By: #### A LPHA PHEN, GIULIANO CHOICE, HCV RX PCR, HBCAB, SMAB, HBSAG, CERULOP, HBSAB #### [facility] , #### LIPID, JULIA, PT, FE and TIBC, CBC, HEPATIC #### [facility] [address] Total Iron Binding Capacity 328 ug/dL Normal 255-450 [facility] Comment on above: Performed By: #### A LPHA PHEN, GIULIANO CHOICE, HCV RX PCR, HBCAB, SMAB, HBSAG, CERULOP, HBSAB #### [facility] , #### LIPID, JULIA, PT, FE and TIBC, CBC, HEPATIC #### [facility] [address] Iron binding capacity [Mass/ volume] in Serum or PlasmaOrdered By: Alf Santos on 01-20-2024 Iron binding capacity [Mass/Vol] 328 ug/dL 255-450 [facility] Iron saturation [Mass Fracti on] in Serum or PlasmaOrdered By: Alf Santos on 01-20-2024 Iron saturation [Mass fraction] 23.8 % 20-50 [facility] Leukocytes [#/volume] correc marcela for nucleated erythrocytes in Blood by Automated counOrdered By: Alf Santos on 01-20-2024 WBC corrected for nucl RBC Auto (Bld) [#/Vol] 6.1 10*3/uL 3.8-11.6 [facility] Leukocytes [#/volume] in Blo od by Automated countOrdered By: Alf Santos on 01-20-2024 WBC (Bld) [#/Vol] 6.1 10*3/uL Normal 3.8-11.6 [facility] Comment on above: Performed By: #### A LPHA PHEN, GIULIANO CHOICE, HCV RX PCR, HBCAB, SMAB, HBSAG, CERULOP, HBSAB #### [facility] , #### LIPID, JULIA, PT, FE and TIBC, CBC, HEPATIC #### [facility] [address] Lipid Panelon 01-20-2024 LDL Cholesterol,Calculated 127 mg/dL High 0-100 [facility] Comment on above: Result Comment: [...] PT, FE and TIBC, CBC, HEPATIC #### [facility] [address] Triglyceride w/Reflex 167 mg/dL High 0-149 [facility] Comment on above: Result Comment: [...] PT, FE and TIBC, CBC, HEPATIC #### [facility] [address] [place] [address] VLDL CHOLESTEROL 33 mg/dL Normal [facility] Comment on above: Performed By: #### A LPHA PHEN, GIULIANO CHOICE, HCV RX PCR, HBCAB, SMAB, HBSAG, CERULOP, HBSAB #### [facility] , #### LIPID, JULIA, PT, FE and TIBC, CBC, HEPATIC #### [facility] [address] [place] [address] Lymphocytes [#/volume] in Bl ood by Automated countOrdered By: Alf Santos on 01-20-2024 Lymphocytes (Bld) [#/Vol] 1.9 10*3/uL Normal 1.00-4.8 [facility] Comment on above: Performed By: #### A LPHA PHEN, GIULIANO CHOICE, HCV RX PCR, HBCAB, SMAB, HBSAG, CERULOP, HBSAB #### [facility] , #### LIPID, JULIA, PT, FE and TIBC, CBC, HEPATIC #### [facility] [address] Lymphocytes/100 leukocytes i n Blood by Automated countOrdered By: Alf Santos on 01-20-2024 Lymphocytes/100 WBC (Bld) 31.7 % Normal . [facility] Comment on above: Performed By: #### A LPHA PHEN, GIULIANO CHOICE, HCV RX PCR, HBCAB, SMAB, HBSAG, CERULOP, HBSAB #### [facility] , #### LIPID, JULIA, PT, FE and TIBC, CBC, HEPATIC #### [address] MCH [Entitic mass] by Automa marcela countOrdered By: Alf Santos on 01-20-2024 MCH (RBC) [Entitic mass] 29.4 pg Normal 24.7-34.3 [facility] Comment on above: Performed By: #### A LPHA PHEN, GIULIANO CHOICE, HCV RX PCR, HBCAB, SMAB, HBSAG, CERULOP, HBSAB #### [facility] , #### LIPID, JULIA, PT, FE and TIBC, CBC, HEPATIC #### [address] MCHC Auto (RBC) [Mass/Vol]Or dered By: Alf Santos on 01-20-2024 MCHC (RBC) [Mass/Vol] 33.0 g/dL 32.0-35.0 [facility] MCV [Entitic volume] by Auto mated countOrdered By: Alf Santos on 01-20-2024 MCV (RBC) [Entitic vol] 89.2 fL Normal 80-100 [facility] Comment on above: Performed By: #### A LPHA PHEN, GIULIANO CHOICE, HCV RX PCR, HBCAB, SMAB, HBSAG, CERULOP, HBSAB #### [facility] , #### LIPID, JULIA, PT, FE and TIBC, CBC, HEPATIC #### [address] Neutrophils [#/volume] in Bl ood by Automated countOrdered By: Alf Santos on 01-20-2024 Neutrophils (Bld) [#/Vol] 3.7 10*3/uL Normal 1.8-7.7 [facility] Comment on above: Performed By: #### A LPHA PHEN, GIULIANO CHOICE, HCV RX PCR, HBCAB, SMAB, HBSAG, CERULOP, HBSAB #### [facility] , #### LIPID, JULIA, PT, FE and TIBC, CBC, HEPATIC #### [facility] [address] No Panel InformationOrdered By: Alf Santos on 01-20-2024 Hepatitis B Core Total Antibody Negative Negative [facility] Comment on above: Performed at: [address] Director: Glen Tenorio PhD, Phone: [phone] Hepatitis C Interpretation See comment . [facility] Comment on above: Not infected with HC V unless early or acute infection issuspected (which may be delayed in an immunocompromisedindividual), or other evidence exists to indicate HCVinfection. Nucleated erythrocytes [Pres ence] in Blood by Automated countOrdered By: Alf Santos on 01-20-2024 Nucleated RBC Auto Ql (Bld) 0.1 /100{WBC} 0-0.5 [facility] Platelet mean volume [Entiti c volume] in Blood by Automated countOrdered By: Alf Santos on 01-20-2024 Platelet mean volume (Bld) [Entitic vol] 8.4 fL Normal 6.3-10.7 [facility] Comment on above: Performed By: #### A LPHA PHEN, GIULIANO CHOICE, HCV RX PCR, HBCAB, SMAB, HBSAG, CERULOP, HBSAB #### [facility] , #### LIPID, JULIA, PT, FE and TIBC, CBC, HEPATIC #### [facility] [address] [place] [address] [place] Platelets [#/volume] in Bloo d by Automated countOrdered By: Alf Santos on 01-20-2024 Platelets (Bld) [#/Vol] 329 10*3/uL Normal 150-450 [facility] Comment on above: Performed By: #### A LPHA PHEN, GIULIANO CHOICE, HCV RX PCR, HBCAB, SMAB, HBSAG, CERULOP, HBSAB #### [facility] , #### LIPID, JULIA, PT, FE and TIBC, CBC, HEPATIC #### [facility] [address] Protein [Mass/volume] in Ser um or PlasmaOrdered By: Alf Santos on 01-20-2024 Protein [Mass/Vol] 7.1 g/dL Normal 6.4-8.9 [facility] Comment on above: Performed By: #### A LPHA PHEN, GIULIANO CHOICE, HCV RX PCR, HBCAB, SMAB, HBSAG, CERULOP, HBSAB #### [facility] , #### LIPID, JULIA, PT, FE and TIBC, CBC, HEPATIC #### [facility] [address] Prothrombin time (PT)Ordered By: Alf Santos on 01-20-2024 PT Coag (PPP) [Time] 33.8 s High 9.0-12.9 [facility] Comment on above: A hematocrit value g reater than 55% may lead to inaccurate results in coagulation testing. Patients having hematocrit values >55% require a special collection tube for coagulation studies. Please contact the laboratory at [phone] for redraw instructions. Result Comment: A he matocrit value greater than 55% may lead to inaccurate results in coagulation testing. Patients having hematocrit values >55% require a special collection tube for coagulation studies. Please contact the laboratory at [phone] for redraw instructions. Performed By: #### A LPHA PHEN, GIULIANO CHOICE, HCV RX PCR, HBCAB, SMAB, HBSAG, CERULOP, HBSAB #### [facility] , #### LIPID, JULIA, PT, FE and TIBC, CBC, HEPATIC #### [facility] [address] Serum monea-[id number] me asurementOrdered By: Alf Santos on 01-20-2024 Alpha 1 antitrypsin [Mass/Vol] 158 mg/dL 101-187 [facility] Serum globulin measurement b y calculation (mass/volume)Ordered By: Alf Santos on 01-20-2024 Globulin (S) [Mass/Vol] 2.9 g/dL Normal [facility] Comment on above: Performed By: #### A LPHA PHEN, GIULIANO CHOICE, HCV RX PCR, HBCAB, SMAB, HBSAG, CERULOP, HBSAB #### [facility] , #### LIPID, JULIA, PT, FE and TIBC, CBC, HEPATIC #### [facility] [address] [place] [address] Serum or plasma albumin/glob ulin mass ratioOrdered By: Alf Santos on 01-20-2024 Albumin/Globulin [Mass ratio] 1.4 {ratio} Normal [facility] Comment on above: Performed By: #### A LPHA PHEN, GIULIANO CHOICE, HCV RX PCR, HBCAB, SMAB, HBSAG, CERULOP, HBSAB #### [facility] , #### LIPID, JULIA, PT, FE and TIBC, CBC, HEPATIC #### [address] Serum or plasma alpha 1 anti trypsin phenotyping identification by immunofixationOrdered By: Alf Santos on 01-20-2024 Alpha 1 antitrypsin phenotyping Immunofixation Nom Mm . [facility] Comment on above: MM Phenotype is co nsidered to be normal , producingnormal serum levels of aseub-7-[id number] inhibitor andnot associated with clinical disease. Associated N0Yfatrs serum levels in other phenotypes and theirincidence [...] reference. Ranges used to confirm phenotype.Performed at: [employer] [id number] Director: Glen Tenorio PhD, Phone: [phone] at: [facility] [employer] [id number] Director: Keith Contreras MD, Phone: [phone] Serum or plasma ceruloplasmi n measurement (mass/volume)Ordered By: Alf Santos on 01-20-2024 Ceruloplasmin [Mass/Vol] 32.3 mg/dL 19.0-39.0 [facility] Comment on above: Performed at: [employer] [address] [id number] Director: Glen Tenorio PhD, Phone: [phone] Serum or plasma free cefurox dickson measurement (mass/volume)Ordered By: Alf Santos on 01-20-2024 Cefuroxime free [Mass/Vol] Negative Negative [facility] Comment on above: Performed at: [facility] [place] [id number] Director: Geln Tenorio PhD, Phone: [phone] Serum or plasma high density lipoprotein (HDL) cholesterol measurementOrdered By: Alf Santos on 01-20-2024 Cholesterol in HDL [Mass/Vol] 41 mg/dL Normal 23-92 [facility] Comment on above: HDL CHOL ATP-III CLA [...] PT, FE and TIBC, CBC, HEPATIC #### [facility] [address] Serum or plasma non-glucuron idated bilirubin measurement (mass/volume)Ordered By: Alf Santos on 01-20-2024 Bilirubin.indirect [Mass/Vol] 0.5 mg/dL [facility] Serum or plasma total choles terol/high density lipoprotein (HDL) cholesterol mass ratOrdered By: Alf Santos on 01-20-2024 Cholesterol.total/Mera sterol in HDL [Mass ratio] 4.9 {ratio} Normal <5.0 [facility] Comment on above: Result Comment: PERF ORMED BY: [place] [address] PATHOLOGIST PRODUCT ADVISOR CELIA BERRIOS M.D. Performed By: #### A LPHA PHEN, GIULIANO CHOICE, HCV RX PCR, HBCAB, SMAB, HBSAG, CERULOP, HBSAB #### [facility] , #### LIPID, JULIA, PT, FE and TIBC, CBC, HEPATIC #### [address] Smooth Muscle Antibodyon Smooth Muscle Antibody 5 Normal 0-19 [facility] Comment on above: Result Comment: Nega tive 0 - 19 Weak positive 20 - 30 Moderate to strong positive >30 Actin Antibodies are found in 52-85% of patients with autoimmune hepatitis or chronic active hepatitis and in 22% of patients with primary biliary cirrhosis. Performed at: - [facility] [id number] Framing Consultant: Glen Tenorio PhD, Phone: [phone] PERFORMED BY: [place] [address] PATHOLOGIST PRODUCT ADVISOR CELIA BERRIOS M.D. Performed By: #### A DDON[facility], [facility] #### [facility] [address] [place] [address] [place] Transferrin [Mass/volume] in Serum or PlasmaOrdered By: Alf Santos on 01-20-2024 Transferrin [Mass/Vol] 234 mg/dL Normal 203-362 [facility] Comment on above: Performed By: #### A LPHA PHEN, GIULIANO CHOICE, HCV RX PCR, HBCAB, SMAB, HBSAG, CERULOP, HBSAB #### [facility] , #### LIPID, JULIA, PT, FE and TIBC, CBC, HEPATIC #### [facility] [address] [id number] [place] Triglyceride [Mass/volume] i n Serum or PlasmaOrdered By: Alf Santos on 01-20-2024 Triglyceride [Mass/Vol] 167 mg/dL High 0-149 [facility] Comment on above: TRIG ATP III CLASSIF ICATIONTRIG less than 150 mg/dL NormalTRIG 150-199 mg/dL Borderline highTRIG 200-500 mg/dL High TRIG greater than 500 mg/dL Very highStandard traceable to the Center for Disease Conrtrol and Prevention (CDC) test method. Coding Summaryon 06-04-2022 Coding Summary HTMLBase 64 [id number] VybiAv HcfpiNWsIN81SBi1PFC7oVdhXB pxjV6wuDQaV1v8BoMiHF30wD23 LHfiVPKoPsL7FlPmldaqvUZe E2vjLsRxuDLjRhy+PHRhYmxlIH jgADTcLRxgLRUsBqGjoXagAF1x Uu2uBMChXOBheBtagPZdJhSf b6shDODxCCbkJD9jdUteS2MfkX Q1UTSfk2j8Wn05zFE+PHRkIHN0 iOxdEMwgf223XvBnp7ytNBN8 xPHaVDzaLAO5N85ud5P0IFZsFL YqZWJ6bRK3eE3loEcnhraiY2Ie oEDrKlR0TUJ7jPGsuJ3nzTlh fymgqU2lLnm+U82VGN9XISZGAK 9BGwu3O5YvRrqmrVB+SM06JAOy IU71jRYjcNVdd4ltyFo4DxXr MTNlDHV8hUhrRQahj3SaAHIlH2 2blATmp3W7KAXllJcnqVAaHnGh tJH4tX4uAHyrpukbv8tdubii Winkp5nzeg89wI45N05aVDjeJP JoRCO4RJDaSBAtbZiwaf7bcE7d Ii8+MSpng3sto7ithBz0JrLz WHLpkyBrjAsePHI1q2IaSm73L4 YwgWxyg4EvLhg9lx88mXAbm4N4 lNC2BOvnQTAilH2vSCdzQmH0 ESSiUnEgiT14xZPcZXmiPr9vgX durTfrYD7jAMLiccgmPSOsjZ3w CYQahSWpjYfjUC0qZNSyhacj o225FpIoUTX3TFSmhOVmW6PeqS 5yIqBhVBVwLXNbX5YjeSWyTCuw W884MNurPhD8YLEjmwMrZ3Ht LQDxmOuqYgK5x7I6Un9Zu1Pcgx gkBVW8THjiBMHvKqP9NkEnMaS4 U7AoVtz0APOvcQvsWI9hD1Ed MNWypvyxtqxwqPB4BBSsMPIzeY 76xYAkOTxhLn6gc9W7o257FNYb PCQlzH06Fz2tgBprKAVibJCT cX1efyhca4uwkgmjUlNjEXNtTH j8FIh3PVUwwTcdJgNwRBO8NbD1 BSE6sCYaqN9giMkomqmpxT2k Oyc+P16apF3zXIY7CBS6lfxbHU CbbaBxDV23JN93Q8YkRufinIPn bGU+KQByzjPqvUpqQS2iWzZr h3pzg1ZkKUfrF3MyHTLiYXniGf b6QRDoARM8qGC7aA5eJNOgVWti r2Z8hJO6H6AlfhRcng6in4hs OFYcVJekW47oaIJun5Z4TSQkfF Q3KBUzhRhfBnRzpM07Gds+PGNv wZohk5VuLojuu3ras3szvXl5 TtStCMFkoxDacYbgGNV8w8HoUv 94Z14kLChzSUHiPQVzJNTtQLRd bDtuzk1riK3pOe4+PGNvbCB3 dWR7oB0cIJWmXsH5GBqtC909Gl ZgtDIcTrxhl7ott2gimOa0VxUo BOAhwdSdzVxaZDR1g9IoOt96 E12gDNcmPIEfFIYyAYQcXTTgoN jbew9brB4uQv4+IA5pu4nzvc99 wE93xCM+IOEpCWK5oByzUAjx IQCsyQ6fIMyhXdV1IQFeWeIqyP 75wOYcDNddTp9xtDvurWezIS4l DWKzspmwb169MpGuw1qsTGSu rEGvHOhdTPF9S11st9F6MZDeFV HfKRF5tIU1fF7qdQndeokpfHAd vXtfrmIndDlrFUwhSSjyA347 IHRvcDsnPlBhdGllbnQgTmFtZT a4B1RwRcw7KHVknKinFJ5toHVl UCyvNm1bmOonxUgpNT9vPQJp hqcsw556ZiBes8izNWRmhMEtRN qtARE7Z15se7O4HRBxSDWkRVH6 rNQ7dZ8eoZrclltddEAatZfx kiLfmOrbVLwgLQxqH714OUHewE rdCkKnaqSnWWKlyZE3ME89QI56 bHFis4A5jPU6T6SxHFDvufwv qpezlWO5NYGmQNNswR37Gm0heY ktAk9dYXRfKOT8LWYeeATpP4Ci kJ5eHsZhYRBfRJGlG6DxjCDw XFhyZ514HGolLgU2RYJwqrDfS2 FaOLUzgEizTgL7f4Z5Lf5BT7G5 FL88TD80wTLyz9M1cZQ6E9Az BYOwwcszdwjfvTZ4IQKjVJMtzT 94Py5mrSxhDz8yECOhRLZ6QASl kXIgV6IhyA8dYuYnDJQpPBAq B6PeuCTdOBqpQ171IRvvUgV3KQ ZivpMgI4XfDFXugQrrDkF2m5J7 Ws1TZPu7VR35RK78uUHsa5Q5 nIZ5L7UeZMFclzikiyhexZM2VA FjJPWqdJ74Gf2uaJruEw0cCJLm ESW6UIRbrHOcK9GfiN2jDvEg UUPuTOVlN4OmwLKiFUluL583EG ntYsT9OCKinsEmD3ThYBBsmAlk DjD5k4U3Rr6UFXHgLT17UIW8 uWY1TS71WO02V9IxYklahOZtqE U+PHRhYmxlIHdpZHRoPScxMDAl JeSlhGaoAW7gGl9fWVIbTIXe oFmvjUMwPbExb4xgTIMsFZzgJH 3quOniP4XoxYM0QEZez1n8Tz54 N12dV5EdwSH+GUIuiBH9pHK1 uC2fOwQzTaQ8SFomC002WzTyqW ItGfalf6inm3stnBa0DnC9UCYl heBotEqwEZZ5l6JkCu12T55v IHdpZHRoPSIxNSUiIHZhbGlnbj 0khV4cRr2+LVEwgJX2aPL0aN8d TjSeIjF5OUacZ308LaPmzDAl Upbmo9anx8wvtMf6WvSjTRKvfs TqmHmfVNZ7e2ZaMl56T8NzrSma q5XmCra6pe74pVXyo7G1aHR7 N9JgVTMrpgzijJUvjSjgSB5pUI BppqetNAUvjJ8nTMVcL4h1GhMo OqF5WCbjL6NtjiI3LDIirCYg WTxbCSR6U19xh3R0MDWoMUKeXM Q9dLG7wC3ynGjldujoaYGkbXff nnGrbVndEMfxMAcuO156CURj nCyyTUKmxP7pUSXkgEJncCcrQG 4mTNSedifvInHCT4BSZgyaVwJO UBqQBhHCMX75EE43vJCft3M2 wXN6N7OtHBOyuqoplfnvyHQ0NX QbQBHtgV41cULyCMkeBk9ph1K5 t520ATRuPYPkhP64Ak5hoPzu OJQwpUKDxB3acjyso5beewupMg QmWUGyBOl3KZt8QEKzbKztRjWx IMF7HtG7LDI5tDMkqT7maCdt gttmrZ6wQuz+HMvlClnySVk1QV wvdGQ+RINfBJQ1wRpgDQnyKSZo iU0sNOKzB1l1FfZhHgW5TVjp C3RaZHIalcewQk61lP4iRlYlZo F4RTleJ1LulrA6LURvkFMpLKii RRB7N15qy2M1SWEdHGQhNYC1 fIQ8mR4atQvgjpbxoUYdxKeudp BbxCrfIDtpAUadS921JLEouAxq PtM1SXcwDINtWF79WA30gSVs y5O5zDI1K5RpATTaqsauoqchrK B1WIMiBFIodK12yTWzQCwlWy4w y5G1r446BEYwHVOasS79Mb4h jYeoKMPmwMLRuR5djkbzq1mhws zsEwMzLAApAIh6ZQc8JNZhmUcj FoAkTRQ6DvR8VUW5kPRvvA8f xJjiasrpzV6nRir+RkVNQUxFPC 89RK97uTMyz3S2uYD7F7HfRWYj jxftvwkmmHK4GYKcQYTmhZ96 qSHfSXztRp1ia8T6x711LGUvIY TvoY24Ni9vwSgdEBSykDWGwO7m yuyoc3kbwzzcYcPqCLAmGMy5 TQq7BHUzvDxdUlLqOOK3CbJ1XS V7cLEvgO1brIkvvkimjJ3wOqk+ WZP7ZMR2giqilsv4I8IyAzta dHI+FJ64MVAwJR88kVYcxYOah2 zikOt6GjPzXPHlWMW2hSfpWSle z7AhCVXbY03irOPbk6C2VRKh wNfmzBLhXqIbaSS6dG0kONmqiy gny0jfztnoNdtrc9zcla50jC45 U32yVRjeFFKxCTQhCVZiKJZo nYfato7dwQ9eNk8+CEEfaSP1bW R5sK7rKsPtSlM7YFblA478TwYb xYZeFnulr4ypm0fjmXu3XuAq ZLNhbkSlvHyrFQZ7e4FmRv05G5 9sIHdpZHRoPSIyMCUiIHZhbGln pg8rkS6zOk3+DY5ed2mpyn16 cV20vUL+BYNjJTV5hStdPDcjBO OevJ2mQZgpDiW5MFZvUqOlsU94 nMCoKCdjZm3pcUmmxUujSX2c IEYcwkizk103QrZrv6kaGTSnzC DpJUszQUE7G15by5J0WORgIZQm AGR1aMQ2wI1spXheqwoopDUd gYvvqoYboHwhNQjyCYqjR633ZT CdyXhjOqDreLAnB1jhifRRBQ0h OjwvdGQ+ZRHrEHY2oQnqMZjb OZKweH3dPXBjB1e1VyIfKwG1GN nbM2QxisB1BVDceJYmPRDviFIK dS3tilicx6atuksxXpZjYLWc TJi5CMo6SQXoaKdkKvGsTCE1Ox K0CSK5aOTfdY5dyYxxzwdhfR1l Oyc+RklOOjwvdGQ+PHRkIHN0 bAztGNopJXNleO7zDSGjL9i1Ab WsNqP6DVjhL7IentW2FYTbiUZa XIJsuDXFlH7iheori5hhztrc ZdGmAEKtEYh7TOc1GSArnIhbGx JqGJD2EgU8ESZ2gHGnuP0zsQmf bmildG0zEzg+TVJOOjwvdGQ+ ZURuWWP6rGmjCMhtTGTuuU5jFU WvH7e5VuFfGjV9YZedN5ScofM5 SYIfkZAhHGBzxYRXnB9dhdww o1mvojcbDsIbGHVfPUd1BHi0CZ VcyMmfAfWaELR8QoR4LIA5iOBw kT1kpZawglvhmD3gUyq+UGF5 XTX5KF89MZ86S3BtQyioyOGocM U+PHRhYmxlIHdpZHRoPScxMDAl PiTxvUyfOX8bZb6vIEGvEULs bGx (more content not included)... [facility] Consent Formson 06-03-2022 Consent Forms [id number][facility] Dis[facility] Instructions [id number]#[facility] [id number]#[facility] Outside Recordson 06-03-2022 Outside Records [id number]#1.00OTGTIFF [facility] Anesthesia Noteon 06-02-2022 Anesthesia Note Patient: NATALIYA BALBUENA Age: 47 years Sex: FEMALE : 1975 Associated Diagnoses: None Author: Sky Parsons MD Postoperative Information Post Operative Note: Operative Day. Anesthetic utilized: Monitored anesthesia care. Health Status Allergies: Allergic Reactions (All) No Known Medication Allergies Problem list (past medical history): All Problems Cardiomyopathy / SNOMED CT 729547256 / Confirmed H/O aortic valve insufficiency / SNOMED CT 282883029 / Confirmed History of obesity / SNOMED CT 210744133 / Confirmed Mitral valve insufficiency / SNOMED CT 24126612 / Confirmed Tricuspid valve insufficiency / SNOMED CT 449399883 / Confirmed Physical Examination VS/Measurements Vital Signs (last 24 hrs) Last Charted Heart Rate Monitored 65 bpm (JUN 02:39) Resp Rate 16 br/min (JUN 02:39) SBP 124 mmHg (JUN 02:39) DBP 68 mmHg (JUN 02:39) Weight 115.40 kg (JUN 02:45) Height 167.64 cm (JUN 02:45) Review / Management Condition: Stable. Assessment Anesthetic outcome No anesthetic complications noted. Adequate pain relief. adequate hydration. Pt awake, alert, and conversant. No Complaint of nausea and vomiting. Plan Transfer/ Discharge: Patient can be discharged from PACU when criteria met. Condition good. [Electronically Signed on: 06/02/2022 17:54 EDT] Sky Parsons MD [Verified on: 06/02/2022 17:54 EDT] Sky Parsons MD [facility] Anesthesia Note Patient: NATALIYA BALBUENA Age: 47 [...] history): All Problems Cardiomyopathy / SNOMED CT 807041736 / Confirmed H/O aortic valve insufficiency / SNOMED CT 344970600 / Confirmed History of obesity / SNOMED CT 606706221 / Confirmed Mitral valve insufficiency / SNOMED CT 31505792 / Confirmed Tricuspid valve insufficiency / SNOMED CT 011807467 / Confirmed Histories Family History: No family history items have been selected or recorded. Procedure history: Cardiac catheterization, left heart (759410005). Cholecystectomy (08006687). Ring annuloplasty (772614185). AVR - Aortic valve replacement (7176980523). Entire MV - Mitral valve (8578770213). History of 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 (4619325674). Comments: 05/29/2022 11:11 EDT - Olinda Roa RN repair, not replacemnt Cardiac catheterization, right heart (18980529). Social History Electronic Cigarette/Vaping Assessment Electronic Cigarette [...] (JUN 02 12:45) Weight 115.40 kg (JUN 02 12:45) Height 167.64 cm (JUN 02 12:45) Airway: Mallampati classification: II (soft palate, fauces, uvula visible). Temporomandibular joint mobility: Good. Mouth: Adequate opening, Teeth ( Within normal limits, chipped upper right molars ). Neck: Full range of motion. Respiratory: Lungs are clear to auscultation. Cardiovascular: Regular rhythm. Neurologic: Alert, Oriented. Review / Management Laboratory Results Plan [place] [employer]esthesi[employer]#(ASA) physical status classification: Class III. Anesthetic Preoperative Plan Anesthesia: Monitored anesthesia care. Anesthetic plan, risks, benefits, and alternatives discussed with the patient and/or family. Patient verbalized understanding. [Electronically Signed on: 06/02/2022 15:30 EDT] Sky Parsons MD [Verified on: 06/02/2022 15:30 EDT] Sky Parsons MD Normal [facility] Inpatient Patient Summaryon 06-02-2022 [place] [address] Patient Discharge Instructions Name: ALFREDO BALBUENA : 1975 Patient Address: [address] [place] [address] Primary Care Provider: Name: COLUMBA HASSAN MD After you are discharged if you find you have any questions, please, call [phone] ext [phone] to speak to a nurse. Discharge Diagnosis: Right carpal tunnel syndrome Prescription Information: If you have been given a prescription for narcotics, seek immediate medical attention if you have any difficulty breathing or any sudden status changes such as confusion and sleepiness. If you or anyone you know is experiencing suicidal thoughts, mental health, alcohol and/or drug addiction problems; contact the [facility] 09/03 Crisis Hotline -Text 7MTGZ oq 833711. If you received any narcotics, sedation, or [...] decisions or sign any legal documents [facility] would like to thank you for allowing us to assist you with your healthcare needs. The following includes patient education materials and information regarding your injury/illness. ALFREDO BALBUENA has been given the following list of follow-up instructions, prescriptions, and patient education materials: Follow-up Instructions With: Address: When: COLUMBA HASSAN [address] [place] [address] etaskr (1) With: Address: When: Manjinder Vargas [address] [place] [address], [address] [place], [place] [id number] etaskr (1) 06/10/2022 2:00 PM Medications During the [...] tab(s) Oral Mond (more content not included)... [facility] MAGR Intraoperative Recordon 06-02-2022 MAGR Intraoperative Record MAGR Intra-Op Record Summary Primary Physician: Bharathi Lopez DO Finalized Date/Time: 06/02/22 18:11:29 Pt. Name: ALFREDO BALBUENA/Sex: 1975 FEMALE Med Rec #: [id number] Physician: Bharathi Lopez DO Financial #: [id number] Pt. Type: D Room/Bed: / Admit/Disch: 06/02/22 [...] Role Performed Surgeon - Primary Anesthesiologist of Management Intern Record Time In 06/02/22 17:03:00 06/02/22 17:03:00 06/02/22 17:03:00 Time Out 06/02/22 17:37:00 06/02/22 17:37:00 06/02/22 17:37:00 Procedure Carpal Tunnel Carpal Tunnel Carpal Tunnel Release(Right) Release(Right) Release(Right) Last Modified By: Dahlia Mendenhall RN, Barbara RN Long, Barbara RN 06/02/22 17:37:37 06/02/22 17:37:37 06/02/22 17:37:37 Entry 4 Entry 5 Case Attendee Martine LAB DIRECTORAzeb LAB DIRECTOR/CSFAKristi LAB DIRECTOR Role Performed Scrub Personnel Sawdust Machine Operator Time In 06/02/22 17:03:00 06/02/22 17:03:00 Time [...] By Dahlia Mendenhall RN Scrub 10% Povidone-Iodine [place] (Im.270) Elbow and forearm, Hand [...] of chemical in (more content not included)... [facility] Postoperative Record MAGR Phase II Record Summary Primary Physician: Bharathi Lopez DO Finalized Date/Time: 06/02/22 18:29:55 Pt. Name: ALFREDO BALBUENA D.O.B./Sex: 1975 FEMALE Med Rec #: [id number] Physician: Bharathi Lopez DO Financial #: [id number] Pt. Type: D Room/Bed: / Admit/Disch: 06/02/22 [...] Signed By: Dahlia Mendenhall RN 06/02/22 18:29 [facility] Preoperative Record MAGR Pre-Op Record Summary Primary Physician: Bharathi Lopez DO Finalized Date/Time: 06/02/22 17:25:46 Pt. Name: ALFREDO BALBUENA D.O.B./Sex: 1975 FEMALE Med Rec #: [id number] Physician: Bharathi Lopez DO Financial #: [id number] Pt. Type: D Room/Bed: / Admit/Disch: 06/02/22 [...] By: Dahlia Mendenhall RN 06/02/22 17:25 Normal [facility] PT/PTTon 06-02-2022 INR Coag (PPP) [Relative time] 1.64 {INR} High 0.91-1.11 [facility] Comment on above: Performed By: #### [id number] ####[facility] (DEFAULT)[address] [place] [address] 04396 PT 17.3 second(s) High 9.7-11.8 [facility] Comment on above: Performed By: #### [id number] ####[facility] (DEFAULT)[address] [place] [address] 27473 PTT 39 second(s) High 25-35 [facility] Comment on above: Performed By: #### [id number] ####[facility] (DEFAULT)[address] [place] [address] 07444 Patient Handouton 06-02-[address] HIGHTOWER POST OPERATIVE CARPEL TUNNEL INSTRUCTIONS SURGEONS WRITTEN INSTRUTCTIONS: -Keep your hand elevated above your elbow for the first 24 hours after surgery -Wiggle your fingers frequently while awake -DO NOT lift heavy objects or asian studies professor forcefully with your hand -Change your dressing [...] or concerns, please call the office at [phone] -Follow up as scheduled [facility] Test Serum 1 Preg Serum Internal Control OK [facility] Comment on above: Order Comment: pre o p Performed By: #### [id number] ####[facility] (DEFAULT)[address] [place] [address] 10385 Test Serum Qual Negative [facility] Comment on above: Order Comment: pre o p Performed By: #### [id number] ####[facility] (DEFAULT)[address] [place] [address] 80703 Coding Summaryon 05-30-2022 [facility] XamxeveqFKn6uUu+PGhlYWQ+PE 8IEYIsE91rmZUpwH0IR4sGLR8A ZTHJNBECDN1DUL6geWE7JOijD0 VybiAv TreohPYkOW08HIb0ADR5gGfpTV jodH0sdELqR6c2OgFcGP95fO66 MDsbWGRtQnF2BkVsziwhoQYo V6puUgAckYObWut+PHRhYmxlIH dwGEYbQUvbQVEsMqXcsKnxHZ0a Yd5kSVWeUOPmeChsrKGmUxZt g3wmNQGzFZjoWS4tgWitV6VoiB M5SORut9m4Nh93aXX+PHRkIHN0 gDttCLkot032AhCic2apPMG3 qSRgWRsiUOA8X88fb1U7YSVaQF TzUEE1uOW0tK1caFwzjbyjK8Og hNExDzB6CCH7zTBphV5hcRmr jwqrqZ9wGqz+O70CQM1MKGANPN 7BIsa1S5McAlnqzQD+IC81EUNg YO10lSCnlAZte3mklLm7AiHb KBAqUGH6lEngEIwie9RuTURmW5 5vnCWpl3G2LPIltMbzlLFtSzHt kNA6iA2rIZzpwodgw2yiauro Vbotu6rbzq38yM21O84uQAyrCJ IzYGL5AKKaWSVmzZdivd3vkH4a Ii8+EQzkg5ila5lzgJp4KqAy MRAuxcDofVqgXUM8s2TsSf65X5 JidEhzi3XhFcu3qq98yQHht0Q4 oCU2XRibKDWwjB9fQChuOqP3 YQFsGeLzxY80aAPjLTayHa1dqA oqoOifKY3uKWXqxxguJOFfxM5t DZMdwCXheWapHR9yMPDgxfsz i380KuQlTRM7BCNamKGwG9VpvP 5kTzHlTCIzXXOxH0UsbQTiNEbj N926VUesDmY1NDQeemKrE9Ef IDWivBhiMkV1n1Y2Uj2Np7Ajte qbSSJ5NLitNYRuWuP3RbWzZeX9 M4FhMlp1CFCtzOmoSU9mT5Vb TMUbrknutqfjhKF7SXYrGNUzmI 26tLXoHBrnZt4rw2O9a683RHXc CTLhaF04Bh9pjSbnWWHnfHGU qL9olzuaf2pytsusTzJkCKPtEG p9FKm1OOJpaYvoHyUtNEQ2QpA9 KVZ3hEJirK9pxLstmpwijY2f Oyc+X61rnD6cSSR8QHY9pddrFL GnstLoQF23XN99T9AxAnoutTEy bGU+EGTcfnPczTlkAY6zItGg r7zzt8LiVRfaJ5ScVISlUNlsSn a8EGTnFRB6kJW7cS8nWVJhIWss i4U1pEY0Q9NaxcHslp4vh9og GYSaPPixY10gzXJwa9F2XBBecR P1TIUzhPlsRjLjwM96Jmf+PGNv kQsbd0SxPboij4hgh7rndSj2 EkJhFOVbshUhfWvqTTE4x0NgQn 26Y49iZYpgJXJiWEOgJKJnLYDm jOrvho9bfT3iOa4+PGNvbCB3 pCS3lI3fZLDiMdS1HIuxF258Id QuuHCzHmyjq4ohb5mwjEd0EdMs BZOnlrLvrLcpGGS8g5JoUm73 H01yZIhxPYTmQQCgUGUcJUScxM kigt2eeT9dKt9+SZ5te0aaxv71 bR73rTD+JOPaNOM2zUmbHOsy BDKduI0nWDkmNnL4VVZxIxMmyJ 48rFRnXNnkAd8saAzspEgeKA7s CCNblpbvf775RkWkh5uxEREh gTGrHByhPPB2K30bh4T8ATWuIB ZmUWM3lYB6oK4sdVaokgqpnILi qKeabtXbmCpqEUayTCfsZ522 IHRvcDsnPlBhdGllbnQgTmFtZT h8M1KkKyg4MXMdwGgbQS4bnBVw QAttYw1eiJgzlUjdFS0uKXDg ceyjh781EpSdd3xvCTRcmLMtQO yeNYB8Z18ic3Q5KLFaPXBpIOV8 jYX4cT3ffKtalnkwjZQfzTkz ftOnmEkqEPgmWYnwO718GJYrzN ryItVipkZoBAIxkGI5ZP76VQ60 aHJtq9D7gJH1L6DqDIIgqhtr qzfyeAJ1GXOyROMndN55Lb7qzU xoSa5pSOOxGKU4DAEdqEXgF1Jb xK4kOwOiFSEtHDOkD2RzeXUz WPbxO005GJjvKkW6ZOUzvqChV2 KvSMXmyQnjVlD1l0I4Sg7VH2M8 UL09SW04iWYpp2R0jOB8N8Hx ISJsiclizlgwbWF3VWGsNMSmaU 29Sx3zcEkjFa7rGJGhVQS9BFUu qSWlK2LelO8yTvCsRSWaHRGz W3ItkCJhKZrmZ307EYkkNoT2HK BvlgFlP6OcSDEfpMhfTkY3v4V2 Ud3DSFb7KO32AQ29lCEll9W1 qWB7N6QoKLXwutrhmuxiyWT7BT FrMNIabQ57Cj3tbRysAt4rTDDr ITC5GPLyeHHfM3SahT8cFvPk UIFiQEWkG8WsvBCrBLphK568ZX fxDbV5XVNmcbXmS9RrODRodWky LiP2p3C8On6KYQFhRK85VUA5 mQT2FI23ZI92J1EgQrvzxDKhzF U+PHRhYmxlIHdpZHRoPScxMDAl DkJcuSrsUE1iXu5xGBUpFPRb oMeunASiJhNak1egUDOsNAxkFW 4ywVosP6VsoJK0BTDys1s7Zp45 O00nF1JfaTQ+DVLdoDI4gNE7 mE6tEmBySaN4UDdjI120DiRjdA TaUajgt0jqu0cmzPo3ViB5LEHn yrCdzVxuSMJ5j0JeVi77F55u IHdpZHRoPSIxNSUiIHZhbGlnbj 9wwM0dVk6+BNJfqYE0dOQ0gP2d MiCoTcO8CMjjG695SjJokMLu Avivg3izr4qyzWy1StUnLAUzhv IuwJbyTID4x4FiPt66T9MkfJhc n9FeSkn3rh08nJFtq7V5kVF2 J9YtLXAterbwmSRnhArqQC3jNO YbacfaRAQgwS4oIJPnI2l6VfSk CgV0ZKkpK0KyoeG3WAWdsKGn JOshCCM9U42is4D2AYUuGVPxWO E3lJM5xU7blIzevtuszICpxGuz mcPuhRvpNJdgMBczC569WEBc qPykFSYroN4aFIAorRNjfFvhXY 6cLPDgwpepLlALE1QPJqymLtXW BOeHVnCKQG76ER83xBXep5M4 pDM8E4QtDPAqsrjcjutudVB0AN IiJNMseS97wREfMXelWw2rp3J2 f411GPLjOSJcwF98To1abJht ANDgbDJDrV9goceda9gfrxspDd VcYETuBTy4XSo4GAZcfWuyVtDn JGI2QdL7RKO2bDOrwA1jqOrl nmytvW9gSya+TJauYnuxXFr6TS wvdGQ+FHYyPLR5hNioJUovEWJs xD9nMMKdA1o7JyRgVaE7LUce J7WdARRfjejkAg35fQ5fVvMsPk V8RDaxO4FdazV0YPHokPNpWIno PQX2M54yn6Y1HXKlJNTeOFO7 sPW5vD8cgExfzzwxiISgfLwsjw CmvTfsSHdcIErvQ423FBVtrIlu ChT1QEdoTBImCR50JH65aHCl r8N7uKB6Y0PwRTLasajynfgxwF P2PJYnVJDhjV41oHXtQXtiMz3o t0Z4p643VCMfCIGcaS60Zu7i gNpnBCFbuVZJbW6oujacd2qxjq mfXaEiUTWiYVy7UDv3DCImfFcc ZxEmKRM1ZaN4HFP9yWActB2f sOnmioybqY9jLap+RkVNQUxFPC 69LQ72uXDom3R3tSN3E3UhXTEt nrromkhpoKK7RANpDUOmrT29 nSTtUPhkKy2aw5B1m345EQJaWN WpaE68Ji7qzQyzNOTjsEEKgO5o jwktb7hrnnonWbGhNKIhSZu4 OQt0XZLwjQvkEoUqBNL3TaG6DG U7aZIwrM6edQxiihbfgU7vQat+ L4R6G9YlPwkmzEJ+ZQ84OYCe YO06yPUpjHKye4wgzQe3HcZwNS XoERY4dLeqPUckt2CrPMWfI87w cHRhj2Z2BBBldHemgYKbMaVr jUX1dC4vIKfwchprj6pablbjHv xbn2mvvq67sB30O98zFQvtDESy PTCzOAVbGAOxkIhjtd9byI7n Ii8+HEMfeUL7nGO2cH7hJuQjFe G7XLgrE976KnTfoGBaUsdgi5qd o4hdnSj6FpWoORIcctZuyLjb ODE1j4AwIh56I21tTWskWYFcPO SdKJVxTTJmsPxico6ofO1xUr9+ GR0wb5oqxr22dH43bWG+PHRk YEE1aEqgKNrxRCKywP1yAAkyWp W4QSFnHtLaaQ61vLNiJJrtCl1o sRhqwArrMG6yMUYsrceju486 DpDbf3wtILTvjEUzZTzcCLL1W9 2xb7M3MHLpWDLaTVT8iTT2sP4f bGlnbjogbGVmdDsgdmVydGlj RKmuEYzxK368NVBhzKiwEoSruE QtO5zbhcSLLC9gHusneHT+PHRk EVE4bKvySIbuIKHvkR0pDNLr N1p8BbTxIqA5XPylP1HolaJ7SO IlkXExTPGjbXIMfR2kmfsvt9xp erviXxSgNLOnNUi9BWq1LDQf hNaeHgDiQCD6BjD9ETA4oQIksV 8tjBscwugbsP3pFlk+RklOOjwv dGQ+LLMxAMS2uDlrDZjxDQIi sN3tYHBiG7o2FaAgWuQ1DLigJ2 McnmF6QZGrvMMuZYReuTVVqY6j gsqir8sxdinxOwZhWZHwWEf2 JBy5DFOnvVhoIoMeXWR1NbJ0EB Z3rTSclW7bzZoupkyrgI1aLpw+ TVJOOjwvdGQ+POHaEMG6bSau KDmgPVBljS0rVJLpC1y1YpKxAe S2CMmgF6AwipD8ENZudDBbVWFk bFAArB2jecpwm6qvtwimHuNm PGCoPLu0XPi1IOAwsSnxLyRzLU G1GxY6EPR9tZOocU9fuZyckqrw aM5xMnv+GYT6GCP1UM29QG40 F4KeLpfleMRhnMQ+PHRhYmxlIH ykSXAyQIajWVKjTiRthScwCI0e Ms5gJGVkQFDixAajfOYnBdLi b2x (more content not included)... Normal [facility] .Auto Diff 05-29-2022 Auto [place] % 6 % Normal 08-28 [facility] Comment on above: Performed By: #### 1 [id number], [id number] ####[facility] (DEFAULT)[address] [place] [address] 58326 Baso Abs# 0.0 x10 Normal 0.0-0.2 [facility] Comment on above: Performed By: #### 1 [id number], [id number] ####[facility] (DEFAULT)[address] [place] [address] 16681 Basophils/100 WBC (Bld) 0.3 % Normal 0.2-2.0 [facility] Comment on above: Performed By: #### 1 [id number], [id number], [id number] ####[facility] (DEFAULT)[address] [place] [address] 94638 Eos Abs# 0.1 x10 Normal 0.0-0.4 [facility] Comment on above: Performed By: #### 1 [id number], [id number], [id number] ####[facility] (DEFAULT)[address] [place] [address] 35504 Eosinophils/100 WBC (Bld) 1.3 % Normal 0.9-4.0 [facility] Comment on above: Performed By: #### 1 [id number], [id number], [id number] ####[facility] (DEFAULT)[address] [place] [address] 62687 Lymph Abs# 1.6 x10 Normal 1.3-2.9 [facility] Comment on above: Performed By: #### 1 [id number], [id number], [id number] ####[facility] (DEFAULT)[address] [place] [address] 21225 Lymphocytes/100 WBC (Bld) 26 % Normal 14-48 [facility] Comment on above: Performed By: #### 1 [id number], [id number], [id number] ####[facility] (DEFAULT)[address] [place] [address]17 [place] Abs# 0.4 x10 Normal 0.0-0.8 [facility] Comment on above: Performed By: #### 1 [id number], [id number], [id number] ####[facility] (DEFAULT)[address] [place] [address] 33438 Neut Abs# 4.0 x10 Normal 1.5-9.2 [facility] Comment on above: Performed By: #### 1 [id number], [id number], [id number] ####[facility] (DEFAULT)[address] [place] [address] 60322 Neutrophils/100 WBC (Bld) 66 % Normal 44-88 [facility] Comment on above: Performed By: #### 1 [id number], [id number], [id number] ####[facility] (DEFAULT)[address] [place] [address]116 [facility] Standardon 05-29-2022 eGFR Non AA 53 mL/min/1.73m2 Invalid Interpretation Code [facility] Comment on above: Performed By: #### 1 [id number], [id number], [id number] ####[facility] (DEFAULT)[address] [place] [address] 99858 eGFR AA >60 Invalid Interpretation Code [facility] Comment on above: Result Comment: Thread Grinder Tool bev Kidney disease could be indicated at eGFRs of less than 60 ml/min/1.73m2. Kidney Failure is indicated at less than 15 ml/min/1.73m2 Performed By: #### 1 [id number], [id number], [id number] ####[facility] (DEFAULT)[address] [place] [address] 04402 Anion gap [Moles/Vol] 10.0 mmol/L Normal 5.0-19.0 [facility] Comment on above: Performed By: #### 1 [id number], [id number], [id number] ####[facility] (DEFAULT)[address] [place] [address] 13958 Calcium [Mass/Vol] 9.3 mg/dL Normal 8.9-10.3 [facility] Comment on above: Performed By: #### 1 [id number], [id number], [id number] ####[facility] (DEFAULT)[address] [place] [address] 01386 Chloride [Moles/Vol] 106 mmol/L Normal 101-111 [facility] Comment on above: Performed By: #### 1 [id number], [id number], [id number] ####[facility] (DEFAULT)[address] [place] [address] 94919 CO2 [Moles/Vol] 28 mmol/L Normal 21-32 [facility] Comment on above: Performed By: #### 1 [id number], [id number], [id number] ####[facility] (DEFAULT)[address] [place] [address] 68893 Creatinine [Mass/Vol] 1.10 mg/dL Normal 0.60-1.30 [facility] Comment on above: Performed By: #### 1 [id number], [id number], [id number] ####[facility] (DEFAULT)[address] [place] [address] 79825 Glucose [Mass/Vol] 97.0 mg/dL Normal 74.0-118.0 [facility] Comment on above: Performed By: #### 1 [id number], [id number], [id number] ####[facility] (DEFAULT)[address] [place] [address] 11394 Osmolality 281 mOsm/L Invalid Interpretation Code [facility] Comment on above: Performed By: #### 1 [id number], [id number], [id number] ####[facility] (DEFAULT)[address] [place] [address] 15822 Potassium [Moles/Vol] 3.6 mmol/L Normal 3.6-5.1 [facility] Comment on above: Performed By: #### 1 [id number], [id number], [id number] ####[facility] (DEFAULT)[address] [place] [address] 14654 Sodium [Moles/Vol] 140.0 mmol/L Normal 136.0-144 . 0 [facility] Comment on above: Performed By: #### 1 [id number], [id number], [id number] ####[facility] (DEFAULT)[address] [place] [address] 97116 Urea nitrogen [Mass/Vol] 18 mg/dL Normal 8-26 [facility] Comment on above: Performed By: #### 1 [id number], [id number], [id number] ####[facility] (DEFAULT)[address] [place] [address] Urea nitrogen/Creatinine [Mass ratio] 16.0 mg/mg Normal 4.6-16.2 [facility] Comment on above: Performed By: #### 1 [id number] ####[facility] (DEFAULT)[address] [place] [address] CBC w/ Auto Diffon 10-13-202 2 Erythrocyte distribution width (RBC) [Ratio] 12.7 % Normal 11.5-15.0 [facility] Comment on above: Performed By: #### 1 [id number], [id number] #### [facility] (DEFAULT) [address] [place] [address] Hematocrit (Bld) [Volume fraction] 38.9 % Normal 33.7-40.4 [facility] Comment on above: Performed By: #### 1 [id number], [id number] #### [facility] (DEFAULT) [address] [place] [address] Hemoglobin (Bld) [Mass/Vol] 12.6 g/dL Normal 11.3-15.9 [facility] Comment on above: Performed By: #### 1 [id number], [id number], [id number] #### [facility] (DEFAULT) [address] [place] [address] Instr WBC 6.1 x10 Invalid Interpretation Code [facility] Comment on above: Performed By: #### 1 [id number] #### [facility] (DEFAULT) [address] [place] [address] Man Diff? Auto Normal [facility] Comment on above: Performed By: #### 1 [id number], [id number], [id number] #### [facility] (DEFAULT) [address] [place] [address] 24290 MCH (RBC) [Entitic mass] 29 pg Normal 24-34 [facility] Comment on above: Performed By: #### 1 [id number], [id number], [id number] #### [facility] (DEFAULT) [address] [place] [address]344 MCHC (RBC) [Mass/Vol] 32 g/dL Normal 26-37 [facility] Comment on above: Performed By: #### 1 [id number], [id number] #### [facility] (DEFAULT) [address] [place] [address] 47194 MCV (RBC) [Entitic vol] 89 fL Normal 81-100 [facility] Comment on above: Performed By: #### 1 [id number], [id number], [id number] #### [facility] (DEFAULT) [address] [place] [address]3614 Platelet 291 x10 Normal 138-427 [facility] Comment on above: Performed By: #### 1 [id number], [id number], [id number] #### [facility] (DEFAULT) [address] [place] [address] 20528 Platelet mean volume (Bld) [Entitic vol] 9.8 fL Normal 6.3-10.2 [facility] Comment on above: Performed By: #### 1 [id number], [id number], [id number] #### [facility] (DEFAULT) [address] [place] [address] 12270 RBC 4.36 x10 Normal 3.70-5.30 [facility] Comment on above: Performed By: #### 1 [id number], [id number], [id number] #### [facility] (DEFAULT) [address] [place] [address] 39120 WBC 6.1 x10 Normal 3.5-10.5 [facility] Comment on above: Performed By: #### 1 [id number], [id number] #### [facility] (DEFAULT) [address] [place] [address]10 Progress Note - Nurseon 05-17 Progress Note - Nurse PAT review done tania Morales, order received. [Electronically Signed on: 05/29/2022 14:46 EDT] Olinda Roa RN [Verified on: 05/29/2022 14:46 EDT] Olinda Roa RN [facility] SARS-CoV-2 (COVID-19) PCRon 05-29-2022 Employed in healthcare? No Invalid Interpretation Code [facility] Comment on above: Performed By: #### 6 [id number] ####[facility] (DEFAULT)[address] [place] [address] Group care resident? No Invalid Interpretation Code [facility] Comment on above: Performed By: #### 6 [id number] ####[facility] (DEFAULT)[address] [place] [address] In ICU? No Invalid Interpretation Code [facility] Comment on above: Performed By: #### 6 [id number] ####[facility] (DEFAULT)[address] [place] [address] status? Not Invalid Interpretation Code [facility] Comment on above: Performed By: #### 6 [id number] ####[facility] (DEFAULT)[address] [place] [address] SARS-CoV-2 (COVID-19) RNA NOA+probe Ql (Unsp spec) Not detected Normal Not Detected [facility] Comment on above: Result Comment: Perf ormed by PCR methodology. Performed By: #### 6 [id number] ####[facility] (DEFAULT)[address] [place] [address] SARS-CoV-2 (COVID-19) RNA NOA+probe Ql (Unsp spec) No Invalid Interpretation Code [facility] Comment on above: Performed By: #### 6 [id number] ####[facility] (DEFAULT)[address] [place] [address] Symptomatic as defined by CDC? No Invalid Interpretation Code [facility] Comment on above: Performed By: #### 6 [id number] ####[facility] (DEFAULT)[address] [place] [address] Aaron 05-02-2022 CNOV Office Visit (PEDRO ) -- ALFREDO BALBUENA ([id number]) 1975 F Date Time Provider Department 05/02/22 9:15 AM GIULIANO WALTON During your visit today, we recorded the following information about you: Pulse Blood pressure Weight Height 54/minute 180/90 113.9 kg 1.702 m Giuliano Walton MD 05/02/2022 4:18 PM Signed [facility] Department of Cardiovascular Medicine SECTION OF CARDIOVASCULAR IMAGING OUTPATIENT VISIT DATE May 02, 2022 OUTPATIENT VISIT TYPE NEW (>3yrs since last seen) PRIMARY CARE PHYSICIAN: Adria Snyder DO [address] [place] [address] CHIEF COMPLAINT: Postoperative Follow Up. HISTORY OF [...] tunnel surgery. 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 She reports edema in b/l lower extremities [...] Disease Father Heart Father age 63- massive [place] Diabetes Mother Thyroid Sister hypertension None Sister [...] Electrocardiogram an (more content not included)... Normal [facility] ECG COMPLETEon 05-02-2022 ECG COMPLETE Ventricular Rate : 5 8 BPM Atrial Rate : 58 BPM P-R Interval : 244 ms QRS Duration : 100 ms Q-T Interval : 450 ms QTC Calculation(Bazett) : 441 ms Calculated P Erie : 20 degrees Calculated R Erie : 28 degrees Calculated T Erie : 51 degrees SINUS BRADYCARDIA WITH 1ST DEGREE AV BLOCK OTHERWISE NORMAL ECG Confirmed by YESSY TOMPKINS MD ([id number]) on 05/11/2022 4:10:17 PM NAME : ALFREDO BALBUENA PID : [id number] : 1975 Gender : Female Race : ORD : [id number] Procedure Date : May 02 2022 09:15:17 Edit Date : May 11 2022 16:10:20 Diagnosis: SINUS BRADYCARDIA WITH 1ST DEGREE AV BLOCK OTHERWISE NORMAL ECG Confirmed by YESSY TOMPKINS MD ([id number]) on 05/11/2022 4:10:17 PM Test Reason : Location : 314 : J14 Overread By : YESSY TOMPKINS MD Edited By : YESSY TOMPKINS MD Referred By : GIULIANO WALTON Acquired by : DAHLIA RITTER [facility] Gracy 02-27-2022 GUERRERO Telephone (CARDMN) -- ALFREDO BALBUENA ([id number]) 1975 F Date Time Provider Department 02/27/22 [...] Status:Closed by ANDRES CALLEJAS on 02/27/22 Normal [facility] Office Visit (Cardiology)on 01-21-2022 Follow-up visit Diagnoses/Problems [...] in both positions. This was done at [facility]. She is on chronic Coumadin. She has no cardiac complaints and she has been stable. She used to follow with [facility] cardiology but did not continue to [...] Lopez who my understanding is operates at [place] or [facility]. I discussed with the patient that her cardiac status is essentially normal but given her valve history and the need for being on heparin while her Coumadin is withheld and then at the end of her surgery reversing this process does represent some risk and her best option may well be to have surgery done at a tertiary center such as [facility] where they would be more familiar [...] of Sys (more content not included)... Normal [employer] Tobacco Screening.on 022 Adult depression screening assessment No [facility] [employer] 250 DO Work Phone: Tobacco use status [facility]PH[facility] b) No [facility] [employer] DO Work Phone: MG MAMM DX 3D RT CADon 09-30 MG MAMM DX 3D RT CAD Patient: ASHA BALBUENA Exam Date: 09/30/2021 : 1975 Gender:F Ordering : DR COLUMBA HASSAN M.D. Admission #: [id number] Family : Order #: [id number] CLICK HERE TO VIEW EXAM RADIOLOGY REPORT [...] Treatments None Family Cancers None LOCATION: [facility] BREAST COMPOSITION: Heterogeneously dense,which may obscure small masses. FINDINGS: DIAGNOSTIC CATEGORY 3--PROBABLY BENIGN FINDING. THE FOLLOWING FINDING(S) HAS A HIGH PROBABILITY OF A BENIGN ETIOLOGY: The right breast is stable in appearance from the 2018 exam. The mass visualized on the April [...] MD on 09/30/2021 at 08:29 Normal [facility] US BREAST RIGHT LIMITEDon US BREAST RIGHT LIMITED Patient: ALFREDO BALBUENA Exam Date: 09/06/2021 : 1975 Gender:F Ordering : DR COLUMBA HASSAN M.D. Admission #: [id number] Family : Order #: [id number] CLICK HERE TO VIEW EXAM RADIOLOGY REPORT [...] Ahmadi M.D. on 09/06/2021 at 15:08 Normal [facility] MG MAMM SCREEN 3D DIANDRA CADon 04-26-2021 MG MAMM SCREEN 3D DIANDRA CAD Patient: ALFREDO BALBUENA Exam Date: 04/26/2021 : 1975 Gender:F Ordering : DR COLUMBA HASSAN M.D. Admission #: [id number] Family : Order #: [id number] CLICK HERE TO VIEW EXAM RADIOLOGY REPORT [...] Treatments None Family Cancers None LOCATION: [facility] BREAST COMPOSITION: Heterogeneously dense, which may [...] Ahmadi M.D. on 04/26/2021 at 10:12 Normal [facility] Vital Signs Date Time Vital Sign Value Performing Clinician Facility 06-02-2024 08:43-0400 Body height 167.6 cm Jayleen EDWARDS Work Phone: [facility] 06-02-2024 08:43-0400 Body mass index (BMI) [Ratio] 40.64 kg/m2 Jayleen EDWARDS Work Phone: [facility] 06-02-2024 08:43-0400 Body weight 114.22 kg Jayleen Hemmer PA Work Phone: [facility] 06-02-2024 08:43-0400 Diastolic blood pressure 82 mm[Hg] Jayleen Hemmer PA Work Phone: [facility] 06-02-2024 08:43-0400 Heart rate 85 /min Jayleen Hemmer PA Work Phone: [facility] 06-02-2024 08:43-0400 Respiratory rate 16 /min Jayleen Hemmer PA Work Phone: [facility] 06-02-2024 08:43-0400 SaO2% (BldA) [Mass fraction] 94 % Jayleen Hemmer PA Work Phone: [facility] 06-02-2024 08:43-0400 Systolic blood pressure 124 mm[Hg] Jayleen Hemmer PA Work Phone: [facility] 05-03-2024 08:57-0400 Body height 167.6 cm Jayleen Hemmer PA Work Phone: [facility] 05-03-2024 08:57-0400 Body mass index (BMI) [Ratio] 40.61 kg/m2 Jayleen Hemmer PA Work Phone: [facility] 05-03-2024 08:57-0400 Body weight 114.13 kg Jayleen Hemmer PA Work Phone: [facility] 05-03-2024 08:57-0400 Diastolic blood pressure 84 mm[Hg] Jayleen Hemmer PA Work Phone: [facility] 05-03-2024 08:57-0400 Heart rate 57 /min Jayleen Hemmer PA Work Phone: [facility] 05-03-2024 08:57-0400 Respiratory rate 16 /min Jayleen Hemmer PA Work Phone: [facility] 05-03-2024 08:57-0400 SaO2% (BldA) [Mass fraction] 97 % Jayleen Hemmer PA Work Phone: [facility] 05-03-2024 08:57-0400 Systolic blood pressure 138 mm[Hg] Jayleen Hemmer PA Work Phone: [facility] 05-02-2024 15:01-0400 Body height 167.6 cm Fadumo [place] PA Work Phone: [facility] 05-02-2024 15:01-0400 Body mass index (BMI) [Ratio] 40.19 kg/m2 Fadumo [place] PA Work Phone: [facility] 05-02-2024 15:01-0400 Body weight 112.95 kg Fadumo [place] PA Work Phone: [facility] 05-02-2024 15:01-0400 Diastolic blood pressure 76 mm[Hg] Fadumo Nuria PA Work Phone: [facility] 05-02-2024 15:01-0400 Systolic blood pressure 122 mm[Hg] Fadumo [place] PA Work Phone: [facility] 04-07-2024 08:12-0400 Body height 167.6 cm Jayleen Hemmer PA Work Phone: [facility] 04-07-2024 08:12-0400 Body mass index (BMI) [Ratio] 40.84 kg/m2 Jayleen Hemmer PA Work Phone: [facility] 04-07-2024 08:12-0400 Body temperature 97.39 [degF] Jayleen Hemmer PA Work Phone: [facility] 04-07-2024 08:12-0400 Body weight 114.76 kg Jayleen Hemmer PA Work Phone: [facility] 04-07-2024 08:12-0400 Diastolic blood pressure 82 mm[Hg] Jayleen Hemmer PA Work Phone: [facility] 04-07-2024 08:12-0400 Heart rate 53 /min Jayleen Hemmer PA Work Phone: [facility] 04-07-2024 08:12-0400 SaO2% (BldA) [Mass fraction] 99 % Jayleen Hemmer PA Work Phone: [facility] 04-07-2024 08:12-0400 Systolic blood pressure 138 mm[Hg] Jayleen EDWARDS Work Phone: [facility] 02-22-2024 01:41-0400 Heart rate 52 /min MD Columba Hassan Work Phone: [facility] 02-22-2024 01:30-0400 Diastolic blood pressure 71 mm[Hg] MD Columba Hassan Work Phone: [facility] 02-22-2024 01:30-0400 Respiratory rate 20 /min MD Columba Hassan Work Phone: [facility] 02-22-2024 01:30-0400 SaO2% (BldA) [Mass fraction] 100 % MD Columba Hassan Work Phone: [facility] 02-22-2024 01:30-0400 Systolic blood pressure 146 mm[Hg] MD Columba Hassan Work Phone: [facility] 02-21-2024 19:32-0400 Body height 170.18 cm MD Columba Hassan Work Phone: [facility] 02-21-2024 19:32-0400 Body temperature 97.4 [degF] MD Columba Hassan Work Phone: [facility] 02-21-2024 19:32-0400 Body weight 113.85 kg MD Columba Hassan Work Phone: [facility] 12-31-2023 14:41-0400 Body height 170.18 cm MD Columba Hassan Work Phone: [facility] 12-31-2023 14:41-0400 Body mass index (BMI) [Ratio] 39.9 kg/m2 MD Columba Hassan Work Phone: [facility] 12-31-2023 14:41-0400 Body weight 115.66 kg MD Columba Hassan Work Phone: [facility] 12-31-2023 14:41-0400 Diastolic blood pressure 76 mm[Hg] MD Columba Hassan Work Phone: [facility] 12-31-2023 14:41-0400 Heart rate 53 /min MD Columba Hassan Work Phone: [facility] 12-31-2023 14:41-0400 Systolic blood pressure 163 mm[Hg] MD Columba Hassan Work Phone: [facility] 05-02-2022 10:07-0400 Diastolic blood pressure 90 mm[Hg] Giuliano Walton MD Work Phone: [facility] 05-02-2022 10:07-0400 Systolic blood pressure 180 mm[Hg] Giuliano Walton MD Work Phone: [facility] 05-02-2022 10:05-0400 Body height 170.2 cm Giuliano Walton MD Work Phone: [facility] 05-02-2022 10:05-0400 Body weight 113.85 kg Giuliano Walton MD Work Phone: [facility] 05-02-2022 10:05-0400 Heart rate 54 /min Giuliano Walton MD Work Phone: [facility] 05-02-2022 10:05-0400 SaO2% (BldA) [Mass fraction] 99 % Giuliano Walton MD Work Phone: [facility] 01-21-2022 09:00-0400 Body height 167.64 cm Jayleen Arango [facility] 250 DO Work Phone: 01-21-2022 09:00-0400 Body mass index (BMI) [Ratio] 41.64 kg/m2 Jayleen Arango [facility] 250 DO Work Phone: 01-21-2022 09:00-0400 Body surface area Derived from formula 2.23 m2 Jayleen Arango [facility] 250 DO Work Phone: 01-21-2022 09:00-0400 Body weight 117.03 kg Jayleen Arango -[facility] 250 DO Work Phone: 01-21-2022 09:00-0400 Diastolic blood pressure 82 mm[Hg] Jayleen Arango -[facility] 250 DO Work Phone: 01-21-2022 09:00-0400 Diastolic blood pressure 80 mm[Hg] Jayleen Arango -[facility] 250 DO Work Phone: 01-21-2022 09:00-0400 Heart rate 59 /min Jayleen Arango -[facility] 250 DO Work Phone: 01-21-2022 09:00-0400 Systolic blood pressure 144 mm[Hg] Jayleen Arango -[facility] 250 DO Work Phone: 01-21-2022 09:00-0400 Systolic blood pressure 142 mm[Hg] Jayleen Arango [facility] 250 DO Work Phone: Encounters Encounter Date Encounter Type Care Provider Facility Start: 07-18-2024 End: 07-19-2024 Telephone encounter Columba Hassan MD Work Phone: [facility] Start: 06-02-2024 End: 06-02-2024 Bamboo flowsheet Jayleen EDWARDS Work Phone: [facility] Start: 06-02-2024 End: 06-02-2024 Bamboo flowsheet Jayleen EDWARDS Work Phone: [facility] Start: 06-02-2024 End: 06-02-2024 Office outpatient visit 15 minutes Jayleen EDWARDS Work Phone: [facility] Comment on above: Primary hypertension (CMS/HCC) (Primary Dx); H/O mitral valve replacement with mechanical valve; History of 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 with mechanical valve; 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; Encounter for immunization; Morbid (severe) obesity due to excess calories (CMS/HCC) Start: 06-02-2024 End: 06-02-2024 ambulatory JAYLEEN ARANGO Not Available Start: 05-03-2024 End: 05-03-2024 Office outpatient visit 25 minutes Jayleen Arango PA Work Phone: [facility] Comment on above: Primary hypertension (CMS/HCC) (Primary Dx); H/O mitral valve replacement with mechanical valve; History of 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 with mechanical valve; 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; Bilateral hip pain; Morbid (severe) obesity due to excess calories (CMS/HCC) Start: 05-03-2024 End: 05-03-2024 ambulatory JAYLEEN ARANGO Not Available Start: 05-02-2024 End: 05-02-2024 Patient encounter procedure Fadumo EDWARDS Work Phone: [facility] Start: 05-02-2024 End: 05-02-2024 Periodic preventive med est patient 40-64yrs Fadumo EDWARDS Work Phone: [facility] Comment on above: Well woman exam with routine gynecological exam; Postmenopausal state Start: 05-02-2024 End: 05-02-2024 ambulatory FADUMO TEMPLETON Not Available Start: 05-02-2024 End: 05-02-2024 Bamboo flowsheet Fadumo EDWARDS Work Phone: [facility] Start: 05-02-2024 End: 05-06-2024 Bamboo flowsheet Fadumo EDWARDS Work Phone: [facility] Start: 05-02-2024 End: 05-06-2024 Clinisync Result Encounter Generic External Data Provider [facility] External Department Unsolicited Start: 04-07-2024 End: 04-07-2024 Office outpatient visit 15 minutes Jayleen EDWARDS Work Phone: [facility] Comment on above: Upper respiratory tr act infection, unspecified type (Primary Dx); Screening for malignant neoplasm of colon Start: 04-07-2024 End: 04-07-2024 ambulatory JAYLEEN ARANGO Not Available Start: 03-31-2024 End: 03-31-2024 ambulatory JAYLEEN ARANGO Not Available Start: 02-25-2024 End: 02-25-2024 ambulatory JAYLEEN M HEMMER Not Available Start: 02-21-2024 End: 02-22-2024 Emergency department patient visit MD Columba Hassan Work Phone: [facility] Work Phone: Start: 01-26-2024 End: 01-26-2024 ambulatory JAYLEEN M HEMMER Not Available Start: 01-20-2024 End: 01-20-2024 Patient encounter procedure MD Columba Hassan Work Phone: [facility] Work Phone: Start: 01-20-2024 End: 01-20-2024 ambulatory MD Columba Hassan Work Phone: [facility] Work Phone: Start: 12-31-2023 End: 12-31-2023 Patient encounter procedure MD Columba Hassan Work Phone: [facility] Work Phone: Start: 12-15-2023 End: 12-15-2023 ambulatory JAYLEEN M HEMMER Not Available Start: 11-04-2023 End: 11-04-2023 ambulatory JAYLEEN M HEMMER Not Available Start: 10-06-2023 End: 10-06-2023 ambulatory JAYLEEN M HEMMER Not Available Start: 09-03-2023 End: 09-03-2023 ambulatory YUNG GORDILLO Not Available Start: 07-30-2023 End: 07-30-2023 ambulatory JAYLEEN M HEMMER Not Available Start: 06-02-2022 End: 06-02-2022 ambulatory RUGEN M SONYA [facility] Start: 05-29-2022 End: 05-30-2022 ambulatory RUGEN M SONYA [facility] Start: 05-02-2022 ambulatory RUGEN MABALAY SONYA Faci lity:[facility] Start: 05-02-2022 End: 05-03-2022 ambulatory RUGEN MABALAY SONYA Facility:[facility] Start: 05-02-2022 End: 05-03-2022 ambulatory COLUMBA HASSAN Facility:[facility] Start: 05-02-2022 End: 05-02-2022 Patient encounter [...] consultation new/estab patient 60 min Jayleen Arango [facility] 250 DO Work Phone: Start: 09-30-2021 End: 10-01-[address] COLUMBA HASSAN Facility:[facility] Start: 09-06-2021 End: 09-07-[address] COLUMBA HASSAN Facility:[facility] Start: 04-26-2021 End: 04-27-[address] COLUMBA HASSAN Facility:[facility] Start: 12-14-[address] COLUMBA HASSAN Facility: [facility] Patient encounter status [facility] Work Phone: Procedures Date Procedure Procedure Detail Performing Clinician Start: 05-03-2024 Prothrombin time Jayleen EDWARDS Work Phone: Start: 05-02-2024 IGP,APTIMA HPV,AGE GDLN Fadumo Templeton PA Work Phone: Start: 01-20-2024 Ultrasound elastogra phy of liver MD Columba Hassan Work Phone: Start: 09-29-2023 Mammography Jayleen Hemm er PA Work Phone: Start: 07-17-2017 Adult depression scr eening assessment Giuliano Walton MD Work Phone: Cholecystectomy Jayleen Amezquita Hemtonia er Replacement of arabella l valve Jayleen Arango NEGATED: Highlighted row has not occurred! Colonoscopy Jayleen Arango Plan of Treatment Date Care Activity Detail Author Start: 04-12-2027 Screening for malign ant neoplasm of colon [facility] Start: 05-09-2025 End: 05-09-2025 Patient encounter procedure 05/09/2025 3:00 PM EDT Office Visit [facility] [address] [place] [address] Fadumo Templeton PA [address] [place] [address] [facility] Start: 09-29-2024 Screening for malign ant neoplasm of breast Mammogram 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 Work Phone: Comment on above: Expected: 06/02/2024 (Approximate), Expires: 06/02/2025 Start: 06-02-2024 End: 06-02-2024 Patient encounter procedure [facility] Comment on above: Arrived Start: 05-03-2024 End: 05-03-2025 XR Pelvis AP and Hip - bilateral GE 2 Views XR hips bilateral 2 views Imaging Routine Bilateral hip pain Expected: 05/03/2024, Expires: 05/03/2025 [facility] Work Phone: Comment on above: Expected: 05/03/2024 , Expires: 05/03/2025 Start: 05-03-2024 End: 05-03-2024 Patient encounter procedure 05/03/2024 9:00 AM EDT Office Visit [facility] [address] [place] [place] [address] Jayleen Arango PA [address] [facility] [address] [place] [address] [facility] Start: 05-02-2024 End: 05-02-2024 Patient encounter procedure [facility] Comment on above: Arrived Start: 05-02-2024 End: 05-02-2025 DXA Skeletal system Views for bone density DEXA bone density Imaging Routine Postmenopausal state Expected: 05/02/2024 (Approximate), Expires: 05/02/2025 [facility] Work Phone: Comment on above: Expected: 05/02/2024 (Approximate), Expires: 05/02/2025 Start: 04-28-2024 End: 04-28-2024 Patient encounter procedure 04/28/2024 8:30 AM EDT Office Visit [facility] [address] [facility] [address] [place] [address] Jayleen Arango PA [address] [facility] [address] [place] [address] [facility] Start: 04-17-2024 Influenza vaccination Influenza Vacc ine (#1) [facility] Start: 02-21-2024 Computed tomography of abdomen and pelvis with contrast CT abdomen pelvis w con [facility] Start: 02-21-2024 CT Abdomen and Pelvi s W contrast IV [facility] Start: 01-20-2024 End: 01-20-2024 [facility] [facility] Start: 01-20-2024 Actin smooth muscle IgG Ab [Units/volume] in Serum [facility] Start: 01-20-2024 Cefuroxime free [Mass/volume] in Serum or Plasma [facility] Start: 01-20-2024 Ceruloplasmin [Mass/volume] in Serum or Plasma [facility] Start: 01-20-2024 Hepatic function panel [facility] Start: 01-20-2024 Hepatitis B core ant ibody measurement [facility] Start: 01-20-2024 Hepatitis B virus meek rface Ab [Presence] in Serum [facility] Start: 04-17-2022 Influenza vaccination INFLUENZA (#1) [facility] Start: 09-08-2021 LIPID SCREEN LIPID SCREEN [facility] Start: 04-29-2021 COVID-19 VACCINE (3 - Booster for Moderna series) COVID-19 VACCINE (3 - Booster for Moderna series) [facility] Start: 09-08-2019 DIABETES SCREEN DIABETES SCREEN [facility] Start: 2019 COLOGUARD (FIT-DNA) COLOGUARD (FIT-D NA) [facility] Start: 2019 Colonoscopy COLONOSCOPY [facility] Start: 2019 COLORECTAL CANCER SCREENING COLORECTAL CANCER SCREENING [facility] Start: [address] COLONOGRAPHY [facility] Start: 2019 FECAL OCCULT BLOOD FECAL OCCULT BLOO D [facility] Start: 2019 SIGMOIDOSCOPY SIGMOIDOSCOPY [facility] Start: 07-17-2018 Adult depression scr eening assessment DEPRESSION SCREENING [facility] Start: 2014 Mammography MAMMOGRAM [facility] Start: 2004 HPV TESTING HPV TESTING [facility] Start: 2004 Screening for malign ant neoplasm of cervix [facility] Start: 1995 PAP TESTING PAP TESTING [facility] Start: 1995 Screening for malign ant neoplasm of cervix Pap Smear [facility] Start: 1993 Urine microalbumin profile DTAP,TDAP ,TD (1 - Tdap) [facility] Start: 1992 ANNUAL PCP TEAM SUGAR BOILER BEV DISEASE VISIT ANNUAL PCP TEAM CHRONIC DISEASE VISIT [facility] Start: 1992 BP CONTROLLED (<130/80) BP CONTROLLE D (<130/80) [facility] Start: 1992 HEPATITIS C SCREENING HEPATITIS C SC REENING [facility] Start: 1992 HIV SCREENING HIV SCREENING [facility] Start: 1986 Adult depression scr eening assessment DEPRESSION SCREENING [facility] Start: 1974 HEPATITIS B (1 of 3 - 3-dose series) HEPATITIS B (1 of 3 - 3-dose series) [facility] Start: 1974 Screening for malign ant neoplasm of colon [facility] Albumin/Globulin ratio [facility] Alpha 1 antitrypsin [Mass/volume] in Serum or Plasma [facility] Alpha 1 antitrypsin phenotyping [Identifier] in Serum or Plasma by Immunofixation [facility] Basophils [#/volume] in Blood by Automated count [facility] Basophils/100 leukoc ytes in Blood by Automated count [facility] Bilirubin.indirect [Mass/volume] in Serum or Plasma [facility] Calculated LDL mera sterol level [facility] Cholesterol.total/Ch oleste rol in HDL [Mass Ratio] in Serum or Plasma [facility] End: 02-26-2023 ECG COMPLETE ECG COMPLETE ECG Routine S/P AVR 1 Occurrences starting 02/26/2022 until 02/26/2023 [facility] Work Phone: Comment on above: 1 Occurrences starti ng 02/26/2022 until 02/26/2023 End: 02-26-2023 Echocardiography ECHO Cardiology Routine S/P AVR 1 Occurrences starting 02/26/2022 until 02/26/2023 [facility] Work Phone: Comment on above: 1 Occurrences starti ng 02/26/2022 until 02/26/2023 Eosinophils/100 leuk ocytes in Blood by Automated count [facility] Erythrocyte distribu tion width [Ratio] by Automated count [facility] Erythrocytes [#/volu me] in Blood [facility] Globulin [Mass/volum e] in Serum [facility] Hematocrit [Volume Fraction] of Blood [facility] Hemoglobin [Mass/vol ume] in Blood [facility] Hepatitis B virus meek rface Ag [Presence] in Serum or Plasma by Immunoassay [facility] Hepatitis C virus Ig G Ab [Presence] in Serum or Plasma by Immunoassay [facility] INR in Platelet poor plasma by Coagulation assay [facility] Iron binding capacit y [Mass/volume] in Serum or Plasma [facility] Iron saturation [Mas s Fraction] in Serum or Plasma [facility] Leukocytes [#/volume ] corrected for nucleated erythrocytes in Blood by Automated coun [facility] Leukocytes [#/volume ] in Blood [facility] Lymphocytes [#/volum e] in Blood by Automated count [facility] Lymphocytes/100 leuk ocytes in Blood by Automated count [facility] MCH [Entitic mass] b y Automated count [facility] MCHC [Mass/volume] b y Automated count [facility] MCV [Entitic volume] by Automated count [facility] Monocytes [#/volume] in Blood by Automated count [facility] Monocytes/100 leukoc ytes in Blood by Automated count [facility] Neutrophils [#/volum e] in Blood by Automated count [facility] Neutrophils/100 leuk ocytes in Blood by Automated count [facility] Noninvasive colorect al cancer DNA and occult blood screening [Presence] in Stool [facility] colon cancer screening Lab Routine Screening for malignant neoplasm of colon Ordered: 04/07/2024 [facility] Work Phone: Comment on above: Ordered: 04/07/2024 Nucleated erythrocyt es [Presence] in Blood by Automated count [facility] Patient Education Abdominal Pain , Adult ED [facility] Work Phone: Patient referral [facility] Work Phone: Platelet mean volume [Entitic volume] in Blood by Automated count [facility] Platelets [#/volume] in Blood [facility] Prothrombin time (PT) [facility] THIN PREP TIS PAP AN D HR HPV DNA THIN PREP TIS PAP AND HR HPV DNA Pathology and Cytology Routine Well woman exam with routine gynecological exam Ordered: 05/02/2024 [facility] Comment on above: Ordered: 05/02/2024 VLDL cholesterol measurement [facility] Immunizations Immunization Date Immunization Notes Care Provider Otoniel michael 06-02-2024 influenza, seasonal, injectable, preservative free Jayleen EDWARDS Work Phone: [facility] 06-24-2023 influenza, injectabl e, quadrivalent, preservative free Jayleen EDWADRS Work Phone: [facility] 06-24-2023 influenza virus vacc ine, unspecified formulation Jayleen EDWARDS Work Phone: [facility] 06-16-2022 influenza, injectabl e, quadrivalent, preservative free Jayleen EDWARDS Work Phone: [facility] 06-16-2022 pneumococcal polysaccharide vaccine, 23 valent Jayleen Arango PA Work Phone: [facility] 06-11-2021 influenza, injectabl e, quadrivalent, preservative free Jayleen Ricardomer [facility] 11-27-2020 Moderna COVID-19 Vac cine 100 MCG/0.5ML Intramuscular Suspension Jayleen Ricardomer [facility] 10-30-2020 Moderna COVID-19 Vac cine 100 MCG/0.5ML Intramuscular Suspension Jayleen Amezquita Hem[facility] 250 DO Work Phone: 05-10-2020 seasonal influenza, intradermal, preservative free Jayleen Amezquita Davionmer [facility] 05-31-2019 influenza, injectabl e, quadrivalent, preservative free Jayleen Amezquita Hemmer [facility] 250 DO Work Phone: 05-31-2019 seasonal influenza, intradermal, preservative free Jayleen Arango PA Work Phone: [facility] 06-02-2018 influenza, injectabl e, quadrivalent, preservative free Jayleen M Hemmer [facility] 250 DO Work Phone: 07-17-2017 influenza, injectabl e, quadrivalent, contains preservative Jayleen Arango [facility] 05-28-2016 influenza, injectabl e, quadrivalent, preservative free Jayleen Tonia Hem[facility] 250 DO Work Phone: 05-14-2016 influenza, injectabl e, quadrivalent, contains preservative Giuliano Walton MD Work Phone: [facility] Work Phone: 05-14-2016 pneumococcal polysaccharide vaccine, 23 valent Guiliano Walton MD Work Phone: [facility] Work Phone: 05-23-2015 influenza, injectabl e, quadrivalent, preservative free Jayleen Tonia Hemmer [facility] 250 DO Work Phone: Payers Date Payer Category Payer Self-pay [id number] 2023 [facility] [place] [id number] 2023 Unknown 2023 Unknown [id number] 2021 Private Health Insurance [facility] [employer] [id number] 2021-Present [phone] [address] [address] [place] [address] PPO [id number] 1974 Unknown [id number] [id number] .2.59 1974 Unknown [id number] 2.16840.1.058331.3.579 .2.593 1974 Unknown [id number] 2.16840.1.843028.3.579 .2.593 1974 Unknown [id number] 2.16840.1.888014.3.579 .2.593 1974 Unknown [id number] 2.16840.1.266584.3.579 .2.718 1974 Unknown [id number] 2.16840.1.866430.3.579 .2.718 1974 Unknown [id number] 2.16.840.1.612647.3.579 .2.1258 1974 Unknown [id number] 2.16.840.1.949234.3.579 .2.1258 1974 Unknown [id number] 2.16.840.1.300759.3.579 .2.1258 1974 Unknown [id number] 2.16.840.1.551723.3.579 .2.1258 1974 Unknown [id number] 2.16.840.1.797454.3.579 .2.1258 1974 Unknown [id number] 2.16.840.1.157402.3.579 .2.1258 1974 Unknown [id number] 2.16.840.1.919187.3.579 .2.1258 1974 Unknown [id number] 2.16.840.1.762503.3.579 .2.1258 1974 Unknown [id number] 2.16.840.1.878473.3.579 .2.1258 1974 Unknown [id number] 2.16.840.1.003753.3.579 .2.1258 1974 Unknown [id number] 2.16.840.1.174655.3.579 .2.1258 1974 Unknown [id number] 2.16.840.1.263439.3.579 .2.9 1959 Unknown [id number] 1959 Unknown [id number] [facility] [id number] Unknown [id number] [id number] .2.531 Unknown [id number] 2.16.840.1.879256.3.579 .2.531 Social History Date Type Detail Facility Start: 05-03-2024 End: 06-02-2024 Daily caffeine consumption, 4-5 servings a day Daily caffeine consumption, 4-5 servings a day -[facility]-Janie Olsen DO Work Phone: Start: 03-07-2016 End: 01-23-2023 Tobacco smoking status NHIS Never smoked tobacco [facility] Start: 07-17-2017 End: 05-02-2022 Alcohol intake Current drinker of alcohol (finding) [facility] Start: 02-05-2016 History SDOH Alcohol Comment Rare consumption [facility] Start: 1975 Sex Assigned At Female C [facility] Start: 03-07-2016 End: 01-23-2023 Tobacco use and exposure Smokeless tobacco non-user [facility] Start: 04-22-2022 End: 05-02-2022 Exposure to SARS-CoV-2 (event) Not sure [facility] Start: 05-02-2024 End: 06-02-2024 Alcoholic beverage intake Ex-drinker (finding) [facility] Start: 05-03-2024 End: 06-02-[address] [facility] Start: 1975 Sex assigned at Not on file [facility] Medical Equipment Procedure Code Equipment Code Equipment Original Text Equipment Identifier Dates Valve Mitrl 25-33mm Onx Hrt - [id number] Start: 07-28-2016 Comment on above: Description: mitral valve replacement Valve Aort 21mm Onx Hrt - [id number] Start: 07-28-2016 Ring Tra s Classic 28mm 33.2mm 26.3mm Oval Titanium Silicone - [id number] Start: 07-28-2016 Goals Date Patient Goal Desired Activity /State Clinical Notes 07-29-2016 to 07-19-2024 Telephone Encounter - GRACE Riley - 07/19/2024 8:09 AM ESTTelephone Encounter - GRACE Riley - 07/19/2024 8:09 AM ESTTelephone Encounter - Carrie Tobar - 07/18/2024 2:08 PM EST Note Date & Type Note Facility 07-19-2024 Telephone encounter Note Acknowledged. [facility] 07-19-2024 Miscellaneous Notes Acknowledged. Pt states that she won't be able to do her INR screening due to no insurance until September 03. She does have enough meds to get her through. documented in this encounter [facility] 07-18-2024 Telephone encounter Note Pt states that she won't be able to do her INR screening due to no insurance until September 03. She does have enough meds to get her through. [facility] 06-02-2024 History of Present illness Narrative Images from the original note were not included. Subjective Patient ID: Alfredo Balbuena is a 49 y.o. female who presents for INR. Alfredo is present today for follow up INR. Last INR was 4.1 and was told to hold a coumadin dose then to resume 2.5 mg Wed and 5 mg rest of week. Attempted 4 times and could not get a big enough drop of blood to get an INR. States her hips have been doing well so did not get the x-rays. Has cut back on pop, down to one Pepsi a day. Current Outpatient Medications on File Prior to Visit Medication Sig Dispense Refill acyclovir (Zovirax) 400 MG tablet take 1 tablet by mouth once daily 100 tablet 3 aspirin 81 MG EC tablet Take 81 mg by mouth 1 (one) time. cholecalciferol (Vitamin D-3) 125 MCG (5000 UT) capsule Take 5,000 Units by mouth Daily esomeprazole (NexIUM) [address] capsule Take 20 mg by mouth in the morning. Take before meals. ferrous sulfate 325 (65 Fe) MG tablet Take 325 mg by mouth 1 (one) time each day. furosemide (Lasix) 40 MG tablet Take 40 mg by mouth in the morning and 40 mg before bedtime. PRN. losartan (Cozaar) 100 MG tablet Take 1 tablet (100 mg) by mouth Daily 100 tablet 3 Melatonin 10 MG capsule Take 1 tablet by mouth as needed at bedtime (trouble sleeping). metoprolol succinate XL (Toprol-XL) 25 MG 24 hr tablet take 1 tablet by mouth once daily 90 tablet 3 potassium chloride CR (Klor-Con) 10 MEQ ER tablet Take 1 tablet (10 mEq) by mouth in the morning and 1 tablet (10 mEq) before bedtime. Take with food.. 200 tablet 3 traMADol (Ultram) 50 MG tablet Take 1 tablet (50 mg) by mouth every 6 (six) hours if needed for severe pain 20 tablet 0 warfarin (Coumadin) 5 MG tablet Take 1 tablet (5 mg) by mouth See administration instructions Take 5 mg daily. Except for 2.5 mg on Thursday and Thursday [DISCONTINUED] potassium chloride CR (Klor-Con) 10 MEQ ER tablet take 1 tablet by mouth twice a day with food 220 tablet 2 No current facility-administered medications on file prior to visit. I have reviewed and reconciled the history and medication list with the patient today. Allergies Allergen Reactions Meloxicam Other Reaction(s): Elevated BP Social History Tobacco Use Smoking status: Never Smokeless tobacco: Never Vaping Use Vaping status: Never Used Substance Use Topics Alcohol use: Not Currently Drug use: Never Family History Problem Relation Name Age of Onset Hypertension Mother Heart disease Mother Thyroid disease Mother Heart disease Father Hypothyroidism Sister Past Medical History: Diagnosis Date Abdominal pain 03/31/2024 Allergic Allergies ASCUS of cervix with negative high risk HPV Asthma (CMS/HCC) Chronic kidney disease, stage 3a (HCC) (CMS/HCC) Fatty liver Gall bladder disease 2009 Personal history of medical treatment Lifelong Antibiotics Personal history of medical treatment 11/09/2018 U/S shows slightly prominent and heterogeneous uterus containing 2 myometrial masses both favor leiomyomas Personal history of medical treatment 11/03/2018 ASCUS Personal history of medical treatment 04/29/2021 New 2.2 lobular mass within the lower-outer quadrant, approximately 9:00 Mid. SOB (shortness of breath) 2014 Stage 3a chronic kidney disease (CKD) (CMS/HCC) Sterilization 2005 [facility] Past Surgical History: Procedure Laterality Date CARDIAC SURGERY 2016 2 Valve replacements , heart cath CARPAL TUNNEL RELEASE Right 06/02/2022 CHOLECYSTECTOMY 2008 ENDOMETRIAL BIOPSY 11/2018 MR ANGIOGRAM CHEST W AND WO IV CONTRAST 03/07/2016 MR ANGIOGRAM CHEST W AND WO IV CONTRAST Visit Vitals BP 124/82 Pulse 85 Resp 16 Ht 5' 6 Wt 251 lb 12.8 oz SpO2 94% BMI 40.64 kg/m OB Status Postmenopausal Smoking Status Never BSA 2.3 m Review of Systems Constitutional: Negative for chills, fatigue and fever. HENT: Negative for nosebleeds. Respiratory: Negative for cough, shortness of breath and wheezing. Cardiovascular: Negative for chest pain, palpitations and leg swelling. Gastrointestinal: Negative for blood in stool, constipation, diarrhea, nausea and vomiting. Hematological: Bruises/bleeds easily. Objective Physical Exam Constitutional: General: She is not in acute distress. Appearance: She is well-developed. She is obese. She is not ill-appearing. Comments: Very pleasant HENT: Head: Normocephalic and atraumatic. Eyes: General: No scleral icterus. Conjunctiva/sclera: Conjunctivae normal. Cardiovascular: Rate and Rhythm: Regular rhythm. Bradycardia present. Heart sounds: Murmur heard. Comments: Grade 2/6 systolic murmur, systolic click Pulmonary: Effort: Pulmonary effort is normal. No respiratory distress. Breath sounds: Normal breath sounds. No wheezing, rhonchi or rales. Skin: General: Skin is warm and dry. Neurological: General: No focal deficit present. Mental Status: She is alert and oriented to person, place, and time. Sensory: No sensory deficit. Motor: No weakness. Psychiatric: Mood and Affect: Mood normal. Speech: Speech is rapid and pressured. Behavior: Behavior normal. Assessment/Plan Diagnoses and all orders for this visit: Primary hypertension (CMS/HCC) Patient's blood pressure is currently well controlled. Continue with current medications and I will continue to monitor. Goal BP remains less than 130/80. H/O mitral valve replacement with mechanical valve Unable to obtain blood sample for INR today. History of 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 with mechanical valve - Protime-INR; Future Pt will return to office tomorrow for blood draw. Will notify pt of the results once received. 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 Encounter for immunization - Flu vaccine greater than or equal to 3 years old, [facility] (IMM19) Provided pt with Flu shot today, she tolerated this well. Morbid (severe) obesity due to excess calories (CMS/HCC) - phentermine (Adipex-P) 37.5 MG tablet; Take 1 tablet (37.5 mg) by mouth in the morning. Take before meals. Patient can start Adipex once daily. Advised patient of possible side effects. Patient is to stop the medication and call me if pt experiences any syncope or SOB. Will need to see the patient in 30 days and document a significant weight loss in order to continue the medication. The patient is to exercise regularly and work on diet modification, encouraged portion control. Lifestyle modifications must be continued in order to maintain weight loss. Patient voiced understanding. Follow up in about 4 weeks (around 06/30/2024) for Medication Follow Up, INR. documented in this encounter [facility] 05-03-2024 History of Present illness Narrative Images from the original note were not included. Subjective Patient ID: Alfredo Balbuena is a 49 y.o. female who presents for INR. Alfredo is present today for follow up INR. Last INR was on 03/31/24 at 3.5. She currently takes 5 mg coumadin daily except on Thursday takes 2.5 mg. Today INR 4.1. Pt was recently on Prednisone and states it usually messes with her INR levels. She also admits to bruising more than usual. States recently did some walking to go see some waterfalls, just walking paths and her lower back and hips are painful since then. Tramadol helps, but not as well as the prednisone. Cannot take Tramadol before work, makes her tired. Current Outpatient Medications on File Prior to Visit Medication Sig Dispense Refill acyclovir (Zovirax) 400 MG tablet take 1 tablet by mouth once daily 100 tablet 3 aspirin 81 MG EC tablet Take 81 mg by mouth 1 (one) time. cholecalciferol (Vitamin D-3) 125 MCG (5000 UT) capsule Take 5,000 Units by mouth Daily esomeprazole (NexIUM) [address] capsule Take 20 mg by mouth in the morning. Take before meals. ferrous sulfate 325 (65 Fe) MG tablet Take 325 mg by mouth 1 (one) time each day. furosemide (Lasix) 40 MG tablet Take 40 mg by mouth in the morning and 40 mg before bedtime. PRN. losartan (Cozaar) 100 MG tablet Take 1 tablet (100 mg) by mouth Daily 90 tablet 1 Melatonin 10 MG capsule Take 1 tablet by mouth as needed at bedtime (trouble sleeping). metoprolol succinate XL (Toprol-XL) 25 MG 24 hr tablet take 1 tablet by mouth once daily 90 tablet 3 potassium chloride CR (Klor-Con) 10 MEQ ER tablet take 1 tablet by mouth twice a day with food 220 tablet 2 traMADol (Ultram) 50 MG tablet Take 1 tablet (50 mg) by mouth every 6 (six) hours if needed for severe pain 20 tablet 0 warfarin (Coumadin) 5 MG tablet Take 1 tablet (5 mg) by mouth See administration instructions Take 5 mg daily. Except for 2.5 mg on Thursday and Thursday [DISCONTINUED] predniSONE (Deltasone) 10 MG tablet Take 1 tablet (10 mg) by mouth 3 (three) times a day for 3 days, THEN 1 tablet (10 mg) 2 (two) times a day for 3 days, THEN 1 tablet (10 mg) Daily for 3 days. 18 tablet 0 [DISCONTINUED] Semaglutide-Weight Management (Wegovy) 0.25 MG/0.5ML solution auto-injector Inject 0.25 mg under the skin 1 (one) time per week 2 mL 5 No current facility-administered medications on file prior to visit. I have reviewed and reconciled the history and medication list with the patient today. Allergies Allergen Reactions Meloxicam Other Reaction(s): Elevated BP Social History Tobacco Use Smoking status: Never Smokeless tobacco: Never Vaping Use Vaping status: Never Used Substance Use Topics Alcohol use: Not Currently Drug use: Never Family History Problem Relation Name Age of Onset Hypertension Mother Heart disease Mother Thyroid disease Mother Heart disease Father Hypothyroidism Sister Past Medical History: Diagnosis Date Abdominal pain 03/31/2024 Allergic Allergies ASCUS of cervix with negative high risk HPV Asthma (CMS/HCC) Chronic kidney disease, stage 3a (HCC) (CMS/HCC) Fatty liver Gall bladder disease 2010 Personal history of medical treatment Lifelong Antibiotics Personal history of medical treatment 11/09/2018 U/S shows slightly prominent and heterogeneous uterus containing 2 myometrial masses both favor leiomyomas Personal history of medical treatment 11/03/2018 ASCUS Personal history of medical treatment 04/29/2021 New 2.2 lobular mass within the lower-outer quadrant, approximately 9:00 Mid. SOB (shortness of breath) 2014 Stage 3a chronic kidney disease (CKD) (CMS/HCC) Sterilization 2004 [facility] Past Surgical History: Procedure Laterality Date CARDIAC SURGERY 2015 2 Valve replacements , heart cath CARPAL TUNNEL RELEASE Right 06/02/2022 CHOLECYSTECTOMY 2008 ENDOMETRIAL BIOPSY 11/2018 MR ANGIOGRAM CHEST W AND WO IV CONTRAST 03/07/2016 MR ANGIOGRAM CHEST W AND WO IV CONTRAST Visit Vitals BP 138/84 Pulse 57 Resp 16 Ht 5' 6 Wt 251 lb 9.6 oz SpO2 97% BMI 40.61 kg/m OB Status Postmenopausal Smoking Status Never BSA 2.3 m Review of Systems Constitutional: Negative for chills, fatigue and fever. HENT: Negative for nosebleeds. Respiratory: Negative for cough, shortness of breath and wheezing. Cardiovascular: Negative for chest pain, palpitations and leg swelling. Gastrointestinal: Negative for blood in stool, constipation, diarrhea, nausea and vomiting. Musculoskeletal: Positive for arthralgias and gait problem. Hematological: Bruises/bleeds easily. Objective Physical Exam Constitutional: General: She is not in acute distress. Appearance: She is well-developed. She is obese. She is not ill-appearing. Comments: Very pleasant HENT: Head: Normocephalic and atraumatic. Eyes: General: No scleral icterus. Conjunctiva/sclera: Conjunctivae normal. Cardiovascular: Rate and Rhythm: Regular rhythm. Bradycardia present. Heart sounds: Murmur heard. Comments: Grade 2/6 systolic murmur, systolic click Pulmonary: Effort: Pulmonary effort is normal. No respiratory distress. Breath sounds: Normal breath sounds. No wheezing, rhonchi or rales. Musculoskeletal: Lumbar back: No spasms, tenderness or bony tenderness. Normal range of motion. Negative right straight leg raise test and negative left straight leg raise test. Right foot: Normal pulse. Left foot: Normal pulse. Skin: General: Skin is warm and dry. Neurological: General: No focal deficit present. Mental Status: She is alert and oriented to person, place, and time. Sensory: No sensory deficit. Motor: No weakness. Psychiatric: Mood and Affect: Mood normal. Speech: Speech is rapid and pressured. Behavior: Behavior normal. Assessment/Plan Diagnoses and all orders for this visit: Primary hypertension (CMS/HCC) Patient's blood pressure is currently well controlled. Continue with current medications and I will continue to monitor. H/O mitral valve replacement with mechanical valve - POCT Protime-INR, fingerstick docked device INR above therapeutic range today at 4.1. Hold today's Coumadin dosage. Restart at 2.5 mg on on Thu and Thursday and 5 mg the rest of the week. History of 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 with mechanical valve - POCT Protime-INR, fingerstick docked device Recheck INR in one month. 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 Bilateral hip pain - XR hips bilateral 2 views; Future Will obtain x-rays for further evaluation at this time. Will notify pt of the results once received. Continue Tramadol prn, Tylenol when she cannot take the Tramadol. Obesity Per pt, the Yovany was going to cost her $1100 at [facility] even with copay card. Will look into this for pt. Follow up in about 4 weeks (around 05/31/2024) for INR. documented in this encounter [facility] 05-02-2024 History of Present illness Narrative Reason for Appointment: Patient ID: Alfredo Balbuena is a 49 y.o. female who presents for Well Women Visit Patient presents today for Annual Exam. MEDICATIONS Current Outpatient Medications Medication Instructions acyclovir (ZOVIRAX) 400 mg, Oral, Daily aspirin 81 mg, Oral, Once cholecalciferol (VITAMIN D-3) 5,000 Units, Oral, Daily esomeprazole (NEXIUM) 20 mg, Oral, Daily before breakfast ferrous sulfate 325 mg, Oral, Daily furosemide (LASIX) 40 mg, Oral, 2 times daily, PRN losartan (COZAAR) 100 mg, Oral, Daily Melatonin 10 MG capsule 1 tablet, Oral, Nightly PRN metoprolol succinate XL (TOPROL-XL) 25 mg, Oral, Daily potassium chloride CR (Klor-Con) 10 MEQ ER tablet 10 mEq, Oral, Take with food. traMADol (ULTRAM) 50 mg, Oral, Every 6 hours PRN warfarin (COUMADIN) 5 mg, Oral, See admin instructions, Take 5 mg daily. Except for 2.5 mg on Thursday and Thursday ALLERGIES Allergies Allergen Reactions Meloxicam Other Reaction(s): Elevated BP PROBLEMS Active Ambulatory Problems Diagnosis Date Noted Abnormal mammogram 12/29/2022 Atypical squamous cells of undetermined significance (ASCUS) on Papanicolaou smear of cervix 12/29/2022 Carpal tunnel syndrome, right 12/29/2022 Chronic GERD 12/29/2022 Cyst of ovary 12/10/2011 Depressive disorder (CMS/HCC) 12/09/2011 Fatigue 12/29/2022 H/O mitral valve replacement with mechanical valve 12/29/2022 History of 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 with mechanical valve 12/29/2022 Hot flashes due to menopause 12/29/2022 Leiomyoma of uterus, unspecified 12/10/2011 Leukocytosis 12/29/2022 Menorrhagia 12/29/2022 Menstrual cramps 12/29/2022 Mild intermittent acute asthmatic bronchitis (CMS/HCC) 12/29/2022 Mixed hyperlipidemia (CMS/HCC) 12/29/2022 Morbid (severe) obesity due to excess calories (CMS/HCC) 12/29/2022 Other congenital malformations of lower limb(s), including pelvic girdle 12/29/2022 Recurrent cold sores 12/29/2022 Right arm pain 12/29/2022 Seasonal allergic rhinitis 12/29/2022 Vitamin D deficiency 07/31/2011 Anticoagulation goal of INR 2.5 to 3.5 07/29/2016 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 08/03/2020 Aortic valve insufficiency 05/08/2023 Mitral valve insufficiency 05/08/2023 Abnormal liver function test 10/06/2023 Primary hypertension (CMS/HCC) 10/06/2023 Elevated liver enzymes 01/26/2024 Endometriosis 01/26/2024 Hepatomegaly 01/26/2024 Body mass index (BMI) 40.0-44.9, adult (CMS/HCC) 02/25/2024 Pulmonary fibrosis, unspecified (CMS/HCC) 02/25/2024 Resolved Ambulatory Problems Diagnosis Date Noted Finding of above normal blood pressure 12/29/2022 Abdominal pain 03/31/2024 Past Medical History: Diagnosis Date Allergic Allergies ASCUS of cervix with negative high risk HPV Asthma (CMS/HCC) Chronic kidney disease, stage 3a (HCC) (CMS/[facility]) Fatty liver Gall bladder disease 2009 Personal history of medical treatment Personal history of medical treatment 11/09/2018 Personal history of medical treatment 11/03/2018 Personal history of medical treatment 04/29/2021 SOB (shortness of breath) 2014 Stage 3a chronic kidney disease (CKD) ([facility]/HCC) Sterilization 2005 HISTORY PAST MEDICAL HISTORY SOCIAL HISTORY Past Medical History: Diagnosis Date Abdominal pain 03/31/2024 Allergic Allergies ASCUS of cervix with negative high risk HPV Asthma ([facility]/HCC) Chronic kidney disease, stage 3a (HCC) ([facility]) Fatty liver Gall bladder disease 2009 Personal history of medical treatment Lifelong Antibiotics Personal history of medical treatment 11/09/2018 U/S shows slightly prominent and heterogeneous uterus containing 2 myometrial masses both favor leiomyomas Personal history of medical treatment 11/03/2018 ASCUS Personal history of medical treatment 04/29/2021 New 2.2 lobular mass within the lower-outer quadrant, approximately 9:00 Mid. SOB (shortness of breath) 2014 Stage 3a chronic kidney disease (CKD) ([facility]) Sterilization 2005 [facility] Social History Tobacco Use Smoking status: Never Smokeless tobacco: Never Vaping Use Vaping status: Never Used Substance Use Topics Alcohol use: Not Currently Drug use: Never FAMILY HISTORY Family History Problem Relation Name Age of Onset Hypertension Mother Heart disease Mother Thyroid disease Mother Heart disease Father Hypothyroidism Sister SURGICAL HISTORY Past Surgical History: Procedure Laterality Date CARDIAC SURGERY 2016 2 Valve replacements , heart cath CARPAL TUNNEL RELEASE Right 06/02/2022 CHOLECYSTECTOMY 2008 ENDOMETRIAL BIOPSY 11/2018 MR ANGIOGRAM CHEST W AND WO IV CONTRAST 03/07/2016 MR ANGIOGRAM CHEST W AND WO IV CONTRAST REVIEW OF SYSTEMS Review of Systems: Review of Systems Constitutional: Negative. HENT: Negative. Eyes: Negative. Respiratory: Negative. Cardiovascular: Negative. Gastrointestinal: Negative. Genitourinary: Negative. Musculoskeletal: Negative. Skin: Negative. Neurological: Negative. All other systems reviewed and are negative. Hematological: Negative. Endocrine: Negative. Allergic/Immunologic: Negative. OBJECTIVE Objective: Physical Exam Constitutional: Appearance: Normal appearance. Genitourinary: Right Adnexa: not tender and no mass present. Left Adnexa: not tender and no mass present. No cervical discharge. Breasts: Breasts are soft. Right: Normal. Left: Normal. HENT: Head: Normocephalic. Nose: Nose normal. Mouth/Throat: Mouth: Mucous membranes are moist. Cardiovascular: Rate and Rhythm: Normal rate. Pulmonary: Effort: Pulmonary effort is normal. Abdominal: General: Bowel sounds are normal. Palpations: Abdomen is soft. Musculoskeletal: General: Normal range of motion. Cervical back: Normal range of motion. Neurological: General: No focal deficit present. Mental Status: She is alert. Skin: General: Skin is warm and dry. Psychiatric: Mood and Affect: Mood normal. Vitals and nursing note reviewed. Exam conducted with a tap out operator present. Vitals: Estimated body mass index is 40.19 kg/m as calculated from the following: Height as of this encounter: 5' 6 . Weight as of this encounter: 249 lb. BP: 122/76 No LMP recorded. Patient is postmenopausal. ASSESSMENT & PLAN ICD-10-CM 1. Well woman exam with routine gynecological exam Z01.419 THIN PREP TIS PAP AND HR HPV DNA 2. Postmenopausal state Z78.0 DEXA bone density Annual Exam: Patient presents today for an annual exam. Patient states she is doing well and has no complaints. Pap was obtained without difficulty. Orders Placed This Encounter Procedures DEXA bone density Follow Up: Patient is to return in one year for annual unless needed otherwise. Documented by GRACE Munoz on behalf of: GRACE Munoz documented in this encounter [facility] 04-07-2024 History of Present illness Narrative Images from the original note were not included. HPI URI Additional comments: Missed work a couple of days Last edited by Michelle Ken MA on 04/07/2024 7:29 AM. Subjective Patient ID: Alfredo Balbuena is a 49 y.o. female who presents for URI (Missed work a couple of days). her son had the same thing last week This started Thursday with nausea, fatigue, her gums were hurting her, pressure, drainage green, Thursday she did have body aches Pt has tried nyquil and dayquil , pt today is feeling better Pt did miss work for the and Son had similar symptoms recently. URI This is a new problem. The current episode started in the past 7 days. There has been no fever. Associated symptoms include headaches, sinus pain and sneezing. Pertinent negatives include no chest pain, coughing, diarrhea, ear pain, nausea, sore throat, vomiting or wheezing. Current Outpatient Medications on File Prior to Visit Medication Sig Dispense Refill acyclovir (Zovirax) 400 MG tablet take 1 tablet by mouth once daily 100 tablet 3 aspirin 81 MG EC tablet Take 81 mg by mouth 1 (one) time. cholecalciferol (Vitamin D-3) 125 MCG (5000 UT) capsule Take 5,000 Units by mouth Daily esomeprazole (NexIUM) [address] capsule Take 20 mg by mouth in the morning. Take before meals. ferrous sulfate 325 (65 Fe) MG tablet Take 325 mg by mouth 1 (one) time each day. furosemide (Lasix) 40 MG tablet Take 40 mg by mouth in the morning and 40 mg before bedtime. PRN. losartan (Cozaar) 100 MG tablet Take 1 tablet (100 mg) by mouth Daily 90 tablet 1 Melatonin 10 MG capsule Take 1 tablet by mouth as needed at bedtime (trouble sleeping). metoprolol succinate XL (Toprol-XL) 25 MG 24 hr tablet take 1 tablet by mouth once daily 90 tablet 3 potassium chloride CR (Klor-Con) 10 MEQ ER tablet take 1 tablet by mouth twice a day with food 220 tablet 2 Semaglutide-Weight Management (Wegovy) 0.25 MG/0.5ML solution auto-injector Inject 0.25 mg under the skin 1 (one) time per week 2 mL 5 traMADol (Ultram) 50 MG tablet Take 1 tablet (50 mg) by mouth every 6 (six) hours if needed for severe pain 20 tablet 0 warfarin (Coumadin) 5 MG tablet Take 1 tablet (5 mg) by mouth See administration instructions Take 5 mg daily. Except for 2.5 mg on Thursday and Thursday No current facility-administered medications on file prior to visit. Allergies Allergen Reactions Meloxicam Other Reaction(s): Elevated BP Social History Tobacco Use Smoking status: Never Smokeless tobacco: Never Vaping Use Vaping status: Never Used Substance Use Topics Alcohol use: Not Currently Drug use: Never Family History Problem Relation Name Age of Onset Hypertension Mother Heart disease Mother Thyroid disease Mother Heart disease Father Hypothyroidism Sister Past Medical History: Diagnosis Date Abdominal pain 03/31/2024 Allergic Allergies ASCUS of cervix with negative high risk HPV Asthma (CMS/HCC) Chronic kidney disease, stage 3a (HCC) (CMS/HCC) Gall bladder disease 2009 Personal history of medical treatment Lifelong Antibiotics Personal history of medical treatment 11/09/2018 U/S shows slightly prominent and heterogeneous uterus containing 2 myometrial masses both favor leiomyomas Personal history of medical treatment 11/03/2018 ASCUS Personal history of medical treatment 04/29/2021 New 2.2 lobular mass within the lower-outer quadrant, approximately 9:00 Mid. SOB (shortness of breath) 2014 Stage 3a chronic kidney disease (CKD) (CMS/HCC) Sterilization 2004 [facility] Past Surgical History: Procedure Laterality Date CARDIAC SURGERY 2016 2 Valve replacements , heart cath CARPAL TUNNEL RELEASE Right 06/02/2022 CHOLECYSTECTOMY 2008 ENDOMETRIAL BIOPSY 11/2018 MR ANGIOGRAM CHEST W AND WO IV CONTRAST 03/07/2016 MR ANGIOGRAM CHEST W AND WO IV CONTRAST Visit Vitals BP 138/82 Pulse 53 Temp 97.4 F Ht 5' 6 Wt 253 lb SpO2 99% BMI 40.84 kg/m Smoking Status Never BSA 2.31 m Review of Systems Constitutional: Positive for fatigue. Negative for chills and fever. HENT: Positive for sinus pain and sneezing. Negative for ear pain and sore throat. Respiratory: Negative for cough, shortness of breath and wheezing. Cardiovascular: Negative for chest pain, palpitations and leg swelling. Gastrointestinal: Negative for constipation, diarrhea, nausea and vomiting. Neurological: Positive for headaches. Objective Physical Exam Constitutional: General: She is not in acute distress. Appearance: She is well-developed. She is obese. Comments: Appears fatigued HENT: Head: Normocephalic and atraumatic. Right Ear: Tympanic membrane and ear canal normal. Left Ear: Tympanic membrane and ear canal normal. Nose: Congestion present. Right Turbinates: Not swollen. Left Turbinates: Not swollen. Mouth/Throat: Mouth: Mucous membranes are moist. Pharynx: Posterior oropharyngeal erythema present. Comments: Minimal erythema of pharynx Eyes: General: No scleral icterus. Conjunctiva/sclera: Conjunctivae normal. Neck: Thyroid: No thyromegaly. Cardiovascular: Rate and Rhythm: Normal rate and regular rhythm. Heart sounds: Normal heart sounds. No murmur heard. Pulmonary: Effort: Pulmonary effort is normal. No respiratory distress. Breath sounds: Normal breath sounds. No wheezing, rhonchi or rales. Lymphadenopathy: Cervical: No cervical adenopathy. Skin: General: Skin is warm and dry. Neurological: General: No focal deficit present. Mental Status: She is alert and oriented to person, place, and time. Psychiatric: Mood and Affect: Mood normal. Behavior: Behavior normal. Assessment/Plan Diagnoses and all orders for this visit: Upper respiratory tract infection, unspecified type Likely viral and should continue to gradually improve. Increase water intake, get plenty of rest. Can continue to take OTC medication as needed for symptoms. Contact office if no improvement by Thursday. Screening for malignant neoplasm of colon - Cologuard colon cancer screening Provided patient with order to complete Cologuard testing as a screening for colon cancer. If results are negative, will plan to recheck a Cologuard in 3 years. If results are positive, would need to provide patient with referral for a screening Colonoscopy for further evaluation. Note for work provided for 04/05-04/06. Follow up for Appointment As Scheduled. documented in this encounter [facility] 06-04-2022 Note [phone] [id number] 06-02-2022 Note Procedure: Decompres kayli of [...] 06/02/2022 17:43 EDT] Bharathi Lopez DO [facility] 06-02-2022 Note [facility] SURGERY Clinical Discharge Summary PERSON INFORMATION Name ALFREDO BALBUENA Age 47 Years 1975 Sex FEMALE Language Lithuanian PCP COLUMBA HASSAN MD Marital Status [facility] Service Ambulatory Surgery N 18-03-92 Acct# Arrival Visit Reason SURGERY - RELEASE RIGHT CARPAL TUNNEL Acuity LOS 005 21:20 Address: [address] [place] [address] Comment: PROVIDER INFORMATION VITALS INFORMATION Vital Sign [...] oral table (more content not included)... [facility] 05-30-2022 Note spoke to pt regardin g upcoming procedure for wednesday 05/30 @ 1015 and instructed pt to be here at 815 and to be NPO after midnight and take medications that were instructed to take. Pt states she spoke to FADUMO at Dr Lopez's and was told she did NOT have to stop her coumadin. [Electronically Signed on: 05/30/2022 10:19 EDT] Noemi Brooke RN [Verified on: 05/30/2022 10:19 EDT] Noemi Brooke RN [facility] 05-02-2022 Note HNO ID: [id number] Author: Giuliano Walton MD Service: ? Author Type: Physician Type: Progress Notes Filed: 05/02/2022 4:18 PM Note Text: [facility] Department of Cardiovascular Medicine SECTION OF CARDIOVASCULAR IMAGING OUTPATIENT VISIT DATE May 02, 2022 OUTPATIENT VISIT TYPE NEW (>3yrs since last seen) PRIMARY CARE PHYSICIAN: Adria Snyder DO [address] [place] [address] CHIEF COMPLAINT: Postoperative Follow Up. HISTORY OF [...] tunnel surgery. 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 She reports edema in b/l lower extremities [...] Disease Father Heart Father age 63- massive DE Diabetes Mother Thyroid Sister hypertension None Sister [...] without antibiotics. s/ (more content not included)... [facility] 05-02-2022 History of Present illness Narrative Images from the original note were not included. [facility] Department of Cardiovascular Medicine SECTION OF CARDIOVASCULAR IMAGING OUTPATIENT VISIT DATE May 02, 2022 OUTPATIENT VISIT TYPE NEW (>3yrs since last seen) PRIMARY CARE PHYSICIAN: Adria Snyder DO [address] [place] [address] CHIEF COMPLAINT: Postoperative Follow Up. HISTORY OF PRESENT ILLNESS: Ms. Balbunea is a 47 year old female who [...] tunnel surgery. 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 She reports edema in b/l lower extremities [...] Disease Father Heart Father age 63- massive [place] Diabetes Mother Thyroid Sister hypertension None Sister [...] tunnel surgery. 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 She reports edema in b/l lower extremities [...] CONTACT INFORMATION: Giuliano Walton MD, PhD, BEVERLY Schedule Managerolive grower, [facility] [employer] [facility], Staff, Section of Cardiovascular Imaging, Co-Director Cardio-Oncology Center, [facility]. Of Cardiovascular Medicine, [address] / [address] [place], [place] [address] Appt: [phone] documented in this encounter [facility] 02-27-2022 Miscellaneous Notes REACHED OUT TO PATIENT IN REGARDS TO UPDATING INSURANCE. LEFT VMAIL TO CALL BACK WITH INFO documented in this encounter [facility] 07-29-2016 History of Past i llness Narrative [...] arrived from OR intubated and sedated. Slow [id number]-jn-anzeshqk secondary to hemodynamic instability. documented as of this encounter (statuses as of 02/26/2022) [facility]12-13-2016 History of Past illness Narrative* Problem Noted [...] arrived from OR intubated and sedated. Slow fgrc-cz-gyfnjcty secondary to hemodynamic instability. documented as of this encounter (statuses as of 02/27/2022) [facility]12-13-2016 History of Past illness Narrative* Problem Noted [...] arrived from OR intubated and sedated. Slow pucq-pt-lhiuovaz secondary to hemodynamic instability. documented as of this encounter (statuses as of 05/02/2022) [facility] complaint Narrative - ReportedALFREDO BALBUENA is being seen for a consultation for. 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, unspecified Obesity (BMI 30-39.9) Obesity, unspecified [facility]* Diagnosis Onset Date Resolution Status Elevated liver enzymes acute Hepatomegaly [facility] Work Phone: Evaluation note* Diagnosis Primary hypertension (CMS/HCC)- Primary Unspecified essential hypertension H/O mitral valve replacement with mechanical valve History of 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 with mechanical valve 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 Encounter for immunization Morbid (severe) obesity due to excess calories (CMS/HCC) [facility]* Diagnosis Well woman exam with routine gynecological exam Routine gynecological examination Postmenopausal state Asymptomatic postmenopausal status (age-related) (natural) documented in this encounter [facility]* Diagnosis Primary hypertension (CMS/HCC)- Primary Unspecified essential hypertension H/O mitral valve replacement with mechanical valve History of 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 with mechanical valve 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 Balbuena is a 46-year-old female who is seen today for preoperative clearance for her to have carpal tunnel surgery. 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 She has mechanical valves apparently in bothpositions. This was done at [facility]. She is on chronic Coumadin. She has no cardiac complaints and she has been stable. She used to follow with [facility] cardiology but did not continue to [...] Lopez who my understanding is operates at [place] or [facility]. I discussed with the patient that her cardiac status is essentially normal but given her valve history and the need for being on heparin while her Coumadin is withheld and then at the end of her surgery reversing this process does represent some risk and her best option may well be to have surgery done at a tertiary center such [facility] where they would be more familiar [...] return here on a as needed basis. -[facility] [address] DO Work Phone: Hospital Discharge instructions [...] significant worsening, please return so we can reevaluate.[facility] Work Phone: Reason for referral (narrative)* Outpatient Procedure (Routine) - Pending Review Specialty Diagnoses / Procedures Referred By Contac t Referred To Contact [facility] [place] Diagnoses S/P AVR Procedures ECHO ECHO TTHRC R-T 2D W/WOM-MODE COMPL SPEC&COLR D Giuliano Walton MD [address] [place] [address] [facility] [place] [id number] Referral ID Status Reason Start Date Expiration Date Visits Requested Visits Authorized [id number] Pending Review Auto-Generat ed Referral 02/26/2022 02/26/2023 1 1 * Outpatient Procedure (Routine) - Pending Review Specialty Diagnoses / Procedures Referred By Contscott freeman Referred To Contact [facility] Diagnoses S/P AVR Procedures ECG COMPLETE ECG ROUTINE ECG W/LEAST 12 LDS W/I&[place] [address] [place] [id number] [address] Referral ID Status Reason Start Date Expiration Date Visits Requested Visits Authorized [id number] Pending Review Auto-Generat ed Referral 02/26/2022 02/26/2023 1 1 [facility] Summary Purpose Family History No Family History Records FoundUnknown Family Member Name Dates Details Family history of myocardial infarction: Father, Brother(V17.3, Z82.49) Status:Active History of PTCA: Father(V45. 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 Advance Directive(s) 07/22/2016 11:10 AM Advance Directive Response Recorded Date/ Time Advance Directives No July 11:05am Chief Complaint and Reason for Visit Chief Complaint hepatomegaly/Jayleen H emmer referred fatty liver Reason for Visit Elevated liver enzym es Hepatomegaly Chief Complaint hepatomegaly/Jayleen H carmitaer referred fatty liver abd/back pain Reason for Visit Elevated liver enzym es Hepatomegaly Additional Source Comments INFORMATION SOURCE (unrecogn ized section and content) DATE CREATED AUTHOR 10/04/2021 [facility] DATE CREATED AUTHOR AUTHOR'S ORGANIZ ATION 01/21/2022 [employer] DATE CREATED AUTHOR AUTHOR'S ORGANIZ ATION 05/17/2022 [facility] DATE CREATED AUTHOR AUTHOR'S ORGANIZ ATION [facility] DATE CREATED AUTHOR AUTHOR'S ORGANIZ ATION 06/04/2024 [facility] EPIC DATE CREATED AUTHOR AUTHOR'S ORGANIZ ATION 08/11/2024 [facility] Source Comments (unrecognize d section and content) In the event this informatio n is protected by the Federal Confidentiality of Alcohol and Drug Abuse Patient Records regulations: The Federal rules restrict any use of the information to criminally investigate or prosecute any alcohol or drug abuse patient.[facility] Company[facility] the event this information is protected by the Federal Confidentiality of Alcohol and Drug Abuse Patient Records regulations: The Federal rules restrict any use of the information to criminally investigate or prosecute any alcohol or drug abuse patient.[facility] CompanyIn the event this information is protected by the Federal Confidentiality of Alcohol and Drug Abuse Patient Records regulations: The Federal rules restrict any use of the information to criminally investigate or prosecute any alcohol or drug abuse patient.[facility] Care Teams (unrecognized sec tion and content) Trim Installer Relationship Specialty Start Date End Date Adria Snyder PCP - General Family Practice 01/03/16 Trim Installer Relationship Specialty Start Date End Date Adria Snyderw PCP - General Family Practice 01/03/16 Trim Installer Relationship Specialty Start Date End Date Columba Hassan [address] [facility] [address] [place] [address] PCP - General Family Practice 05/02/22 Team Status: Active Member Role Status Dates Columba Hassan MD Primary Care Provider Active Team Status: Inactive Member Role Status Dates Alf Santos MD Attending Provider Active S tart: December 31, 2023 End: December 31, 2023 Jayleen Arango PA-C Primary Care Provider Active Start: December [...] February 21, 2024 End: February 22, 2024 Trim Installer Relationship Specialty Start Date End Date Columba Hassan MD [address] [place] [address] PCP - General Family Medicine 01/14/23 Adria Sims MD [address] [facility] [address] [place] [address] PCP - [employer] 01/16/24 Trim Installer Relationship Specialty Start Date End Date Columba Hassan MD [address] [place] [address] PCP - General Family Medicine 01/14/23 Adria Sims MD [address] [place] [address] PCP - [employer] 01/16/24 Trim Installer Relationship Specialty Start Date End Date Columba Hassan MD [address] [place] [address] PCP - General Family Medicine 01/14/23 Adria Sims MD [address] [place] [address] PCP - [employer] 01/16/24 Trim Installer Relationship Specialty Start Date End Date Columba Hassan MD [address] [place] [address] PCP - General Family Medicine 01/14/23 Adria Sims MD [address] [place] [address] PCP - [employer] 01/16/24 Trim Installer Relationship Specialty Start Date End Date Columba Hassan MD [address] [place] [address] PCP - General Family Medicine 01/14/23 Adria Sims MD [address] [facility] [address] [place] [address] PCP - [employer] 01/16/24 Trim Installer Relationship Specialty Start Date End Date Columba Hassan MD [address] [facility] [address] [place] [address] PCP - General Family Medicine 01/14/23 Adria Sims MD [address] [facility] [address] [place] [address] PCP - [employer] 01/16/24 Reason for Visit (unrecogniz ed section and [...] NEW IMAGING PATIENT Self Giuliano Walton MD [address] [place] [address] Referral ID Status Reason Start Date Expiration Date Visits Re quested Visits Authorized [id number] Closed 05/02/2022 08/16/2022 1 1 Reason Comments Well Women Visit Reason Comments URI Missed work a couple of days FOR RECORDS PERTAINING TO PATIENTS WHO ARE [...] BE BASED ON THE PRIMARY CLINICAL RECORDS. [facility]. provides no warranty or guarantee of the accuracy or completeness of information in this document.
[2024-09-07 22:34] VITALS: BP 180/84; PULSE 67; TEMP 36.4; O2SAT 100; BMI 37.6
--- NOTE | 2024-09-07 22:44 | CT_ITS ---
The [address] [address] Patient Name: SHELIA BALBUENA MRN: [id number] date: 1975 Sex: F Assigned Patient Location: ER Current Patient Location: ER Accession/Order Number: [id number] Exam Date: 09/07/2024 23:06 Report Date: 09/08/2024 00:05 At the request of: LAWRENCE CONNOR Procedure: CT abdomen pelvis w con EXAMINATION: CT abdomen pelvis w con, 09/07/2024 11:06 PM EST HISTORY: RLQ pain COMPARISON: Right upper quadrant ultrasound 09/29/2023 TECHNIQUE: Axial helical CT images were obtained through the abdomen and pelvis following IV contrast administration . Sagittal and coronal reformats were generated and reviewed. Dose reduction techniques were achieved by using automated exposure control and/or adjustment of mA and/or kV according to patient size and/or use of iterative reconstruction technique. FINDINGS: Lung bases: Clustered nodularity of the right lung base and partially visualized left upper lobe. Visualized mediastinum: Valve prostheses. No significant pericardial effusion. Liver: Normal contour. No focal lesion identified. Gallbladder and biliary system: Surgically absent. Unremarkable extrahepatic bile duct. Pancreas: Uniform enhancement. No arsh-pancreatic ascites. Spleen: Nonspecific peripheral subcentimeter hypodensity, too small to characterize. Otherwise normal. Adrenal glands: No nodule. Kidneys and ureters: Symmetric renal enhancement. Mild right hydronephrosis and hydroureter with periureteral stranding near the UPJ. Obstructive 2 mm stone at the right ureterovesicular junction. Additional punctate right lower pole stone. No left-sided hydronephrosis or urinary tract stone identified. Bladder: Evaluation limited by underdistention. Bowel: No evidence of bowel obstruction. No focal inflammatory change. Appendix: Normal. Peritoneum: No free air. No significant free fluid. Reproductive: Tubal occlusion devices. Vasculature: No abdominal aortic aneurysm. Soft tissues: No evidence of mass or organized fluid collection. Bones: No acute abnormality. No evidence of aggressive lytic or blastic lesion. Poststernotomy changes. CT/CT abdomen pelvis w con IMPRESSION: 1. Obstructive 2-3 mm urinary tract stone at the right ureteropelvic junction. Small amount of fluid about the right ureteropelvic junction may be reactive; calyceal rupture is difficult to exclude. Additional punctate right lower pole nephrolith. 2. Clustered nodularity of the left and right lung, suspicious for infectious or inflammatory etiology. No focal consolidation within the [id number]. Electronically authenticated by: TRACY WISDOM Date: 09/08/2024 00:05
--- NOTE | 2024-09-07 22:44 | ED.ABDPAIN1 ---
HPI - Abdominal Pain General Chief Complaint: Abdominal Pain Stated Complaint: abdominal pain Time Seen by Provider: 09/07/24 22:30 History of Present Illness HPI narrative: 49-year-old female presents for right lower quadrant abdominal pain which started 4 hours before coming into the emergency department. She is never had pain like this before and it is continuous and moderate to severe. No fever or trauma. She had some diarrhea yesterday but none today. No left-sided pain and no flank pain. Related Data Home Medications ?Medication ?Instructions ?Recorded ?Confirmed acyclovir 400 mg tablet 400 mg PO DAILY 09/09/23 09/07/24 cholecalciferol (vitamin D3) 125 5,000 unit PO DAILY 09/09/23 09/07/24 mcg (5,000 unit) tablet esomeprazole sodium 20 mg 20 mg IV DAILY 09/09/23 09/09/23 intravenous solution ferrous sulfate 325 mg (65 mg 325 mg PO DAILY 09/09/23 09/07/24 iron) tablet (Feosol) furosemide 40 mg tablet 40 mg PO Q12H PRN edema 09/09/23 09/07/24 losartan 50 mg tablet 100 mg PO DAILY 09/09/23 09/07/24 metoprolol succinate 25 mg 25 mg PO DAILY 09/09/23 09/07/24 tablet,extended release 24 hr potassium chloride 10 mEq 10 meq PO BID 09/09/23 09/07/24 tablet,extended release tramadol 50 mg tablet 50 mg PO Q6H 09/09/23 09/07/24 warfarin 5 mg tablet 5 mg PO DAILY 09/09/23 09/07/24 phentermine 37.5 mg tablet 37.5 mg PO DAILY 09/07/24 09/07/24 Previous Rx's ?Medication ?Instructions ?Recorded hydrocodone 5 mg-acetaminophen 325 1 tab PO Q6H PRN pain 5 days #20 09/08/24 mg tablet tabs ibuprofen 800 mg tablet 800 mg PO Q8H PRN pain #20 tabs 09/08/24 ondansetron 4 mg disintegrating 4 mg PO Q6H PRN nausea and 09/08/24 tablet vomiting #20 tabs tamsulosin 0.4 mg capsule (Flomax) 0.4 mg PO DAILY #7 caps 09/08/24 Allergies Allergy/AdvReac Type Severity Reaction Status Date / Time meloxicam AdvReac Mild Hypertensio Verified 09/07/24 22:43 n Review of Systems ROS Narrative A ten point review of systems is negative except as noted above. PFSH PFSH Social History Smoking status: Never smoker Little interest or pleasure in doing things: not at all Feeling down, depressed, or hopeless: not at all Exam Narrative Exam Narrative: Nurses note and vital signs reviewed and patient is not hypoxic. General: The patient appears well and in no apparent distress. Patient is resting comfortably on cart. Skin: Warm, dry, no pallor noted. There is no rash noted. Head: Normocephalic, atraumatic Eye: Normal conjunctiva, no drainage Ears, Nose, Mouth, and Throat: oral mucosa is moist. Nares patent. Cardiovascular: Regular Rate and Rhythm Respiratory: Patient is in no distress, no accessory muscle use, lungs are clear to auscultation, no wheezing, rales or rhonchi Back: non-tender GI: Normal bowel sounds, I do not appreciate tenderness to palpation in the right lower quadrant or elsewhere. No masses. Musculoskeletal: The patient has no evidence of calf tenderness, no pitting edema, symmetrical pulses noted bilaterally Neurological: A&O normal speech Psychiatric: Cooperative Constitutional Vital Signs, click to edit/add: Last Vital Signs Temp 97.5 F L 09/07/24 22:34 Pulse 67 09/07/24 22:34 Resp 18 09/07/24 22:34 BP 180/84 H 09/07/24 22:34 Pulse Ox 100 09/07/24 22:34 O2 Del Method Room Air 09/07/24 22:34 Course Vital Signs Vital signs: Vital Signs Temperature 97.5 F L 09/07/24 22:34 Pulse Rate 67 09/07/24 22:34 Respiratory Rate 18 09/07/24 22:34 Blood Pressure 180/84 H 09/07/24 22:34 Pulse Oximetry 100 09/07/24 22:34 Oxygen Delivery Method Room Air 09/07/24 22:34 Temperature 97.5 F L 09/07/24 22:34 Pulse Rate 67 09/07/24 22:34 Respiratory Rate 18 09/07/24 22:34 Blood Pressure 180/84 H 09/07/24 22:34 Pulse Oximetry 100 09/07/24 22:34 Oxygen Delivery Method Room Air 09/07/24 22:34 MDM - Abdominal Pain MDM Narrative Medical decision making narrative: Kidney stone is identified. Her pain is under good control and she was feeling much better. She will follow-up promptly with urology and was prescribed pain medication and Flomax. Treatment diagnosis and follow-up were discussed with the patient. Differential Diagnosis Differential diagnosis: Likely abdominal pain, calculus of kidney, constipation and gastroenteritis Lab Data Attestation: I reviewed the patient's lab results. Labs: Lab Results 09/07/24 09/07/24 Range/Units 22:56 22:57 WBC 8.5 (4.0-11.0) 10^3/uL RBC 4.09 L (4.20-5.40) 10^6/uL Hgb 12.0 (12.0-16.0) g/dL Hct 38.0 (36.0-48.0) % MCV 92.9 (81.0-99.0) fL MCH 29.3 (26.7-34.0) pg MCHC 31.6 (29.9-35.2) g/dL RDW 12.2 (11.0-15.0) % Plt Count 292 (150-450) 10^3/uL MPV 10.4 (9.5-13.5) fL Neut % (Auto) 83.0 H (43.0-75.0) % Lymph % (Auto) 12.2 L (20.5-60.0) % Reeves % (Auto) 3.3 (1.7-12.0) % Eos % (Auto) 0.9 (0.9-7.0) % Baso % (Auto) 0.5 (0.2-2.0) % Neut # (Auto) 7.1 H (1.4-6.5) 10^3/uL Lymph # (Auto) 1.0 L (1.2-3.8) 10^3/uL Reeves # (Auto) 0.3 (0.3-0.8) 10^3/uL Eos # (Auto) 0.1 (0.0-0.7) 10^3/uL Baso # (Auto) 0.0 (0.0-0.1) 10^3/uL Abs Immat Gran (auto) 0.01 (0.00-0.03) 10^3/uL Imm/Tot Granulo (auto) 0.1 (0.0-0.5) % Sodium 145 (136-145) mmol/L Potassium 4.0 (3.5-5.1) mmol/L Chloride 109 H (98-107) mmol/L Carbon Dioxide 26.3 (21.0-32.0) mmol/L Anion Gap 13.7 BUN 26.0 H (7.0-18.0) mg/dL Creatinine 1.22 H (0.55-1.02) mg/dL Est GFR ( Amer) 57 L (>=60 mL/min/1.73m^2) Est GFR (Non-Af Amer) 47 L (>=60 mL/min/1.73m^2) BUN/Creatinine Ratio 21.3 Glucose 111 H (74-106) mg/dL Calcium 9.3 (8.5-10.1) mg/dL Total Bilirubin 0.3 (0.2-1.0) mg/dL Direct Bilirubin 0.1 (0.0-0.2) mg/dL AST 13 L (15-37) U/L ALT 17 (14-59) U/L Alkaline Phosphatase 75 (46-116) U/L Total Protein 7.0 (6.4-8.2) g/dL Albumin 3.7 (3.4-5.0) g/dL Globulin 3.3 g/dL Albumin/Globulin Ratio 1.1 Amylase 35 (25-115) U/L Lipase 44.0 (16.0-77.0) U/L Urine Color Dk yellow (YELLOW) Urine Clarity Cloudy A (CLEAR) Urine pH 6.0 (5.0-9.0) Ur Specific Rumson >=1.030 A (1.005-1.025) Urine Protein 30 A (NEG/TRACE) mg/dL Urine Glucose (UA) Negative (NEGATIVE) mg/dL Urine Ketones Trace A (NEGATIVE) mg/dL Urine Occult Blood Large A (NEGATIVE) Urine Nitrite Negative (NEGATIVE) Urine Bilirubin Small A (NEGATIVE) Urine Urobilinogen 0.2 (0.2-1.0) EU/dL Ur Leukocyte Esterase Negative (NEGATIVE) Urine RBC >100 A (0-2) #/HPF Urine WBC 2-5 A (NONE SEEN) #/HPF Ur Squamous Epith Cells Few A (NONE/RARE) #/LPF Urine Crystals None seen (None Seen) #/HPF Urine Bacteria Trace A (NONE SEEN) #/HPF Urine Casts None seen (NONE SEEN) #/LPF Urine Mucus Trace A (NONE SEEN) Ur Culture Indicated? No Discharge Plan Discharge Chief Complaint: Abdominal Pain Clinical Impression: Kidney stone Patient Disposition: Home, Self-Care Time of Disposition Decision: 01:01 Condition: Good Mode of Transportation: Private Vehicle Prescriptions / Home Meds: New ibuprofen 800 mg tablet 800 mg PO Q8H PRN (Reason: pain) Qty: 20 0RF hydrocodone-acetaminophen 5-325 mg tablet 1 tab PO Q6H PRN (Reason: pain) 5 Days Qty: 20 0RF tamsulosin [Flomax] 0.4 mg capsule 0.4 mg PO DAILY Qty: 7 0RF ondansetron 4 mg tablet,disintegrating 4 mg PO Q6H PRN (Reason: nausea and vomiting) Qty: 20 0RF No Action warfarin 5 mg tablet 5 mg PO DAILY acyclovir 400 mg tablet 400 mg PO DAILY metoprolol succinate 25 mg tablet extended release 24 hr 25 mg PO DAILY cholecalciferol (vitamin D3) 125 mcg (5,000 unit) tablet 5,000 unit PO DAILY tramadol 50 mg tablet 50 mg PO Q6H losartan 50 mg tablet 100 mg PO DAILY esomeprazole sodium 20 mg recon soln 20 mg IV DAILY Rx Instructions: administer over at least 3 mins if given IV push ferrous sulfate [Feosol] 325 mg (65 mg iron) tablet 325 mg PO DAILY furosemide 40 mg tablet 40 mg PO Q12H PRN (Reason: edema) potassium chloride 10 mEq tablet extended release 10 meq PO BID phentermine 37.5 mg tablet 37.5 mg PO DAILY Print Language: Tanzanian Instructions: Kidney Stones (ED), How to Strain Your Urine (ED) Referrals: Marcos Gallardo MD [Physician] - 1 week COLUMBA HASSAN [Primary Care Provider] - 1 week
[2024-09-07 23:10] LABS: Basophils Percent Auto 0.5 % (0.2-2.0); Eosinophils Absolute Auto 0.1 10^3/uL (0.0-0.7); Eosinophils Percent Auto 0.9 % (0.9-7.0); Immature Granulocytes Abs Auto 0.01 10^3/uL (0.00-0.03); Immature Granulocytes Pct Auto 0.1 % (0.0-0.5); Lymphocytes Percent Auto 12.2 % (20.5-60.0); Mean Corpuscular HGB Conc 31.6 g/dL (29.9-35.2); Mean Corpuscular Hemoglobin 29.3 pg (26.7-34.0); Mean Corpuscular Volume 92.9 fL (81.0-99.0); Mean Platelet Volume 10.4 fL (9.5-13.5); Monocytes Absolute Auto 0.3 10^3/uL (0.3-0.8); Monocytes Percent Auto 3.3 % (1.7-12.0); Neutrophils Absolute Auto 7.1 10^3/uL (1.4-6.5); Platelet Count 292 10^3/uL (150-450); Red Blood Count 4.09 10^6/uL (4.20-5.40); Red Cell Distribution Width 12.2 % (11.0-15.0); White Blood Count 8.5 10^3/uL (4.0-11.0)
[2024-09-07 23:21] LABS: Bilirubin Urine SMALL (NEGATIVE); Blood Urine LARGE (NEGATIVE); Clarity Urine CLOUDY (CLEAR); Glucose Urine UA NEGATIVE (NEGATIVE); Ketones Urine TRACE mg/dL (NEGATIVE); Leukocyte Esterase Urine NEGATIVE (NEGATIVE); Nitrite Urine NEGATIVE (NEGATIVE); Protein Urine 30 mg/dL (NEG/TRACE); Specific Gravity Urine >=1.030 (1.005-1.025); Urobilinogen Urine 0.2 EU/dL (0.2-1.0)
[2024-09-07 23:22] LABS: Color Urine DK YELLOW (YELLOW)
[2024-09-07 23:25] LABS: Alanine Aminotransferase 17 U/L (14-59); Albumin Globulin Ratio 1.1; Albumin Level 3.7 g/dL (3.4-5.0); Alkaline Phosphatase 75 U/L (46-116); Amylase 35 U/L (25-115); Anion Gap 13.7; Aspartate Amino Transferase 13 U/L (15-37); BUN Creatinine Ratio 21.3; Bilirubin Direct 0.1 mg/dL (0.0-0.2); Bilirubin Total 0.3 mg/dL (0.2-1.0); Calcium 9.3 mg/dL (8.5-10.1); Carbon Dioxide 26.3 mmol/L (21.0-32.0); Chloride 109 mmol/L (98-107); Estimated GFR (African America 57 (>=60 mL/min/1.73m^2); Estimated GFR (Non-African Ame 47 (>=60 mL/min/1.73m^2); Globulin 3.3 g/dL; Glucose 111 mg/dL (74-106); Sodium 145 mmol/L (136-145)
[2024-09-07 23:38] LABS: Bacteria Urine TRACE #/HPF (NONE SEEN); Mucus Urine TRACE (NONE SEEN); RBC Urine >100 #/HPF (0-2); Squamous Epithelial Cell Urine FEW #/LPF (NONE/RARE)
[2024-09-07 23:39] LABS: Cast Seen? NONE SEEN #/LPF (NONE SEEN); Crystals Seen? None Seen #/HPF (None Seen); Urine Culture Indicated NO
[2024-09-08] MEDS: MORPHINE SULFATE 4 MG/ML VIAL IV
== END 2024-09-08 01:26 | disposition home or self-care (01) ==
PROVIDERS: Emergency Provider Emergency Medicine; PCP Family Medicine
DX: N20.0 Calculus of kidney (principal)
CPT/HCPCS: 36415; 74177; 80048; 80076; 81001; 82150; 83690; 85025; 96374; 99285; J2270; Q9967

== ENCOUNTER 2024-09-19 08:14 | Outpatient (OUT) | payer BC, SELFPAY ==
--- NOTE | 2024-09-19 08:22 | XR_ITS ---
The [address] [address] Patient Name: SHELIA BALBUENA MRN: [id number] date: 1975 Sex: F Assigned Patient Location: [facility] Current Patient Location: Accession/Order Number: [id number] Exam Date: 09/19/2024 08:30 Report Date: 09/21/2024 15:41 At the request of: BRUCE ARANGO Procedure: XR hip DIANDRA EXAMINATION: XR hip DIANDRA HISTORY: Bilateral Hip Pain COMPARISON: No relevant comparison available. FINDINGS: RIGHT FINDINGS: BONES: No significant arthropathy or acute abnormality. SOFT TISSUES: No visible soft tissue swelling. OTHER: Negative. LEFT FINDINGS: BONES: No significant arthropathy or acute abnormality. SOFT TISSUES: No visible soft tissue swelling. OTHER: Negative. XR/XR hip DIANDRA IMPRESSION: RIGHT CONCLUSION: No acute abnormality. Minimal degenerative changes. LEFT CONCLUSION: No acute abnormality. Minimal degenerative changes. Electronically authenticated by: TRACY NAJERA Date: 09/21/2024 15:41
--- OUTSIDE RECORDS SUMMARY | 2024-09-19 08:32 | XMS_ITS | CCD ---
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 Name Role Phone SONYA, DR [...] Care Unavailable SONYA, DR WATERMAN Consulting Unavailable CARROLLTON, DR JEANCARLOS Wong Consulting Unavailable HemmerJayleen M Unavailable Unavailable Unavailable Unavailable Adria Snyder Primary Care Provider SonyaColumba Primary Care Provider SONYA, RUGEN MABALAY Primary [...] Unavail able MD Alf Santos Attending Provider [phone] MD Columba Hassan Primary Care Provider MD Manish Gómez Jr Emergency Provider Columba Hassan MD Primary Care Provider Adria Sims MD Unavailable Manish Gómez Jr Admitting Unavailable Manish Gómez Jr Attending Unavailable Columba Hassan Primary Care Unavailable Columba Hassan Primary Care Unavailable Alf Santos Admitting Unavailable Alf Santos Attending Unavailable HEMMER, JAYLEEN Amezquita Attending Unavailable HEMMER, JAYLEEN Amezquita Attending Unavailable HEMMER, JAYLEEN Amezquita Attending Unavailable HEMMER, JAYLEEN Amezquita Attending Unavailable HEMMER, JAYLEEN Amezquita Attending Unavailable HEMMER, JAYLEEN Amezquita Attending Unavailable HEMMER, JAYLEEN Amezquita Attending Unavailable HEMMER, JAYLEEN Amezquita Attending Unavailable NURIAFADUMO Attending Unavailable HEMMER, JAYLEEN Amezquita Attending Unavailable HEMMER, JAYLEEN Amezquita Attending Unavailable NKANSAH-AMBRANDT YOUSSEF Attending Unavail able Allergies Allergy Classification Reported Allergen(s) Allergy Type Date of Onset Reaction(s) Facility (1 source) No Known Medication Allergies; Translations: [No Known Medication Allergies] Propensity to adverse reactions to drug (disorder) [facility] Repository (15 sources) meloxicam Drug Allergy 3 [facility] Healthcare Medications Current Medications Medication Drug Class(es) [...] 22, 2024 acyclovir 400 mg oral tablet (19 sources) Herpesvirus Nucleoside Analog DNA Polymerase Inhibitor, [...] aspirin 81 mg delayed release oral tablet (20 sources) Platelet Aggregation Inhibitor, Nonsteroidal Anti-inflammatory Drug [...] once daily. cholecalciferol 0.125 mg oral capsule (19 sources) Vitamin D Start: 02-22-20 take 1 [...] esomeprazole 20 mg delayed release oral capsule (19 sources) Proton Pump Inhibitor Start: 4 take [...] 12:00am ferrous sulfate 325 mg oral tablet (18 sources) take 1 tablet by mouth once daily ferrous sulfate 325 (65 Fe) MG tablet Take 325 mg by mouth 1 (one) time each day. Active Comment on above: Take 325 mg by mouth once daily. furosemide 40 mg oral tablet (20 sources) Loop Diuretic Start: 4 take 40 [...] patsy th once daily as needed (fluid retention). ibuprofen 800 mg oral tablet (2 sources) Nonsteroidal Anti-inflammatory Drug Start: 5 take 1 tablet by mouth every eight hours as needed ibuprofen 800 MG tablet Take 800 mg by mouth every 8 (eight) hours if needed 09/08/2024 Active losartan potassium 100 mg oral tablet (17 sources) Angiotensin 2 Receptor Jarad Start: take 1 tablet by mouth once daily losartan (Cozaar) 100 MG tablet Indications: Primary hypertension (CMS/HCC) Take 1 tablet (100 mg) by mouth Daily 100 tablet 3 05/12/2024 Active Start: 02-15-2024 take 1 tablet by patsy th once daily losartan (Cozaar) 100 MG tablet [...] 2023 12:00am melatonin 10 mg oral capsule (20 sources) Start: 07-17-2017 take 10 mg by mouth once daily at bedtime Melatonin Active 10 MG PO Daily at bedtime December 31, 2023 12:00am take 1 tablet by mouth at bedtim e Melatonin 10 MG Oral Tablet TAKE 1 TABLET Bedtime Quantity: 0 Refills: 0 Ordered: 21-Jan-2022 DO Active Comment on above: Take 1 capsule by mo ut daily at bedtime. 24 hr metoprolol succinate 25 mg extended release oral tablet (18 sources) beta-Adrenergic Jarad Start: 06-10-2024 take 1 [...] Take 25 mg by mouth once daily. ondansetron 4 mg disintegrating oral tablet (2 sources) Serotonin-3 Receptor Antagonist Start: 025 take 1 tablet by mouth every six hours as needed for nausea and vomiting ondansetron ODT (Zofran-ODT) 4 MG disintegrating tablet DISSOLVE 1 TABLET BY MOUTH EVERY 6 HOURS NEEDED FOR NAUSEA AND VOMITING 09/08/2024 Active perflutren lipid microspheres 1.3 mL in NaCl (PF) 0.9% 10 mL injection (DEFINITY) (3 sources) Start: 022 End: 023 perflutren lipid microspheres 1.3 mL in NaCl (PF) 0.9% 10 mL injection (DEFINITY) phentermine hydrochloride 37.5 mg oral tablet (6 sources) Sympathomimetic Amine Anorectic Start: 024 take 1 tablet by mouth before mealtime phentermine (Adipex-P) 37.5 MG tablet Indications: Morbid (severe) obesity due to excess calories (CMS/HCC) Take 1 tablet (37.5 mg) by mouth in the morning. Take before meals. 30 tablet 08/04/2024 Active Start: 06-02-2024 End: 07-02-2024 take 1 tablet by mouth before mealtime phentermine (Adipex-P) 37.5 MG tablet Indications: Morbid (severe) obesity due to excess calories (CMS/HCC) Take 1 tablet (37.5 mg) by mouth in the morning. Take before meals. 30 tablet 06/02/2024 Active potassium chloride 10 meq extended release oral tablet (19 sources) Start: 06-02-2024 take 1 tablet by mouth once in the morning potassium chloride CR (Klor-Con) 10 MEQ ER tablet Indications: Vitamin D deficiency Take 1 tablet (10 mEq) by mouth in the morning and 1 tablet (10 mEq) before bedtime. Take with food.. 200 tablet 3 06/02/2024 Active Start: 11-06-2023 take 1 tablet by patsy twice daily at mealtime potassium chloride CR [...] needed (fluid retention; take with Lasix). predniSONE 10 mg oral tablet (5 sources) Start: 09-13-2024 End: 09-21-2024 take 1 tablet by mouth three times daily, then take 1 tablet by mouth twice daily, then take 1 tablet by mouth once daily predniSONE (Deltasone) 10 MG tablet Indications: Left hip pain Take 1 tablet (10 mg) by mouth 3 (three) times a day for 3 days, THEN 1 tablet (10 mg) 2 (two) times a day for 3 days, THEN 1 tablet (10 mg) Daily for 3 days. 18 tablet 09/13/2024 09/21/2024 Active Start: 04-21-2024 End: 05-02-2024 take 1 tablet [...] 04/21/2024 05/02/2024 Discontinued take 1 tablet by patsy once daily as needed predniSONE 1 MG Oral Tablet TAKE 1 TABLET Daily prn Quantity: 0 Refills: 0 Ordered: 21-Jan-2022 DO Active 125 ml sodium chloride 9 mg/ml prefilled syringe (3 sources) Start: 02-26-2022 End: 05-28-2023 sodium chloride 0.9 % (flush) 10 mL (BD POSIFLUSH) tamsulosin hydrochloride 0.4 mg oral capsule (2 sources) alpha-Adrenergi c Jarad Start: 09-08-2024 take 1 capsule by mouth once daily tamsulosin (Flomax) 0.4 MG 24 hr capsule Take 0.4 mg by mouth Daily 09/08/2024 Active traMADol hydrochloride 50 mg oral tablet (20 sources) Opioid Agonist Start: 09-13-2024 take 1 tablet by mouth every six hours for pain traMADol (Ultram) 50 MG tablet Indications: Uterine leiomyoma, unspecified location Take 1 tablet (50 mg) by mouth every 6 (six) hours if needed for severe pain 20 tablet 09/13/2024 Active Start: 09-13-2024 take 1 tablet by patsy th every six hours for pain traMADol (Ultram) 50 MG tablet Indications: Uterine leiomyoma, unspecified location Take 1 tablet (50 mg) by mouth every 6 (six) hours if needed for severe pain 20 tablet 09/13/2024 Active Start: 01-25-2024 End: 09-13-2024 take 1 tablet by mouth every six hours for pain traMADol (Ultram) 50 MG tablet Indications: Uterine leiomyoma, unspecified location Take 1 tablet (50 mg) by mouth every 6 (six) hours if needed for severe pain 20 tablet 01/25/2024 09/13/2024 Discontinued (Reorder) Start: 12-31-2023 take 50 mg by mouth once daily Tramadol Active 50 MG PO Daily December 31, 2023 12:00am take 1 tablet by patsy th three times daily as needed traMADol HCl - 50 MG Oral Tablet TAKE 1 TABLET 3 TIMES DAILY NEEDED. 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 Except for 2.5 mg on Thursday and Thursday 100 tablet 3 06/02/2024 Active Start: 07-17-2017 warfarin (COUM JATIN) 5 [...] on above: Take 2 tablets by mo uth every 6 hours as needed (for mild surgical pain). docusate sodium 100 mg oral capsule (4 sources) Start: 07-17-2017 take 1 capsule by mouth once daily docusate sodium (COLACE) 100 mg capsule Take 1 capsule by mouth once daily. 0 07/17/2017 Active Comment on above: Take 1 capsule by mo uth once daily. penicillin v potassium 500 mg oral tablet (3 sources) Start: 06-22-2017 End: 05-02-2022 take 0.5 tablet by mouth twice daily penicillin V potassium (V-CILLIN, VEETIDS) 500 mg tablet Take 0.5 tablets by mouth twice daily. 90 tablet 0 06/22/2017 05/02/2022 Discontinued (Other) Comment on above: Take 0.5 tablets by mouth twice daily. raNITIdine 75 mg oral tablet (3 sources) Histamine-2 Receptor Antagonist Start: 07-17-2017 End: 05-02-2022 take 1 tablet by mouth once daily ranitidine (ZANTAC 75) 75 mg tablet Take 1 tablet by mouth once daily. 0 07/17/2017 05/02/2022 Discontinued (Other) Comment on above: Take 1 tablet by patsy th once daily. Semaglutide-Weight Management (Wegovy) 0.25 MG/0.5ML solution auto-injector (5 sources) Start: 03-31-2024 End: 09-16-2024 inject 0.25 mg by subcutaneous injection every [...] Classification Problem Date Documented Date Episodic/Chronic Asthma (15 sources) Mild intermittent asthma; Translations: [Mild intermittent asthma with (acute) exacerbation] Onset: 12-29-2022 12-29-2022 Chronic Benign neoplasm of uterus (19 sources) Uterine leiomyoma; Translations: [Leiomyoma of uterus, unspecified] Onset: 12-10-2011 12-29-2022 Episodic Calculus of urinary tract (4 sources) Kidney stone; Translations: [Calculus of kidney] 09-13-2024 Episodic Diseases of white blood cells (15 sources) Leukocytosis; Translations: [Elevated white blood cell count, unspecified] Onset: 12-29-2022 12-29-2022 Chronic Disorders of lipid metabolism (15 sources) Mixed hyperlipidemia; Translations: [Mixed hyperlipidemia] Onset: 12-29-2022 12-29-2022 Chronic Endometriosis (17 sources) Endometriosis (clinical); Translations: [Endometriosis, unspecified] Onset: 01-26-2024 12-31-2023 Chronic Esophageal disorders (15 sources) Gastroesophageal reflux disease; Translations: [Gastro-esophageal reflux disease without esophagitis] Onset: 12-29-2022 12-29-2022 Chronic Essential hypertension (20 sources) Essential hypertension; Translations: [Essential (primary) hypertension] Onset: 07-28-2016 08-04-2016 Chronic Heart valve disorders (20 sources) History of aortic valve replacement; Translations: [Heart valve replaced by other means] Onset: 07-24-2016 Chronic Immunizations and screening for infectious disease (2 sources) Patient encounter status; Translations: [Encounter for immunization] 06-02-2024 Episodic Menopausal disorders (15 sources) Menopausal flushing; Translations: [Menopausal and female climacteric states] Onset: 12-29-2022 12-29-2022 Chronic Menstrual disorders (20 sources) Menorrhagia; Translations: [Excessive and frequent menstruation with regular cycle] Onset: 12-29-2022 12-29-2022 Chronic Mood disorders (15 sources) Depressive disorder; Translations: [Depressive disorder] Onset: 12-09-2011 12-29-2022 Chronic Nonmalignant breast conditions (5 sources) Unspecified lump in the right breast, unspecified quadrant; Translations: [Unspecified lump in the right breast, upper outer quadrant] Onset: 09-06-2021 Episodic Nutritional deficiencies (15 sources) Vitamin D deficiency; Translations: [Vitamin D deficiency, unspecified] Onset: 07-31-2011 12-29-2022 Chronic Other aftercare (1 source) Drug therapy finding; Translations: [Long-term (current) use of other medications] Episodic Other aftercare (20 sources) Long-term current use of anticoagulant; Translations: [intermodal customer service (current) use of anticoagulants] Onset: 08-03-2020 02-22-2024 Episodic Other congenital anomalies (15 sources) 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; Translations: [Other congenital malformations of lower limb(s), including pelvic girdle] Onset: 12-29-2022 12-29-2022 Chronic Other female genital disorders (1 source) History of gynecological disorder; Translations: [Personal history of other diseases of the female genital tract] 02-22-2024 Episodic Other lower respiratory disease (15 sources) Fibrosis of lung; Translations: [Pulmonary fibrosis, unspecified] Onset: 02-25-2024 02-25-2024 Chronic Other nervous system disorders (15 sources) Carpal tunnel syndrome of right wrist; Translations: [Carpal tunnel syndrome, right upper limb] Onset: 12-29-2022 12-29-2022 Chronic Other non-traumatic joint disorders (4 sources) Hip pain; Translations: [Pain in right hip] 05-03-2024 Episodic Other nutritional; endocrine; and metabolic disorders (16 sources) Body mass index 40+ - severely obese; Translations: [Morbid obesity] Onset: 02-25-2024 Resolved: 09-13-2024 02-25-2024 Chronic Other nutritional; endocrine; and metabolic disorders (1 source) Body mass index 30+ - obesity; Translations: [Obesity, unspecified] Chronic Other nutritional; endocrine; and metabolic disorders (1 source) Obesity, unspecified; Translations: [Obesity (BMI 30-39.9)] Onset: 05-02-2022 Chronic Other nutritional; endocrine; and metabolic disorders (20 sources) Obesity caused by energy imbalance; Translations: [Morbid (severe) obesity due to excess calories] Onset: 12-29-2022 06-02-2024 Chronic Other screening for suspected conditions (not mental disorders or infectious disease) (20 sources) Other abnormal and inconclusive findings on diagnostic imaging of breast; Translations: [Encounter for screening mammogram for malignant neoplasm of breast] Onset: 04-26-2021 Episodic Other upper respiratory disease (15 sources) Seasonal allergic rhinitis; Translations: [Other seasonal [...] Problem Date Documented Date Episodic/Chronic Abdominal pain (17 sources) Abdominal pain; Translations: [Unspecified abdominal pain] Onset: 02-21-2024 Resolved: 03-31-2024 02-22-2024 Episodic Administrative/social admission (3 sources) Discharge status; Translations: [Encounter for administrative examinations, unspecified] Onset: 07-24-2016 08-04-2016 Episodic Cancer of cervix (15 sources) Atypical squamous cells of undetermined significance on cervical Papanicolaou smear; Translations: [Atypical squamous cells of undetermined significance on cytologic smear of cervix (ASC-US)] Onset: 12-29-2022 12-29-2022 Episodic Malaise and fatigue (15 sources) Fatigue; Translations: [Other fatigue] Onset: 12-29-2022 12-29-2022 Episodic Other aftercare (18 sources) Anticoagulant effect; Translations: [Encounter for therapeutic drug level monitoring] Onset: 07-29-2016 08-04-2016 Episodic Other circulatory disease (15 sources) Elevated blood pressure; Translations: [Elevated blood-pressure reading, without diagnosis of hypertension] Onset: 12-29-2022 Resolved: 10-06-2023 10-06-2023 Episodic Other connective tissue disease (15 sources) Pain in right arm; Translations: [Pain in right arm] Onset: 12-29-2022 12-29-2022 Episodic Other female genital disorders (1 source) Personal history of other diseases of the female genital tract; Translations: [Personal history of other diseases of the female genital tract] Onset: 02-21-2024 Episodic Other liver diseases (17 sources) Elevated liver enzymes level; Translations: [Abnormal levels of other serum enzymes] Onset: 01-26-2024 12-31-2023 Episodic Other liver diseases (17 sources) Large liver; Translations: [Hepatomegaly, not elsewhere classified] Onset: 01-26-2024 12-31-2023 Episodic Other liver diseases (3 sources) Abnormal levels of other serum enzymes; Translations: [Other nonspecific abnormal serum enzyme levels] Onset: 01-20-2024 12-31-2023 Episodic Other liver diseases (3 sources) Hepatomegaly, not elsewhere classified; Translations: [Hepatomegaly] Onset: 01-20-2024 12-31-2023 Episodic Other upper respiratory infections (2 sources) Upper respiratory infection; Translations: [Acute upper respiratory infection, unspecified] 04-07-2024 Episodic Ovarian cyst (15 sources) Cyst of ovary; Translations: [Unspecified ovarian cyst, unspecified side] Onset: 12-10-2011 12-29-2022 Episodic Unclassified (1 source) Never smoked tobacco; Translations: [Never a smoker] Viral infection (15 sources) Recurrent herpes simplex labialis; Translations: [Herpesviral vesicular dermatitis] Onset: 12-29-2022 12-29-2022 Episodic Results Test Name Value Interpretation Reference Range Facility Laboratory - Cytologyon 08-18 Microscopic observation Cyto stain Nom (Cvx) 2.6 [facility] - Hematology and Cell countson 09-13-2024 HbA1c (Bld) [Mass fraction] Entered in Error [facility] No Panel Informationon 09-13 Interpretation and review of laboratory results Normal [facility] IGP,APTIMA HPV,AGE GDLNon AGE GDLN ACOG TESTING Note . [facility] Comment on above: TESTS RESULT FLAG UN ITS REF RANGE LAB Clinician Provided Cytology Information Source.............Cervix;Endocervix No. of containers..01 ThinPrep Vial Age Algo ACOG Dana... FLAG LEGEND: L-Low Normal,H-High Normal,LL-Alert Low,HH-Alert High <-Panic Low,>-Panic High,A-Abnormal,AA-Critical Abnormal Performed at: 01 =G [facility] [place] [address] Yamilka Gerard MD, HPV APTIMA Negative Negative [facility] Comment on above: This nucleic acid am plification test detects fourteen high- risk HPV types (16,18,31,33,35,39,45,51,52,56,58,59,66,68) without differentiation. Performed at: =G [facility] [id number] Data Typist: Yamilka Gerard MD, Phone: [phone] Performed at: - [facility], [place] [id number] Data Typist: Yamilka Gerard MD, Phone: [phone] IGP, APTIMA HPV, RFX 16/18,45 Note . [facility] Comment on above: TESTS RESULT FLAG UN ITS REF RANGE LAB DIAGNOSIS: 02 NEGATIVE FOR INTRAEPITHELIAL LESION OR MALIGNANCY. Specimen adequacy: 02 Satisfactory for evaluation. Endocervical and/or squamous metaplastic cells (endocervical component) are present. Performed by: Halle Rosenthal, Accounting Instructor (ASCP) . 02 Note: Note 02 The [...] High <-Panic Low,>-Panic High,A-Abnormal,AA-Critical Abnormal Performed at: [facility] [address] [place] [address] Yamilka Gerard MD, BRUSH-SPATULA CERVIX ENDOCERVIX [facility] - Cytologyon 04-17 Microscopic observation Cyto stain Nom (Cvx) 4.1 [facility] No Panel Informationon 05-03 Interpretation and review of laboratory results Abnormal [facility] CT abdomen pelvis w conon CT abdomen pelvis w con [facility] [place] [address] [place] [address] CT Scan Report Signed Patient: Alfredo Balbuena MR#: [id number] : 1975 Acct:[id number] Age/Sex: 48 / F ADM Date: 02/21/24 Loc: ER Room: Type: [facility] ER Attending Dr: Copies to: Manish Gómez [...] Jayleen Carvalho M.D.02/22/2024 9:34 AM Dictation Location: [place] [address] Transcribed By: BECKY 02/22/2434 Dictated By: Jayleen Carvalho MD 02/22/2416 Signed By: 02/22/24933 Normal [facility] Activated partial thrombopla stin time (aPTT) in platelet poor plasma by coagulation aOrdered By: Manish Gómez on 02-21-2024 aPTT Coag (PPP) [Time] 42.0 s High 25.1-36.5 [facility] Comment on above: A hematocrit value g reater than 55% may lead to inaccurate results in coagulation testing. Patients having hematocrit values >55% require a special collection tube for coagulation studies. Please contact the laboratory at [phone] for redraw instructions. Alanine aminotransferase [En zymatic activity/volume] in Serum or PlasmaOrdered By: Manish Gómez on 02-21-2024 ALT [Catalytic activity/Vol] 23 U/L Normal 7-52 [facility] Comment on above: Performed By: #### A ALEJANDRO [facility] #### [address] Albumin [Mass/volume] in Ser um or Plasma by Bromocresol green (BCG) dye binding methoOrdered By: Manish Gómez on 02-21-2024 Albumin BCG dye [Mass/Vol] 3.9 g/dL 3.5-5.7 [facility] Alkaline phosphatase [Enzyma tic activity/volume] in Serum or PlasmaOrdered By: Manish Gómez on 02-21-2024 ALP [Catalytic activity/Vol] 89 U/L Normal 34-104 [facility] Comment on above: Performed By: #### A ALEJANDRO [facility] #### [facility] [address] [place] [address] [place] Aspartate aminotransferase [ Enzymatic activity/volume] in Serum or PlasmaOrdered By: Manish Gómez on 07-07-2024 AST [Catalytic activity/Vol] 14 U/L Normal 13-39 [facility] Comment on above: Performed By: #### A ALEJANDRO [facility] #### [address] Automated basophil %Ordered By: Manish Gómez on 02-21-2024 Basophils/100 WBC (Bld) 0.6 % Normal . F [facility] Comment on above: Performed By: #### A ALEJANDRO [facility] #### [address] Automated basophil countOrde red By: Manish Gómez on 02-21-2024 Basophils (Bld) [#/Vol] 0.1 10*3/uL Normal 0.0-0.2 [facility] Comment on above: Result Comment: PERF ORMED BY: [place] [address] PATHOLOGIST ASSOCIATE PROGRAMMER ANALYST CELIA BERRIOS M.D. Performed By: #### A ALEJANDRO [facility] #### [address] Automated blood monocyte cou ntOrdered By: Manish Gómez on 02-21-2024 Monocytes (Bld) [#/Vol] 0.5 10*3/uL Normal 0.0-0.8 [facility] Comment on above: Performed By: #### A ALEJANDRO [facility] #### [address] Automated eosinophil %Ordere d By: Manish Gómez on 02-21-2024 Eosinophils/100 WBC (Bld) 1.2 % Normal . [facility] Comment on above: Performed By: #### A ALEJANDRO [facility] #### [address] Automated eosinophil countOr dered By: Manish Gómez on 02-21-2024 Eosinophils (Bld) [#/Vol] 0.1 10*3/uL Normal 0.0-0.45 [facility] Comment on above: Performed By: #### A ALEJANDRO [facility] #### [facility] [address] Automated monocyte %Ordered By: Manish Gómez on 02-21-2024 Monocytes/100 WBC (Bld) 5.3 % Normal . F [facility] Comment on above: Performed By: #### [facility] #### [facility] [address] Automated neutrophil %Ordere d By: Manish Gómez on 02-21-2024 Neutrophils/100 WBC (Bld) 71.7 % Normal . [facility] Comment on above: Performed By: #### A ALEJANDRO [facility] #### [address] Bacteria [Presence] in Urine by AutomatedOrdered By: Manish Gómez on 02-21-2024 Bacteria Auto Ql (U) None seen [HPF] None Seen [facility] Bilirubin Test strip Ql (U)O rdered By: Manish Gómez on 02-21-2024 Bilirubin Ql (U) Negative Negative [facility] Bilirubin.total [Mass/volume ] in Serum or PlasmaOrdered By: Manish Gómez on 02-21-2024 Bilirubin [Mass/Vol] 0.4 mg/dL Normal 0.3-1.0 [facility] Comment on above: Performed By: #### A [facility]O [facility] #### [address] Calcium [Mass/volume] in Ser um or PlasmaOrdered By: Manish Gómez on 02-21-2024 Calcium [Mass/Vol] 9.1 mg/dL Normal 8.6-10.3 [facility] Comment on above: Performed By: #### A [facility] #### [address] Carbon dioxide, total [Moles /volume] in Serum or PlasmaOrdered By: Manish Gómez on 02-21-2024 CO2 [Moles/Vol] 26.6 mmol/L Normal 21.0-31.0 [facility] Comment on above: Performed By: #### A ALEJANDRO [facility] #### [facility] [address] Chloride [Moles/volume] in S silverio or PlasmaOrdered By: Manish Gómez on 02-21-2024 Chloride [Moles/Vol] 109 mmol/L High 98-107 [facility] Comment on above: Performed By: #### A ALEJANDRO [facility] #### [address] Color of Urine by AutoOrdere d By: Manish Gómez on 02-21-2024 Color (U) Light-yellow Normal Yellow [facility] Comment on above: Order Comment: Name Collection Type:: Clean-Voided Midstream Performed By: #### A PRABHA ALLENCG #### [address] Complete Blood Count Auto Di ffon 02-21-2024 Mean Corpuscular HGB Conc 33.8 g/dL Normal 32.0-35.0 [facility] Comment on above: Performed By: #### A ALEJANDRO CG #### [address] Monocytes/100 WBC (Bld) 18.18 % Normal 0.00-20.00 [facility] Comment on above: Performed By: #### A ALEJANDRO CG #### [address] NRBC% 0.0 /100{WBC} Normal 0-0.5 [facility] Comment on above: Performed By: #### A ALEJANDRO CG #### [address] Comprehensive Metabolic Pane jennifer 02-21-2024 Albumin [Mass/Vol] 3.9 g/dL Normal 3.5-5.7 [facility] Comment on above: Performed By: #### A SUZIONUADIEGO UHCG #### [place] [address] [place] Creatinine Clr Calc Pharmacy 96.34 Normal [facility] Comment on above: Result Comment: PERF ORMED BY: [place] [address] PATHOLOGIST ASSOCIATE PROGRAMMER ANALYST CELIA BERRIOS M.D. Performed By: #### A DDONUAPLUS, UHCG #### [address] GFR/1.73 sq M.predicted MDRD (S/P/Bld) [Vol rate/Area] mL/min/{1.73_m2} Normal [facility] Comment on above: Performed By: #### A DDONUAPLUS, CG #### [address] Creatinine [Mass/volume] in Serum or PlasmaOrdered By: Manish Gómez on 02-21-2024 Creatinine [Mass/Vol] 0.92 mg/dL Normal 0.60-1.[address] [facility] Comment on above: Performed By: #### A DDONUAPLUS CG #### [place] [address] [place] Dipstick and Microscopicon 0 02-21-2024 Bacteria,Urine None Seen Normal None Seen [facility] Comment on above: Order Comment: Name Collection Type:: Clean-Voided Midstream Performed By: #### A DDONUAPLUS, UHCG #### [address] Bilirubin,Urine Negative Normal Negative [facility] Comment on above: Order Comment: Name Collection Type:: Clean-Voided Midstream Performed By: #### A DDONUAPLUS, UHCG #### [place] [address] [place] Glucose Ql (U) Normal Normal Normal [facility] Comment on above: Order Comment: Name Collection Type:: Clean-Voided Midstream Performed By: #### A DDONUAPLUS, UHCG #### [address] Hyaline Casts,Urine None Normal 0-8 [facility] Comment on above: Order Comment: Name Collection Type:: Clean-Voided Midstream Performed By: #### A DDONUAPLUS, UHCG #### [place] [address] [place] Mucus,Urine Rare Normal [facility] Comment on above: Order Comment: Name Collection Type:: Clean-Voided Midstream Performed By: #### A DDONUAPLUS, UHCG #### [place] [address] [place] Nitrite,Urine Negative Normal Negative [facility] Comment on above: Order Comment: Name Collection Type:: Clean-Voided Midstream Performed By: #### A DDONUAPLUS, UHCG #### [address] Occult Blood,Urine Trace High Negative [facility] Comment on above: Order Comment: Name Collection Type:: Clean-Voided Midstream Performed By: #### A DDONUAPLUS, UHCG #### [place] [address] [place] Protein,Urine Negative Normal Negative [facility] Comment on above: Order Comment: Name Collection Type:: Clean-Voided Midstream Performed By: #### A DDONUAPLUS, UHCG #### [address] RBC,Urine 3-4 Normal 0-4 [facility] Comment on above: Order Comment: Name Collection Type:: Clean-Voided Midstream Performed By: #### A DDONUAPLUS, UHCG #### [address] Specificy [place],Urine 1.026 Normal 1.00 1-1.03 0 [facility] Comment on above: Order Comment: Name Collection Type:: Clean-Voided Midstream Performed By: #### A DDONUAPLUS, UHCG #### [address] Squamous Epithelial Cell,Urine 1-2 Normal 0-2 [facility] Comment on above: Order Comment: Name Collection Type:: Clean-Voided Midstream Performed By: #### A DDONUAPLUS, UHCG #### [facility] [address] Urobilinogen,Urine Normal Normal Normal [facility] Comment on above: Order Comment: Name Collection Type:: Clean-Voided Midstream Performed By: #### A DDONUAPLUS, UHCG #### [address] WBC,Urine 3-4 Normal 0-4 [facility] Comment on above: Order Comment: Name Collection Type:: Clean-Voided Midstream Performed By: #### A DDONUAPLUS, CG #### [address] ECG 12 lead ECGon 02-21-2024 ECG 12 lead ECG [facility] [place] [address] Electrocardiograph Report Signed Patient: Alfredo Balbuena MR#: [id number] : 1975 Acct:[id number] Age/Sex: 48 / F ADM Date: 02/21/24 Loc: ER Room: Type: [facility] ER Attending Dr: Ordering Provider: Manish Gómez [...] previous ECGs available Confirmed by RACHEL MCDONNELL [facility], JUANJO ([id number]) on 02/23/2024 4:23:38 PM Referred By: Electronically Signed By:JUANJO MARINELLI MD [facility] Transcribed By: MUS Signed By Juanjo Marinelli MD, FACC 02/23/24 1623 Normal [facility] Epithelial cells.squamous [# /area] in Urine sediment by Automated countOrdered By: Manish Gómez on 02-21-2024 Epithelial cells.squamous Auto (Urine sed) [#/Area] 1-2 [HPF] 0-2 [facility] Erythrocyte distribution wid th [Ratio] by Automated countOrdered By: Manish Gómez on 02-21-2024 Erythrocyte distribution width (RBC) [Ratio] 13.0 % Normal 11.9-15.3 [facility] Comment on above: Performed By: #### A ALEJANDRO CG #### [facility] [address] [place] [id number] [place] Erythrocytes [#/area] in Uri ne sediment by Automated countOrdered By: Manish Gómez on 02-21-2024 RBC Auto (Urine sed) [#/Area] 3-4 [HPF] 0-4 [facility] Erythrocytes [#/volume] in B lood by Automated countOrdered By: Manish Gómez on 02-21-2024 RBC (Bld) [#/Vol] 4.21 10*6/uL Normal 3.60-5.00 [facility] Comment on above: Performed By: #### A ALEJANDRO [facility] #### [facility] [address] [id number] [place] Glucose [Mass/volume] in Ser um or PlasmaOrdered By: Manish Gómez on 02-21-2024 Glucose [Mass/Vol] 108 mg/dL High 70-100 [facility] Comment on above: ADA recommended refe rence rangeRandom Glucose Reference Range is dependent on time and content of last meal. Glucose of more than 200 mg/dL in a nonstressed, ambulatory subject supports the diagnosis of Diabetes Mellitus. Result Comment: [place] om Glucose Reference Range is dependent on time and content of last meal. Glucose of more than 200 mg/dL in a nonstressed, ambulatory subject supports the diagnosis of Diabetes Mellitus. ADA recommended reference range Performed By: #### A ALEJANDRO [facility] #### [facility] [address] [id number] [place] Glucose [Mass/volume] in Uri ne by Test stripOrdered By: Manish Gómez on 02-21-2024 Glucose Test strip (U) [Mass/Vol] Normal mg/dL Normal [facility] HCG ( test) IA.rapi d Ql (U)Ordered By: Manish Gómez on 02-21-2024 HCG ( test) Ql (U) Negative [facility] HCG,Urineon 02-21-2024 Beta HCG ( test) Ql (U) Negative Normal [facility] Comment on above: Order Comment: Name Collection Type:: Clean-Voided Midstream Result Comment: PERF ORMED BY: [place] [address] PATHOLOGIST ASSOCIATE PROGRAMMER ANALYST CELIA BERRIOS M.D. Performed By: #### A DDONUAPLUS, [facility] #### [address] Hematocrit [Volume Fraction] of Blood by Automated countOrdered By: Manish Gómez on 02-21-2024 Hematocrit (Bld) [Volume fraction] 37.1 % Normal 34.0-46.4 [facility] Comment on above: Performed By: #### A DDONUADIEGO, [facility] #### [address] Hemoglobin Test strip Ql (U) Ordered By: Manish Gómez on 02-21-2024 Hemoglobin Ql (U) Trace High Negative [facility] Hemoglobin [Mass/volume] in BloodOrdered By: Manish Gómez on 02-21-2024 Hemoglobin (Bld) [Mass/Vol] 12.5 g/dL Normal 11.8-15.4 [facility] Comment on above: Performed By: #### A DDONUAPLUS, [facility] #### [address] Hyaline casts [#/area] in Ur ine sediment by Automated countOrdered By: Manish Gómez on 02-21-2024 Hyaline casts Auto (Urine sed) [#/Area] None [LPF] 0-8 [facility] INR in Platelet poor plasma by Coagulation assayOrdered By: Manish Gómez on 02-21-2024 INR Coag (PPP) [Relative time] 2.6 {INR} Normal [facility] Comment on above: INR Therapeutic Rang [...] PT, FE and TIBC, CBC, HEPATIC #### [facility] [address] [place] [address] [place] Ketones [Presence] in Urine by Test stripOrdered By: Manish Gómez on 02-21-2024 Ketones Ql (U) Negative Normal Negative [facility] Comment on above: Order Comment: Name Collection Type:: Clean-Voided Midstream Performed By: #### A DDONUAPLUS, CG #### [facility] [address] [place] [address] [place] Leukocyte esterase [Presence ] in Urine by Test stripOrdered By: Manish Gómez on 02-21-2024 Leukocyte esterase Test strip Ql (U) 2+ High Negative [facility] Comment on above: Order Comment: Name Collection Type:: Clean-Voided Midstream Performed By: #### A DDONUAPLUS, CG #### [facility] [address] [place] [address] [place] Leukocytes [#/area] in Urine sediment by Automated countOrdered By: Manish Gómez on 02-21-2024 WBC Auto (Urine sed) [#/Area] 3-4 [HPF] 0-4 [facility] Leukocytes [#/volume] correc marcela for nucleated erythrocytes in Blood by Automated counOrdered By: Manish Gómez on 02-21-2024 WBC corrected for nucl RBC Auto (Bld) [#/Vol] 9.0 10*3/uL 3.8-11.6 [facility] Leukocytes [#/volume] in Blo od by Automated countOrdered By: Manish Gómez on 02-21-2024 WBC (Bld) [#/Vol] 9.0 10*3/uL Normal 3.8-11.6 [facility] Comment on above: Performed By: #### A ALEJANDRO [facility] #### [facility] [address] Lymphocytes [#/volume] in Bl ood by Automated countOrdered By: Manish Gómez on 02-21-2024 Lymphocytes (Bld) [#/Vol] 1.9 10*3/uL Normal 1.00-4.8 [facility] Comment on above: Performed By: #### A ALEJANDRO [facility] #### [address] Lymphocytes/100 leukocytes i n Blood by Automated countOrdered By: Manish Gómez on 02-21-2024 Lymphocytes/100 WBC (Bld) 21.2 % Normal . [facility] Comment on above: Performed By: #### A ALEJANDRO [facility] #### [address] MCH [Entitic mass] by Automa marcela countOrdered By: Manish Gómez on 02-21-2024 MCH (RBC) [Entitic mass] 29.8 pg Normal 24.7-34.3 [facility] Comment on above: Performed By: #### A ALEJANDRO [facility] #### [address] MCHC Auto (RBC) [Mass/Vol]Or dered By: Manish Gómez on 02-21-2024 MCHC (RBC) [Mass/Vol] 33.8 g/dL 32.0-35.[address] [facility] MCV [Entitic volume] by Auto mated countOrdered By: Manish Gómez on 02-21-2024 MCV (RBC) [Entitic vol] 88.2 fL Normal 80-100 [facility] Comment on above: Performed By: #### A ALEJANDRO, [facility] #### [facility] [address] Monocyte distribution width [Entitic volume] in Blood by AutomatedOrdered By: Manish Gómez on 02-21-2024 Monocyte distribution width Auto (Bld) [Entitic vol] 18.18 % 0.00-20.00 [facility] Mucus [Presence] in Urine by AutomatedOrdered By: Manish Gómez on 02-21-2024 Mucus Auto Ql (U) Rare [LPF] [facility] Neutrophils [#/volume] in Bl ood by Automated countOrdered By: Manish Gómez on 02-21-2024 Neutrophils (Bld) [#/Vol] 6.4 10*3/uL Normal 1.8-7.7 [facility] Comment on above: Performed By: #### A ALEJANDRO, [facility] #### [facility] [address] Nitrite Test strip Ql (U)Ord ered By: Manish Gómez on 02-21-2024 Nitrite Ql (U) Negative Negative [facility] No Panel InformationOrdered By: Manish Gómez on 02-21-2024 Estimated GFR (CKD-EPI) > 60.0 mL/Min [facility] Creatinine Clearance (Chem 96.34 [facility] Nucleated erythrocytes [Pres ence] in Blood by Automated countOrdered By: Manish Gómez on 02-21-2024 Nucleated RBC Auto Ql (Bld) 0.0 /100{WBC} 0-0.5 [facility] Partial Thromboplastin Timeo n 02-21-2024 aPTT Coag (Bld) [Time] 42.0 s High 25.1-36.5 [facility] Comment on above: Result Comment: A he matocrit value greater than 55% may lead to inaccurate results in coagulation testing. Patients having hematocrit values >55% require a special collection tube for coagulation studies. Please contact the laboratory at [phone] for redraw instructions. PERFORMED BY: [facility] [address] [facility] [place] [address] PATHOLOGIST ASSOCIATE PROGRAMMER ANALYST JIANLAN SUN M.D. Performed By: #### A LPHA PHEN, GIULIANO CHOICE, HCV RX PCR, HBCAB, SMAB, HBSAG, CERULOP, HBSAB #### [facility] , #### LIPID, JULIA, PT, FE and TIBC, CBC, HEPATIC #### [facility] [address] Platelet mean volume [Entiti c volume] in Blood by Automated countOrdered By: Manish Gómez on 02-21-2024 Platelet mean volume (Bld) [Entitic vol] 7.8 fL Normal 6.3-10.7 [facility] Comment on above: Performed By: #### A DDONUADIEGO, [facility] #### [address] Platelets [#/volume] in Bloo d by Automated countOrdered By: Manish Gómez on 02-21-2024 Platelets (Bld) [#/Vol] 349 10*3/uL Normal 150-450 [facility] Comment on above: Performed By: #### A DDONUADIEGO [facility] #### [address] Potassium [Moles/volume] in Serum or PlasmaOrdered By: Manish Gómez on 02-21-2024 Potassium [Moles/Vol] 4.0 mmol/L Normal 3.5-5.[address] [facility] Comment on above: Performed By: #### A DDONUADIEGO, CG #### [address] Protein Test strip (U) [Mass /Vol]Ordered By: Manish Gómez on 02-21-2024 Protein (U) [Mass/Vol] Negative Negative [facility] Protein [Mass/volume] in Ser um or PlasmaOrdered By: Manish Gómez on 02-21-2024 Protein [Mass/Vol] 6.9 g/dL Normal 6.4-8.9 [facility] Comment on above: Performed By: #### A DDONUAPLUS, CG #### [address] Prothrombin time (PT)Ordered By: Manish Gómez on 02-21-2024 PT Coag (PPP) [Time] 29.2 s High 9.0-12.9 [facility] Comment on above: A hematocrit value g reater than 55% may lead to inaccurate results in coagulation testing. Patients having hematocrit values >55% require a special collection tube for coagulation studies. Please contact the laboratory at [phone] for redraw instructions. Result Comment: A he matocrit value greater than 55% may lead to inaccurate results in coagulation testing. Patients having hematocrit values >55% require a special collection tube for coagulation studies. Please contact the laboratory at [phone] for redraw instructions. Performed By: #### A LPHA PHEN, GIULIANO CHOICE, HCV RX PCR, HBCAB, SMAB, HBSAG, CERULOP, HBSAB #### [facility] , #### LIPID, JULIA, PT, FE and TIBC, CBC, HEPATIC #### [address] Serum globulin measurement b y calculation (mass/volume)Ordered By: Manish Gómez on 02-21-2024 Globulin (S) [Mass/Vol] 3.0 g/dL Normal [facility] Comment on above: Performed By: #### A DDONUAPLUS [facility] #### [address] Serum or plasma albumin/glob ulin mass ratioOrdered By: Manish Gómez on 02-21-2024 Albumin/Globulin [Mass ratio] 1.3 {ratio} Normal [facility] Comment on above: Performed By: #### A DDONUAPLUS, CG #### [address] Serum or plasma anion gap de terminationOrdered By: Manish Gómez on 02-21-2024 Anion gap [Moles/Vol] 9.4 mmol/L Normal 6.0-15.[address] [facility] Comment on above: Performed By: #### A DDONUAPLUS, UHCG #### [address] Sodium [Moles/volume] in Ser um or PlasmaOrdered By: Manish Gómez on 02-21-2024 Sodium [Moles/Vol] 141 mmol/L Normal 136-145 [facility] Comment on above: Performed By: #### A MAREK ALLENG #### [facility] [address] [place] [address] Specific gravity Test strip (U) [Rel density]Ordered By: Manish Gómez on 02-21-2024 Specific gravity (U) [Rel density] 1.026 1.001-1.03 0 [facility] Troponin I High Sensitivityo n 02-21-2024 Troponin I High Sensitivity 4.3 pg/mL Normal 0.0-15.0 [facility] Comment on above: Result Comment: PERF ORMED BY: [place] [address] PATHOLOGIST ASSOCIATE PROGRAMMER ANALYST CELIA BERRIOS M.D. Performed By: #### A LPHA PHEN, GIULIANO CHOICE, HCV RX PCR, HBCAB, SMAB, HBSAG, CERULOP, HBSAB #### [facility] , #### LIPID, JULIA, PT, FE and TIBC, CBC, HEPATIC #### [facility] [address] [place] [address] Troponin I.cardiac [Mass/vol ume] in Serum or Plasma by Detection limit <= 0.01 ng/Ordered By: Manish Gómez on 02-21-2024 Troponin I.cardiac DL <= 0.01 ng/mL [Mass/Vol] 4.3 pg/mL 0.0-15.0 [facility] Urea nitrogen [Mass/volume] in Serum or PlasmaOrdered By: Manish Gómez on 02-21-2024 Urea nitrogen [Mass/Vol] 21 mg/dL Normal 7-25 [facility] Comment on above: Performed By: #### A PRABHA ALLENG #### [facility] [address] [place] [address] Urine appearanceOrdered By: Manish Gómez on 02-21-2024 Appearance (U) Clear Normal Clear [facility] Comment on above: Order Comment: Name Collection Type:: Clean-Voided Midstream Performed By: #### A DDONUAPLUS, UHCG #### [address] Urobilinogen Test strip (U) [Mass/Vol]Ordered By: Mnaish Gómez on 02-21-2024 Urobilinogen (U) [Mass/Vol] Normal mg/dL Normal [facility] pH of Urine by Test stripOrd ered By: Manish Gómez on 02-21-2024 pH (U) 5.5 [pH] Normal 5.0-9.0 [facility] Comment on above: Order Comment: Name Collection Type:: Clean-Voided Midstream Performed By: #### A DDONUAPLUS, [facility] #### [address] GIULIANO with Reflexon 01-20-2024 GIULINAO with Reflex Negative Normal Negative [facility] Comment on above: Result Comment: Perf ormed at: [facility] [address] [id number] Data Typist: Glen Tenorio PhD, Phone: [phone] Performed By: #### A DDONUAPLUS, [facility] #### [address] Actin smooth muscle IgG Ab [ Units/volume] in SerumOrdered By: Alf Santos on 01-20-2024 Actin smooth muscle IgG Qn (S) 5 Units 0-19 [facility] Comment on above: Negative 0 - 19 Weak positive 20 - 30 Moderate to strong positive >30 Actin Antibodies are found in 52-85% of patients with autoimmune hepatitis or chronic active hepatitis and in 22% of patients with primary biliary cirrhosis.Performed at: [facility] [address] [id number] Director: Glen Tenorio PhD, Phone: [phone] Alanine aminotransferase [En zymatic activity/volume] in Serum or PlasmaOrdered By: Alf Santos on 01-20-2024 ALT [Catalytic activity/Vol] 17 U/L Normal 7-52 [facility] Comment on above: Performed By: #### A LPHA PHEN, GIULIANO CHOICE, HCV RX PCR, HBCAB, SMAB, HBSAG, CERULOP, HBSAB #### [facility] , #### LIPID, JULIA, PT, FE and TIBC, CBC, HEPATIC #### [facility] [address] Albumin [Mass/volume] in Ser um or Plasma by Bromocresol green (BCG) dye binding methoOrdered By: Alf Santos on 01-20-2024 Albumin BCG dye [Mass/Vol] 4.2 g/dL 3.5-5.7 [facility] Alkaline phosphatase [Enzyma tic activity/volume] in Serum or PlasmaOrdered By: Alf Santos on 01-20-2024 ALP [Catalytic activity/Vol] 89 U/L Normal 34-104 [facility] Comment on above: Performed By: #### A LPHA PHEN, GIULIANO CHOICE, HCV RX PCR, HBCAB, SMAB, HBSAG, CERULOP, HBSAB #### [facility] , #### LIPID, JULIA, PT, FE and TIBC, CBC, HEPATIC #### [facility] [address] Perfo-6-Niftdhoablh Phenotyp luisito 01-20-2024 Alpha 1 Anti-Trypsin 158 mg/dL Normal 101-187 [facility] Comment on above: Performed By: #### A DDONUAPLUS, [facility] #### [address] Phenotype (P1) MM Normal . [facility] Comment on above: Result Comment: MM Phenotype is considered to be normal , producing normal serum levels of cpioh-9-tdrdutqh inhibitor and not associated with clinical disease. [...] used to confirm phenotype. Performed at: - [facility] [id number] Data Typist: Glen Tenorio PhD, Phone: [phone] Performed at: [facility] [id number] Data Typist: Keith Contreras MD, Phone: [phone] Performed By: #### A DDAMRIT, [facility] #### [address] Aspartate aminotransferase [ Enzymatic activity/volume] in Serum or PlasmaOrdered By: Alf Santos on 01-20-2024 AST [Catalytic activity/Vol] 17 U/L Normal 13-39 [facility] Comment on above: Performed By: #### A LPHA PHEN, GIULIANO CHOICE, HCV RX PCR, HBCAB, SMAB, HBSAG, CERULOP, HBSAB #### [facility] , #### LIPID, JULIA, PT, FE and TIBC, CBC, HEPATIC #### [address] Automated basophil %Ordered By: Alf Santos on 01-20-2024 Basophils/100 WBC (Bld) 0.6 % Normal . [facility] Comment on above: Performed By: #### A LPHA PHEN, GIULIANO CHOICE, HCV RX PCR, HBCAB, SMAB, HBSAG, CERULOP, HBSAB #### [facility] , #### LIPID, JULIA, PT, FE and TIBC, CBC, HEPATIC #### [address] Automated basophil countOrde red By: Alf Santos on 01-20-2024 Basophils (Bld) [#/Vol] 0.0 10*3/uL Normal 0.0-0.2 [facility] Comment on above: Result Comment: PERF ORMED BY: [place] [address] PATHOLOGIST ASSOCIATE PROGRAMMER ANALYST CELIA BERRIOS M.D. Performed By: #### A LPHA PHEN, GIULIANO CHOICE, HCV RX PCR, HBCAB, SMAB, HBSAG, CERULOP, HBSAB #### [facility] , #### LIPID, JULIA, PT, FE and TIBC, CBC, HEPATIC #### [address] Automated blood monocyte cou ntOrdered By: Alf Santos on 01-20-2024 Monocytes (Bld) [#/Vol] 0.3 10*3/uL Normal 0.0-0.8 [facility] Comment on above: Performed By: #### A LPHA PHEN, GIULIANO CHOICE, HCV RX PCR, HBCAB, SMAB, HBSAG, CERULOP, HBSAB #### [facility] , #### LIPID, JULIA, PT, FE and TIBC, CBC, HEPATIC #### [facility] [address] [place] [address] Automated eosinophil %Ordere d By: Alf Santos on 01-20-2024 Eosinophils/100 WBC (Bld) 2.0 % Normal . [facility] Comment on above: Performed By: #### A LPHA PHEN, GIULIANO CHOICE, HCV RX PCR, HBCAB, SMAB, HBSAG, CERULOP, HBSAB #### [facility] , #### LIPID, JULIA, PT, FE and TIBC, CBC, HEPATIC #### [facility] [address] [place] [address] Automated eosinophil countOr dered By: Alf Santos on 01-20-2024 Eosinophils (Bld) [#/Vol] 0.1 10*3/uL Normal 0.0-0.45 [facility] Comment on above: Performed By: #### A LPHA PHEN, GIULIANO CHOICE, HCV RX PCR, HBCAB, SMAB, HBSAG, CERULOP, HBSAB #### [facility] , #### LIPID, JULIA, PT, FE and TIBC, CBC, HEPATIC #### [facility] [address] Automated monocyte %Ordered By: Alf Santos on 01-20-2024 Monocytes/100 WBC (Bld) 5.6 % Normal . [facility] Comment on above: Performed By: #### A LPHA PHEN, GIULIANO CHOICE, HCV RX PCR, HBCAB, SMAB, HBSAG, CERULOP, HBSAB #### [facility] , #### LIPID, JULIA, PT, FE and TIBC, CBC, HEPATIC #### [address] Automated neutrophil %Ordere d By: Alf Santos on 01-20-2024 Neutrophils/100 WBC (Bld) 60.1 % Normal . [facility] Comment on above: Performed By: #### A LPHA PHEN, GIULIANO CHOICE, HCV RX PCR, HBCAB, SMAB, HBSAG, CERULOP, HBSAB #### [facility] , #### LIPID, JULIA, PT, FE and TIBC, CBC, HEPATIC #### [address] Bilirubin.direct [Mass/volum e] in Serum or PlasmaOrdered By: Alf Santos on 01-20-2024 Bilirubin.direct [Mass/Vol] 0.10 mg/dL 0.03-0.18 [facility] Bilirubin.total [Mass/volume ] in Serum or PlasmaOrdered By: Alf Santos on 01-20-2024 Bilirubin [Mass/Vol] 0.6 mg/dL Normal 0.3-1.0 [facility] Comment on above: Performed By: #### A LPHA PHEN, GIULIANO CHOICE, HCV RX PCR, HBCAB, SMAB, HBSAG, CERULOP, HBSAB #### [facility] , #### LIPID, JULIA, PT, FE and TIBC, CBC, HEPATIC #### [facility] [address] [place] [address] Ceruloplasminon 01-20-2024 Ceruloplasmin 32.3 mg/dL Normal 19.0-39.0 [facility] Comment on above: Result Comment: Perf ormed at: - [facility] [address] [id number] Data Typist: Glen Tenorio PhD, Phone: [phone] PERFORMED BY: [place] [address] PATHOLOGIST ASSOCIATE PROGRAMMER ANALYST CELIA BERRIOS M.D. Performed By: #### A LPHA PHEN, GIULIANO CHOICE, HCV RX PCR, HBCAB, SMAB, HBSAG, CERULOP, HBSAB #### [facility] , #### LIPID, JULIA, PT, FE and TIBC, CBC, HEPATIC #### [address] Cholesterol [Mass/volume] in Serum or PlasmaOrdered By: Alf Santos on 01-20-2024 Cholesterol [Mass/Vol] 201 mg/dL High 140-200 [facility] Comment on above: Chol less than 200 [...] PT, FE and TIBC, CBC, HEPATIC #### [facility] [address] [place] [address] Cholesterol in LDL Calc [Mas s/Vol]Ordered By: Alf Santos on 01-20-2024 Cholesterol in LDL [Mass/Vol] 127 mg/dL High 0-100 [facility] Comment on above: LDL ATP III CLASSIFI CATIONLDL less than 100 mg/dL OptimalLDL 100-129 mg/dL Near or above optimalLDL 130-159 mg/dL Borderline highLDL 160-189 mg/dL HighLDL greater than 189 mg/dL Very high Cholesterol in VLDL Calc [Ma ss/Vol]Ordered By: Alf Santos on 01-20-2024 Cholesterol in VLDL [Mass/Vol] 33 mg/dL [facility] Complete Blood Count Auto Di ffon 01-20-2024 Mean Corpuscular HGB Conc 33.0 g/dL Normal 32.0-35.0 [facility] Comment on above: Performed By: #### A LPHA PHEN, GIULIANO CHOICE, HCV RX PCR, HBCAB, SMAB, HBSAG, CERULOP, HBSAB #### [facility] , #### LIPID, JULIA, PT, FE and TIBC, CBC, HEPATIC #### [facility] [address] NRBC% 0.1 /100{WBC} Normal 0-0.5 [facility] Comment on above: Performed By: #### A LPHA PHEN, GIULIANO CHOICE, HCV RX PCR, HBCAB, SMAB, HBSAG, CERULOP, HBSAB #### [facility] , #### LIPID, JULIA, PT, FE and TIBC, CBC, HEPATIC #### [facility] [address] Erythrocyte distribution wid th [Ratio] by Automated countOrdered By: Alf Santos on 01-20-2024 Erythrocyte distribution width (RBC) [Ratio] 13.1 % Normal 11.9-15.3 [facility] Comment on above: Performed By: #### A LPHA PHEN, GIULIANO CHOICE, HCV RX PCR, HBCAB, SMAB, HBSAG, CERULOP, HBSAB #### [facility] , #### LIPID, JULIA, PT, FE and TIBC, CBC, HEPATIC #### [facility] [address] Erythrocytes [#/volume] in B lood by Automated countOrdered By: Alf Santos on 01-20-2024 RBC (Bld) [#/Vol] 4.13 10*6/uL Normal 3.60-5.00 [facility] Comment on above: Performed By: #### A LPHA PHEN, GIUILANO CHOICE, HCV RX PCR, HBCAB, SMAB, HBSAG, CERULOP, HBSAB #### [facility] , #### LIPID, JULIA, PT, FE and TIBC, CBC, HEPATIC #### [facility] [address] [place] [address] [place] Ferritin [Mass/volume] in Se rum or PlasmaOrdered By: Alf Santos on 01-20-2024 Ferritin [Mass/Vol] 172.5 ng/mL Normal 11.0-306.8 [facility] Comment on above: Performed By: #### A LPHA PHEN, GIULIANO CHOICE, HCV RX PCR, HBCAB, SMAB, HBSAG, CERULOP, HBSAB #### [facility] , #### LIPID, JULIA, PT, FE and TIBC, CBC, HEPATIC #### [facility] [address] Hematocrit [Volume Fraction] of Blood by Automated countOrdered By: Alf Santos on 01-20-2024 Hematocrit (Bld) [Volume fraction] 36.8 % Normal 34.0-46.4 [facility] Comment on above: Performed By: #### A LPHA PHEN, GIULIANO CHOICE, HCV RX PCR, HBCAB, SMAB, HBSAG, CERULOP, HBSAB #### [facility] , #### LIPID, JULIA, PT, FE and TIBC, CBC, HEPATIC #### [facility] [address] Hemoglobin [Mass/volume] in BloodOrdered By: Alf Santos on 01-20-2024 Hemoglobin (Bld) [Mass/Vol] 12.1 g/dL Normal 11.8-15.4 [facility] Comment on above: Performed By: #### A LPHA PHEN, GIULIANO CHOICE, HCV RX PCR, HBCAB, SMAB, HBSAG, CERULOP, HBSAB #### [facility] , #### LIPID, JULIA, PT, FE and TIBC, CBC, HEPATIC #### [facility] [address] Hep C Ab wRfx to Qnt PCRon 0 01-20-2024 Hepatitis C Virus Antibody Non-Reactive Normal Non Reactive [facility] Comment on above: Performed By: #### A LPHA PHEN, GIULIANO CHOICE, HCV RX PCR, HBCAB, SMAB, HBSAG, CERULOP, HBSAB #### [facility] , #### LIPID, JULIA, PT, FE and TIBC, CBC, HEPATIC #### [facility] [address] Interpretation Hepatitis C Normal . [facility] Comment on above: Result Comment: Not infected with HCV unless early or acute infection is suspected (which may be delayed in an immunocompromised individual), or other evidence exists to indicate HCV infection. Performed By: #### A LPHA PHEN, GIULIANO CHOICE, HCV RX PCR, HBCAB, SMAB, HBSAG, CERULOP, HBSAB #### [facility] , #### LIPID, JULIA, PT, FE and TIBC, CBC, HEPATIC #### [facility] [address] Hepatic Panelon 01-20-2024 Albumin [Mass/Vol] 4.2 g/dL Normal 3.5-5.7 [facility] Comment on above: Performed By: #### A LPHA PHEN, GIULIANO CHOICE, HCV RX PCR, HBCAB, SMAB, HBSAG, CERULOP, HBSAB #### [facility] , #### LIPID, JULIA, PT, FE and TIBC, CBC, HEPATIC #### [address] Bilirubin,Indirect 0.5 mg/dL Normal [facility] Comment on above: Performed By: #### A LPHA PHEN, GIULIANO CHOICE, HCV RX PCR, HBCAB, SMAB, HBSAG, CERULOP, HBSAB #### [facility] , #### LIPID, JULIA, PT, FE and TIBC, CBC, HEPATIC #### [address] Bilirubin.indirect [Mass/Vol] 0.10 mg/dL Normal 0.03-0.18 [facility] Comment on above: Performed By: #### A LPHA PHEN, GIULIANO CHOICE, HCV RX PCR, HBCAB, SMAB, HBSAG, CERULOP, HBSAB #### [facility] , #### LIPID, JULIA, PT, FE and TIBC, CBC, HEPATIC #### [address] Hepatitis B Core Antibodyon 01-20-2024 Hepatitis B Core Antibody Negative Normal Negative [facility] Comment on above: Result Comment: Perf ormed at: - [facility] [address] [id number] Data Typist: Glen Tenorio PhD, Phone: [phone] Performed By: #### A ALEJANDRO [facility] #### [address] Hepatitis B Surface Antibody on 01-20-2024 Hepatitis B Surface Antibody Non-Reactive Normal . [facility] Comment on above: Result Comment: Non Reactive: Inconsistent with immunity, less than 10 mIU/mL Reactive: Consistent with immunity, greater than 9.9 mIU/mL Performed By: #### A ALEJANDRO, [facility] #### [address] Hepatitis B Surface Antigeno n 01-20-2024 HBsAg Screen Negative Normal Negative [facility] Comment on above: Result Comment: PERF ORMED BY: [place] [address] PATHOLOGIST ASSOCIATE PROGRAMMER ANALYST CELIA BERRIOS M.D. Performed By: #### A ALEJANDRO, [facility] #### [address] Hepatitis B virus surface Ab [Presence] in SerumOrdered By: Alf Santos on 01-20-2024 HBV surface Ab Ql (S) Non-Reactive . [facility] Comment on above: Non Reactive: Incons istent with immunity, less than 10 mIU/mL Reactive: Consistent with immunity, greater than 9.9 mIU/mL Hepatitis B virus surface Ag [Presence] in Serum or Plasma by ImmunoassayOrdered By: Alf Santos on 01-20-2024 HBV surface Ag IA Ql Negative Negative [facility] Hepatitis C virus IgG Ab [Pr esence] in Serum or Plasma by ImmunoassayOrdered By: Alf Santos on 01-20-2024 HCV IgG IA Ql Non-Reactive Non Reactive [facility] INR in Platelet poor plasma by Coagulation assayOrdered By: Alf Santos on 01-20-2024 INR Coag (PPP) [Relative time] 3.0 {INR} Normal [facility] Comment on above: INR Therapeutic Rang [...] heart valves: 3 - 4.5 PERFORMED BY: [place] [address] PATHOLOGIST ASSOCIATE PROGRAMMER ANALYST CELIA BERRIOS M.D. Performed By: #### A LPHA PHEN, GIULIANO CHOICE, HCV RX PCR, HBCAB, SMAB, HBSAG, CERULOP, HBSAB #### [facility] , #### LIPID, JULIA, PT, FE and TIBC, CBC, HEPATIC #### [address] Iron [Mass/volume] in Serum or PlasmaOrdered By: Alf Santos on 01-20-2024 Iron [Mass/Vol] 78 ug/dL Normal 50-212 [facility] Comment on above: Performed By: #### A LPHA PHEN, GIULIANO CHOICE, HCV RX PCR, HBCAB, SMAB, HBSAG, CERULOP, HBSAB #### [facility] , #### LIPID, JULIA, PT, FE and TIBC, CBC, HEPATIC #### [facility] [address] [place] [id number] [facility] Iron and TIBC Profileon % Iron Saturation 23.8 % Normal 20-50 [facility] Comment on above: Performed By: #### A LPHA PHEN, GIULIANO CHOICE, HCV RX PCR, HBCAB, SMAB, HBSAG, CERULOP, HBSAB #### [facility] , #### LIPID, JULIA, PT, FE and TIBC, CBC, HEPATIC #### [facility] [address] [place] [id number] [facility] Total Iron Binding Capacity 328 ug/dL Normal 255-450 [facility] Comment on above: Performed By: #### A LPHA PHEN, IGULIANO CHOICE, HCV RX PCR, HBCAB, SMAB, HBSAG, CERULOP, HBSAB #### [facility] , #### LIPID, JULIA, PT, FE and TIBC, CBC, HEPATIC #### [facility] [address] [place] [id number] [facility] Iron binding capacity [Mass/ volume] in Serum or PlasmaOrdered By: Alf Santos on 01-20-2024 Iron binding capacity [Mass/Vol] 328 ug/dL 255-450 [facility] Iron saturation [Mass Fracti on] in Serum or PlasmaOrdered By: Alf Santos on 01-20-2024 Iron saturation [Mass fraction] 23.8 % 20-50 [facility] Leukocytes [#/volume] correc marcela for nucleated erythrocytes in Blood by Automated counOrdered By: Alf Santos on 01-20-2024 WBC corrected for nucl RBC Auto (Bld) [#/Vol] 6.1 10*3/uL 3.8-11.6 [facility] Leukocytes [#/volume] in Blo od by Automated countOrdered By: Alf Santos on 01-20-2024 WBC (Bld) [#/Vol] 6.1 10*3/uL Normal 3.8-11.6 [facility] Comment on above: Performed By: #### A LPHA PHEN, GIULIANO CHOICE, HCV RX PCR, HBCAB, SMAB, HBSAG, CERULOP, HBSAB #### [facility] , #### LIPID, JULIA, PT, FE and TIBC, CBC, HEPATIC #### [facility] [address] Lipid Panelon 01-20-2024 LDL Cholesterol,Calculated 127 mg/dL High 0-100 [facility] Comment on above: Result Comment: [...] PT, FE and TIBC, CBC, HEPATIC #### [facility] [address] Triglyceride w/Reflex 167 mg/dL High 0-149 [facility] Comment on above: Result Comment: [...] PT, FE and TIBC, CBC, HEPATIC #### [facility] [address] VLDL CHOLESTEROL 33 mg/dL Normal [facility] Comment on above: Performed By: #### A LPHA PHEN, GIULIANO CHOICE, HCV RX PCR, HBCAB, SMAB, HBSAG, CERULOP, HBSAB #### [facility] , #### LIPID, JULIA, PT, FE and TIBC, CBC, HEPATIC #### [address] Lymphocytes [#/volume] in Bl ood by Automated countOrdered By: Alf Santos on 01-20-2024 Lymphocytes (Bld) [#/Vol] 1.9 10*3/uL Normal 1.00-4.8 [facility] Comment on above: Performed By: #### A LPHA PHEN, GIULIANO CHOICE, HCV RX PCR, HBCAB, SMAB, HBSAG, CERULOP, HBSAB #### [facility] , #### LIPID, JULIA, PT, FE and TIBC, CBC, HEPATIC #### [address] Lymphocytes/100 leukocytes i n Blood by Automated countOrdered By: Alf Santos on 01-20-2024 Lymphocytes/100 WBC (Bld) 31.7 % Normal . [facility] Comment on above: Performed By: #### A LPHA PHEN, GIULIANO CHOICE, HCV RX PCR, HBCAB, SMAB, HBSAG, CERULOP, HBSAB #### [facility] , #### LIPID, JULIA, PT, FE and TIBC, CBC, HEPATIC #### [address] MCH [Entitic mass] by Automa marcela countOrdered By: Alf Santos on 01-20-2024 MCH (RBC) [Entitic mass] 29.4 pg Normal 24.7-34.3 [facility] Comment on above: Performed By: #### A LPHA PHEN, GIULIANO CHOICE, HCV RX PCR, HBCAB, SMAB, HBSAG, CERULOP, HBSAB #### [facility] , #### LIPID, JULIA, PT, FE and TIBC, CBC, HEPATIC #### [address] MCHC Auto (RBC) [Mass/Vol]Or dered By: Alf Santos on 01-20-2024 MCHC (RBC) [Mass/Vol] 33.0 g/dL 32.0-35.[address] [facility] MCV [Entitic volume] by Auto mated countOrdered By: Alf Santos on 01-20-2024 MCV (RBC) [Entitic vol] 89.2 fL Normal 80-100 [facility] Comment on above: Performed By: #### A LPHA PHEN, GIULIANO CHOICE, HCV RX PCR, HBCAB, SMAB, HBSAG, CERULOP, HBSAB #### [facility] , #### LIPID, JULIA, PT, FE and TIBC, CBC, HEPATIC #### [facility] [address] Neutrophils [#/volume] in Bl ood by Automated countOrdered By: Alf Santos on 01-20-2024 Neutrophils (Bld) [#/Vol] 3.7 10*3/uL Normal 1.8-7.7 [facility] Comment on above: Performed By: #### A LPHA PHEN, GIULIANO CHOICE, HCV RX PCR, HBCAB, SMAB, HBSAG, CERULOP, HBSAB #### [facility] , #### LIPID, JULIA, PT, FE and TIBC, CBC, HEPATIC #### [facility] [address] No Panel InformationOrdered By: Alf Santos on 01-20-2024 Hepatitis B Core Total Antibody Negative Negative [facility] Comment on above: Performed at: [employer] [facility] [address] [id number] Director: Glen Tenorio PhD, Phone: [phone] Hepatitis C Interpretation See comment . [facility] Comment on above: Not infected with HC V unless early or acute infection issuspected (which may be delayed in an immunocompromisedindividual), or other evidence exists to indicate HCVinfection. Nucleated erythrocytes [Pres ence] in Blood by Automated countOrdered By: Alf Santos on 01-20-2024 Nucleated RBC Auto Ql (Bld) 0.1 /100{WBC} 0-0.5 [facility] Platelet mean volume [Entiti c volume] in Blood by Automated countOrdered By: Alf Santos on 01-20-2024 Platelet mean volume (Bld) [Entitic vol] 8.4 fL Normal 6.3-10.7 [facility] Comment on above: Performed By: #### A LPHA PHEN, GIULIANO CHOICE, HCV RX PCR, HBCAB, SMAB, HBSAG, CERULOP, HBSAB #### [facility] , #### LIPID, JULIA, PT, FE and TIBC, CBC, HEPATIC #### [facility] [address] Platelets [#/volume] in Bloo d by Automated countOrdered By: Alf Santos on 01-20-2024 Platelets (Bld) [#/Vol] 329 10*3/uL Normal 150-450 [facility] Comment on above: Performed By: #### A LPHA PHEN, GIULIANO CHOICE, HCV RX PCR, HBCAB, SMAB, HBSAG, CERULOP, HBSAB #### [facility] , #### LIPID, JULIA, PT, FE and TIBC, CBC, HEPATIC #### [facility] [address] [place] [address] Protein [Mass/volume] in Ser um or PlasmaOrdered By: Alf Santos on 01-20-2024 Protein [Mass/Vol] 7.1 g/dL Normal 6.4-8.9 [facility] Comment on above: Performed By: #### A LPHA PHEN, GIULIANO CHOICE, HCV RX PCR, HBCAB, SMAB, HBSAG, CERULOP, HBSAB #### [facility] , #### LIPID, JULIA, PT, FE and TIBC, CBC, HEPATIC #### [facility] [address] [place] [address] Prothrombin time (PT)Ordered By: Alf Santos on 01-20-2024 PT Coag (PPP) [Time] 33.8 s High 9.0-12.9 [facility] Comment on above: A hematocrit value g reater than 55% may lead to inaccurate results in coagulation testing. Patients having hematocrit values >55% require a special collection tube for coagulation studies. Please contact the laboratory at [phone] for redraw instructions. Result Comment: A he matocrit value greater than 55% may lead to inaccurate results in coagulation testing. Patients having hematocrit values >55% require a special collection tube for coagulation studies. Please contact the laboratory at [phone] for redraw instructions. Performed By: #### A LPHA PHEN, GIULIANO CHOICE, HCV RX PCR, HBCAB, SMAB, HBSAG, CERULOP, HBSAB #### [facility] , #### LIPID, JULIA, PT, FE and TIBC, CBC, HEPATIC #### [facility] [address] Serum gskjo-6-mghvffoyprt me asurementOrdered By: Alf Santos on 01-20-2024 Alpha 1 antitrypsin [Mass/Vol] 158 mg/dL 101-187 [facility] Serum globulin measurement b y calculation (mass/volume)Ordered By: Alf Santos on 01-20-2024 Globulin (S) [Mass/Vol] 2.9 g/dL Normal F [facility] Comment on above: Performed By: #### A LPHA PHEN, GIULIANO CHOICE, HCV RX PCR, HBCAB, SMAB, HBSAG, CERULOP, HBSAB #### [facility] , #### LIPID, JULIA, PT, FE and TIBC, CBC, HEPATIC #### [facility] [address] Serum or plasma albumin/glob ulin mass ratioOrdered By: Alf Santos on 01-20-2024 Albumin/Globulin [Mass ratio] 1.4 {ratio} Normal [facility] Comment on above: Performed By: #### A LPHA PHEN, GIULIANO CHOICE, HCV RX PCR, HBCAB, SMAB, HBSAG, CERULOP, HBSAB #### [facility] , #### LIPID, JULIA, PT, FE and TIBC, CBC, HEPATIC #### [facility] [address] Serum or plasma alpha 1 anti trypsin phenotyping identification by immunofixationOrdered By: Alf Santos on 01-20-2024 Alpha 1 antitrypsin phenotyping Immunofixation Nom Mm . [facility] Comment on above: MM Phenotype is co nsidered to be normal , producingnormal serum levels of vzdsi-8-cudfxpxf inhibitor andnot associated with clinical disease. Associated H2Xkecdv serum levels in other phenotypes and theirincidence [...] reference. Ranges used to confirm phenotype.Performed at: [employer] [facility] [address] [id number] Director: Glen Tenorio PhD, Phone: [phone] at: [facility] [id number] Director: Keith Contreras MD, Phone: [phone] Serum or plasma ceruloplasmi n measurement (mass/volume)Ordered By: Alf Santos on 01-20-2024 Ceruloplasmin [Mass/Vol] 32.3 mg/dL 19.0-39.0 [facility] Comment on above: Performed at: [facility] [id number] Director: Glen Tenorio PhD, Phone: [phone] Serum or plasma free cefurox dickson measurement (mass/volume)Ordered By: Alf Santos on 01-20-2024 Cefuroxime free [Mass/Vol] Negative Negative [facility] Comment on above: Performed at: [address] [id number] Director: Glen Tenorio PhD, Phone: [phone] Serum or plasma high density lipoprotein (HDL) cholesterol measurementOrdered By: Alf Santos on 01-20-2024 Cholesterol in HDL [Mass/Vol] 41 mg/dL Normal 23-92 [facility] Comment on above: HDL CHOL ATP-III [...] PT, FE and TIBC, CBC, HEPATIC #### [facility] [address] Serum or plasma non-glucuron idated bilirubin measurement (mass/volume)Ordered By: Alf Santos on 01-20-2024 Bilirubin.indirect [Mass/Vol] 0.5 mg/dL [facility] Serum or plasma total choles terol/high density lipoprotein (HDL) cholesterol mass ratOrdered By: Alf Santos on 01-20-2024 Cholesterol.total/Mera sterol in HDL [Mass ratio] 4.9 {ratio} Normal <5.0 [facility] Comment on above: Result Comment: PERF ORMED BY: [facility] [address] [place] [address] PATHOLOGIST ASSOCIATE PROGRAMMER ANALYST CELIA BERRIOS M.D. Performed By: #### A LPHA PHEN, GIULIANO CHOICE, HCV RX PCR, HBCAB, SMAB, HBSAG, CERULOP, HBSAB #### [facility] , #### LIPID, JULIA, PT, FE and TIBC, CBC, HEPATIC #### [facility] [address] [place] [address] [place] Smooth Muscle Antibodyon Smooth Muscle Antibody 5 Normal 0-19 e [facility] Comment on above: Result Comment: Nega tive 0 - 19 Weak positive 20 - 30 Moderate to strong positive >30 Actin Antibodies are found in 52-85% of patients with autoimmune hepatitis or chronic active hepatitis and in 22% of patients with primary biliary cirrhosis. Performed at: - [facility] [address] [id number] Data Typist: Glen Tenorio PhD, Phone: [phone] PERFORMED BY: [place] [address] PATHOLOGIST ASSOCIATE PROGRAMMER ANALYST CELIA BERRIOS M.D. Performed By: #### A DDONUAPLUS, [facility] #### [address] Transferrin [Mass/volume] in Serum or PlasmaOrdered By: Alf Santos on 01-20-2024 Transferrin [Mass/Vol] 234 mg/dL Normal 203-362 [facility] Comment on above: Performed By: #### A LPHA PHEN, GIULIANO CHOICE, HCV RX PCR, HBCAB, SMAB, HBSAG, CERULOP, HBSAB #### [facility] , #### LIPID, JULIA, PT, FE and TIBC, CBC, HEPATIC #### [facility] [address] [place] [address] Triglyceride [Mass/volume] i n Serum or PlasmaOrdered By: Alf Santos on 01-20-2024 Triglyceride [Mass/Vol] 167 mg/dL High 0-149 F [facility] Comment on above: TRIG ATP III CLASSIF ICATIONTRIG less than 150 mg/dL NormalTRIG 150-199 mg/dL Borderline highTRIG 200-500 mg/dL High TRIG greater than 500 mg/dL Very highStandard traceable to the Center for Disease Conrtrol and Prevention (CDC) test method. Coding Summaryon 06-04-2022 Coding Summary HTMLBase 64 MioypovcJXz2xIa+PGhlYWQ+PE 6UZHVdQ34loHHmaC2SV6nIQH1H RVNRXPSNQM3FRR8atVP4LLfoB4 VybiAv QmhsgLXdAU96GQq7ICJ4tIbtQR fayF3leNBvX5h6MlXfOZ09wR64 HOvgHWChCsH9XbIhzhiuwTIg X8ugPdEmsAHpQww+PHRhYmxlIH guKCQtWEjkXZKuGqErhKzkKX5s Dg4aVETvWHKiiEaebQXpWlHn n1shYBQgUBjcPD4qzDjrD7XenH T6UVMau6o0Yc49jDU+PHRkIHN0 bXzgBBxrj254VpRgs3lyNIO7 pMGaQXyaKCV4Q63gg2I9CLJrOD WzNPF5iSA4oG6snUldntfeF5Cn iCDkQlX1ZHO8mNEovJ6zdNch oxrxzV8qHmv+Q19HHK2OVZAEFG 7WQyg8X5GmNgfppHJ+LJ70TISp HC72rHDcaJHer4qfoTx5IfPa DHQrKWF9yJhaKKgcy2FwOQUhL4 8wgMJbw1N0CLDnqUopdBIsVeVj gZS8nO7lUOailygup2klydxc Xrnst3qwjs99wR25C40uHWjqWO UpGMH4BDLtDMMmyKndtm1kmB3a Ii8+CLbnm2azi0yvaSa2QsHw CUDrofCcpCszMKH4s1KvPo02Z0 DxlOhdu5QdNlz1zo94dUTkx1R1 vVB0POfxCJVdwK1nCZsgIzO2 VATtUoHsiN15rZGcVPmcPd1vpI thcDvxOT4yIGWgvxcjPHMceF7t VDVzfEOjpKyvZA7uECZswhkq o030BaIsJWP1CFEejLIdK6FduZ 0vGdEvTTMyEISfO6BghGSaVHyh A673THojGuS0VSZpykIeO5Vf UBBwdUpbYbV4k3C8Tk3Fz4Cwmz amLLW1PJurAIJjTdO3MqBtQbJ2 E8VkLbn9KPIlaUcxWB4tM1Zf TXClufutmeqkyYG1XGBlMCOzbE 11vWRzAZgfSl1jj1C0r053MVUy NNJejP23Mc9zxTotIZDkzVKG xG3abccmq7ldntnfOcDtIFNtBE i3QKd2ORArnKqoSjFoZSL8CxC0 UKP5rEVtmM1iySftgzhqbH0k Oyc+F47ptB1dCYT0PHN1tzepQF MoenVcKZ13AD16V2YgCjolhLYp bGU+UCBryjHfdVtjAK1iRkNc q5kwb5FrTXjnR6JyGSViEGscKa b2HQDmZAC4yWG6pE6uPYHgZVbt v8S8mMO2K7OfifCwga8pj5wy VXPcQFndG92tvNBtq6X5NCVwbB S9IPKhcJoiSxGafT34Pwg+PGNv mRepf0DtWoapd4ttx5djbNt6 CwYiKAPsnnEbjKxuXJB1i9AnIo 84F55xTWhpJCZpTDIhTXSuTLWx oTchfd1mpJ3dGi7+PGNvbCB3 fXB6rX6wCCCnTlB6SUctZ270Oi MxmMRtDfacn1wbt0zsvYy7ApPv TKDcufYvfKzmSIG0d8MwEs88 R18tKVbtOKZjIIUlBNGzVHRwyG dzpf8jhT1bOl2+VE0oi5pocp85 kA08gQE+NALiLMS6uJglQBgp PUCwyH8gSWjhHaC7TEHnQzJibH 39rPZoDFcqGq5hdXjcpZpoEO3a AARivurxo415DjMlr1wuNHDp kEMvLVnbYQS5B95zc8Z5DXYaQL SwTAC8zDY5lV2ojOdiiaeanHOe oCigwcRjaKpmRJdmHLhfD455 IHRvcDsnPlBhdGllbnQgTmFtZT v4F4SwPlj4BGVnaJdzXZ1sqSCf FXzhTj0geOoaoDenPB1xOJOn zkfnh582IxFth2lcZOIoiXSpPF yeZLC7D57am2Z2TNSqXTBhFMK4 pGC4gG7duDatzarfaHSuzGho gvNfgHbnQTgaZNynK694DGOdrP xlRpVxvhLnLBQelFP9OU86RM29 cTGiw1I0gWQ5V9BgFFJqnxzk rziytVY1KMOxHVOzcV09Pa4mpZ ruKo0hCCBbNWF2EYZwxXKtI6Ar xW4xIiBsZMNqDEIyZ7SiiDDp GEqzG282EItlHxL9NKWaxvTpO5 VfVCVcpQeyFcZ7k8T2Ue8DR6N0 HM10TW24iFWvv6O9dFV5V6Ap HYNctksdrreohLJ3FOWoTIRrfY 01Wm8cnUryOv7cLXEtPPB4NZZc pNJdE1XlnM1kZwJnRGMjZUXk O8DhbHWgSOxiK646SFptRiI4OE HlurUgP3XlMHUucIzkKwJ3k1R9 Uw8YQPl0CA94JU85nVBas1V7 mAZ2W8RsMACmwwhcemwtsKY2MY UuUFNhrD95Vf9pgZuoJk0rXTFv OJR2ERSbwMPfV4RiwA1iHoEf AJSoQKFrU3PmdXFnIZwzF316DO brDqQ5OZNmiqTlY8DqTGGxcYfp HhR5n2S5Je1MVJUpIQ14AGF0 iYI6NP94DK98H4EsXpjheCAouK U+PHRhYmxlIHdpZHRoPScxMDAl YeDcfLakXD0wQp6hZVUhLVRt zMsxyHKkUuNcw8qsQVImUYnhGL 4olIhhP2KklDW0VFSnz4e5Aq03 C95gP6IzwBQ+IHThiVG7nRN7 qF4mLmVlKuW5RPrxE411ScZxuE HjVayjn0ucm0cxyYe2EaH6DISh iqAqxFrwDEG0e2XpUe18I94j IHdpZHRoPSIxNSUiIHZhbGlnbj 1xlV3gMl2+IOQldHI5aTY2uI0e TrIiVxR1BKvlL710TyPkpDNe Gllki0drl6nnrZr5AeBbSPRkwi HlsWzeCAT8b1VlZv69M8OqoOuh r3JfPyg0gy01mVOci2V9fUZ3 Q9CaRCEcbyqriHJdiPkrVD3wCF FqfjysKJWylN2rJTIyN0v0PwEu LgU8IIvtX3LlczX2POObxOXi PGesHPW6D68fx5R7DZSqJRQmHA M3nGP7eH0vqVsdppjmqOPleNwe ltHclKzgPEykLQcqJ347CCDu sMnvAKXtfG0hKHZwlTPdoVzsOP 5fQKAbmkwmZhBVM4GDXxnlNcDW IRjEUnHTMY04VN21xRHvx2D0 uAN4F5ZlSYPnybawjriiyVU1GK JsURGcaF95cNSiXIijBk1mz9C0 n410VKTlKHWamI99Jq4lmUdp APLdaJROrB7xazxhm7xsaxvcEl KyIXOoYTh9AGk2VSHqoButTnIh NCK9DrM1PLI5hNBtnW7vxAwq endnxJ2zHms+ROkiEhhtWIj5EY wvdGQ+ORHxPVY9qQtmMKmgGLNt cN8vSHKoC2l9TlTvPkD8NBas M3ZuMLRsgefxMr02dJ5gRrXaOx R4PMhtS7NoxsA8HHLwpKWhHMno ZYD4X23yy5D5LZYiKUZqGDF0 yUQ6oP3kvGoggjyljZMfmBkxub DfwJwrBGhcVQatO990KEMtaJvm GdX4ZMmiTKDpOM76TG68qHRc r2J1nVY9A8ZdANAqpgnjpgzwiO T9XLDlRCEphX10tRNqRFkiOa0c j4E5l361FWHvLLFgfX24Qr8o oChnUXSayCJJkO6pylxsd0pczj daGwVqAQNyKZt9WCj1ZITiqObj HxFkAKX8OjB1QQO9oBAkwZ1s iFtouemcbX2kIyj+RkVNQUxFPC 41NU02xWHkm0O1eGW9V0IePIVp cdtkhanywEB0XITdIEQjkM09 uKStJAwhDn3mz6Z5s642FVJuHR OowN69Mz3pfBdhGDTocXNHkN3q xdueu7xrchgyLmQaOAFkFVj5 VFw5KJLoxRfaWgJhKNC6BaX2FV U5rALqhW6nfVjxdjrioG4pJob+ KQX6RNM3lgorban1Z4YuUkvz dHI+OH20DXGfXQ81dPKnlRFpm8 plpZf7EbSxCRBvSGE7cMdsTWmt f3UuFVItQ89uoKXjw7Q7ZCDn oDdqzPBjKgMchJH9lG5sTKitch ded4ccxtseNauhz8yavm80qS72 P58qYTvfSNMsYOIwRIVdKLJw cYhtec8jjC0iNr0+PWXiqFK0zC Y0jO7qVwSwPsO1GAknZ218AeFr pWOtLxgtj6kwq6iltQm8WtWi CCPosfOgcKboZKT5v9WtAg35P9 9sIHdpZHRoPSIyMCUiIHZhbGln ll9abO7mSw8+FP1ag1vxxk36 vW35mSV+FLSjFPD2kHwlRJkxHV IdtX4eEXmbWuV1WRLpOeTbdD90 fJYsLDykEv6ooUntnXviCM2x EMYwwfkrc573OgAij2kwFMCbnI OoGJxySWA9Y79ua5J8SVAlTVDk YFU0nVT6sN2viMpzfbctcYEa cZfhmkIezXpcNQvzEHgmK577FL UqzAtoDvPffKMuT3zxtlJTRR5e OjwvdGQ+NPHoTOD0dHuxCLgd PDTobR1zDKXrL9g5PhYoKyQ6EV vlD7GalmY4EVXccYTbDIKlgATU fQ7mjrksm2roygyjBkNrBBVv SHg3ANa1GUFbiMrgHsYvNRJ5Zf C3CAI9wLBglW0gfBxsfpkteX0f Oyc+RklOOjwvdGQ+PHRkIHN0 wTbqINxaFGLapV9rFVMrW5y0Is OqAvR3NKgnS0OsytF8BDRotBWl JQEbjHVHkM0qeigjc3cpfanp HaFbKIPxASg4YGs7HIMvbOxbOb PmQVR4WaB9YLN8tPKyrE0wzLhm vitraV2rKyp+TVJOOjwvdGQ+ SLGbAMX0aVqhPSehSSIsjR9bWA NwH9y4WzRgBgG5NGdfW4UaewI5 UWSlkLIuOUNmcITXgH9nfqek u7gxiotgIdSgTFBsGBn6YZt6HL IrxHbjYbZlPUG6ZkR0EEK7nNEr nJ1uvSefsdgmlP6gQhl+UGF5 HLO3FR88NE92Y2ThCdxfkGXuaS U+PHRhYmxlIHdpZHRoPScxMDAl YsUzzTaqHB4qDq0sVSKdKFUx bGx (more content not included)... [facility] Consent Formson 06-03-2022 Consent Forms [id number] Instructions [id number][facility] [id number]#[facility] 06-03-2022 Outside Records [id number]#[facility] Anest[facility]on 06-02-2022 Anesthesia Note Patient: NATALIYA BALBUENA Age: 47 years Sex: FEMALE : 1975 Associated Diagnoses: None Author: Sky Parsons MD Postoperative Information Post Operative Note: Operative Day. Anesthetic utilized: Monitored anesthesia care. Health Status Allergies: Allergic Reactions (All) No Known Medication Allergies Problem list (past medical history): All Problems Cardiomyopathy / SNOMED CT 476354158 / Confirmed H/O aortic valve insufficiency / SNOMED CT 870832474 / Confirmed History of obesity / SNOMED CT 522377250 / Confirmed Mitral valve insufficiency / SNOMED CT 98057513 / Confirmed Tricuspid valve insufficiency / SNOMED CT 943850291 / Confirmed Physical Examination VS/Measurements Vital Signs [...] on: 06/02/2022 17:54 EDT] Sky Parsons MD [facility] Anesthesia Note Patient: NATALIYA BALBUENA Age: [...] history): All Problems Cardiomyopathy / SNOMED CT 471953052 / Confirmed H/O aortic valve insufficiency / SNOMED CT 098673320 / Confirmed History of obesity / SNOMED CT 296472989 / Confirmed Mitral valve insufficiency / SNOMED CT 21840941 / Confirmed Tricuspid valve insufficiency / SNOMED CT 364528369 / Confirmed Histories Family History: No family history items have been selected or recorded. Procedure history: Cardiac catheterization, left heart (626584435). Cholecystectomy (67714308). Ring annuloplasty (514447493). AVR - Aortic valve replacement (2916694287). Entire MV - Mitral valve (6255546855). History of 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 (9039328335). Comments: 05/29/2022 11:11 CELESTINOT Olinda Garcia RN repair, not replacemnt Cardiac catheterization, right heart (17238274). Social History Electronic Cigarette/Vaping Assessment Electronic Cigarette [...] Laboratory Results Plan [place] [employer]hesi[employer]#(ASA) physical status classification: Class III. Anesthetic Preoperative Plan Anesthesia: Monitored anesthesia care. Anesthetic plan, risks, benefits, and alternatives discussed with the patient and/or family. Patient verbalized understanding. [Electronically Signed on: 06/02/2022 15:30 EDT] Sky Parsons MD [Verified on: 06/02/2022 15:30 EDT] Sky Parsons MD [facility] Inpatient Patient Summaryon 06-02-2022 [place] [address] Patient Discharge Instructions Name: ALFREDO BALBUENA : 1975 Patient Address: [address] [place] [address] Primary Care Provider: Name: COLUMBA HASSAN MD After you are discharged if you find you have any questions, please, call [phone] ext [phone] to speak to a nurse. Discharge Diagnosis: Right carpal tunnel syndrome Prescription Information: If you have been given a prescription for narcotics, seek immediate medical attention if you have any difficulty breathing or any sudden status changes such as confusion and sleepiness. If you or anyone you know is experiencing suicidal thoughts, mental health, alcohol and/or drug addiction problems; contact the [facility] 09/03 Crisis Hotline -Text 4HAYZ dh 097326. If you received any narcotics, sedation, or [...] business decisions or sign any legal documents [facility] would like to thank you for allowing us to assist you with your healthcare needs. The following includes patient education materials and information regarding your injury/illness. ALFREDO BALBUENA has been given the following list of follow-up instructions, prescriptions, and patient education materials: Follow-up Instructions With: Address: When: COLUMBA HASASN [address] [place] [address] Business (1) With: Address: When: Manjinder Vargas [address] [place] [address] [address] [id number] Business (1) 06/10/2022 2:00 PM Medications During [...] 5 mg oral tablet) 1 tab(s) Oral (more content not included)... Normal [facility] MAGR Intraoperative Recordon 06-02-2022 MAGR Intraoperative Record MAGR Intra-Op Record Summary Primary Physician: Bharathi Lopez DO Finalized Date/Time: 06/02/22 18:11:29 Pt. Name: ALFREDO BALBUENA /Sex: 1975 FEMALE Med Rec #: [id number] Physician: Bharathi Lopez DO Financial #: [id number] Pt. Type: D Room/Bed: / Admit/Disch: 06/02/22 [...] Role Performed Surgeon - Primary Anesthesiologist of Herb Doctor Record Time In 06/02/22 17:03:00 06/02/22 17:03:00 06/02/22 17:03:00 Time Out 06/02/22 17:37:00 06/02/22 17:37:00 06/02/22 17:37:00 Procedure Carpal Tunnel Carpal Tunnel Carpal Tunnel Release(Right) Release(Right) Release(Right) Last Modified By: Dahlia Mendenhall RN, Barbara RN Long, Barbara RN 06/02/22 17:37:37 06/02/22 17:37:37 06/02/22 17:37:37 Entry 4 Entry 5 Case Attendee Azeb Farley CST, CST/Kristi SIMMS ASSISTANT CROSS COUNTRY COACH Role Performed Scrub Personnel Wire Machine Cutter Time In 06/02/22 17:03:00 06/02/22 17:03:00 Time Out 06/02/22 17:37:00 06/02/22 17:37:00 Procedure Carpal Tunnel Carpal Tunnel Release(Right) Release(Right) Last Modified By: Dahlia Mendenhall RN, Barbara RN 06/02/22 17:37:37 06/02/22 17:37:37 Surgical Procedures MAGR Pre-Care Text: A.20 Verifies operative procedure, surgical site, and laterality Im.150 Develops individualized plan of care Entry 1 Procedure Carpal Tunnel Release Primary Procedure Yes Primary Surgeon Bharathi Lopez Modifiers Right Pietro DO Surgeon Comment RELEASE RIGHT [...] By Dahlia Mendenhall RN Scrub 10% Povidone-Iodine S[place] Prep Area (Im.270) Elbow and forearm, Hand [...] chemical in (more content not included)... [facility]22 [facility] Postoperative Record MAGR Phase II Record Summary Primary Physician: Bharathi Lopez DO Finalized Date/Time: 06/02/22 18:29:55 Pt. Name: ALFREDO BALBUENA/Sex: 1975 FEMALE Med Rec #: [id number] Physician: Bharathi Lopez DO Financial #: [id number] Pt. Type: D Room/Bed: / Admit/Disch: 06/02/22 [...] By: Dahlia Mendenhall RN 06/02/22 18:29 [facility] Preoperative Record MAGR Pre-Op Record Summary Primary Physician: Bharathi Lopez DO Finalized Date/Time: 06/02/22 17:25:46 Pt. Name: ALFREDO BALBUENA Roly /Sex: 1975 FEMALE Med Rec #: [id number] Physician: Bharathi Lopez DO Financial #: [id number] Pt. Type: D Room/Bed: / Admit/Disch: 06/02/22 [...] Signed By: Dahlia Mendenhall RN 06/02/22 17:25 [facility] PT/PTTon 06-02-2022 INR Coag (PPP) [Relative time] 1.64 {INR} High 0.91-1.11 [facility] Comment on above: Performed By: #### 6 [id number] ####[facility] (DEFAULT)[address] [place] [address] 59005 PT 17.3 second(s) High 9.7-11.8 [facility] Comment on above: Performed By: #### 6 [id number] ####[facility] (DEFAULT)[address] [place] [address] 57860 PTT 39 second(s) High 25-35 [facility] Comment on above: Performed By: #### 6 [id number] ####[facility] (DEFAULT)[address] [place] [address] 39111 Patient Handouton 06-02-[address] HIGHTOWER POST OPERATIVE CARPEL TUNNEL INSTRUCTIONS SURGEONS WRITTEN INSTRUTCTIONS: -Keep your hand elevated above your elbow for the first 24 hours after surgery -Wiggle your fingers frequently while awake -DO NOT lift heavy objects or hvac service manager forcefully with your hand -Change your dressing [...] or concerns, please call the office at [phone] -Follow up as scheduled [facility] Test Serum 1on Preg Serum Internal Control [place] [facility] Comment on above: Order Comment: pre o p Performed By: #### 3 [id number] ####[facility] (DEFAULT)[address] [place] [address] 70652 Test Serum Qual Negative [facility] Comment on above: Order Comment: pre o p Performed By: #### 3 [id number] ####[facility] (DEFAULT)[address] [place] [address] 25999 Coding Summaryon 05-30-2022 Coding Summary HTMLBase 64 DwwibhsuZLy9qAm+PGhlYWQ+PE 6MZSOiN50wmLVdsB5FG7xBQP6C XDXTZXLBUM2XZK8jqFC8BNiiG7 VybiAv WilrwDGkTX86ILj7AZQ8fAzdIW wecT0hqELrQ4q5LcEeMN92qZ92 XVmdUSKrBmO4HwRfsnnomJBf C3yjGjMwsAFvSkr+PHRhYmxlIH hlNOPcKSzbNQYsKnFpmOjtFH4s Io1fJEIaFTGdyZopnMCeHuFm v3ruDLSwAIgmSM2uaPtpE9OavL N8PRXag8f9Cl01dWW+PHRkIHN0 iLhzHSygl045NzVbq1moBXG1 xKRcWMajHDM3F26qi9H4OIRkRA BuNGI3yHP6lM3hpJpmntuyD2Ju wKYbGgE5GZD1vIBjjE4fvRdo rivdhI2pEem+K03GBJ7VFLRLDC 4XGho8R0KmQafxyEQ+RM00YBBm NP18uRWkdZVex2uvqVd5ToNy NUArXEE2vYpoSPgdj2GiKETvT4 5hyNVev5L5TJVdcDizrXLhTkUi lYR9zV8fBBitbnmoh8psydnu Mfkxd4qare36kZ50Q92zWWagEU RsKES0YTXwJYLltHkrxk3olT5d Ii8+OTogc5dqp1hixNv3HrIc KJYrluNheGwtSXM0n7YqAy62T5 WhrEmdh9FwTpn0ip23sRNmq3K3 mQB5RJgoWKPmeC3jOWpoLlV1 OSZzMlCruR58hAZuYByrIl9vzR zxqDuaAH7aGMZbkzvaETFonF2g HUDgiCZnbLqpNX7uCPHdfnvp g505WxQkOSO6QDDzeSKpW1BxjC 6vFwRfYEAaLBSdB3ZevMFxMQia Y033HInbSqZ5SLBheqUhV2Qf EQZtiOmsHrW0n4V8Zr8Hk6Rubw jmNAP6KTklHYMnJwE1ZrGzBbL0 Q5SaNmm5EHWieYnoDU3sT7Eh ZRDxptzocicfvOV9NYWfDMLmdE 73vZMhEZfqTa1vx0R8z768OMXr FXSbtV28Ao0rzYjcZGHnzPLS lV6flwqqg8rpkifkYnMeMIVdXW s6KVt1PRDuzIlwDiAtMYR5SxW4 VHV6tEGghZ9unXolnnamxF2l Oyc+H50vcO5sHIE1WQU0grvsOY AxvfRnPP08DN85I3DiFibhwYHc bGU+NSSxvyKvhWmoHA9sDdCv t5jxi0XjJDqoA5GqOOApDJvxCs b2YROsSUD9mDL9aO1pTVIgBYgn b1D3qAU0T1MzyqFyct6py5is AWXaQFkpV13aoTWjt9U0GZZigF T1WJFbgTpbRuKxeY64Dbg+PGNv kWpop1CaCevwa8uch3yqtOv3 NnQrTHYoncNxfNxkLCT9r4KlUh 09J44sPDwfTSVbGKVtXFGyQZXx ePikvj4vuU3lDv8+PGNvbCB3 gPL1dG5sHUGwCdN1NKhbI416Oc VzwNCzBtjed5cwx5uenAl1RuUz JSRbdcIhrPdfSWY9w9KkFt96 Q16rZTrsIORuPJRpLWPvEORqcK oddp6ncZ7aBv4+GE8xr8tvtk99 dM21hKF+YJCfKKN0sBmrFLxo ALXprD5oOBchMcW9UKMuSfLqtY 32vMVeDDetBj7yaJbcxIzbEP0t XEHrlfcxz880QbElu8ffOAXv rHJjMElbZZQ8J99zj0E8KALrWF OaMMX3rRK1aK5txTjqotgegXOi fVqwhtLoaHipNCqtMFbeW324 IHRvcDsnPlBhdGllbnQgTmFtZT f5R7DhKbe0CYGavCjdVC2qeIYi BFvdPp2etRrfsThoEF6zXUYx kbsie135ZeGrc3avUZQxzUMxSJ gmFKU7N38au5N0QALjKCSiMHP7 eJT3xL1omSowxqdttQLmhTus ktFpjBncWGacMIvaY910PCQiqV wkHrEascCtAWTykJM0DH22ZL12 wZXks4C1vGZ1L3UpASPtqkcf zlbdfZU8HPIfVKGrnQ37Qn6qtH yhLg7qTWTcEMT6FKVjdBJvI6Cn tM1eClPuPOShKQZiQ1YusPDk BFbpP123SQmsQhX7NQNwtxPcG6 OyWQGkdRqgWuD4w5X5Ea3MA6N8 UD73FG76hACzk8J0fMH5S5Ew QDAlfkxhanxunGG6MSMhKUDezP 71Bf4lhAovKa0kXYDhXPJ5LVZe rWVnT4XrsX4qPxZdVVSgLVLk T6BwhIYgKMjcV995HYlwHgY5YH YmjsIuP6IcEZQojSicLgN7b4B4 Hd1AQYc9HT53JJ06gPMyf1L7 xQV0T4PxHDWzoafbpjmgjET0OE RcZMLiqR05Vz8isUijAo1aRYRn FAE6CYWxpUZdD3OizU6mVsDe QYQpHQZsO4ZrrPZqCKsgO403FY blUnC3WRQwddDqA6CvVXKuuArq KvJ9w4C8Fi4MHCKlYD17VSB1 fIU0BL86EM84F1VrTnnbeJNbpI U+PHRhYmxlIHdpZHRoPScxMDAl FmTjmLadCH7dFf1yAVDrBKOv fTbqkGFkYvZme4hhTFZgFClvLK 5asGpqG4DejOC6PHDji4g6Ul43 I50jE6ImwWF+XFFlpEU1oCG9 lU0wEgCxIpS3EPjyQ516UfIgoK GsTktro6ejz6sjiWb0MeV9KSFf gaEsyNjqEDY7t5LkJz82S11j IHdpZHRoPSIxNSUiIHZhbGlnbj 3fgS6aJt0+QRVssPW1zTL1rR3t GvJjPbS7QNsxW597ZmWkaDIs Xuqdj2qdc1irvDv9ZnVbBGSnlj QfkLlgEMT0f9WsJy73J2RkaIhs f8TyIbc6ub73lBCef0G4fWO1 W5HxLWWcbqtynVVzeZdxKT1bLQ DzyplgPLWwsX7tJABlR0h3MqYp EzL5RDtfF5ZacjO2DFFatHVe NOhbZBN0S83oq0V6XCMgKXThKU C7wBL4bD4vjXklclofiMCfjGdm opPufMizEPplHCcnA175LAUd jDlmLOZsiJ7rCCJyeFIcwBoaXP 6lDYYcnoydLyCRX6HQAppjFiNG RPvCXvTISK28QH85gRMjq0X7 gWZ9D6MqFFYyjepqcnhesWV0VQ DrYVNjiW93pJWwCYrrZu1cv8I3 p021OPDaATPvuZ33Bz8cnRwm AGLauGJBiI0oievrb0gskxwbJb BlXSKjEIp4TZx9GKIhuLkaUiVj WAX1OwA8PEN5oSElmR9quLfq ccupgN8wLqw+OCamAojgEHp4BG wvdGQ+MHDjYTN0aXwhHMgqCEFs uC2iWVSsJ0k4BgBcNzO9SWxb D1SkWSBubdoyHr74tD9dAnAsBz Q1HSbaM1HfguU2STYfdHAjCGia DJY6V80td6B7AZZeLNEzINK0 oSC8fQ1piNjlzecwjAStfEwlxs WyqXlgWGwtGZmjO710UDCxsPyk HoM2YAptQBVlIX08OD23uJTe h4F6rTT5E2WwEILktnlzscuxoC P4JBNvOVCizQ91gYOaKEqjXw0m g5R2c181SRBgFRRucB74Sx1f kMtwOGPeuJNRuW7dwjyhj2hrkr dvQpIoJUZmCMe3SYs8ZXUqwCam UvElDIH1ClV7TXD1lFPtgE8d iDsixrtyjP9hVvd+RkVNQUxFPC 26GS07hXLux7J5wKF2L7PaRTHy zbsmuyktqSJ6DOVsRIEajH67 vAUjIUsoDq6xn9H1s634SYKqRU XfjP98Eg5xxLlwLNIicEFSqX8x hbtao9qugdtjDsBtLMAoGGe2 TYm4TGIhxVeaGpNyNUE5ByA7YI P2zHKgzR8ebFpcafvbbF1eXoy+ D0G6C3NyAxekzUI+DE71GYGk DV31jMZcrVRgn7hfzUa6LoNhHD OdAPV1mFiyJPdmz0NuYYCfB62k xSIyk1S8ZVKnqEnaxMKoJrSd eRD1kH2zRPorivtjy1mfpitkCq wpu8vnan23zC73A92jKCpoPUQa LDGkTMNlZUEoxHxtet0ieG5j Ii8+UHCucMR2pZS4pW9iQeKjUt K9PBmtJ792ViEddEBkZajnm1ps t2jzfHt2GoAdBWXpskHrbArl PHD4l1IjNo36V90mXLvzABSyNX RxAYRsINHyqIgizj4bbV1lKf0+ KU8fh3moio20iF08sMR+PHRk ZAJ2xYtfKVpqPNUzfD8hQFbmXk C6IFPzTbMuxJ21cQXiGCrdWo8k vHnlbLwsSS3jJXCcunrdq159 GcPrj6jlYDMimHAlHUczFLW7J3 9hn6W4MUYoOWGlMTD4mAR5sH3j bGlnbjogbGVmdDsgdmVydGlj FTdfISjaC640VAXomRvtQeLfqS XyS9vunrPRDS8uVagtyVQ+PHRk TID5jRrkUXzmFNKapI7tQQIl S4p8EzReFrT4EOwsO7AypfN8EW MpdIJyLOQchQVSjD3xvtsdk7ea rsyuOvSoAVEzMAk4OFs4MCPa rShaZtQaROR3PvG5NMW5nBHsmU 0cbEmotpyvnU3bOyq+RklOOjwv dGQ+BUAkFHM6oZuxZFmfNOJl nC0jNGPkW2u8ZeWlRcD4OCsgT4 RxpcJ4ZDBqxZBlBSHmzUADuJ5j dcsgg5gtxawfBqNcZGZmBXb8 PWw8XTYbmFsyArGzKYR7YiT5UM H8yYFkuS1adEqyzrzwbQ9zGwh+ TVJOOjwvdGQ+ZJAfLXA2hZjo TBxpBRMoyQ1pKJMkV3n5ReGyNk I6NKjxE1OhzjG4HBFvfRFtGCAd kTSYbH7wgrbqu2xcirohIrVu SGKjYNi4QWa3AOFgfXrkZoZoVW T4UfH6TGR6uORugN6ojVvpigyb tM7kXlw+TUX6LJV3PA60AM75 Q7GoGekrkOXkiTT+PHRhYmxlIH pnYNCzVOntPGYhZzItjFyxPT4a Qj6sBIIvCEVyvAgwyJMlHpJp b2x (more content not included)... Normal [facility] .Auto Diff 1on 05-29-2022 Auto Bureau % 6 % Normal 1-12 [facility] Comment on above: Performed By: #### 1 [id number] ####[facility] (DEFAULT)[address] [place] [address] 74298 Baso Abs# 0.0 x10 Normal 0.0-0.2 [facility] Comment on above: Performed By: #### 1 [id number], [id number], [id number] ####[facility] (DEFAULT)[address] [place] [address] 82743 Basophils/100 WBC (Bld) 0.3 % Normal 0.2-2.0 [facility] Comment on above: Performed By: #### 1 [id number], [id number], [id number] ####[facility] (DEFAULT)[address] [place] [address] 60578 Eos Abs# 0.1 x10 Normal 0.0-0.4 [facility] Comment on above: Performed By: #### 1 [id number], [id number], [id number] ####[facility] (DEFAULT)[address] [place] [address] 48376 Eosinophils/100 WBC (Bld) 1.3 % Normal 0.9-4.0 [facility] Comment on above: Performed By: #### 1 [id number], [id number], [id number] ####[facility] (DEFAULT)[address] [place] [address] 62771 Lymph Abs# 1.6 x10 Normal 1.3-2.9 [facility] Comment on above: Performed By: #### 1 [id number], [id number], [id number] ####[facility] (DEFAULT)[address] [place] [address] 37080 Lymphocytes/100 WBC (Bld) 26 % Normal 14-48 [facility] Comment on above: Performed By: #### 1 [id number], [id number], [id number] ####[facility] (DEFAULT)[address] [place] [address] Bureau Abs# 0.4 x10 Normal 0.0-0.8 [facility] Comment on above: Performed By: #### 1 [id number], [id number], [id number] ####[facility] (DEFAULT)[address] [place] [address] Neut Abs# 4.0 x10 Normal 1.5-9.2 [facility] Comment on above: Performed By: #### 1 [id number], [id number], [id number] ####[facility] (DEFAULT)[address] [place] [address] Neutrophils/100 WBC (Bld) 66 % Normal 44-88 [facility] Comment on above: Performed By: #### 1 [id number], [id number], [id number] ####[facility] (DEFAULT)[address] [place] [address] Standardon 05-29-2022 eGFR Non AA 53 mL/min/1.73m2 Invalid Interpretation Code [facility] Comment on above: Performed By: #### 1 [id number], [id number], [id number] ####[facility] (DEFAULT)[address] [place] [address] eGFR AA >60 Invalid Interpretation Code [facility] Comment on above: Result Comment: [employer] bev Kidney disease could be indicated at eGFRs of less than 60 ml/min/1.73m2. Kidney Failure is indicated at less than 15 ml/min/1.73m2 Performed By: #### 1 [id number], [id number], [id number] ####[facility] (DEFAULT)[address] [place] [address] 31135 Anion gap [Moles/Vol] 10.0 mmol/L Normal 5.0-19.0 [facility] Comment on above: Performed By: #### 1 [id number], [id number], [id number] ####[facility] (DEFAULT)[address] [place] [address] 00331 Calcium [Mass/Vol] 9.3 mg/dL Normal 8.9-10.3 [facility] Comment on above: Performed By: #### 1 [id number], [id number], [id number] ####[facility] (DEFAULT)[address] [place] [address] 13808 Chloride [Moles/Vol] 106 mmol/L Normal 101-111 [facility] Comment on above: Performed By: #### 1 [id number], [id number], [id number] ####[facility] (DEFAULT)[address] [place] [address] 20742 CO2 [Moles/Vol] 28 mmol/L Normal 21-32 [facility] Comment on above: Performed By: #### 1 [id number], [id number], [id number] ####[facility] (DEFAULT)[address] [place] [address] 26562 Creatinine [Mass/Vol] 1.10 mg/dL Normal 0.60-1.30 [facility] Comment on above: Performed By: #### 1 [id number], [id number], [id number] ####[facility] (DEFAULT)[address] [place] [address] 48824 Glucose [Mass/Vol] 97.0 mg/dL Normal 74.0-118.0 [facility] Comment on above: Performed By: #### 1 [id number], [id number], [id number] ####[facility] (DEFAULT)[address] [place] [address] 93237 Osmolality 281 mOsm/L Invalid Interpretation Code [facility] Comment on above: Performed By: #### 1 [id number], [id number], [id number] ####[facility] (DEFAULT)[address] [place] [address] 01903 Potassium [Moles/Vol] 3.6 mmol/L Normal 3.6-5.1 [facility] Comment on above: Performed By: #### 1 [id number], [id number], [id number] ####[facility] (DEFAULT)[address] [place] [address] 42425 Sodium [Moles/Vol] 140.0 mmol/L Normal 136.0-144 . 0 [facility] Comment on above: Performed By: #### 1 [id number], [id number], [id number] ####[facility] (DEFAULT)[address] [place] [address] 50861 Urea nitrogen [Mass/Vol] 18 mg/dL Normal 8-26 [facility] Comment on above: Performed By: #### 1 [id number], [id number], [id number] ####[facility] (DEFAULT)[address] [place] [address] 78840 Urea nitrogen/Creatinine [Mass ratio] 16.0 mg/mg Normal 4.6-16.2 [facility] Comment on above: Performed By: #### 1 [id number], [id number], [id number] ####[facility] (DEFAULT)[address] [place] [address] CBC w/ Auto Diffon 2 Erythrocyte distribution width (RBC) [Ratio] 12.7 % Normal 11.5-15.0 [facility] Comment on above: Performed By: #### 1 [id number], [id number], [id number] #### [facility] (DEFAULT) [address] [place] [address] 41095 Hematocrit (Bld) [Volume fraction] 38.9 % Normal 33.7-40.4 [facility] Comment on above: Performed By: #### 1 [id number], [id number], [id number] #### [facility] (DEFAULT) [address] [place] [address] 00195 Hemoglobin (Bld) [Mass/Vol] 12.6 g/dL Normal 11.3-15.9 [facility] Comment on above: Performed By: #### 1 [id number], [id number], [id number] #### [facility] (DEFAULT) [address] [place] [address] 26664 Instr WBC 6.1 x10 Invalid Interpretation Code [facility] Comment on above: Performed By: #### 1 [id number], [id number], [id number] #### [facility] (DEFAULT) [address] [place] [address] 27773 Man Diff? Auto Normal [facility] Comment on above: Performed By: #### 1 [id number], [id number], 9107460 #### [facility] (DEFAULT) [address] [place] [address] 22479 MCH (RBC) [Entitic mass] 29 pg Normal 24-34 [facility] Comment on above: Performed By: #### 1 [id number], [id number], [id number] #### [facility] (DEFAULT) [address] [place] [address] 21058 MCHC (RBC) [Mass/Vol] 32 g/dL Normal 26-37 [facility] Comment on above: Performed By: #### 1 [id number] #### [facility] (DEFAULT) [address] [place] [address] [id number] MCV (RBC) [Entitic vol] 89 fL Normal 81-100 [facility] Comment on above: Performed By: #### 1 [id number] #### [facility] (DEFAULT) [address] [place] [address] 67924 Platelet 291 x10 Normal 138-427 [facility] Comment on above: Performed By: #### 1 [id number] #### [facility] (DEFAULT) [address] [place] [address] Platelet mean volume (Bld) [Entitic vol] 9.8 fL Normal 6.3-10.2 [facility] Comment on above: Performed By: #### 1 [id number] #### [facility] (DEFAULT) [address] [place] [address] 90227 RBC 4.36 x10 Normal 3.70-5.30 [facility] Comment on above: Performed By: #### 1 [id number] #### [facility] (DEFAULT) [address] [place] [address] 68474 WBC 6.1 x10 Normal 3.5-10.5 [facility] Comment on above: Performed By: #### 1 [id number] #### [facility] (DEFAULT) [address] [place] [address] Progress Note - Nurseon 05-17 Progress Note - Nurse PAT review done tania Morales, order received. [Electronically Signed on: 05/29/2022 14:46 EDT] Olinda Roa RN [Verified on: 05/29/2022 14:46 EDT] Olinda Roa RN Normal [facility] SARS-CoV-2 (COVID-19) PCRon 05-29-2022 Employed in healthcare? No Invalid Interpretation Code [facility] Comment on above: Performed By: #### 6 [id number] ####[facility] (DEFAULT)[address] [place] [address] Group care resident? No Invalid Interpretation Code [facility] Comment on above: Performed By: #### 6 [id number] ####[facility] (DEFAULT)[address] [place] [address] In ICU? No Invalid Interpretation Code [facility] Comment on above: Performed By: #### 6 [id number] ####[facility] (DEFAULT)[address] [place] [address] status? Not Invalid Interpretation Code [facility] Comment on above: Performed By: #### 6 [id number] ####[facility] (DEFAULT)[address] [place] [address] SARS-CoV-2 (COVID-19) RNA NOA+probe Ql (Unsp spec) Not detected Normal Not Detected [facility] Comment on above: Result Comment: Perf ormed by PCR methodology. Performed By: #### 6 [id number] ####[facility] (DEFAULT)[address] [place] [address] SARS-CoV-2 (COVID-19) RNA NOA+probe Ql (Unsp spec) No Invalid Interpretation Code [facility] Comment on above: Performed By: #### 6 [id number] ####[facility] (DEFAULT)[address] [place] [address] Symptomatic as defined by CDC? No Invalid Interpretation Code [facility] Comment on above: Performed By: #### 6 [id number] ####[facility] (DEFAULT)[address] [place] [address] CNOVon 05-02-2022 CNOV Office Visit (CARIMN ) -- ALFREDO BALBUENA ([id number]) 1975 F Date Time Provider Department 05/02/22 9:15 AM GIULIANO WALTON During your visit today, we recorded the following information about you: Pulse Blood pressure Weight Height 54/minute 180/90 113.9 kg 1.702 m Giuliano Walton MD 05/02/2022 4:18 PM [facility] Department of Cardiovascular Medicine SECTION OF CARDIOVASCULAR IMAGING OUTPATIENT VISIT DATE May 02, 2022 OUTPATIENT VISIT TYPE NEW (>3yrs since last seen) PRIMARY CARE PHYSICIAN: Adria Snyder DO [address] [place] [address] CHIEF COMPLAINT: Postoperative Follow Up. HISTORY OF [...] tunnel surgery. 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 She reports edema in b/l lower [...] Disease Father Heart Father age 63- massive [place] Diabetes Mother Thyroid Sister hypertension None Sister [...] Electrocardiogram an (more content not included)... Normal [facility] ECG COMPLETEon 05-02-2022 ECG COMPLETE Ventricular Rate : 5 8 BPM Atrial Rate : 58 BPM P-R Interval : 244 ms QRS Duration : 100 ms Q-T Interval : 450 ms QTC Calculation(Bazett) : 441 ms Calculated P [place] : 20 degrees Calculated R Ho Ho Kus : 28 degrees Calculated T Ho Ho K[place] : 51 degrees SINUS BRADYCARDIA WITH 1ST DEGREE AV BLOCK OTHERWISE NORMAL ECG Confirmed by YESSY TOMPKINS MD ([id number]) on 05/11/2022 4:10:17 PM NAME : ALFREDO BALBUENA PID : [id number] : 1975 Gender : Female Race : ORD : [id number] Procedure Date : May 02 2022 09:15:17 [...] GIULIANO WALTON Acquired by : DAHLIA RITTER [facility] Gracy 02-27-2022 CNPN Telephone (CARDMN) -- ALFREDO BALBUENA ([id number]) 1975 F Date Time Provider Department 02/27/22 [...] Status:Closed by ANDRES CALLEJAS on 02/27/22 Normal [facility] Office Visit (Cardiology)on 01-21-2022 Follow-up visit [...] TO SURGERY. PATIENT TO SEEK SURGEON AT [facility]. Follow-up as needed only Chief Complaint ALFREDO BALBUENA is being seen for a consultation for. POC Dr Lopez right carpel tunnel History of Present Illness Ms. Balbuena is a 46-year-old female who is seen today for preoperative clearance for her to have carpal tunnel surgery. 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 She has mechanical valves apparently in both positions. This was done at [facility]. She is on chronic Coumadin. She has no cardiac complaints and she has been stable. She used to follow with [facility] cardiology but did not continue to [...] Lopez who my understanding is operates at [facility]. I discussed with the patient that her cardiac status is essentially normal but given her valve history and the need for being on heparin while her Coumadin is withheld and then at the end of her surgery reversing this process does represent some risk and her best option may well be to have surgery done at a tertiary center such as [facility] where they would be more familiar [...] of Sys (more content not included)... Normal [facility] Tobacco Screening.on 022 Adult depression screening assessment No -[facility] 250 DO Work Phone: Tobacco use status [facility] b) No M P-[facility] 250 DO Work Phone: MG MAMM DX 3D RT CADon 09-30 MG MAMM DX 3D RT CAD Patient: ASHA BALBUENA Exam Date: 09/30/2021 : 1975 Gender:F Ordering : DR COLUMBA HASSAN M.D. Admission #: [id number] Family : Order #: [id number] CLICK HERE TO VIEW EXAM RADIOLOGY REPORT [...] Treatments None Family Cancers None LOCATION: [facility] BREAST COMPOSITION: Heterogeneously dense,which may obscure [...] MD on 09/30/2021 at 08:29 Normal [facility] US BREAST RIGHT LIMITEDon US BREAST RIGHT LIMITED Patient: ALFREDO BALBUENA Exam Date: 09/06/2021 : 1975 Gender:F Ordering : DR COLUMBA HASSAN M.D. Admission #: [id number] Family : Order #: [id number] CLICK HERE TO VIEW EXAM RADIOLOGY REPORT [...] Ahmadi M.D. on 09/06/2021 at 15:08 Normal [facility] MAMM SCREEN 3D DIANDRA CADon 04-26-2021 MG MAMM SCREEN 3D DIANDRA CAD Patient: ALFREDO BALBUENA Exam Date: 04/26/2021 : 1975 Gender:F Ordering : DR COLUMBA HASSAN M.D. Admission #: [id number] Family : Order #: [id number] CLICK HERE TO VIEW EXAM RADIOLOGY REPORT [...] Treatments None Family Cancers None LOCATION: [facility] BREAST COMPOSITION: Heterogeneously dense, which may obscure [...] on 04/26/2021 at 09:58 Approved by: Tracy Ahmdai M.D. on 04/26/2021 at 10:12 [facility] Vital Signs Date Time Vital Sign Value Performing Clinician Facility 09-13-2024 08:36-0500 Body height 167.6 cm Jayleen Hemmer PA Work Phone: [facility] 09-13-2024 08:36-0500 Body mass index (BMI) [Ratio] 39.58 kg/m2 Jayleen Hemmer PA Work Phone: [facility] 09-13-2024 08:36-0500 Body weight 111.22 kg Jayleen Hemmer PA Work Phone: [facility] 09-13-2024 08:36-0500 Diastolic blood pressure 86 mm[Hg] Jayleen Hemmer PA Work Phone: [facility] 09-13-2024 08:36-0500 Heart rate 73 /min Jayleen Hemmer PA Work Phone: [facility] 09-13-2024 08:36-0500 Respiratory rate 16 /min Jayleen Hemmer PA Work Phone: [facility] 09-13-2024 08:36-0500 SaO2% (BldA) [Mass fraction] 99 % Jayleen Hemmer PA Work Phone: [facility] 09-13-2024 08:36-0500 Systolic blood pressure 138 mm[Hg] Jayleen Hemmer PA Work Phone: [facility] 06-02-2024 08:43-0400 Body height 167.6 cm Jayleen Hemmer PA Work Phone: [facility] 06-02-2024 08:43-0400 Body mass index (BMI) [Ratio] 40.64 kg/m2 Jayleen Hemmer PA Work Phone: [facility] 06-02-2024 08:43-0400 Body weight 114.22 kg Jayleen Hemmer PA Work Phone: [facility] 06-02-2024 08:43-0400 Diastolic blood pressure 82 mm[Hg] Jayleen Hemmer PA Work Phone: [facility] 06-02-2024 08:43-0400 Heart rate 85 /min Jayleen Hemmer PA Work Phone: [facility] 06-02-2024 08:43-0400 Respiratory rate 16 /min Jayleen Hemmer PA Work Phone: [facility] 06-02-2024 08:43-0400 SaO2% (BldA) [Mass fraction] 94 % Jayleen Hemmer PA Work Phone: [facility] 06-02-2024 08:43-0400 Systolic blood pressure 124 mm[Hg] Jayleen Hemmer PA Work Phone: [facility] 05-03-2024 08:57-0400 Body height 167.6 cm Jayleen Hemmer PA Work Phone: [facility] 05-03-2024 08:57-0400 Body mass index (BMI) [Ratio] 40.61 kg/m2 Jayleen Hemmer PA Work Phone: [facility] 05-03-2024 08:57-0400 Body weight 114.13 kg Jayleen Hemmer PA Work Phone: [facility] 05-03-2024 08:57-0400 Diastolic blood pressure 84 mm[Hg] Jayleen Hemmer PA Work Phone: [facility] 05-03-2024 08:57-0400 Heart rate 57 /min Jayleen Hemmer PA Work Phone: [facility] 05-03-2024 08:57-0400 Respiratory rate 16 /min Jayleen Hemmer PA Work Phone: [facility] 05-03-2024 08:57-0400 SaO2% (BldA) [Mass fraction] 97 % Jayleen Hemmer PA Work Phone: [facility] 05-03-2024 08:57-0400 Systolic blood pressure 138 mm[Hg] Jayleen Hemmer PA Work Phone: [facility] 05-02-2024 15:01-0400 Body height 167.6 cm Fadumo Nassau PA Work Phone: [facility] 05-02-2024 15:01-0400 Body mass index (BMI) [Ratio] 40.19 kg/m2 Fadumo Nuria PA Work Phone: [facility] 05-02-2024 15:01-0400 Body weight 112.95 kg Fadumo Nassau PA Work Phone: [facility] 05-02-2024 15:01-0400 Diastolic blood pressure 76 mm[Hg] Fadumo Nuria PA Work Phone: [facility] 05-02-2024 15:01-0400 Systolic blood pressure 122 mm[Hg] Fadumo Nassau PA Work Phone: [facility] 04-07-2024 08:12-0400 Body height 167.6 cm Jayleen Hemmer PA Work Phone: [facility] 04-07-2024 08:12-0400 Body mass index (BMI) [Ratio] 40.84 kg/m2 Jayleen Hemmer PA Work Phone: [facility] 04-07-2024 08:12-0400 Body temperature 97.39 [degF] Jayleen Hemmer PA Work Phone: [facility] 04-07-2024 08:12-0400 Body weight 114.76 kg Jayleen Hemmer PA Work Phone: [facility] 04-07-2024 08:12-0400 Diastolic blood pressure 82 mm[Hg] Jayleen Hemmer PA Work Phone: [facility] 04-07-2024 08:12-0400 Heart rate 53 /min Jayleen Hemmer PA Work Phone: [facility] 04-07-2024 08:12-0400 SaO2% (BldA) [Mass fraction] 99 % Jayleen Hemmer PA Work Phone: [facility] 04-07-2024 08:12-0400 Systolic blood pressure 138 mm[Hg] Jayleen Jaylon EDWARDS Work Phone: [facility] 02-22-2024 01:41-0400 Heart rate 52 /min MD Columba Hassan Work Phone: [facility] 02-22-2024 01:30-0400 Diastolic blood pressure 71 mm[Hg] MD Columba Hassan Work Phone: [facility] 02-22-2024 01:30-0400 Respiratory rate 20 /min MD Columba Hassan Work Phone: [facility] 02-22-2024 01:30-0400 SaO2% (BldA) [Mass fraction] 100 % MD Columba Hassan Work Phone: [facility] 02-22-2024 01:30-0400 Systolic blood pressure 146 mm[Hg] MD Columba Hassan Work Phone: [facility] 02-21-2024 19:32-0400 Body height 170.18 cm MD Columba Hassan Work Phone: [facility] 02-21-2024 19:32-0400 Body temperature 97.4 [degF] MD Columba Hassan Work Phone: [facility] 02-21-2024 19:32-0400 Body weight 113.85 kg MD Columba Hassan Work Phone: [facility] 12-31-2023 14:41-0400 Body height 170.18 cm MD Columba Hassan Work Phone: [facility] 12-31-2023 14:41-0400 Body mass index (BMI) [Ratio] 39.9 kg/m2 MD Columba Hassan Work Phone: [facility] 12-31-2023 14:41-0400 Body weight 115.66 kg MD Columba Hassan Work Phone: [facility] 12-31-2023 14:41-0400 Diastolic blood pressure 76 mm[Hg] MD Columba Hassan Work Phone: [facility] 12-31-2023 14:41-0400 Heart rate 53 /min MD Columba Hassan Work Phone: [facility] 12-31-2023 14:41-0400 Systolic blood pressure 163 mm[Hg] MD Columba Hassan Work Phone: [facility] 05-02-2022 10:07-0400 Diastolic blood pressure 90 mm[Hg] Giuliano Walton MD Work Phone: [facility] 05-02-2022 10:07-0400 Systolic blood pressure 180 mm[Hg] Giuliano Walton MD Work Phone: [facility] 05-02-2022 10:05-0400 Body height 170.2 cm Giuliano Walton MD Work Phone: [facility] 05-02-2022 10:05-0400 Body weight 113.85 kg Giuliano Walton MD Work Phone: [facility] 05-02-2022 10:05-0400 Heart rate 54 /min Giuliano Walton MD Work Phone: [facility] 05-02-2022 10:05-0400 SaO2% (BldA) [Mass fraction] 99 % Giuliano Walton MD Work Phone: [facility] 01-21-2022 09:00-0400 Body height 167.64 cm Jayleen Arango [facility] 250 DO Work Phone: 01-21-2022 09:00-0400 Body mass index (BMI) [Ratio] 41.64 kg/m2 Jayleen Arango [facility] 250 DO Work Phone: 01-21-2022 09:00-0400 Body surface area Derived from formula 2.23 m2 Jayleen Arango [facility] 250 DO Work Phone: 01-21-2022 09:00-0400 Body weight 117.03 kg Jayleen Arango -[facility] 250 DO Work Phone: 01-21-2022 09:00-0400 Diastolic blood pressure 82 mm[Hg] Jayleen Arango -[facility] 250 DO Work Phone: 01-21-2022 09:00-0400 Diastolic blood pressure 80 mm[Hg] Jayleen Arango -[facility] 250 DO Work Phone: 01-21-2022 09:00-0400 Heart rate 59 /min Jayleen Arango -[facility] 250 DO Work Phone: 01-21-2022 09:00-0400 Systolic blood pressure 144 mm[Hg] Jayleen Arango -[facility] 250 DO Work Phone: 01-21-2022 09:00-0400 Systolic blood pressure 142 mm[Hg] Jayleen Arango -[facility] 250 DO Work Phone: Encounters Encounter Date Encounter Type Care Provider Facility Start: 09-30-2024 ambulatory [facility] Facility:[facility] Start: 09-13-2024 ambulatory [facility] Facility: [facility] Start: 09-13-2024 End: 09-13-2024 Bamboo flowsheet Jayleen Arango PA Work Phone: [facility] Start: 09-13-2024 End: 09-13-2024 Bamboo flowsheet Jayleen Arango PA Work Phone: [facility] Start: 09-13-2024 End: 09-13-2024 Office outpatient visit 25 minutes Jayleen Arango PA Work Phone: [facility] Comment on above: Primary hypertension (CMS/HCC) (Primary Dx); H/O mitral valve replacement with mechanical valve; History of 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 with mechanical valve; Encounter for screening mammogram for malignant neoplasm of breast; [employer] current use of anticoagulant therapy; Uterine leiomyoma, unspecified location; Morbid (severe) obesity due to excess calories (CMS/HCC); Right nephrolithiasis; Left hip pain Start: 09-13-2024 End: 09-13-2024 ambulatory JAYLEEN ARANGO Not Available Start: 07-18-2024 End: 07-19-2024 Telephone encounter Columba [...] of 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 with mechanical valve; shelter current use of anticoagulant therapy; Encounter for immunization; Morbid (severe) obesity due to excess calories (CMS/HCC) Start: 06-02-2024 End: 06-02-2024 ambulatory JAYLEEN ARANGO Not Available Start: 05-03-2024 End: 05-03-2024 Office outpatient visit 25 minutes Jayleen EDWARDS Work Phone: [facility] Comment on above: Primary hypertension (CMS/HCC) (Primary Dx); H/O mitral valve replacement with mechanical valve; History of 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 with mechanical valve; [employer] current use of anticoagulant therapy; Bilateral hip pain; Morbid (severe) obesity due to excess calories (CMS/HCC) Start: 05-03-2024 End: 05-03-2024 ambulatory JAYLEEN ARANGO Not Available Start: 05-02-2024 End: 05-02-2024 Patient encounter procedure Fadumo EDWARDS Work Phone: [facility] Start: 05-02-2024 End: 05-02-2024 Periodic preventive med est patient 40-64yrs Fadumo Quiñones PA Work Phone: [facility] Comment on above: Well woman exam with routine gynecological exam; Postmenopausal state Start: 05-02-2024 End: 05-02-2024 ambulatory FADUMO NURIA Not Available Start: 05-02-2024 End: 05-02-2024 Bamboo flowsheet Fadumo Quiñones PA Work Phone: [facility] Start: 05-02-2024 End: 05-06-2024 Bamboo flowsheet Fadumo Quiñones PA Work Phone: [facility] Start: 05-02-2024 End: 05-06-2024 Clinisync Result Encounter Generic External Data Provider [facility] Unsolicited Start: 04-07-2024 End: 04-07-2024 Office outpatient visit 15 minutes Jayleen Arango PA Work Phone: [facility] Comment on above: Upper respiratory tr act infection, unspecified type (Primary Dx); Screening for malignant neoplasm of colon Start: 04-07-2024 End: 04-07-2024 ambulatory JAYLEEN Amezquita HEMAMY Not Available Start: 03-31-2024 End: 03-31-2024 ambulatory JAYLEEN Amezquita HEMAMY Not Available Start: 02-25-2024 End: 02-25-2024 ambulatory JAYLEEN Amezquita HEMMER Not Available Start: 02-21-2024 End: 02-22-2024 Emergency department patient visit MD Columba Hassan Work Phone: [facility] Work Phone: Start: 01-26-2024 End: 01-26-2024 ambulatory JAYLEEN ARANGO Not Available Start: 01-20-2024 End: 01-20-2024 Patient encounter procedure MD Columba Hassan Work Phone: [facility] Work Phone: Start: 01-20-2024 End: 01-20-2024 ambulatory MD Columba Hassan Work Phone: [facility] Work Phone: Start: 12-31-2023 End: 12-31-2023 Patient encounter procedure MD Columba Hassan Work Phone: [facility] G[facility] Work Phone: Start: 12-15-2023 End: 12-15-2023 ambulatory JAYLEEN Amezquita HEMAMY Not Available Start: 11-04-2023 End: 11-04-2023 ambulatory JAYLEEN Amezquita HEMMER Not Available Start: 10-06-2023 End: 10-06-2023 ambulatory JAYLEEN M HEMMER Not Available Start: 06-02-2022 End: 06-02-2022 ambulatory RUGEN M SONYA [facility] Start: 05-29-2022 End: 05-30-2022 ambulatory RUGSTORMY Amezquita SONYA [facility] Start: 05-02-2022 ambulatory RUGSTORMY MABALAY SONYA Faci lity:[facility] Start: 05-02-2022 End: 05-03-2022 ambulatory RUGSTORMY MABALAY SONYA Facility:[facility] Start: 05-02-2022 End: 05-03-2022 ambulatory RUGEN MABALAY SONYA Facility:[facility] Start: 05-02-2022 End: 05-02-2022 Patient encounter [...] consultation new/estab patient [address] [facility] 250 DO Work Phone: Start: 09-30-2021 End: 10-01-[address] COLUMBA HASSAN Facility:[facility] Start: 09-06-2021 End: 09-07-[address] COLUMBA HASSAN Facility:[facility] Start: 04-26-2021 End: 04-27-[address] COLUMBA HASSAN Facility:[facility] Start: 12-14-[address] COLUMBA HASSAN Facility: [facility] Patient encounter status Jayleen Arango -[facility] 250 DO Work Phone: Procedures Date Procedure Procedure Detail Performing Clinician Start: 09-13-2024 End: 09-13-2024 Hemoglobin glycosylated a1c Jayleen EDWARDS Work Phone: Start: 05-03-2024 Prothrombin time Jayleen Arango PA Work Phone: Start: 05-02-2024 IGP,APTIMA HPV,AGE GDLN Fadumo EDWARDS Work Phone: Start: 01-20-2024 Ultrasound elastogra phy of liver MD Columba Hassan Work Phone: Start: 09-29-2023 Mammography Jayleen Kennedy er PA Work Phone: Start: 07-17-2017 Adult depression scr eening assessment Giuliano Walton MD Work Phone: Cholecystectomy Jayleen Kennedy er Replacement of arabella l valve Jayleen Arango NEGATED: Highlighted row has not occurred! Colonoscopy Jayleen Arango Plan of Treatment Date Care Activity Detail Author Start: 04-12-2027 Screening for malign ant neoplasm of colon [facility] Start: 05-09-2025 End: 05-09-2025 Patient encounter procedure 05/09/2025 3:00 PM EDT Office Visit [facility] [address] [place] [address] Fadumo Quiñones PA [address] [place] [address] [facility] Start: 10-14-2024 End: 10-14-2024 Patient encounter procedure 10/14/2024 8:30 AM EST Office Visit [facility] [address] [place] [address] Jayleen Arango PA [address] [place] [address] [facility] Start: 09-29-2024 End: 11-11-2025 DBT Breast - bilateral screening Bilateral screening mammogram with tomosynthesis Imaging Routine Encounter for screening mammogram for malignant neoplasm of breast Expected: 09/29/2024, Expires: 11/11/2025 [facility] Work Phone: Comment on above: Expected: 09/29/2024 , Expires: 11/11/2025 Start: 09-29-2024 Screening for malign ant neoplasm of breast Mammogram [facility] Start: 09-13-2024 End: 09-13-2024 Patient encounter procedure 09/13/2024 8:30 AM EST Office Visit [facility] [address] [facility] [address] [place] [address] Jayleen Arango PA [address] [facility] [address] [place] [address] Arrived [facility] Comment on above: Arrived Start: 06-02-2024 End: 06-02-2025 Prothrombin time (PT) in Blood by Coagulation assay Protime-INR Lab Routine History of 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 with mechanical valve [employer] current use of anticoagulant therapy Expected: 06/02/2024 (Approximate), Expires: 06/02/2025 [facility] Work Phone: Comment on above: Expected: 06/02/2024 (Approximate), Expires: 06/02/2025 Start: 06-02-2024 End: 06-02-2024 Patient encounter procedure [facility] Comment on above: Arrived Start: 05-03-2024 End: 05-03-2025 XR Pelvis AP and Hip - bilateral GE 2 Views XR hips bilateral 2 views Imaging Routine Bilateral hip pain Expected: 05/03/2024, Expires: 05/03/2025 [facility] Work Phone: Comment on above: Expected: 05/03/2024 , Expires: 05/03/2025 Start: 05-03-2024 End: 05-03-2024 Patient encounter procedure 05/03/2024 9:00 AM EDT Office Visit [facility] [address] [place] [address] Jayleen Arango PA [address] [place] [address] [facility] Start: 05-02-2024 End: 05-02-2024 Patient encounter procedure [facility] Comment on above: Arrived Start: 05-02-2024 End: 05-02-2025 DXA Skeletal system Views for bone density DEXA bone density Imaging Routine Postmenopausal state Expected: 05/02/2024 (Approximate), Expires: 05/02/2025 [facility] Work Phone: Comment on above: Expected: 05/02/2024 (Approximate), Expires: 05/02/2025 Start: 04-28-2024 End: 04-28-2024 Patient encounter procedure 04/28/2024 8:30 AM EDT Office Visit [facility] [address] [place] [address] Jayleen Arango PA [address] [place] [address] [facility] Start: 04-17-2024 Influenza vaccination Influenza Vacc ine (#1) [facility] Start: 02-21-2024 Computed tomography of abdomen and pelvis with contrast CT abdomen pelvis w con [facility] Start: 02-21-2024 CT Abdomen and Pelvi s W contrast IV [facility] [facility] Start: 01-20-2024 End: 01-20-2024 [facility] Start: 01-20-2024 Actin smooth muscle IgG Ab [Units/volume] in Serum [facility] Start: 01-20-2024 Cefuroxime free [Mass/volume] in Serum or Plasma [facility] Start: 01-20-2024 Ceruloplasmin [Mass/volume] in Serum or Plasma [facility] Start: 01-20-2024 Hepatic function panel [facility] Start: 01-20-2024 Hepatitis B core ant ibody measurement [facility] Start: 01-20-2024 Hepatitis B virus meek rface Ab [Presence] in Serum [facility] Start: 04-17-2022 Influenza vaccination INFLUENZA (#1) [facility] Start: 09-08-2021 LIPID SCREEN LIPID SCREEN [facility] Start: 04-29-2021 COVID-19 VACCINE (3 - Booster for Moderna series) COVID-19 VACCINE (3 - Booster for Moderna series) [facility] Start: 09-08-2019 DIABETES SCREEN DIABETES SCREEN [facility] Start: 2019 COLOGUARD (FIT-DNA) COLOGUARD (FIT-D NA) [facility] Start: 2019 Colonoscopy COLONOSCOPY [facility] Start: 2019 COLORECTAL CANCER SCREENING COLORECTAL CANCER SCREENING [facility] Start: [address] COLONOGRAPHY [facility] Start: 2019 FECAL OCCULT BLOOD FECAL OCCULT BLOO D [facility] Start: 2019 SIGMOIDOSCOPY SIGMOIDOSCOPY [facility] Start: 07-17-2018 Adult depression scr eening assessment DEPRESSION SCREENING [facility] Start: 2014 Mammography MAMMOGRAM [facility] Start: 2004 HPV TESTING HPV TESTING [facility] Start: 2004 Screening for malign ant neoplasm of cervix [facility] Start: 1995 PAP TESTING PAP TESTING [facility] Start: 1995 Screening for malign ant neoplasm of cervix Pap Smear [facility] Start: 1993 Urine microalbumin profile DTAP,TDAP ,TD (1 - Tdap) [facility] Start: 1992 ANNUAL PCP TEAM CYTOTECHNOLOGIST/CYTOLOGY SUPERVISOR BEV DISEASE VISIT ANNUAL PCP TEAM CHRONIC DISEASE VISIT [facility] Start: 1992 BP CONTROLLED (<130/80) BP CONTROLLE D (<130/80) [facility] Start: 1992 HEPATITIS C SCREENING HEPATITIS C SC REENING [facility] Start: 1992 HIV SCREENING HIV SCREENING [facility] Start: 1986 Adult depression scr eening assessment DEPRESSION SCREENING [facility] Start: 1974 HEPATITIS B (1 of 3 - 3-dose series) HEPATITIS B (1 of 3 - 3-dose series) [facility] Start: 1974 Screening for malign ant neoplasm of colon [facility] Albumin/Globulin ratio [facility] Alpha 1 antitrypsin [Mass/volume] in Serum or Plasma [facility] Alpha 1 antitrypsin phenotyping [Identifier] in Serum or Plasma by Immunofixation [facility] Basophils [#/volume] in Blood by Automated count [facility] Basophils/100 leukoc ytes in Blood by Automated count [facility] Bilirubin.indirect [Mass/volume] in Serum or Plasma [facility] Calculated LDL mera sterol level [facility] Cholesterol.total/Ch oleste rol in HDL [Mass Ratio] in Serum or Plasma [facility] End: 02-26-2023 ECG COMPLETE ECG COMPLETE ECG Routine S/P AVR 1 Occurrences starting 02/26/2022 until 02/26/2023 [facility] Work Phone: Comment on above: 1 Occurrences starti ng 02/26/2022 until 02/26/2023 End: 02-26-2023 Echocardiography ECHO Cardiology Routine S/P AVR 1 Occurrences starting 02/26/2022 until 02/26/2023 [facility] Work Phone: Comment on above: 1 Occurrences starti ng 02/26/2022 until 02/26/2023 Eosinophils/100 leuk ocytes in Blood by Automated count [facility] Erythrocyte distribu tion width [Ratio] by Automated count [facility] Erythrocytes [#/volu me] in Blood [facility] Globulin [Mass/volum e] in Serum [facility] Hematocrit [Volume Fraction] of Blood [facility] Hemoglobin [Mass/vol ume] in Blood [facility] Hepatitis B virus meek rface Ag [Presence] in Serum or Plasma by Immunoassay [facility] Hepatitis C virus Ig G Ab [Presence] in Serum or Plasma by Immunoassay [facility] INR in Platelet poor plasma by Coagulation assay [facility] Iron binding capacit y [Mass/volume] in Serum or Plasma [facility] Iron saturation [Mas s Fraction] in Serum or Plasma [facility] Leukocytes [#/volume ] corrected for nucleated erythrocytes in Blood by Automated coun [facility] Leukocytes [#/volume ] in Blood [facility] Lymphocytes [#/volum e] in Blood by Automated count [facility] Lymphocytes/100 leuk ocytes in Blood by Automated count [facility] MCH [Entitic mass] b y Automated count [facility] MCHC [Mass/volume] b y Automated count [facility] MCV [Entitic volume] by Automated count [facility] Monocytes [#/volume] in Blood by Automated count [facility] Monocytes/100 leukoc ytes in Blood by Automated count [facility] Neutrophils [#/volum e] in Blood by Automated count [facility] Neutrophils/100 leuk ocytes in Blood by Automated count [facility] Noninvasive colorect al cancer DNA and occult blood screening [Presence] in Stool Cologuard colon cancer screening Lab Routine Screening for malignant neoplasm of colon Ordered: 04/07/2024 [facility] Work Phone: Comment on above: Ordered: 04/07/2024 Nucleated erythrocyt es [Presence] in Blood by Automated count [facility] Patient Education Abdominal Pain , Adult ED [facility] Work Phone: Patient referral [facility] Work Phone: Platelet mean volume [Entitic volume] in Blood by Automated count [facility] Platelets [#/volume] in Blood [facility] Prothrombin time (PT) [facility] THIN PREP TIS PAP AN D HR HPV DNA THIN PREP TIS PAP AND HR HPV DNA Pathology and Cytology Routine Well woman exam with routine gynecological exam Ordered: 05/02/2024 [facility] Comment on above: Ordered: 05/02/2024 VLDL cholesterol measurement [facility] Immunizations Immunization Date Immunization Notes Care Provider Otoniel rosario 06-02-2024 influenza, seasonal, injectable, preservative free Jayleen EDWARDS Work Phone: [facility] 06-24-2023 influenza, injectabl e, quadrivalent, preservative free Jayleen EDWARSD Work Phone: [facility] 06-24-2023 influenza virus vacc ine, unspecified formulation Jayleen EDWARDS Work Phone: [facility] 06-16-2022 influenza, injectabl e, quadrivalent, preservative free Jayleen Arango PA Work Phone: [facility] 06-16-2022 pneumococcal polysaccharide vaccine, 23 valent Jayleen EDWARDS Work Phone: [facility] 06-11-2021 influenza, injectabl e, quadrivalent, preservative free Jayleen Amezquita Jaylon [facility] 11-27-2020 Moderna COVID-19 Vac cine 100 MCG/0.5ML Intramuscular Suspension Jayleen M Davionamy [facility] 10-30-2020 Moderna COVID-19 Vac cine 100 MCG/0.5ML Intramuscular Suspension Jayleen Alirio Ricardomer [facility] 250 DO Work Phone: 05-10-2020 seasonal influenza, intradermal, preservative free Jayleen Arango [facility] 05-31-2019 influenza, injectabl e, quadrivalent, preservative free Jayleen M Hemmer [facility] 250 DO Work Phone: 05-31-2019 seasonal influenza, intradermal, preservative free Jayleen Davionamy PA Work Phone: [facility] 06-02-2018 influenza, injectabl e, quadrivalent, preservative free Jayleen Alirio Hemmer [facility] 250 DO Work Phone: 07-17-2017 influenza, injectabl e, quadrivalent, contains preservative Jayleen Arango [facility] 05-28-2016 influenza, injectabl e, quadrivalent, preservative free Jayleen Alirio Hemmer [facility] 250 DO Work Phone: 05-14-2016 influenza, injectabl e, quadrivalent, contains preservative Giuliano Walton MD Work Phone: [facility] Work Phone: 05-14-2016 pneumococcal polysaccharide vaccine, 23 valent Giuliano Walton MD Work Phone: [facility] Work Phone: 05-23-2015 influenza, injectabl e, quadrivalent, preservative free Jayleen Aranog [facility] 250 DO Work Phone: Payers Date Payer Category Payer Unknown [id number] 2024 Self-pay [id number] 2023 Blue Cross Blue Shield [id number] 2023 Unknown 2023 Unknown [id number] 2021 Private Health Insurance [facility] [employer] [id number] 2021-Present [phone] [address] [address] [place] [address] PPO [id number] 1974 Unknown [id number] 2..[id number] .2.593 1974 Unknown [id number] 2.16840.1.348966.3.579 .2.593 1974 Unknown [id number] 2.16.840.1.452808.3.579 .2.593 1974 Unknown [id number] 2.16.840.1.263904.3.579 .2.593 1974 Unknown [id number] 2.16.840.1.370767.3.579 .2.718 1974 Unknown [id number] 2.16.840.1.736897.3.579 .2.718 1974 Unknown [id number] 2.16.840.1.193813.3.579 .2.1259 1974 Unknown [id number] 2.16.840.1.813054.3.579 .2.1258 1974 Unknown [id number] 2.16.840.1.335849.3.579 .2.1258 1974 Unknown [id number] 2.16.840.1.564131.3.579 .2.1258 1974 Unknown [id number] 2.16.840.1.859321.3.579 .2.1258 1974 Unknown [id number] 2.16.840.1.225553.3.579 .2.1258 1974 Unknown [id number] 2.16.840.1.508072.3.579 .2.1258 1974 Unknown [id number] 2.16.840.1.886393.3.579 .2.1258 1974 Unknown [id number] 2.16.840.1.846240.3.579 .2.1258 1974 Unknown [id number] 2.16.840.1.040357.3.579 .2.1258 1974 Unknown [id number] 2.16.840.1.913774.3.579 .2.1259 1959 Unknown [id number] 1959 Unknown [id number] Unknown [facility] [id number] Unknown [id number] 2.16.840.1.938511.3.579 .2.531 Unknown [id number] 2.16.840.1.690183.3.579 .2.531 Social History Date Type Detail Facility Start: 06-02-2024 End: 09-13-2024 Daily caffeine consumption, 4-5 servings a day Daily caffeine consumption, 4-5 servings a day -[facility] [address] DO Work Phone: Start: 03-07-2016 End: 01-23-2023 Tobacco smoking status NHIS Never smoked tobacco [facility] Start: 07-17-2017 End: 05-02-2022 Alcohol intake Current drinker of alcohol (finding) [facility] Start: 02-05-2016 History SDOH Alcohol Comment Rare consumption [facility] Start: 1975 Sex Assigned At Female C [facility] Start: 03-07-2016 End: 01-23-2023 Tobacco use and exposure Smokeless tobacco non-user [facility] Start: 04-22-2022 End: 05-02-2022 Exposure to SARS-CoV-2 (event) Not sure [facility] Start: 06-02-2024 End: 09-13-2024 Alcoholic beverage intake Ex-drinker (finding) [facility] Start: 06-02-2024 End: 09-13-2024 Tobacco use panel [facility] Start: 1975 Sex assigned at Not on file [facility] Medical Equipment Procedure Code Equipment Code Equipment Original Text Equipment Identifier Dates Valve Mitrl 25-33mm Onx Hrt - [id number] Start: 07-28-2016 Comment on above: Description: mitral valve replacement Valve Aort 21mm Onx Hrt - [id number] Start: 07-28-2016 Ring Tra s Classic 28mm 33.2mm 26.3mm Oval Titanium Silicone - [id number] Start: 07-28-2016 Goals Date Patient Goal Desired Activity /State Clinical Notes 07-29-2016 to 09-13-2024 GRACE Riley - 09/13/2024 8:30 AM ESTTelephone Encounter - GRACE Riley - 07/19/2024 8:09 AM ESTTelephone Encounter - GRACE Riley - 07/19/2024 8:09 AM EST Note Date & Type Note Facility 09-13-2024 History of Present illness Narrative Images from the original note were not included. HPI Hip Pain Additional comments: Admits left hip pain for about 1 week. 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 She is not able to do the exercises you told her to do d/t too much pain. She even tried Hydrocodone that she just received from the ER for her kidney stones and that did not touch the pain either. Hip hurts all the time, rates pain 6-7/10, describes pain as a cramping/tense pain. She feels it may be a little better. Med Refill Additional comments: Tramadol Last edited by Nisha Decker LPN on 09/13/2024 8:37 AM. Subjective Patient ID: Alfredo Balbuena is a 49 y.o. female who presents for INR. Alfredo is present today for follow up INR check. Her last INR was 06/02/24 2.3 and she is taking coumadin 2.5 mg Thursday and 5 mg week. Today INR 2.6. Still has some aching on right side of her abdomen. Not sure if she passed the stone yet. Went to ER 09/07/2024. Was given [place], Zofran, Tamsulosin, and Ibuprofen. Has been trying to stay away from Pepsi, trying to drink more water and juice. Has been straining her urine, but is not sure if she actually saw anything. Does feel like her urine is less orange than it was. States did take the Adipex and it was helpful. Stopped taking it for about a month due to being on different shifts at work. Took it again for a week or so. Then stopped it again due to constipation with the [place]. Would like to restart it at some point. States it helps with her cravings, especially with pop. Current Outpatient Medications on File Prior to Visit Medication Sig Dispense Refill ibuprofen 800 MG tablet Take 800 mg by mouth every 8 (eight) hours if needed ondansetron ODT (Zofran-ODT) 4 MG disintegrating tablet DISSOLVE 1 TABLET BY MOUTH EVERY 6 HOURS NEEDED FOR NAUSEA AND VOMITING tamsulosin (Flomax) 0.4 MG 24 hr capsule Take 0.4 mg by mouth Daily acyclovir (Zovirax) 400 MG tablet take 1 [...] XL (Toprol-XL) 25 MG 24 hr tablet Take 1 tablet (25 mg) by mouth Daily 100 tablet 3 phentermine (Adipex-P) 37.5 MG tablet Take 1 tablet (37.5 mg) by mouth in the morning. Take before meals. 30 tablet 0 potassium chloride CR (Klor-Con) 10 MEQ ER tablet Take 1 tablet (10 mEq) by mouth in the morning and 1 tablet (10 mEq) before bedtime. Take with food.. 200 tablet 3 warfarin (Coumadin) 5 MG tablet Take 1 tablet (5 mg) by mouth See administration instructions Take 5 mg daily. Except for 2.5 mg on Thursday and Thursday 100 tablet 3 [DISCONTINUED] traMADol (Ultram) 50 MG tablet Take 1 tablet (50 mg) by mouth every 6 (six) hours if needed for severe pain 20 tablet 0 No current facility-administered medications on file prior [...] approximately 9:00 Mid. SOB (shortness of breath) 2015 Stage 3a chronic kidney disease (CKD) (CMS/HCC) Sterilization 2005 [facility] Past Surgical History: Procedure Laterality Date CARDIAC SURGERY 2016 2 Valve replacements , heart cath CARPAL TUNNEL RELEASE Right 06/02/2022 CHOLECYSTECTOMY 2008 ENDOMETRIAL BIOPSY 11/2018 MR ANGIOGRAM CHEST W AND WO IV CONTRAST 03/07/2016 MR ANGIOGRAM CHEST W AND WO IV CONTRAST Visit Vitals BP 138/86 Pulse 73 Resp 16 Ht 5' 6 Wt 245 lb 3.2 oz SpO2 99% BMI 39.58 kg/m OB Status Postmenopausal Smoking Status Never BSA 2.27 m Review of Systems Constitutional: Negative for chills, fatigue and fever. HENT: Negative for nosebleeds. Respiratory: Negative for cough, shortness of breath and wheezing. Cardiovascular: Negative for chest pain, palpitations and leg swelling. Gastrointestinal: Positive for abdominal pain. Negative for blood in stool, constipation, diarrhea, nausea and vomiting. Genitourinary: Positive for hematuria. Musculoskeletal: Positive for arthralgias and gait problem. Hematological: Bruises/bleeds easily. Objective Physical Exam Constitutional: Appearance: She is well-developed. She is obese. She is not ill-appearing. Comments: Appears uncomfortable. HENT: Head: Normocephalic and atraumatic. Eyes: General: No scleral icterus. Conjunctiva/sclera: Conjunctivae normal. Cardiovascular: Rate and Rhythm: Regular rhythm. Bradycardia present. Heart sounds: Murmur heard. Comments: Grade 2/6 systolic murmur, systolic click Pulmonary: Effort: Pulmonary effort is normal. No respiratory distress. Breath sounds: Normal breath sounds. No wheezing, rhonchi or rales. Abdominal: Tenderness: There is no right CVA tenderness or left CVA tenderness. Musculoskeletal: Lumbar back: Tenderness (Bilateral) and bony tenderness (Left SI joint) present. Right hip: Normal strength. Left hip: Normal range of motion. Decreased strength (Hip flexion 4+/5). Skin: General: Skin is warm and dry. Neurological: General: No focal deficit present. Mental Status: She is alert and oriented to person, place, and time. Sensory: No sensory deficit. Motor: No weakness. Psychiatric: Mood and Affect: Mood normal. Speech: Speech is rapid and pressured. Behavior: Behavior normal. Assessment/Plan Diagnoses and all orders for this visit: Primary hypertension (CMS/HCC) Patient's blood pressure is currently stable. Continue with current medications and I will continue to monitor. H/O mitral valve replacement with mechanical valve - POCT Protime-INR, fingerstick docked device The patient has been compliant with Coumadin therapy and INR is currently within therapeutic range at 2.6. Return to clinic in 4 weeks for INR recheck. History of 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 with mechanical valve - POCT Protime-INR, fingerstick docked device See above. Encounter for screening mammogram for malignant neoplasm of breast - Bilateral screening mammogram with tomosynthesis; Future Provided patient with an order for an updated Mammogram. If results are negative/normal, will plan to continue with routine yearly screenings. shelter current use of anticoagulant therapy Continue current dosage of Coumadin. Uterine leiomyoma, unspecified location - traMADol (Ultram) 50 MG tablet; Take 1 tablet (50 mg) by mouth every 6 (six) hours if needed for severe pain Medication choice and dosage is appropriate for patient's current medical conditions. Patient will continue to be required to be seen in our office at least every three months for monitoring. At each follow up visit I will reassess the patient's need for the medication. Patient is to have this medication prescribed only through this office. Failure to follow the rules and regulations will result in tapering and discontinuation of medications if applicable. Patient verbalized understanding. OARRS Report was reviewed for this patient. Morbid (severe) obesity due to excess calories (CMS/[facility]) Pt has lost 6 pounds since last appointment. She does plan to restart the Adipex after finishing the Prednisone. She states she has about 2 weeks left. Will call for refill when needed. She did find the medication very helpful when taking it. Right nephrolithiasis - Ambulatory referral to Urology; Future Provided pt with referral to Urology. She is unsure if she has passed the kidney stone or not. Left hip pain - predniSONE (Deltasone) 10 MG tablet; Take 1 tablet (10 mg) by mouth 3 (three) times a day for 3 days, THEN 1 tablet (10 mg) 2 (two) times a day for 3 days, THEN 1 tablet (10 mg) Daily for 3 days. Start the above medication as directed. Advised of potential side effects of the steroid. Patient is to take the steroid with food. Do not take any NSAIDs while on Prednisone. Encouraged continue gentle heat to area. Encouraged gentle stretches. Advised patient that if symptoms do not improve PT referral may be appropriate. Did give patient a copy of the x-ray order to have completed at her convenience. Follow up in about 4 weeks (around 10/11/2024) for Medication Follow Up, INR. documented in this encounter [facility] 07-19-2024 Telephone encounter Note Acknowledged. [facility] 07-19-2024 Miscellaneous Notes Acknowledged. Pt states that she won't be able to do her INR screening due to no insurance until September 03. She does have enough meds to get her through. documented in this encounter [facility] 07-18-2024 Telephone encounter Note Pt states that she won't be able to do her INR screening due to no insurance until September 03. She does have enough meds to get her through. [facility] 06-02-2024 History of Present illness Narrative [...] notify pt of the results once received. [employer] current use of anticoagulant therapy - Protime-INR; Future Continue current Coumadin dosage until lab results received. Encounter for immunization - Flu vaccine greater than or equal to 3 years old, PF IM (IMM19) Provided pt with Flu shot today, [...] Follow Up, INR. documented in this encounter [facility] 05-03-2024 History of Present illness Narrative [...] cath CARPAL TUNNEL RELEASE Right 06/02/2022 CHOLECYSTECTOMY 2007 ENDOMETRIAL BIOPSY 11/2018 MR ANGIOGRAM CHEST W [...] all orders for this visit: Primary hypertension (CMS/[facility]) Patient's blood pressure is currently well controlled. [...] docked device Recheck INR in one month. [employer] current use of anticoagulant therapy See above. Bilateral hip pain - XR hips bilateral 2 views; Future Will obtain x-rays for further evaluation at this time. Will notify pt of the results once received. Continue Tramadol prn, Tylenol when she cannot take the Tramadol. Obesity Per pt, the Yovany was going to cost her $1100 at [facility] even with copay card. Will look into this for pt. Follow up in about 4 weeks (around 05/31/2024) for INR. documented in this encounter [facility] 05-02-2024 History of Present illness Narrative [...] 12/29/2022 Cyst of ovary 12/10/2011 Depressive disorder ([facility]/HCC) 12/09/2011 Fatigue 12/29/2022 H/O mitral valve replacement [...] goal of INR 2.5 to 3.5 07/29/2016 [employer] current use of anticoagulant therapy 08/03/2020 Aortic valve insufficiency 05/08/2023 Mitral valve insufficiency 05/08/2023 Abnormal liver function test 10/06/2023 Primary hypertension (CMS/HCC) 10/06/2023 Elevated liver enzymes 01/26/2024 Endometriosis 01/26/2024 Hepatomegaly 01/26/2024 Body mass index (BMI) 40.0-44.9, adult ([facility]) 02/25/2024 Pulmonary fibrosis, unspecified ([facility]/HCC) 02/25/2024 Resolved Ambulatory Problems Diagnosis Date Noted Finding of above normal blood pressure 12/29/2022 Abdominal pain 03/31/2024 Past Medical History: Diagnosis Date Allergic Allergies ASCUS of cervix with negative high risk HPV Asthma (CMS/HCC) Chronic kidney disease, stage 3a (HCC) (CMS/HCC) Fatty liver Gall bladder disease 2010 Personal history of medical treatment Personal history of medical treatment 11/09/2018 Personal history of medical treatment 11/03/2018 Personal history of medical treatment 04/29/2021 SOB (shortness of breath) 2014 Stage 3a chronic kidney disease (CKD) (CMS/HCC) Sterilization 2005 HISTORY PAST MEDICAL HISTORY SOCIAL [...] kidney disease (CKD) (CMS/HCC) Sterilization 2004 [facility] Social History Tobacco Use Smoking status: [...] nursing note reviewed. Exam conducted with a goodwill ambassador present. Vitals: Estimated body mass index is [...] of: GRACE Munoz documented in this encounter [facility] 04-07-2024 History of Present illness Narrative [...] cervix with negative high risk HPV Asthma ([facility]) Chronic kidney disease, stage 3a (HCC) ([facility]) Gall bladder disease 2009 Personal history of [...] 2014 Stage 3a chronic kidney disease (CKD) ([facility]) Sterilization 2004 [facility] Past Surgical History: Procedure [...] Appointment As Scheduled. documented in this encounter [facility] 06-04-2022 Note [phone] [id number] 06-02-2022 Note Procedure: Decompres kayli of median [...] on: 06/02/2022 17:43 EDT] Bharathi Lopez DO [facility] 06-02-2022 Note [facility] SURGERY Clinical Discharge Summary PERSON INFORMATION Name ALFREDO BALBUENA Age 47 Years 1975 Sex FEMALE Language Slovak PCP COLUMBA HASSAN MD Marital Status Med Service Ambulatory Surgery Acct# Arrival Visit Reason SURGERY - RELEASE RIGHT CARPAL TUNNEL Acuity LOS 005 21:20 Address: [address] [place] [address] Comment: PROVIDER INFORMATION VITALS INFORMATION Vital Sign [...] mg oral table (more content not included)... [facility] 05-30-2022 Note spoke to pt nhungin [...] on: 05/30/2022 10:19 EDT] Noemi Brooke RN [facility] 05-02-2022 Note HNO ID: [id number] Author: Giuliano Walton MD Service: ? Author Type: Physician Type: Progress Notes Filed: 05/02/2022 4:18 PM Note Text: [facility] Department of Cardiovascular Medicine SECTION OF CARDIOVASCULAR IMAGING OUTPATIENT VISIT DATE May 02, 2022 OUTPATIENT VISIT TYPE NEW (>3yrs since last seen) PRIMARY CARE PHYSICIAN: Adria Snyder DO [address] [place] [address] CHIEF COMPLAINT: Postoperative Follow Up. HISTORY OF [...] tunnel surgery. 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 She reports edema in b/l lower [...] Disease Father Heart Father age 63- massive [place] Diabetes Mother Thyroid Sister hypertension None Sister [...] without antibiotics. s/ (more content not included)... [facility] 05-02-2022 History of Present illness Narrative Images from the original note were not included. [facility] Department of Cardiovascular Medicine SECTION OF CARDIOVASCULAR IMAGING OUTPATIENT VISIT DATE May 02, 2022 OUTPATIENT VISIT TYPE NEW (>3yrs since last seen) PRIMARY CARE PHYSICIAN: Adria Snyder DO [address] [place] [address] CHIEF COMPLAINT: Postoperative Follow Up. HISTORY OF [...] tunnel surgery. 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 She reports edema in b/l lower [...] Disease Father Heart Father age 63- massive [place] Diabetes Mother Thyroid Sister hypertension None Sister [...] tunnel surgery. 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 She reports edema in b/l lower [...] CONTACT INFORMATION: Giuliano Walton MD, PhD, [place] Assistant Professor Of Businessvp customer service, [facility], Staff, Section of Cardiovascular Imaging, Co-Director Cardio-Oncology Center, [facility] Dept. Of Cardiovascular Medicine, [address] / [address] [place], [place] [address] Appt: [phone] documented in this encounter [facility] 02-27-2022 Miscellaneous Notes REACHED OUT TO PATIENT IN REGARDS TO UPDATING INSURANCE. LEFT VMAIL TO CALL BACK WITH INFO documented in this encounter [facility] 07-29-2016 History of Past i llness [...] arrived from OR intubated and sedated. Slow sdre-qh-khdyyzay secondary to hemodynamic instability. documented as of this encounter (statuses as of 02/26/2022) [facility]12-13-2016 History of Past illness Narrative* Problem [...] arrived from OR intubated and sedated. Slow hpua-kh-fjkdvdbi secondary to hemodynamic instability. documented as of this encounter (statuses as of 02/27/2022) [facility]12-13-2016 History of Past illness Narrative* Problem [...] arrived from OR intubated and sedated. Slow sfqs-cc-vpgmuoep secondary to hemodynamic instability. documented as of this encounter (statuses as of 05/02/2022) [facility] complaint Narrative - ReportedALFREDO BALBUENA is being seen for a consultation for. POC Dr Lopez 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, unspecified Obesity (BMI 30-39.9) Obesity, unspecified [facility] Diagnosis Onset Date Resolution Status Elevated liver enzymes acute Hepatomegaly acute [facility] Work Phone: Evaluation note* Diagnosis Primary hypertension (CMS/HCC)- Primary Unspecified essential hypertension H/O mitral valve replacement with mechanical valve History of 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 with mechanical valve shelter current use of anticoagulant therapy Encounter for immunization Morbid (severe) obesity due to excess calories (CMS/HCC) documented in this encounter [facility]* Diagnosis Well woman exam with routine gynecological exam Routine gynecological examination Postmenopausal state Asymptomatic postmenopausal status (age-related) (natural) documented in this encounter [facility]* Diagnosis Primary hypertension (CMS/HCC)- Primary Unspecified essential hypertension H/O mitral valve replacement with mechanical valve History of 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 with mechanical valve shelter current use of anticoagulant therapy Bilateral hip pain Pain in joint, pelvic region and thigh Morbid (severe) obesity due to excess calories (CMS/HCC) [facility]* Diagnosis Upper respiratory tract infection, unspecified type- Primary Screening for malignant neoplasm of colon documented [facility]* Diagnosis Primary hypertension (CMS/HCC)- Primary Unspecified essential hypertension H/O mitral valve replacement with mechanical valve History of 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 with mechanical valve Encounter for screening mammogram for malignant neoplasm of breast [employer]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 Balbuena is a 46-year-old female who is seen today for preoperative clearance for her to have carpal tunnel surgery. 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 She has mechanical valves apparently in bothpositions. This was done at [facility]. She is on chronic Coumadin. She has no cardiac complaints and she has been stable. She used to follow with [facility] cardiology but did not continue to [...] Lopez who my understanding is operates at [facility]. I discussed with the patient that her cardiac status is essentially normal but given her valve history and the need for being on heparin while her Coumadin is withheld and then at the end of her surgery reversing this process does represent some risk and her best option may well be to have surgery done at a tertiary center such [facility] where they would be more familiar [...] here on a as needed basis. -[facility] [address] DO Work Phone: Hospital Discharge instructions [...] significant worsening, please return so we can reevaluate.[facility] Work Phone: Reason for referral (narrative)* Outpatient Procedure (Routine) - Pending Review Specialty Diagnoses / Procedures Referred By Cha freeman [facility] Diagnoses S/P AVR Procedures ECHO ECHO TTHRC R-T 2D W/WOM-MODE COMPL SPEC&COLR D Giuliano Walton MD [address] [place] [address] [facility] [address] [place] [address] Referral ID Status Reason Start Date Expiration Date Visits Requested Visits Authorized [id number] Pending Review Auto-Generat ed Referral 02/26/2022 02/26/2023 1 1 * Outpatient Procedure (Routine) - Pending Review Specialty Diagnoses / Procedures Referred By Cha freeman Ref[facility] Diagnoses S/P AVR Procedures ECG COMPLETE ECG ROUTINE ECG W/LEAST 12 LDS W/I&R Giuliano Walton MD [address] [place] [address] [facility] [address] [place] [address] Referral ID Status Reason Start Date Expiration Date Visits Requested Visits Authorized [id number] Pending Review Auto-Generat ed Referral 02/26/2022 02/26/2023 1 1 [facility] Summary Purpose Family History No Family History Records FoundUnknown Family Member Name Dates Details Family history of myocardial infarction: Father, Brother(V17.3, Z82.49) Status:Active History of PTCA: Father(V45. 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 Advance Directive(s) 07/22/2016 11:10 AM [...] DATE CREATED AUTHOR AUTHOR'S ORGANIZ ATION 05/17/2022 [facility] DATE CREATED AUTHOR AUTHOR'S ORGANIZ ATION [facility] DATE CREATED AUTHOR AUTHOR'S ORGANIZ ATION 08/11/2024 [facility] DATE CREATED AUTHOR AUTHOR'S ORGANIZ ATION 09/14/2024 [facility] EPIC DATE CREATED AUTHOR AUTHOR'S ORGANIZ ATION 09/18/2024 [facility] Source Comments (unrecognize d section and content) In the event this informatio n is protected by the Federal Confidentiality of Alcohol and Drug Abuse Patient Records regulations: The Federal rules restrict any use of the information to criminally investigate or prosecute any alcohol or drug abuse patient.[facility] the event this information is protected by the Federal Confidentiality of Alcohol and Drug Abuse Patient Records regulations: The Federal rules restrict any use of the information to criminally investigate or prosecute any alcohol or drug abuse patient.[facility] the event this information is protected by the Federal Confidentiality of Alcohol and Drug Abuse Patient Records regulations: The Federal rules restrict any use of the information to criminally investigate or prosecute any alcohol or drug abuse patient.[facility] Care Teams (unrecognized sec tion and content) [employer] Doweling Machine 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 Relationship Specialty Start Date End Date Adria Snyder PCP - General Family Practice 01/03/16 [employer] Machine Operator Relationship Specialty Start Date End Date Adria Snyder PCP - General Family Practice 01/03/16 [employer] Machine Operator Relationship Specialty Start Date End Date Columba Hassan [address] [place] [address] PCP - General Family Practice 05/02/22 Team [...] February 21, 2024 End: February 22, 2024 Rail Doweling Machine 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 Relationship Specialty Start Date End Date Columba Hassan MD [address] [facility] [address] [place] [address] PCP - General Family Medicine 01/14/23 Adria Sims MD [address] [facility] [address] [place] [address] PCP - [place] [employer] 01/16/24 [employer] Machine Operator Relationship Specialty Start Date End Date Columba Hassan MD [address] [facility] [address] [place] [address] PCP - General Family Medicine 01/14/23 Adria Sims MD [address] [facility] [address] [place] [address] PCP - [place] [employer] 01/16/24 [employer] Machine Operator Relationship Specialty Start Date End Date Columba Hassan MD [address] [facility] [address] [place] [address] PCP - General Family Medicine 01/14/23 Adria Sims MD [address] [facility] [address] [place] [address] PCP - [place] [employer] 01/16/24 [employer] Machine Operator Relationship Specialty Start Date End Date Columba Hassan MD [address] [facility] [address] [place] [address] PCP - General Family Medicine 01/14/23 Adria Sims MD [address] [facility] [address] [place] [address] PCP - [place] [employer] 01/16/24 [employer] Machine Operator Relationship Specialty Start Date End Date Columba Hassan MD [address] [facility] [address] [place] [address] PCP - General Family Medicine 01/14/23 Adria Sims MD [address] [facility] [address] [place] [address] PCP - [place] [employer] 01/16/24 [employer] Machine Operator Relationship Specialty Start Date End Date Columba Hassan MD [address] [facility] [address] [place] [address] PCP - General Family Medicine 01/14/23 Adria Sims MD [address] [facility] [address] [place] [address] PCP - [place] [employer] 01/16/24 [employer] Machine Operator Relationship Specialty Start Date End Date Columba Hassan MD [address] [facility] [address] [place] [address] PCP - General Family Medicine 01/14/23 Adria Sims MD [address] [facility] [address] [place] [address] PCP - [place] [employer] 01/16/24 Reason for Visit (unrecogniz ed [...] NEW IMAGING PATIENT Self Giuliano Walton MD [address] [place] [address] Referral ID Status Reason Start Date Expiration Date Visits Re quested Visits Authorized [id number] Closed 05/02/2022 08/16/2022 1 1 Reason Comments Well Women Visit Reason Comments URI Missed work a couple of days Reason Comments Hip Pain Admits left hip pain for about 1 week. 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 She is not able to do the exercises you told her to do d/t too much pain. She even tried Hydrocodone that she just received from the ER for her kidney stones and that did not touch the pain either. Hip hurts all the time, rates pain 6-7/10, describes pain as a cramping/tense pain. She feels it may be a little better. Med Refill Tramadol FOR RECORDS PERTAINING TO PATIENTS WHO ARE [...] BE BASED ON THE PRIMARY CLINICAL RECORDS. [employer] provides no warranty or guarantee of the accuracy or completeness of information in this document.
== END 2024-09-19 08:15 | disposition home or self-care (01) ==
LOC: RAD 08:16
PROVIDERS: PCP Family Medicine; Visit Provider Physician Assistant
DX: M25.551 Pain in right hip (principal); M25.552 Pain in left hip
CPT/HCPCS: 73522

== ENCOUNTER 2024-09-23 16:50 | Outpatient (OUT) | payer BC, SELFPAY ==
--- NOTE | 2024-09-23 16:54 | US_ITS ---
[address] [address] Patient Name: SHELIA BALBUENA MRN: [id number] date: 1975 Sex: F Assigned Patient Location: Current Patient Location: Accession/Order Number: [id number] Exam Date: 09/23/2024 16:55 Report Date: 09/26/2024 08:09 At the request of: BRANDT KNOX Procedure: US renal BI EXAMINATION: US renal BI HISTORY: URETERAL STONE N20.1 COMPARISON: No relevant comparison available. TECHNIQUE: Ultrasound examination was performed of the bladder. FINDINGS: Right Kidney: Normal in size, contour and cortical echotexture. The cortex measures 0.6 cm. No solid cortical mass, hydronephrosis or obstructing nephrolithiasis Height: 4.97 cm Length: 10.12 cm Width: 4.90 cm Left Kidney: Normal in size, contour and cortical echotexture. The cortex measures 0.8 cm. No solid cortical mass or hydronephrosis. 5 mm echogenic focus, nonobstructing nephrolith Height: 4.62 cm Length: 11.10 cm Width: 4.39 cm Urinary bladder: No wall thickening or mass. Volume of 110 mL Ureteral jets: Visualized bilaterally No ascites US/US renal BI IMPRESSION: 5 mm nonobstructing left nephrolith. Electronically authenticated by: JEANCARLOS HURLEY Date: 09/26/2024 08:09
--- NOTE | 2024-09-23 17:34 | XR_ITS ---
The [address] [address] Patient Name: SHELIA BALBUENA MRN: [id number] date: 1975 Sex: F Assigned Patient Location: US Current Patient Location: US Accession/Order Number: [id number] Exam Date: 09/23/2024 17:30 Report Date: 09/26/2024 08:13 At the request of: BRANDT KNOX Procedure: XR abdomen 1V EXAMINATION: XR abdomen 1V HISTORY: URETERAL STONE N20.1 COMPARISON: No relevant comparison available. FINDINGS: KIDNEY/URETER - RIGHT: No visible renal or ureteral calcifications. KIDNEY/URETER - LEFT: No visible renal or ureteral calcifications. PELVIS: No visible ureteral calcifications. Any visible calcifications favor phleboliths. BOWEL: No abnormal dilation or deviation. BONES: No acute abnormality. OTHER: Bilateral tubal closure devices. No abnormal gaseous collections. XR/XR abdomen 1V IMPRESSION: No definite urinary tract calculi Electronically authenticated by: JEANCARLOS HURLEY Date: 09/26/2024 08:13
== END 2024-09-23 16:51 | disposition home or self-care (01) ==
LOC: US 16:50
PROVIDERS: PCP Family Medicine; Visit Provider Student in an Organized Health Care Education/Training Program
DX: N20.1 Calculus of ureter (principal)
CPT/HCPCS: 74018; 76775

== ENCOUNTER 2025-08-07 20:45 | Outpatient (REF) | payer BC, SELFPAY ==
--- OUTSIDE RECORDS SUMMARY | 2025-07-31 09:30 | XMS_ITS | Encounter Summary ---
Author Organization [facility] Address [address] [place] [address] Care Team Providers Care Die Maintenance Technician Name Role Phone Cassie Rodriguez MD Primary Care Provider [phone] Encounter Details DateTypeDepartmentCare Team (Latest Contact Info)Ojgjssuksgr24/15/2025 9:30 AM ESTOffice Visit [facility] [address] [facility] [address] [place] [address] Jayleen Iyer PA [address] [facility] [address] [place] [address] Paroxysmal atrial fibrillation (HCC) (Primary Dx); H/O mitral valve replacement with mechanical valve; History of 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 with mechanical valve; Need for vaccination; Morbid (severe) obesity due to excess calories (CMS-HCC); Anticoagulation goal of INR 2.5 to 3.5; Recurrent major depressive disorder, in full remission Social History Tobacco UseTypesPacks/DayYears UsedDateSmoking Tobacco: NeverSmokeless Tobacco: NeverAlcohol UseStandard Drinks/WeekCommentsNot Currently0 (1 standard drink = 0.6 oz pure alcohol)PHQ-2AnswerDate RecordedPatient Health Questionnaire-2 Score CommentsNoSex and Gender InformationValueDate RecordedSex Assigned at BirthNot on fileLegal SmhZeziqy37/15/2023 7:01 PM EDTGender Identity Not on fileSexual OrientationNot on filedocumented as of this encounter Last Filed Vital Signs Vital SignReadingTime TakenCommentsBlood Zjdtytxk010/8412/ 9:41 AM EST Kfiul9237/ 9:41 AM ESTTemperature--Respiratory Hlzp870810/01/2024 9:41 AM ESTOxygen Mkugvedopj98%07/31/2025 9:41 AM ESTInhaled Oxygen Concentration-- Kfwspb77.9 kg (218 lb)07/31/2025 9:41 AM FZCHgajlr919.6 cm (5' 6 )07/31/2025 9:41 AM ESTBody Mass Index35.19110/01/2024 9:41 AM ESTdocumented in this encounter Functional Status * Over the past 2 weeks, how often have you been bothered by any of the following problems?QuestionAnswerDate of AssessmentAuthorLittle interest or pleasure in doing thingsNot at all07/31/2025 9:33 AM Nisha Ventura LPN Feeling down, depressed, or hopelessNot at all07/31/2025 9:33 AM Nisha Ventura LPNPatient Health Questionnaire-2 Vwumk29210/01/2024 9:33 AM Nisha Ventura LPN documented as of this encounter Progress Notes * GRACE Riley - 07/31/2025 9:30 AM EST Images from the original note were not included. Subjective Patient ID: Alfredo Blake is a 50 y.o. female who presents for INR. Alfredo is present today for follow up INR. Her last INR was on 07/03/25 and was 2.6. She is taking5 mg coumadin daily. INR today is 2.0. She has been taking Robitussin and Mucinex and is better butthinks that might be why it is abnormal. Weight check Started Adipex 05/22/25 05/22/25 wt - 232 07/03/25 wt - 222 Today wt - 218 Was referred to a [facility] by her heart valve specialist. They will be getting an updated ECHO.Did have a monitor and was told it was ok. Also had an ECG which was good. Over the past 2 weeks, how often have you been bothered by any of the following problems? Little interest or pleasure in doing things: Not at all Feeling down, depressed, or hopeless: Not at all Patient Health Questionnaire-2 Score: 0 Current Outpatient Medications on File Prior to Visit Medication Sig Dispense Refill acyclovir (Zovirax) 400 MG tablet Take 1 tablet (400 mg) by mouth Daily 100 tablet 3 aspirin 81 MG EC tablet Take 81 mg by mouth 1 (one) time. (Patient taking differently: Take 81 mg by mouth every other day Taking Thursday, Thursday and Thursday.) Azelastine HCl 137 MCG/SPRAY solution Administer 1 spray into affected nostril(s) in the morning and 1 spray before bedtime. Do all this for 14 days. 30 mL 0 cholecalciferol (Vitamin D-3) 125 MCG (5000 UT) capsule Take 5,000 Units by mouth Daily docusate sodium (Colace) 100 MG capsule Take 100 mg by mouth in the morning and 100 mg in the evening and 100 mg before bedtime. esomeprazole (NexIUM) [address] capsule Take 20 mg by mouth in the morning. Take before meals. ferrous sulfate 325 (65 Fe) MG tablet Take 325 mg by mouth 1 (one) time each day. furosemide (Lasix) 40 MG tablet Take 1 tablet (40 mg) by mouth 2 (two) times a day as needed (Swelling) PRN 60 tablet 2 Inulin (FIBER CHOICE PO) Take 1 tablet by mouth in the morning and 1 tablet before bedtime. losartan (Cozaar) 100 MG tablet Take 1 tablet (100 mg) by mouth Daily 90 tablet 3 metoprolol succinate XL (Toprol-XL) 25 MG 24 hr tablet Take 1 tablet (25 mg) by mouth Daily 100 tablet 3 ondansetron ODT (Zofran-ODT) 4 MG disintegrating tablet DISSOLVE 1 TABLET BY MOUTH EVERY 6 HOURS ASNEEDED FOR NAUSEA AND VOMITING phentermine (Adipex-P) 37.5 MG tablet Take 1 tablet (37.5 mg) by mouth in the morning. Take before meals. 30 tablet 0 potassium chloride CR (Klor-Con) 10 MEQ ER tablet Take 1 tablet (10 mEq) by mouth in the morning and 1 tablet (10 mEq) before bedtime. Take with food. 200 tablet 3 tamsulosin (Flomax) 0.4 MG 24 hr capsule TAKE 1 CAPSULE BY MOUTH EVERY DAY 100 capsule 3 traMADol (Ultram) 50 MG tablet Take 1 tablet (50 mg) by mouth every 6 (six) hours if needed for severe pain for up to 5 days 20 tablet 0 warfarin (Coumadin) 5 MG tablet Take 1 tablet (5 mg) by mouth See administration instructions Take 5 mg daily, except 7.5 mg on Thursday and Thursday [DISCONTINUED] phentermine (Adipex-P) 37.5 MG tablet Take 1 tablet (37.5 mg) by mouth in the morning. Take before meals. 30 tablet 0 No current facility-administered medications on file prior to visit. I have reviewed and reconciled the history and medication list with the patient today. Allergies Allergen Reactions Meloxicam Other Reaction(s): Elevated BP Prednisone Other Reaction(s): Hypertension, Unknown Social History Tobacco Use Smoking status: Never [...] cervix with negative high risk HPV Asthma (HCC) Chronic kidney disease, stage 3a (CMS-HCC) Fatty liver Gall bladder disease 2009 Personal [...] 2014 Stage 3a chronic kidney disease (CKD) (CMS-HCC) Sterilization 2005 [facility] Past Surgical History: Procedure Laterality Date CARDIAC SURGERY 2016 2 Valve replacements , heart cath CARPAL TUNNEL RELEASE Right 06/02/2022 CHOLECYSTECTOMY 2008 ENDOMETRIAL BIOPSY 11/2018 MR ANGIOGRAM CHEST W AND WO IV CONTRAST 03/07/2016 MR ANGIOGRAM CHEST W AND WO IV CONTRAST Visit Vitals BP 116/84 Pulse 71 Resp 16 Ht 5' 6 Wt 218 lb SpO2 99% BMI 35.19 kg/m?? OB Status Postmenopausal Smoking Status Never BSA 2.15 m?? Review of Systems Constitutional: Negative for chills, fatigue and fever. Respiratory: Negative for cough, shortness of breath and wheezing. Cardiovascular: Negative for chest pain, palpitations and leg swelling. Gastrointestinal: Negative for abdominal pain, constipation, diarrhea, nausea and vomiting. Skin: Negative for rash. Objective Physical Exam Constitutional: General: She is not in acute distress. Appearance: She is well-developed. She is obese. She is not ill-appearing. Comments: Very pleasant HENT: Head: Normocephalic and atraumatic. Eyes: General: No scleral icterus. Conjunctiva/sclera: Conjunctivae normal. Cardiovascular: Rate and Rhythm: Normal rate and regular rhythm. Heart sounds: Murmur heard. Comments: Grade 2/6 systolic murmur, systolic click. Pulmonary: Effort: Pulmonary effort is normal. No respiratory distress. Breath sounds: Normal breath sounds. No wheezing, rhonchi or rales. Skin: General: Skin is warm and dry. Neurological: General: No focal deficit present. Mental Status: She is alert and oriented to person, place, and time. Psychiatric: Mood and Affect: Mood normal. Speech: Speech is rapid and pressured. Behavior: Behavior normal. Office Visit on 07/31/2025 Component Date Value Ref Range Status RESULTS 07/31/2025 2.0 Final Assessment/Plan Diagnoses and all orders for this visit: Paroxysmal atrial fibrillation (HCC) - POCT Protime-INR, fingerstick docked device Advised pt that her INR was subtherapeutic at 2.0. Will have her take 10 mg tomorrow, then resume previous dosing. H/O mitral valve replacement with mechanical valve - POCT Protime-INR, fingerstick docked device See above. History of 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 with mechanical valve - POCT Protime-INR, fingerstick docked device See above. Need for vaccination - Flu vaccine, MDCK, Trivalent, Provided pt with a Flu shot today, she tolerated this well. Morbid (severe) obesity due to excess calories ([facility]-HCC) Pt has lost 17 pounds since 04/24. She is tolerating Adipex well and continues to perceive benefit from the medication. Will recheck at her next appointment in one month. Encouraged portion control, decrease simple sugars and carbohydrates, gradually increase activity level. Aim for continued, gradual steady weight loss. Anticoagulation goal of INR 2.5 to 3.5 See above. Major depressive disorder Mood stable at this time without medication. Will continue to monitor. Follow up with GRACE Mcdonald in 30 days (on 08/30/2025 INR). documented in this encounter Plan of Treatment DateTypeDepartmentCare Team (Latest Contact Info)Sddavvjkcwh16/19/2026 9:00 AM ESTOffice Visit [facility] [place] [facility] [address] [place] [address] [place] [address] Jayleen Iyer PA [address] [place] [address] [place] [address] documented as of this encounter Procedures Procedure NamePriorityDate/TimeAssociated DiagnosisCommentsPOCT PROTIME-INR, CNTGBPOVBXRRqrvipt68/15/2025 9:59 AM EST Paroxysmal atrial fibrillation (HCC) H/O mitral valve replacement with mechanical valve History of 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 with mechanical valve documented in this encounter Results * (ABNORMAL) POCT Protime-INR, fingerstick docked device (07/31/2025 9:59 AM EST)ComponentValueRef RangeTest MethodAnalysis TimePerformed AtPathologist SignatureRESULTS2.0Specimen (Source)Anatomical Location / LateralityCollection Method / VolumeCollection TimeReceived TimeBloodVenous blood specimen / Tfvcayo9307/31/2025 9:59 AM EST Narrative Authorizing ProviderResult TypeResult StatusJayleen Iyer PAPOINT OF CARE TEST ENTER/EDIT ORDERABLESFinal Result documented in this encounter Visit Diagnoses Diagnosis Paroxysmal atrial fibrillation (HCC)- Primary Atrial fibrillation H/O mitral valve replacement with mechanical valve History of 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 with mechanical valve Need for vaccination Need for prophylactic vaccination and inoculation against unspecified single disease Morbid (severe) obesity due to excess calories ([facility]) Anticoagulation goal of INR 2.5 to 3.5 Recurrent major depressive disorder, in full remission documented in this encounter Care Teams Team MemberRelationshipSpecialtyStart DateEnd Date aCssie Rodriguez MD [address] [place] [address] [place] [address] PCP - GeneralFamily Medicine01/14/23documented as of this encounter
--- OUTSIDE RECORDS SUMMARY | 2025-08-07 10:00 | XMS_ITS | Encounter Summary ---
Author Organization [facility] Address [address] [facility] [place] [address] Care Team Providers Care Botany Laboratory Assistant Name Role Phone Cassie Rodriguez MD Primary Care Provider [phone] Reason for Visit * ReasonCommentsGynecologic Exam Encounter Details DateTypeDepartmentCare Team (Latest Contact Info)Mfrcngrabae80/22/2025 10:00 AM ESTProcedure Visit JAYNE [place]ES [address] [place] [address] Fadumo Quiñones PA [address] [facility] [address] [place], [facility]11 Well woman exam with routine gynecological exam; Postmenopausal state; Breast cancer screening by mammogram Social History Tobacco UseTypesPacks/DayYears UsedDateSmoking Tobacco: NeverSmokeless Tobacco: NeverAlcohol UseStandard Drinks/WeekCommentsNot Currently0 (1 standard drink = 0.6 oz pure alcohol)PHQ-2AnswerDate RecordedPatient Health Questionnaire-2 Score CommentsNoSex and Gender InformationValueDate RecordedSex Assigned at BirthNot on fileLegal UxaVxrirl65/15/2023 7:01 PM EDTGender Identity Not on fileSexual OrientationNot on filedocumented as of this encounter Last Filed Vital Signs Vital SignReadingTime TakenCommentsBlood Pjanaeac436/8408/07/2025 10:10 AM EST Pulse--Temperature--Respiratory Rate--Oxygen Saturation--Inhaled Oxygen Concentration--Vxqwgv933 kg (221 lb)08/07/2025 10:10 AM ESTHeight--Body Mass Index35.6707/31/2025 9:41 AM ESTdocumented in this encounter Progress Notes * GRACE Munoz - 08/07/2025 10:00 AM EST Reason for Appointment: Patient ID: Alfredo Blake is a 50 y.o. female who presents for Gynecologic Exam Patient presents today for Annual Exam. MEDICATIONS Current Outpatient Medications Medication Instructions acyclovir (ZOVIRAX) 400 mg, Oral, Daily aspirin 81 mg, Once Azelastine HCl 137 MCG/SPRAY solution 1 spray, Nasal, 2 times daily cholecalciferol (VITAMIN D-3) 5,000 Units, Oral, Daily docusate sodium (COLACE) 100 mg, 3 times daily esomeprazole (NEXIUM) 20 mg, Oral, Daily before breakfast ferrous sulfate 325 mg, Oral, Daily furosemide (LASIX) 40 mg, Oral, 2 times daily PRN, PRN Inulin (FIBER CHOICE PO) 1 tablet, 2 times daily losartan (COZAAR) 100 mg, Oral, Daily metoprolol succinate XL (TOPROL-XL) 25 mg, Oral, Daily ondansetron ODT (Zofran-ODT) 4 MG disintegrating tablet DISSOLVE 1 TABLET BY MOUTH EVERY 6 HOURS ASNEEDED FOR NAUSEA AND VOMITING phentermine (ADIPEX-P) 37.5 mg, Oral, Daily before breakfast potassium chloride CR (Klor-Con) 10 MEQ ER tablet 10 mEq, Oral, 2 times daily, Take with food. tamsulosin (FLOMAX) 0.4 mg, Oral, Daily traMADol (ULTRAM) 50 mg, Oral, Every 6 hours PRN warfarin (COUMADIN) 5 mg, Oral, See admin instructions, Take 5 mg daily, except 7.5 mg on Thursday and Thursday ALLERGIES Allergies Allergen Reactions Meloxicam Other Reaction(s): Elevated BP Prednisone Other Reaction(s): Hypertension, Unknown PROBLEMS Active Ambulatory Problems Diagnosis Date Noted Abnormal mammogram 12/29/2022 Atypical squamous cells of undetermined significance (ASCUS) on Papanicolaou smear of cervix 12/29/2022 Carpal tunnel syndrome, right 12/29/2022 Chronic GERD 12/29/2022 Cyst of ovary 12/10/2011 Recurrent major depressive disorder, in full remission 12/09/2011 Fatigue 12/29/2022 H/O mitral valve replacement with mechanical valve 12/29/2022 History of 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 with mechanical valve 12/29/2022 Hot flashes due to menopause 12/29/2022 Leiomyoma of uterus, unspecified 12/10/2011 Leukocytosis 12/29/2022 Menorrhagia 12/29/2022 Menstrual cramps 12/29/2022 Mild intermittent acute asthmatic bronchitis (HCC) 12/29/2022 Mixed hyperlipidemia 12/29/2022 Morbid (severe) obesity due to excess calories ([facility]-H[facility]) 12/29/2022 Other congenital malformations of lower limb(s), including pelvic girdle 12/29/2022 Recurrent cold sores 12/29/2022 Right arm pain 12/29/2022 Seasonal allergic rhinitis 12/29/2022 Vitamin D deficiency 07/31/2011 Anticoagulation goal of INR 2.5 to 3.5 07/29/2016 [facility] current use of anticoagulant therapy 08/03/2020 Aortic valve insufficiency 05/08/2023 Mitral valve insufficiency 05/08/2023 Abnormal liver function test 10/06/2023 Primary hypertension 10/06/2023 Elevated liver enzymes 01/26/2024 Endometriosis 01/26/2024 Hepatomegaly 01/26/2024 Pulmonary fibrosis, unspecified (HCC) 02/25/2024 Primary osteoarthritis of both hips 09/26/2024 Abnormal urinalysis 10/17/2024 Anticoagulated 10/17/2024 Atypical squamous cells of undetermined significance (ASC-US) on cervical Pap smear 10/17/2024 Kidney stone 10/17/2024 Ureteral stone 10/17/2024 Iron deficiency anemia 03/21/2025 Primary insomnia 03/21/2025 Resolved Ambulatory Problems Diagnosis Date Noted Finding of above normal blood pressure 12/29/2022 Body mass index (BMI) 40.0-44.9, adult ([facility]-HCC) 02/25/2024 Abdominal pain 03/31/2024 Past Medical History: Diagnosis Date Allergic Allergies ASCUS of cervix with negative high risk HPV Asthma (HCC) Chronic kidney disease, stage 3a (CMS-HCC) Fatty liver Gall bladder disease 2009 Personal history of medical treatment Personal history of medical treatment 11/09/2018 Personal history of medical treatment 11/03/2018 Personal history of medical treatment 04/29/2021 SOB (shortness of breath) 2015 Stage 3a chronic kidney disease (CKD) ([facility]) Sterilization 2005 HISTORY PAST MEDICAL HISTORY SOCIAL HISTORY Past Medical History: Diagnosis Date Abdominal pain 03/31/2024 Allergic Allergies ASCUS of cervix with negative high risk HPV Asthma (HCC) Chronic kidney disease, stage 3a ([facility]) Fatty liver Gall bladder disease 2009 Personal [...] 2014 Stage 3a chronic kidney disease (CKD) ([facility]) Sterilization 2005 [facility] Social History Tobacco Use [...] Objective: Physical Exam Constitutional: Appearance: Normal appearance. She is well-developed. Genitourinary: Vulva normal. Right Adnexa: not tender and no mass present. Left Adnexa: not tender and no mass present. No cervical discharge. Breasts: Breasts are soft. Right: Normal. Left: Normal. HENT: Head: Normocephalic. Nose: Nose normal. Mouth/Throat: Mouth: Mucous membranes are moist. Cardiovascular: Rate and Rhythm: Normal rate and regular rhythm. Pulmonary: Effort: Pulmonary effort is normal. Breath sounds: Normal breath sounds. Abdominal: General: Bowel sounds are normal. There is no distension. Palpations: Abdomen is soft. Tenderness: There is no abdominal tenderness. There is no guarding or rebound. Musculoskeletal: General: No swelling. Normal range of motion. Cervical back: Normal range of motion. Right lower leg: No edema. Left lower leg: No edema. Neurological: General: No focal deficit present. Mental Status: She is alert and oriented to person, place, and time. Skin: General: Skin is warm and dry. Psychiatric: Mood and Affect: Mood normal. Behavior: Behavior normal. Vitals and nursing note reviewed. Exam conducted with a underground production foreperson present. Vitals: Estimated body mass index is 35.67 kg/m?? as calculated from the following: Height as of 07/31/25: 5' 6 . Weight as of this encounter: 221 lb. BP: 128/84 No LMP recorded. Patient is postmenopausal. Assessment/Plan ICD-10-CM 1. Well woman exam with routine gynecological exam Z01.419 Bilateral screening mammogram DEXA bone density THIN PREP TIS PAP AND HR HPV DNA Bilateral screening mammogram 2. Postmenopausal state Z78.0 DEXA bone density 3. Breast cancer screening by mammogram Z12.31 Bilateral screening mammogram Bilateral screening mammogram Assessment/Plan Annual: Patient presents today for an annual exam. Patient states she is doing well and has no complaints. Pap was obtained without difficulty and patient given mammogram & DEXA Scan orders to have scheduled/obtained. Orders Placed This Encounter Procedures Bilateral screening mammogram DEXA bone density Follow Up: Patient is to return in one year for annual unless needed otherwise. Documented by Isabell Casas LPN on behalf of: GRACE Munoz documented in this encounter Plan of Treatment DateTypeDepartmentCare Team (Latest Contact Info)Ibelsrmzyqw85/19/2026 9:00 AM ESTOffice Visit [facility] [place] [facility] [address] [facility] [address] [place] [address] Jayleen Iyer PA [address] [facility] 110 [place] [address] NameTypePriorityAssociated DiagnosesOrder ScheduleBilateral screening mammogram ImagingRoutine Well woman exam with routine gynecological exam Breast cancer screening by mammogram Expected: 08/07/2025, Expires: 10/08/2026DEXA bone densityImagingRoutine Well woman exam with routine gynecological exam Postmenopausal state Expected: 08/07/2025 (Approximate), Expires: 08/07/2026THIN PREP TIS PAP AND HR HPV DNAPathology and CytologyRoutine Well woman exam with routine gynecological exam Ordered: 08/07/2025documented as of this encounter Procedures Procedure NamePriorityDate/TimeAssociated DiagnosisCommentsPAP TEST, EXTERNAL Hlcvhpl3305/02/2024 12:00 AM EDTdocumented in this encounter Results * PAP TEST, EXTERNAL (05/02/2024 12:00 AM EDT) Narrative Authorizing ProviderResult TypeResult StatusAmy Nuria DREW CYTOLOGY ORDERABLES Final ResultPerforming OrganizationAddressCity/State/ZIP CodePhone Number EXTERNAL LAB documented in this encounter Visit Diagnoses Diagnosis Well woman exam with routine gynecological exam Routine gynecological examination Postmenopausal state Asymptomatic postmenopausal status (age-related) (natural) Breast cancer screening by mammogram documented in this encounter Care Teams Team MemberRelationshipSpecialtyStart DateEnd Date Cassie Rodriguez MD [address] [place] [address] PCP - GeneralFamily Medicine01/14/23documented as of this encounter
--- OUTSIDE RECORDS SUMMARY | 2025-08-07 20:49 | XMS_ITS | Clinical Summary ---
Author Organization [facility] Address [address] [place] [address] Phone Care Team Providers Care Bridge Crew Member Name Role Phone Jayleen Iyer PA-C Primary Care Provider [phone] Social History Tobacco UseTypesPacks/DayYears UsedDateSmoking Tobacco: Never Assessed CommentsUnknownSex and Gender InformationValueDate RecordedSex Assigned at Not on fileLegal VuhJeslta61/26/2022 5:11 AM ESTGender IdentityNot on fileSexual OrientationNot on file Last Filed Vital Signs Vital SignReadingTime TakenCommentsBlood Atsofwty875/8206 9:00 AM EDT Uxwqg573601/21/2022 9:00 AM EDTTemperature--Respiratory Rate--Oxygen Saturation-- Inhaled Oxygen Concentration--Jprbbj701 kg (258 lb)01/21/2022 9:00 AM EDTHeight 167.6 cm (5' 6 )01/21/2022 9:00 AM EDTBody Mass Index41.6406 9:00 AM EDT Plan of Treatment Not on file Care Teams Team MemberRelationshipSpecialtyStart DateEnd Date Jayleen Iyer PA-C PCP - General08/17/99
--- OUTSIDE RECORDS SUMMARY | 2025-08-07 20:49 | XMS_ITS | Encounter Summary ---
Author Organization [facility] Address [address] [facility] [place] [address] Care Team Providers Care Librarian Helper Name Role Phone Cassie Rodriguez MD Primary Care Provider [phone] Encounter Details DateTypeDepartmentCare Team (Latest Contact Info)Zvdvgsegmpw57/15/2025amboo flowsheet [facility] [place] [facility] [address] [place] [address] [place] [address] Jayleen Iyer PA [address] [place] [address] Social History Tobacco UseTypesPacks/DayYears UsedDateSmoking Tobacco: NeverSmokeless Tobacco: NeverAlcohol UseStandard Drinks/WeekCommentsNot Currently0 (1 standard drink = 0.6 oz pure alcohol)PHQ-2AnswerDate RecordedPatient Health Questionnaire-2 Score CommentsNoSex and Gender InformationValueDate RecordedSex Assigned at BirthNot on fileLegal QrxOevjtw28/15/2023 7:01 PM EDTGender Identity Not on fileSexual OrientationNot on filedocumented as of this encounter Plan of Treatment DateTypeDepartmentCare Team (Latest Contact Info)Gbhtbbskbev83/19/2026 9:00 AM ESTOffice Visit [facility] [place] [facility] [address] [place] [place] [phone] Jayleen Iyer PA [address] [place] [address] [place] [address] documented as of this encounter Visit Diagnoses Not on filedocumented in this encounter Care Teams Team MemberRelationshipSpecialtyStart DateEnd Date Cassie Rodriguez MD [address] [address] PCP - GeneralFamily Medicine01/14/23documented as of this encounter
--- OUTSIDE RECORDS SUMMARY | 2025-08-07 20:49 | XMS_ITS | Clinical Summary ---
Author Organization [facility] Address [address] [place] [address] Care Team Providers Care Court Worker Name Role Phone Cassie Rodriguez MD Primary Care Provider [phone] Allergies No known active allergies Medications MedicationSigDispense QuantityRefillsLast FilledStart DateEnd DateStatus ferrous sulfate 325 mg (65 mg iron) tablet Take 325 mg by mouth once daily.Active aspirin 81 mg chewable tablet Take 1 tablet by mouth once daily.Active acetaminophen (TYLENOL) 325 mg tablet Take 2 tablets by mouth every 6 hours as needed (for mild surgical pain). 08/04/2016Active docusate sodium (COLACE) 100 mg capsule Take 1 capsule by mouth once daily.07/17/2017Active warfarin (COUMADIN) 5 mg tablet Take 5 mg by mouth daily as directed. M&F take 2.5 mg, 5 mg all other days 30 tablet Active melatonin 10 mg cap Take 1 capsule by mouth daily at bedtime.Active furosemide (LASIX) 40 mg tablet Take 1 tablet by mouth once daily as needed (fluid retention).07/17/2017Active potassium chloride 20 mEq TbER Take 1 tablet by mouth once daily as needed (fluid retention; take with Lasix).0 07/17/2017Active metoprolol succinate 25 mg CSpX Take 25 mg by mouth once daily.Active acyclovir (ZOVIRAX) 400 mg tablet Take 400 mg by mouth as needed. For cold soresActive esomeprazole (NEXIUM) 20 mg capsule Take 20 mg by mouth DAILY (6 AM).Active Cholecalciferol, Vitamin D3, (VITAMIN D-3) 50 mcg (2,000 unit) cap Take by mouth once daily.Active Active Problems Patient Care Coordination No te Formatting of this note migh t be different from the original. Indication for hospital admission: AR/TI/NV LVEF: 59% RVF: Mild, RVSP 74, LA&RA dilated, 4+MR, 3-4+TR, 4+AR EKG- SR 1st deg AVB, QTC 462 msCath - nml Cards - Hollis PMH/PSH: GERD, uterine fibroids, iron-deficiency anemia, obesity, asthma, Preoperative: In March 2015, she began to notice SOB which she attributed to her weight / allergies and asthma. In October 2015, her symptoms worsened (with ADLs, walking, 4 pillow orthopnea and PND and lower limb edema). Admitted to [facility] for CHF with a good response to lasix. Echo doneafter discharge showed severe AI/MR/TR. Was evaluated by rheumatology locally - negative serology. Surgery: 07/28/2016 AVR with an On-X mechanical valve #21. MVR with an On-X mechanical valve #25. TV repair with Sam Classic annuloplasty ring #28. Airway Difficulty: Grade I - No special instrumentation OR Course: Severe hypotension, LV systolic failure, RV systolic failure, Pulmonary HTN and VF/VT Postoperative Course/General Impression: (narrative): S/P Aortic valve replacement with 21mm mechanical valve, Mitral valve replacement with 25 mm mechanical valve andTricuspid repair with 28mm band.OR course was complicated by significant hypotension requiring SDS, norepinephrine, vasopressin and phenylephrine, now titrated off. Significant RV/LV dysfunction requiring epinephrine infusion and milrinone bolus in OR (did not tolerate secondary to vasoplegia), now titrated off. OR course was further complicated by VF requiring DCC 6 times, amiodarone and lidocaine. Currently in NSR. Arrived tot ICU intubated and sedated. Extubated POD1. Continuing diuresis. Anticoagulation with coumadin, starting heparin bridge today. Transfer to step-down unit on 07/30 (pod 2) A/P PMW cut 08/02/16 - AVR, MVR Mechanical - Coumadin. INR 3.1 - TVr- post op Echo completed and satisfactory - Dispo - Patient lives in [place], [place] with . No discharge needs. [facility] and [facility] Cards - req. Okay to dc 12/19 per CTS and Cards. Dr Snyder to manage coumadin. ProblemNoted DateDiagnosed YairUCGRJIV79/15/2016 Overview (08/04/2016): Indication for hospital admission: AR/TI/NV LVEF: 59% RVF: Mild, RVSP 74, LA&RA dilated, 4+MR, 3-4+TR, 4+AR EKG- SR 1st deg AVB, QTC 462 msCath - nml Cards - Hollis PMH/PSH: GERD, uterine fibroids, iron-deficiency anemia, obesity, asthma, Preoperative: In March 2015, she began to notice SOB which she attributed to her weight / allergies and asthma. In October 2015, her symptoms worsened (with ADLs, walking, 4 pillow orthopnea and PND and lower limb edema). Admitted to [facility] for CHF with a good response to lasix. Echo doneafter discharge showed severe AI/MR/TR. Was evaluated by rheumatology locally - negative serology. Surgery: 07/28/2016 AVR with an On-X mechanical valve #21. MVR with an On-X mechanical valve #25. TV repair with Sam Classic annuloplasty ring #28. Airway Difficulty: Grade I - No special instrumentation OR Course: Severe hypotension, LV systolic failure, RV systolic failure, Pulmonary HTN and VF/VT Postoperative Course/General Impression: (narrative): S/P Aortic valve replacement with 21mm mechanical valve, Mitral valve replacement with 25 mm mechanical valve andTricuspid repair with 28mm band.OR course was complicated by significant hypotension requiring SDS, norepinephrine, vasopressin and phenylephrine, now titrated off. Significant RV/LV dysfunction requiring epinephrine infusion and milrinone bolus in OR (did not tolerate secondary to vasoplegia), now titrated off. OR course was further complicated by VF requiring DCC 6 times, amiodarone and lidocaine. Currently in NSR. Arrived tot ICU intubated and sedated. Extubated POD1. Continuing diuresis. Anticoagulation with coumadin, starting heparin bridge today. Transfer to step-down unit on 07/30 (pod 2) A/P PMW cut 08/02/16 - AVR, MVR Mechanical - Coumadin. INR 3.1 - TVr- post op Echo completed and satisfactory - Dispo - Patient lives in [place], [place] with . No discharge needs. [facility] and [facility] Cards - req. Okay to dc 08/04 per CTS and Cards. Dr Snyder to manage coumadin. Anticoagulation goal of INR 2.5 to 3. Overview (08/04/2016): History: Mechanical AVR/MVR Assessment: INR 3.1 Plan: INR goal 2.5-3.5. Continue coumadin. Dr. Snyder is following Coumadin. dc instructions faxed Essential ktsxpjwccala68/12/2016 Overview (08/04/2016): Home medications: Lisinopril 5mg Assessment: ABP - 100-110s Plan: Continue BB and PO lasix at dc Discharge planning gimbez3107/24/2016 Overview (08/04/2016): Patient lives in [place], [place] with . No discharge needs. [facility] and [facility] Cards - req. Okay to dc 08/04 per CTS and Cards. Dr Snyder to manage coumadin. Non-rheumatic tricuspid valve dxucecenelrsl74/08/2016 Overview (08/04/2016): History: AR/TI/NV Assessment: Tricuspid repair with 28mm band Plan: ASA, post op echo complete and satisfactory. Mitral valve insufficiency Overview (08/04/2016): History: 4+ MR Assessment: Mitral valve replacement with 25mm mechanical valve Plan: ASA and Coumadin. Dr. Snyder to follow INR. Goal INR 2.5-3.5 Aortic valve insufficiency Overview (08/04/2016): History: 4+ AR preop Assessment: S/P: Aortic valve replacement with 21mm mechanical valve Plan: ASA and Coumadin. - Surg path- Aortic valve, excision (A) - Severe fibrosis with post-inflammatory scarring. Resolved Problems ProblemNoted DateDiagnosed DateResolved EbakXsyqzfbnruf01 Overview (07/30/2016): A/P: Currently on 2L NC. Continue diuresis. OOB, PEP and wean O2. Scmugppvjied16 Overview (07/30/2016): A/P: CXR with interstitial edema and mild bilateral pleural effusions. Increasing diuresis. Stress kzoedpjdxiohj26 Overview (07/30/2016): A/P: Continue SSI for good glycemic control (<180mg/dl). Cardiac mgrjeeivvlmgr15 Overview (07/29/2016): A/P: Milrinone bolus provided in OR but patient became vasoplegic and could not tolerate. Significant cardiac insufficiency requiring epinephrine infusion. Providing fluid boluses PRN. Titrate based on PAP, CVP and CI. VF (ventricular fibrillation) Overview (07/31/2016): - Patient had multiple episodes of VF requiring DCC x 6, lidocaine and amiodarone infusion in OR. Currently in NSR. Continue to monitor. On mechanically assisted wbldrgfkulw44 Overview (07/28/2016): A/P: Patient arrived from OR intubated and sedated. Slow rbny-si-guvvhatt secondary to hemodynamic instability. Immunizations ImmunizationAdministration DatesNext Dueinfluenza (IIV4) vaccine, age 6 mo - 64 yr, quadrivalent (AFLURIA, FLULAVAL, FLUZONE)07/17/2017,05/14/2016pneumococcal polysaccharide (PPV23) vaccine, 23 valent (PNEUMOVAX 23)05/14/2016 Family History Medical HistoryRelationCommentsNoneBrotherdied age 35-MVAHeartFatherdied age 63- massive MIIschemic Heart DiseaseFatherDiabetesMotherThyroidSister 1hypertension NoneSister 2RelationStatusCommentsBrotherFatherMotherSister 1Sister 2 Social History Tobacco UseTypesPacks/DayYears UsedDateSmoking Tobacco: NeverSmokeless Tobacco: NeverAlcohol UseStandard Drinks/WeekCommentsYes0 (1 standard drink = 0.6 oz pure alcohol)Rare consumptionArea Deprivation IndexAnswerDate RecordedNational Score (1-100), lower number is lower afnx106909/13/2022State Score (1-10), lower number is lower riskNot on file3Data from: https://www.neighborhoodatlas.medicine.[facility]/. Last address used for bvmkeemqjib[address]3CommentsNoSex and Gender InformationValueDate RecordedSex Assigned at LtixmOgxojt25/13/2022 3:36 PM EDT Legal SkwPemohw65/19/2016 2:42 PM EDTGender XkinrqwnEzxwze85/13/2022 3:36 PM EDT Sexual OrientationNot on file Last Filed Vital Signs Vital SignReadingTime TakenCommentsBlood Myicpgsp736/90005/02/2022 10:07 AM EDT Lvpil172005/02/2022 10:05 AM NXSHhpvaagyicv03.3 ??C (97.3 ??F)07/17/2017 2:43 PM ESTRespiratory Hjsv3797 2:03 PM ESTOxygen Ivsmcsaznn49%05/02/2022 10:05 AM EDTInhaled Oxygen Concentration--Utychk560.9 kg (251 lb)05/02/2022 10:05 AM JNDUmgjls777.2 cm (5' 7 )05/02/2022 10:05 AM EDTBody Mass Index39.31005/02/2022 10:05 AM EDT Plan of Treatment DateTypeDepartmentCare Team (Latest Contact Info)Zcciedvqlay50/06/2026 9:00 AM ESTOffice Visit Cardiology [address] [place] [address] [place] [address] [place], [place] [id number] Presence of prosthetic heart valveHealth MaintenanceDue DateLast DoneComments Anxiety Xhkoxeexs38/27/1992Depression Fqfeoigqw41/27/1992HIV Ccelqidzv82/27/1992 Hepatitis C Jpmbujqmy11/27/1992DTaP,Tdap,Td Vaccine (1 - Tdap)1993 Hepatitis B Vaccine (1 of 3 - 19+ 3-dose series)1993Cervical Cancer Amzmjvhdr69/27/1995Mammogram Fracrnkcm96/27/2014CT Yrusxolomriy84/27/2019 Cologuard (FIT-DNA)03/12/20191917Ahnyuqnsoqf11/27/2019Colorectal Cancer Screening 2019Fecal Occult Blood03/12/20193259Vhdxqppkmshyi97/27/2019Diabetes Screening , 08/12/2016, 08/04/2016, Additional history existsLipid Fvtrfdzvg46Pneumococcal Vaccine: 50+ (2 of 2 - PCV)2024 05/14/2016Shingrix Vaccine (1 of 2)2024ovid-19 Vaccine (3 - 2024- season)504/, 10/30/2020Influenza Vaccine (#1)2025 06/11/2021, 05/10/2020, 05/31/2019, Additional history existsRSV Vaccine (1 - 1- dose 75+ series)2049 Medical Devices ImplantedTypeAreaManufacturerDevice IdentifierShelf Expiration DateModel / Serial / LotValve Mitrl 25-33mm Onx Hrt - [id number] Implanted:Qty: 1 [facility]28[facility]2016 [facility] MAINValveN/A: Heart [employer] [id number] / [id number] / [id number]:mitral valve replacementValve Aort 21mm Onx Hrt - [id number] Implanted:Qty: 1 on 07/28/2016 at [facility] MAINValveN/A: Heart [employer] 3D [employer]EARCH [id number] / [id number] / Ring Sam-Andersen Classic 28mm 33.2mm 26.3mm Oval Titanium Silicone - [id number] Implanted:Qty: 1 on 07/28/2016 at [facility] MAINValveN/A: Heart [id number] / [id number] / Procedures Procedure NamePriorityDate/TimeAssociated DiagnosisCommentsBASIC METABOLIC PANEL Cfviwnw2309/08/2016 12:06 PM EST Mitral valve insufficiency, unspecified etiology Aortic valve insufficiency, unspecified etiology LIPID PANEL, JJMEJYNBisqwvh37/23/2017 12:06 PM EST Mitral valve insufficiency, unspecified etiology Aortic valve insufficiency, unspecified etiology from Last 3 Months or Most Recently Relevant to Health Maintenance Results * (ABNORMAL) LIPID PANEL BASIC (09/08/2016 12:06 PM EST)ComponentValueRef Range Test MethodAnalysis TimePerformed AtPathologist IhxweoohzXagdopudctvm350(H)30 - 149 mg/dL09/08/2016 4:28 PM [facility] LABORATORYCholesterol, Moegx444(H)100 - 199 mg/dL09/08/2016 4:28 PM [facility] LABORATORYHDL Drdfnxcxlse11(L)>55 mg/dL09/08/2016 4:28 PM [facility] LABORATORYVLDL Wbwckquvzey14(H)6 - 40 mg/dL09/08/2016 4:28 PM EST [facility]ORYLDL Cholesterol, Onnasaykrj612(H)60 - 129 mg/dL09/08/2016 4:28 PM [facility] LABORATORYFasting Apor9tuq 09/08/2016 12:09 PM [facility]ORATORYTC:HDL Ratio5.31(H)1.00 - 5.0001 4:28 PM [facility] LABORATORYLDL:HDL Ratio3.22 0.50 - 3.55009/08/2016 4:28 PM [facility]ORYNon HDL Uxpkqrxkcfs049(H)90 - 159 mg/dL09/08/2016 4:28 PM [facility] LABORATORYSpecimen (Source)Anatomical Location / LateralityCollection Method / VolumeCollection TimeReceived TimeBlood specimen (specimen)BLOOD SPECIMEN / Lqrlklu2009/08/2016 12:06 PM EST09/08/2016 12:08 PM EST Narrative Authorizing ProviderResult TypeResult StatusPatrick H Bunny MCDONNELLLABORATORYFinal ResultPerforming OrganizationAddressCity/State/ZIP CodePhone Number [facility] [address] [place] [address] * (ABNORMAL) BASIC METABOLIC PNL (09/08/2016 12:06 PM EST)ComponentValueRef RangeTest MethodAnalysis TimePerformed AtPathologist XqalalcixWzxlixr9091 - 99 mg/dL09/08/2016 4:28 PM [facility] LABORATORYComment: The [place] Diabetes Association (ADA) provides guidance for cutoff values for fasting glucose and random glucose. The ADA defines fasting as no caloric intake for at least 8 hours. Fasting plasma glucose results between 100 to 125 mg/dL indicate increased risk for diabetes (prediabetes). Fasting plasma glucose results greater than or equal to 126 mg/dL meet the criteria for diagnosis of diabetes. In the absence of unequivocal hyperglycemia, results should be confirmed by repeat testing. In a patient with classic symptoms of hyperglycemia or hyperglycemic crisis, random plasma glucose results greater than or equal to 200 mg/dL meet the criteria for diagnosis of diabetes. Reference: Standards of Medical Care in Diabetes 2016, [place] Diabetes Association. Diabetes Care. 2016.39(Suppl 1). BUN27(H)7 - 21 mg/dL09/08/2016 4:28 PM [facility] Creatinine1.18(H)0.58 - 0.96 mg/dL09/08/2016 4:28 PM [facility] MVRRBJCBSEEmxkqh535655 - 144 mmol/L09/08/2016 4:28 PM [facility] LABORATORYPotassium4.63.7 - 5.1 mmol/L09/08/2016 4:28 PM [facility] RKBHVGDNZDUvshrvab3899 - 105 mmol/L09/08/2016 4:28 PM [facility] NFGQEKVDBIXY16051 - 30 mmol/L09/08/2016 4:28 PM [facility] LABORATORYAnion Qnr411 - 18 mmol/L09/08/2016 4:28 PM [facility] LABORATORYCalcium9.98.6 - 10.0 mg/dL09/08/2016 4:28 PM [facility] LABORATORYeGFR->60009/08/2016 4:28 PM [facility] LABORATORYeGFR-All Other Races50.09/08/2016 4:28 PM [facility] LABORATORYComment: eGFR (Estimated GFR) Units of measure: mL/min/1.73 meters squared eGFR is derived from the reexpressed MDRD Study equation using the following parameters: serum creatinine, age, gender and race. The creatinine assay has been calibrated to be traceable to IDMS. An eGFR <60 mL/min/1.73m2 for >3 months is consistent with chronic kidney disease. Refer to KDOQI guidelines for clinical interpretation. In patients with unstable renal function, e.g. those with acute kidney injury, the eGFR may not accurately reflect actual GFR. Specimen (Source)Anatomical Location / LateralityCollection Method / Volume Collection TimeReceived TimeBlood specimen (specimen)BLOOD SPECIMEN / Unknown 09/08/2016 12:06 PM EST09/08/2016 12:08 PM EST Narrative Authorizing ProviderResult TypeResult StatusPatrick Finesse Hollis MDLABORATORYFinal ResultPerforming OrganizationAddressCity/State/ZIP CodePhone Number [facility] [address] [place] [address] from Last 3 Months or Most Recently Relevant to Health Maintenance Insurance * Guarantor: Alfredo BlakeAccount TypeRelation to PatientDate of BirthPhone Billing AddressPersonal/WefmiaWhzp[address] [place] [address] Care Teams Team MemberRelationshipSpecialtyStart DateEnd Date Cassie Rodriguez MD [address] [place] [address] PCP - GeneralFamily Medicine05/02/22
--- OUTSIDE RECORDS SUMMARY | 2025-08-07 20:49 | XMS_ITS | Clinical Summary ---
Author Organization [facility] Healthcare Address [address] [place] [address] Care Team Providers Care Machine Maintenance Supervisor Name Role Phone Cassie Hassan MD Primary Care Provider [phone] Allergies Active AllergyReactionsCriticalityNoted SshbNzosmjifZbertqjjy51/15/2023 Other Reaction(s): Elevated BP Cqdxgtuzfp05/23/2024 Other Reaction(s): Hypertension, Unknown Medications MedicationSigDispense QuantityRefillsLast FilledStart DateEnd DateStatus aspirin 81 MG EC tablet Take 81 mg by mouth 1 (one) time.Active esomeprazole (NexIUM) [address] capsule Take 20 mg by mouth in the morning. Take before meals.Active ferrous sulfate 325 (65 Fe) MG tablet Take 325 mg by mouth 1 (one) time each day.Active cholecalciferol (Vitamin D-3) 125 MCG (5000 UT) capsule Take 5,000 Units by mouth Daily4Active ondansetron ODT (Zofran-ODT) 4 MG disintegrating tablet DISSOLVE 1 TABLET BY MOUTH EVERY 6 HOURS NEEDED FOR NAUSEA AND VOMITING 5Active tamsulosin (Flomax) 0.4 MG 24 hr capsule Indications:Kidney stoneTAKE 1 CAPSULE BY MOUTH EVERY DAY 100 capsule 5Active acyclovir (Zovirax) 400 MG tablet Indications:Recurrent cold soresTake 1 tablet (400 mg) by mouth Daily 100 tablet 5Active potassium chloride CR (Klor-Con) 10 MEQ ER tablet Indications:Vitamin D deficiencyTake 1 tablet (10 mEq) by mouth in the morning and 1 tablet (10 mEq) before bedtime. Take with food. 200 tablet 5Active traMADol (Ultram) 50 MG tablet Indications:Uterine leiomyoma, unspecified locationTake 1 tablet (50 mg) by mouth every 6 (six) hours if needed for severe pain for up to 5 days 20 tablet 5Active docusate sodium (Colace) 100 MG capsule Take 100 mg by mouth in the morning and 100 mg in the evening and 100 mg before bedtime.Active Inulin (FIBER CHOICE PO) Take 1 tablet by mouth in the morning and 1 tablet before bedtime.Active furosemide (Lasix) 40 MG tablet Indications:Localized edemaTake 1 tablet (40 mg) by mouth 2 (two) times a day as needed (Swelling) PRN 60 tablet 5Active warfarin (Coumadin) 5 MG tablet Indications:long-term current use of anticoagulant therapyTake 1 tablet (5 mg) by mouth See administration instructions Take 5 mg daily, except 7.5 mg on and Xyuzcbulg63/08/2025Active Azelastine HCl 137 MCG/SPRAY solution Indications:Seasonal allergic rhinitis due to pollenAdminister 1 spray into affected nostril(s) in the morning and 1 spray before bedtime. Do all this for 14 days. 30 mL 5Active losartan (Cozaar) 100 MG tablet Indications:Primary hypertensionTake 1 tablet (100 mg) by mouth Daily 90 tablet 5Active metoprolol succinate XL (Toprol-XL) 25 MG 24 hr tablet Indications:Finding of above normal blood pressureTake 1 tablet (25 mg) by mouth Daily 100 tablet 5Active phentermine (Adipex-P) 37.5 MG tablet Indications:Morbid (severe) obesity due to excess calories (CMS-HCC)Take 1 tablet (37.5 mg) by mouth in the morning. Take before meals. 30 tablet ctive phentermine (Adipex-P) 37.5 MG tablet Indications:Morbid (severe) obesity due to excess calories (CMS-HCC)Take 1 tablet (37.5 mg) by mouth in the morning. Take before meals. 30 tablet Discontinued(Reorder) Active Problems ProblemNoted DateDiagnosed DateIron deficiency lmgasa2603/21/2025Primary insomnia 03/21/2025bnormal bxnaouzabw45/03/2862Ewsmrddxlzjqus36/03/2025typical squamous cells of undetermined significance (ASC-US) on cervical Pap smear10/17/2024 Kidney stone10/17/2024Ureteral stone10/17/2024Primary osteoarthritis of both hips09/26/2024Pulmonary fibrosis, irwqgomdzvx45/11/2024Elevated liver enzymes 01/26/20240857Lnaxmenyafagn51/11/4963Ypcapgzggpub91/11/2024bnormal liver function test10/06/2023rimary ngkkwdbmlucw68/20/2024ortic valve iwmqrvykfrltm65/22/2023 Overview (05/08/2023): History: 4+ AR preop Assessment: S/P:Aortic valve replacement with 21mm mechanical valve Plan: ASA and Coumadin. - Surg path- Aortic valve, excision (A) - Severe fibrosis with post-inflammatory scarring. Mitral valve gdsucmizvrgoe20/22/2023 Overview (05/08/2023): History: 4+ MR Assessment: Mitral valve replacement with 25mm mechanical valve Plan: ASA and Coumadin. Dr. Snyder to follow INR. Goal INR 2.5-3.5 Abnormal nluvxxsjq69/15/2023typical squamous cells of undetermined significance (ASCUS) on Papanicolaou smear of nhprax2012/29/2022arpal tunnel syndrome, right 12/29/2022hronic GERD12/29/20221298Ckqkdcc56/15/2023H/O mitral valve replacement with mechanical valve12/29/2022History of 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 with mechanical valve12/29/2022Hot flashes due to rcrrgdyfs49/15/2023Leukocytosis 12/29/20223581Sveridkbksy62/15/2023Menstrual lpyfnd3112/29/2022Mild intermittent acute asthmatic ybqjcukyvw91/15/2023Mixed bhrftnbkfiwvjg01/15/2023Morbid (severe) obesity due to excess xthagqfu99/15/2023Other congenital malformations of lower limb(s), including pelvic bptjuo2012/29/2022Recurrent cold sores12/29/2022Right arm pain12/29/2022Seasonal allergic afdqgsdx06/15/2023Long term current use of anticoagulant kwcekje9608/03/2020Anticoagulation goal of INR 2.5 to 3. Overview (02/20/2023): History: Mechanical AVR/MVR Assessment: INR 3.1 Plan: INR goal 2.5-3.5. Continue coumadin. Dr. Snyder is following Coumadin. dc instructions faxed Cyst of ovary12/10/2011Leiomyoma of uterus, ryazpgivapd06/25/2012Recurrent major depressive disorder, in full pjvrvsudx02/24/2012Vitamin D letgclnnir56/15/2011 Resolved Problems ProblemNoted DateDiagnosed DateResolved DateAbdominal pain/ Body mass index (BMI) 40.0-44.9, adultFinding of above normal blood yxjnvvci93/ Encounters DateTypeDepartmentCare DuguTaacduvwuhb54/22/2025 10:00 AM ESTProcedure Visit [facility] [place] [address] [place] [address] Fadumo Quiñones PA Well woman exam with routine gynecological exam; Postmenopausal state; Breast cancer screening by cyhgadsug89/22/2025amboo flowsheet [facility] [place] [address] [place] [address] Fadumo Quiñones PA 07/31/2025 9:30 AM ESTOffice Visit [facility] [place] [facility] [address] [place] [phone] Jayleen Iyer PA Paroxysmal atrial fibrillation (HCC) (Primary Dx); H/O mitral valve replacement with mechanical valve; History of 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 with mechanical valve; Need for vaccination; Morbid (severe) obesity due to excess calories (CMS-HCC); Anticoagulation goal of INR 2.5 to 3.5; Recurrent major depressive disorder, in full ambeqncwh03/15/2025amboo flowsheet [facility] [place] [facility] [address] [facility] [address] [place] [address] Jayleen Iyer PA 07/31/20258465Glhgoo60/09/2025Refill [facility] [place] [facility] [address] [facility] [address] [place] [address] Jayleen Iyer PA Morbid (severe) obesity due to excess calories ([facility]-HCC)07/03/2025 8:30 AM EST Office Visit [facility] [place] [facility] [address] [facility] [address] [place] [address] Kristen Perez, MULTIMEDIA COORDINATOR Morbid (severe) obesity due to excess calories ([facility]-HCC) (Primary Dx); Anticoagulation goal of INR 2.5 to 3.5; Anticoagulated; Paroxysmal atrial fibrillation (HCC)07/03/2025Results Follow-Up [facility] [place] [facility] [address] [facility] [address] [place] [address] Kristen Perez, MULTIMEDIA COORDINATOR POCT Protime-INR, fingerstick docked yrpsxm4007/03/2025amboo flowsheet [facility] [place] [facility] [address] [facility] [address] [place] [address] Kristen Perez, MULTIMEDIA COORDINATOR 07/03/20253692Bomdpp48/10/2025bstract [facility] [place] [facility] [address] [facility] [address] [place] [address] Cassie Hassan MD 06/24/2025Refill [facility] [place] [facility] [address] [facility] [address] [place] [address] Jayleen Iyer PA Morbid (severe) obesity due to excess calories ([facility]-HCC)06/18/2025Refill [facility] [place] [facility] [address] [facility] [address] [place] [address] Jayleen Iyer PA Finding of above normal blood ydnhyxhp32/19/2025Refill [facility] [place] [place] [address] Jayleen Iyer PA Primary lnkmwncuegjq50/06/2025 9:00 AM EDTOffice Visit NOM [place] [address] [place] [address] Jayleen Iyer PA Primary hypertension (Primary Dx); H/O mitral valve replacement with mechanical valve; History of 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 with mechanical valve; Anticoagulation goal of INR 2.5 to 3.5; Morbid (severe) obesity due to excess calories ([facility]-HCC); Primary insomnia; Seasonal allergic rhinitis due to kqqajk9105/22/2025bstract NOM[address] [place] [address] Cassie Hassan MD 05/22/2025amboo [facility]sheet [facility] [place] [address] [place] [phone] Jayleen Iyer PA 05/22/2025Travelfrom Last 3 Months Immunizations ImmunizationAdministration DatesNext DueInfluenza, Madin Dunn Canine Kidney, subunit, trivalent, injectable, contains iksshqandqln51/15/2025Influenza, injectable, nwcergmonpbq09/01/2017Influenza, injectable, quadrivalent, preservative free06/24/2023,06/16/2022,06/11/2021Influenza, seasonal, injectable, preservative free06/02/2024Influenza, seasonal, intradermal, preservative free05/10/2020,05/31/2019Moderna SARS-CoV-2 Lkhmmpztsgi37/13/2021 Pneumococcal Polysaccharide JACI2296 Family History Medical HistoryRelationNameCommentsHeart diseaseFatherHeart diseaseMother HypertensionMotherThyroid diseaseMotherHypothyroidismSisterRelationNameStatus CommentsFatherDeceasedMotherAliveSister Social History Tobacco UseTypesPacks/DayYears UsedDateSmoking Tobacco: NeverSmokeless Tobacco: Never Tobacco Cessation:Counseling Given: Yes Alcohol UseStandard Drinks/WeekCommentsNot Currently0 (1 standard drink = 0.6 oz pure alcohol)PHQ-2AnswerDate RecordedPatient Health Questionnaire-2 Score0 07/31/2025CommentsNoSex and Gender InformationValueDate RecordedSex Assigned at BirthNot on fileLegal SlpRmjolw53/15/2023 7:01 PM EDTGender Identity Not on fileSexual OrientationNot on file Last Filed Vital Signs Vital SignReadingTime TakenCommentsBlood Yarxxlph468/8408/07/2025 10:10 AM EST Jpnsj326707/31/2025 9:41 AM FAYCxsszepkiyb52.3 ??C (99.1 ??F)05/22/2025 9:01 AM EDTRespiratory Izqo118510/01/2024 9:41 AM ESTOxygen Ucoriiddky28%07/31/2025 9:41 AM ESTInhaled Oxygen Concentration--Qskada000 kg (221 lb)08/07/2025 10:10 AM EST Eexuua472.6 cm (5' 6 )07/31/2025 9:41 AM ESTBody Mass Index35.6707/31/2025 9:41 AM EST Plan of Treatment DateTypeDepartmentCare Team (Latest Contact Info)Upxgohtemxc31/19/2026 9:00 AM ESTOffice Visit [facility] [place] [facility] [address] [facility] [address] [place] [address] Jayleen Iyer PA [address] [facility] [address] [place] [address] Health MaintenanceDue DateLast DoneCommentsCT Igzgubvwnpeu1974Colonoscopy 1975FIT1975FOBT1975 0071Nctmvpnyfqgwf1974HPV/Igjkyb2703/12/2004 Pneumococcal Vaccine: Pediatrics (0 to 5 Years) and At-Risk Patients (6 to 64 Years) (2 of 2 - PCV)/9687Pcbgyhnve81/13/117912/, 09/30/2021, 04/26/2021, Additional history existsCOVID-19 Vaccine ( season)504/, 10/30/2020olorectal Cancer Dbesnsazc94/27/2027 FIT-DNAervical Cancer Xinugszlq82/16/2027Pap Smear Influenza MlkvwqgWhbanebbr66/15/2025, 06/02/2024, 06/24/2023, Additional history exists Procedures Procedure NamePriorityDate/TimeAssociated DiagnosisCommentsPOCT PROTIME-INR, QRPGFJRRXRAQruqrvn28/15/2025 9:59 AM EST Paroxysmal atrial fibrillation (HCC) H/O mitral valve replacement with mechanical valve History of 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 with mechanical valve POCT PROTIME-INR, EQPNOXXGYBQGxrhjvw33/17/2025 10:01 AM EST Anticoagulation goal of INR 2.5 to 3.5 Anticoagulated POCT PROTIME-INR, LMBAVBXPQDOQotirim21/06/2025 8:56 AM EDT H/O mitral valve replacement with mechanical valve History of 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 with mechanical valve PAP TEST, KPIOTFGSWnarqbv31/16/2024 12:00 AM EDTLAB COLOGUARD?? COLON CANCER ZWBRTORcrlbtp42/27/2024 7:50 PM EDT Screening for malignant neoplasm of colon MM TOMOSYNTHESIS SCREENING BI09/29/2023 3:10 PM EST from Last 3 Months or Most Recently Relevant to Health Maintenance Results * (ABNORMAL) POCT Protime-INR, fingerstick docked device (07/31/2025 9:59 AM EST) Only the most recent of3 resultswithin the time period is included. ComponentValueRef RangeTest MethodAnalysis TimePerformed AtPathologist Signature RESULTS2.0Specimen (Source)Anatomical Location / LateralityCollection Method / VolumeCollection TimeReceived TimeBloodVenous blood specimen / Xmgsbkf0307/31/2025 9:59 AM EST Narrative Authorizing ProviderResult TypeResult StatusKaren M Hemmer PAPOINT OF CARE TEST ENTER/EDIT ORDERABLESFinal Result * PAP TEST, EXTERNAL (05/02/2024 12:00 AM EDT) Narrative Authorizing ProviderResult TypeResult StatusFadumo DREW CYTOLOGY ORDERABLES Final ResultPerforming OrganizationAddressCity/State/ZIP CodePhone Number EXTERNAL LAB * Cologuard?? colon cancer screening (04/12/2024 7:50 PM EDT)ComponentValueRef RangeTest MethodAnalysis TimePerformed AtPathologist SignatureNONINV COLON CA DNA+OCC BLD SCRN STL-HCXTawshpjpQgkaetnd64/04/2024 1:34 AM EDTEXPsonar (CLIA #:[id number])Comment: NEGATIVE TEST RESULT. A negative Cologuard result indicates a low likelihood that a colorectal cancer (CRC) or advanced adenoma (adenomatous polyps with more advanced pre-malignant features) ??is present. The chance that a person with a negative Cologuard test has a colorectal cancer is less than 1in 1500 (negative predictive value >99.9%) or has an advanced adenoma is less than 5.3% (negative predictive value 94.7%). These data are based on a prospective cross-sectional study of 10,000individuals at average risk for colorectal cancer who were screened with both Cologuard and colonoscopy. (Jonathon Henning et al, N Engl J Med 2014;370(14):0124-9049) The normal value (reference range) for this assay is negative. COLOGUARD RE-SCREENING RECOMMENDATION: Periodic colorectal cancer screening is an important part ofpreventive healthcare for asymptomatic individuals at average risk for colorectal cancer. ??Following a negative Cologuard result, the [place] [employer] and U.S. Multi-Society Task Force screening guidelines recommend a Cologuard re-screening interval of 3 years. References: [place] [employer] Guideline for Colorectal Cancer Screening: https://www.cancer.or g/cancer/vetwq-yutpif-nvxkjk/lqyvpmwdi-vcsywuviu-kejuwws/acs-recommendations.htm jessica; Wilfred SNEED, Jovanna VILLATORO, Prosper CARROLL, Colorectal Cancer Screening: Recommendations for Physicians and Patients from the U.S. Multi-Society Task Force on Colorectal Cancer Screening , Am J Gastroenterology 2017; 112:8329-5276. TEST DESCRIPTION: Composite algorithmic analysis of stool DNA-biomarkers with hemoglobin immunoassay. ?? Quantitative values of individual biomarkers are not reportable and are not associated with individual biomarker result reference ranges. Cologuard is intended for colorectal cancer screening ofadults of either sex, 45 years or older, who are at average-risk for colorectal cancer (CRC). Cologuard has been approved for use by the U.S. FDA. The performance of Cologuard was established in a cross sectional study of average-risk adults aged 50-84. Cologuard performance in patients ages 45 to 49 years was estimated by sub-group analysis of near-age groups. Colonoscopies performed for a positive result may find as the most clinically significant lesion: colorectal cancer [4.0%], advanced adenoma (including sessile serrated polyps greater than or equal to 1cm diameter) [20%] or non- advanced adenoma [31%]; or no colorectal neoplasia [45%]. These estimates are derived from a prospective cross-sectional screening study of 10,000 individuals at average risk for colorectal cancer who were screened with both Cologuard and colonoscopy. (Jonathon Murrell al, N Engl J Med 2014;370(14):2909-1847.) Cologuard may produce a false negative or false positive result (no colorectal cancer or precancerous polyp present at colonoscopy follow up). A negative Cologuard test result does not guarantee the absence of CRC or advanced adenoma (pre-cancer). The current Cologuard screening interval is every 3 years. ([place] [employer] and U.S. Multi-Society Task Force). Cologuard performance data in a 10,000 patient pivotal study using colonoscopy as the reference method can be accessed at the following location: www.Vericept.Magic Leap/results. Additional description of the Cologuard test process, warnings and precautions can be found at www.[employer]ard.com. Specimen (Source)Anatomical Location / LateralityCollection Method / Volume Collection TimeReceived TimeStool specimen (specimen)04/12/2024 7:50 PM EDT 04/14/2024 2:26 PM EDT Narrative Authorizing ProviderResult TypeResult StatusJayleen Iyer [facility] ORDERABLESFinal ResultPerforming OrganizationAddressCity/State/ZIP CodePhone Number [facility] (CLIA #:[id number]) [place] [address], * MM TOMOSYNTHESIS SCREENING BI (09/29/2023 3:10 PM EST)Anatomical Region LateralityModalityOtherSpecimen (Source)Anatomical Location / Laterality Collection Method / VolumeCollection TimeReceived Time09/29/2023 3:10 PM EST Narrative 09/29/2023 3:11 PM EST [facility] ?[address] ? [place] [address] ? Mammography Report ? Signed ? Patient: ESHA,ALFREDO S ?MR#: [id number] ?? : 1975 ?Acct:[id number] ?? Age/Sex: 48 / F ?ADM Date: 09/29/23 ?? Loc: [place] ? Attending Dr: CASSIE HASSAN ? Ordering Physician: CASSIE HASSAN ? Results: ? Date of Service: 09/29/23 ?Follow Up: ? Procedure(s): MM tomosynthesis screening BI ?? Accession Number(s): [id number] ? cc: CASSIE HASSAN ? Patient Name: ? ALFREDO BALBUENA ? MR#: [id number] ? : 1975 ? Exam Date: 09/29/2023 ?? Ordering Doctor: DR CASSIE HASSAN M.D. ? RADIOLOGY REPORT ? PROCEDURE: ? MM TOMOSYNTHESIS SCREENING BI ? COMPARISON: ? MG MAMM DX 3D RT CAD, 09/30/2021. ??MG MAMM SCREEN 3D DIANDRA CAD, ?? 04/26/2021. ? INDICATIONS: ? Screening ? Calculator Name ? NCI Breast Cancer Risk Assessment Tool ?? 5 Year Breast Cancer Risk ? Not Reported. ?? Lifetime Breast Cancer Risk ? Not Reported. ?? Personal Breast Cancer ?No ?? Personal Ovarian Cancer ? No ?? Treatments ? None ?? Family Cancers ? None ? LOCATION: ? [facility] ? BREAST COMPOSITION: ? Heterogeneously dense,which may obscure small masses. ? FINDINGS: ? DIAGNOSTIC CATEGORY 2--BENIGN FINDING. NO CHANGE FROM COMPARISON. ? Scattered benign-appearing calcifications are present. ??Scattered ?? benign-appearing lymph nodes are present. ? RIGHT BREAST: ??No significant suspicious finding. ? LEFT BREAST: ??No significant suspicious finding. ? RECOMMENDATIONS: ? ROUTINE MAMMOGRAM AND CLINICAL EVALUATION IN 12 MONTHS. ? PLEASE NOTE: ??A NORMAL MAMMOGRAM DOES NOT EXCLUDE THE POSSIBILITY OF BREAST ?? CANCER. ??A CLINICALLY SUSPICIOUS PALPABLE LUMP SHOULD BE BIOPSIED. ? Dictated by: Rahul Warren MD on 09/29/2023 at 15:09 ? Approved by: Rahul Warren MD on 09/29/2023 at 15:10 ? Dictated By: ?Rahul Warren M.D. ? Signed By: ?09/29/23 1511 ? DD/ 1510 ? TD/TT: ? Dewatering Filtering Supervisor: Procedure Note Radiology, Radiologist, MD - 09/29/2023 [place] [address] Mammography Report Signed Patient: ALFREDO BALBUENA [facility]#: [id number] : 1975Acct:[id number] Age/Sex: 48 / FADM Date: 09/29/23 Loc: [place] Attending Dr: CASSIE HASSAN Ordering Physician: Mynor HASSANults: Date of Service: 09/29/23Follow Up: Procedure(s): MM tomosynthesis screening BI Accession Number(s): [id number] cc: CASSIE HASSAN Patient Name: ALFREDO BALBUENA MR#: [id number] : 1975 Exam Date: 09/29/2023 Ordering Doctor: DR CASSIE HASSAN M.D. RADIOLOGY REPORT PROCEDURE: MM TOMOSYNTHESIS SCREENING BI COMPARISON: MG MAMM DX 3D RT CAD, 09/30/2021. MG MAMM SCREEN 3D BILCAD, 04/26/2021. INDICATIONS: Screening Calculator Name NCI Breast Cancer Risk Assessment Tool 5 Year Breast Cancer Risk Not Reported. Lifetime Breast Cancer Risk Not Reported. Personal Breast Cancer No Personal Ovarian Cancer No Treatments None Family Cancers None LOCATION: [facility] BREAST COMPOSITION: Heterogeneously dense,which may obscure smallmasses. FINDINGS: DIAGNOSTIC CATEGORY 2--BENIGN FINDING. NO CHANGE FROM COMPARISON. Scattered benign-appearing calcifications are present. Scattered benign-appearing lymph nodes are present. RIGHT BREAST: No significant suspicious finding. LEFT BREAST: No significant suspicious finding. RECOMMENDATIONS: ROUTINE MAMMOGRAM AND CLINICAL EVALUATION IN 12 MONTHS. PLEASE NOTE: A NORMAL MAMMOGRAM DOES NOT EXCLUDE THE POSSIBILITY OFBREAST CANCER. A CLINICALLY SUSPICIOUS PALPABLE LUMP SHOULD BE BIOPSIED. Dictated by: Rahul Warren MD on 09/29/2023 at 15:09 Approved by: Rahul Warren MD on 09/29/2023 at 15:10 Dictated By: Rahul Warren M.D. Signed By:09/29/23 1511 DD/ 1510 TD/TT: Dewatering Filtering Supervisor: Authorizing ProviderResult TypeResult StatusCassie Hassan [facility] Final Result from Last 3 Months or Most Recently Relevant to Health Maintenance Insurance Care Teams Team MemberRelationshipSpecialtyStart DateEnd Date Cassie Hassan MD [address] [facility] [address] [place] [address] [facility]CP - [facility]01/14/23
--- OUTSIDE RECORDS SUMMARY | 2025-08-07 20:49 | XMS_ITS | Encounter Summary ---
Author Organization [facility] Address [address] [facility] [place] [address] Care Team Providers Care Head Pumper Name Role Phone Cassie Rodriguez MD Primary Care Provider [phone] Encounter Details DateTypeDepartmentCare Team (Latest Contact Info)Nbzdszturmg45/15/2025Travel Social History Tobacco UseTypesPacks/DayYears UsedDateSmoking Tobacco: NeverSmokeless Tobacco: NeverAlcohol UseStandard Drinks/WeekCommentsNot Currently0 (1 standard drink = 0.6 oz pure alcohol)PHQ-2AnswerDate RecordedPatient Health Questionnaire-2 Score CommentsNoSex and Gender InformationValueDate RecordedSex Assigned at BirthNot on fileLegal DagXiakwi48/15/2023 7:01 PM EDTGender Identity Not on fileSexual OrientationNot on filedocumented as of this encounter Plan of Treatment DateTypeDepartmentCare Team (Latest Contact Info)Tiiduxeyktc93/19/2026 9:00 AM ESTOffice Visit [facility] [place] [address] [place] [address] [place] [address] Jayleen Iyer PA [address] [place] [address] [place] [address] documented as of this encounter Visit Diagnoses Not on filedocumented in this encounter Care Teams Team MemberRelationshipSpecialtyStart DateEnd Date Cassie Rodriguez MD [address] [place] [address] PCP - GeneralFamily Medicine01/14/23documented as of this encounter
--- OUTSIDE RECORDS SUMMARY | 2025-08-07 20:49 | XMS_ITS | Encounter Summary ---
Author Organization [facility] Address [address] [facility] [place] [address] Care Team Providers Care Retail Customer Service Representative Name Role Phone Cassie Rodriguez MD Primary Care Provider [phone] Encounter Details DateTypeDepartmentCare Team (Latest Contact Info)Dcdsjecdqvr52/22/2025amboo flowsheet [facility] [address] [place] [address] Fadumo Quiñones PA [address] [facility] [address] [place], [facility] Social History Tobacco UseTypesPacks/DayYears UsedDateSmoking Tobacco: NeverSmokeless Tobacco: NeverAlcohol UseStandard Drinks/WeekCommentsNot Currently0 (1 standard drink = 0.6 oz pure alcohol)PHQ-2AnswerDate RecordedPatient Health Questionnaire-2 Score CommentsNoSex and Gender InformationValueDate RecordedSex Assigned at BirthNot on fileLegal TdkFbufcl67/15/2023 7:01 PM EDTGender Identity Not on fileSexual OrientationNot on filedocumented as of this encounter Plan of Treatment DateTypeDepartmentCare Team (Latest Contact Info)Eaqpfbgzxnr61/19/2026 9:00 AM ESTOffice Visit [facility] [place] [address] [place] [id number] Jayleen Iyer PA [address] [place] [address] documented as of this encounter Visit Diagnoses Not on filedocumented in this encounter Care Teams Team MemberRelationshipSpecialtyStart DateEnd Date Cassie Rodriguez MD [address] [phone] PCP - GeneralFamily Medicine01/14/23documented as of this encounter
--- OUTSIDE RECORDS SUMMARY | 2025-08-07 20:49 | XMS_ITS | Encounter Summary ---
Author Organization [facility] Address [address] [facility] [place] [address] Care Team Providers Care Cashier Wrapper Name Role Phone Cassie Rodriguez MD Primary Care Provider [phone] Reason for Referral * Medications - ClosedSpecialtyDiagnoses / ProceduresReferred By ContactReferred To Contact Diagnoses Morbid (severe) obesity due to excess calories (CMS-HCC) Amy Serrano NP [address] [facility] [address] [place] [address] Phone: tel: fax: Referral IDStatusReasonStart DateExpiration DateVisits RequestedVisits [id number] Reason for Visit * ReasonOnset DateCommentsMed Atgdqv6207/26/2025 Encounter Details DateTypeDepartmentCare Team (Latest Contact Info)Wtzwqtrfali75/09/2025Refill [facility] [place] [facility] [place] [address] [facility] [address] [place] [address] Jayleen Iyer PA [address] [facility] [address] [place] [address] Morbid (severe) obesity due to excess calories (CMS-HCC) Social History Tobacco UseTypesPacks/DayYears UsedDateSmoking Tobacco: NeverSmokeless Tobacco: NeverAlcohol UseStandard Drinks/WeekCommentsNot Currently0 (1 standard drink = 0.6 oz pure alcohol)PHQ-2AnswerDate RecordedPatient Health Questionnaire-2 Score CommentsNoSex and Gender InformationValueDate RecordedSex Assigned at BirthNot on fileLegal OdqNqekqu92/15/2023 7:01 PM EDTGender Identity Not on fileSexual OrientationNot on filedocumented as of this encounter Plan of Treatment DateTypeDepartmentCare Team (Latest Contact Info)Ggqlkkzqvjm92/19/2026 9:00 AM ESTOffice Visit [facility] [place] [facility] [address] [facility] [address] [place] [address] Jayleen Iyer PA [address] [facility] [address] [place] [address] documented as of this encounter Visit Diagnoses Diagnosis Morbid (severe) obesity due to excess calories (CMS-HCC) documented in this encounter Care Teams Team MemberRelationshipSpecialtyStart DateEnd Date Cassie oRdriguez MD [address] [facility] [address] [place] [address] PCP - GeneralFamily Medicine01/14/23documented as of this encounter
== END 2025-08-07 20:46 | disposition home or self-care (01) ==
LOC: LAB 20:45
PROVIDERS: PCP Family Medicine; Visit Provider Physician Assistant
DX: Z01.419 Encounter for gynecological examination (general) (routine) without abnormal findings (principal)
CPT/HCPCS: 88175